=== PATIENT | male | born 1965 | race Caucasian/White ===

== ENCOUNTER 2016-06-24 07:48 | Day surgery (SDC) | payer MEDICARE, OTHER ==
[2016-06-22 09:21] VITALS: BMI 22.6
[~2016-06-24 07:48] MED LIST: LACTATED RINGERS 1,000 ML IV SCH
[2016-06-24] MEDS ORDERED: LIDOCAINE 1% 20 ML VIAL (10MG/ML) FOR IV START INTRADERMA ONE (07:58)
[2016-06-24 08:11] VITALS: RESP 16
[2016-06-24] MEDS ORDERED: DEXTROSE 50%-WATER 50 ML SYRINGE IVP ONE (08:23)
[2016-06-24 08:36] LABS: Glucose,Whole Blood 61 mg/dL (75-99)
[2016-06-24 08:38] LABS: Glucose,Whole Blood 102 mg/dL (75-99)
[2016-06-24] MEDS ORDERED: MIDAZOLAM 2 MG/2 ML VIAL IV ONE (08:43)
[2016-06-24] MEDS ORDERED: LIDOCAINE 1% INJ 10MG/ML (20 ML MDV) ONE (09:44)
[2016-06-24] MEDS ORDERED: PROPOFOL 10 MG/ML 20 ML VIAL IV ONE (09:44)
--- NOTE | 2016-06-24 10:46 | P.PCN ---
Date of Procedure: 06/24/16 Procedure(s) Performed: Procedures: 1. Esophagogastroduodenoscopy and biopsy. 2. Total colonoscopy. Preoperative diagnosis: Chronic reflux and regurgitation and change in bowel habits. Postoperative diagnosis: 1. Very small sliding hiatal hernia with no obvious esophagitis or Complicated reflux disease. 2. Mild antral gastritis and minimal duodenitis with no ulcers or gastric outlet obstruction. 3. Colon exam essentially within normal limits. Preparation: HalfLytely prep. Sedation: Was provided by anesthesia. Brief clinical history: The patient is a 51-year-old male who I have evaluated in the office last month regarding altered bowel habits and reflux and regurgitation. The patient has history of autism and developmental disability and PICA. No alarm symptoms or anemia. This would be his first upper and lower endoscopy. Procedure: With the patient on his left lateral decubitus position and after informed consent and adequate sedation, I passed the Olympus-GIF 160 video upper endoscope through the cricopharyngeus down the esophagus. GE junction was around 40 cm from the incisors and there was a very small sliding hiatal hernia. The esophagus did not show any obvious erosions, ulcers, strictures or Quinteros's esophagus. The endoscope was then passed into the stomach which was insufflated with air and inspected in detail including the retroflex view in the cardia. There was some mottling and erythema in the antrum but no ulcers or erosions. Pyloric channel did not show any ulcers. Duodenal bulb, post bulbar area and descending duodenum showed minimal erythema. I obtained multiple biopsies from the duodenum, antrum and esophagus then the endoscope was withdrawn and I proceeded with the colonoscopy. Perianal area was inspected and it did not show any fissures or fistulas. There were no masses felt on digital rectal examination. The Olympus CFQ 160L video colonoscope was then inserted in the rectum in the usual fashion and advanced to the cecum. The preparation was poor, however, I spent significant amount of time cleansing the bowel. The mucosa appeared healthy. No polyps or tumors were seen or any obvious diverticular disease. I retroflexed endoscope in the rectum before the endoscope was withdrawn. The patient tolerated the procedure well. Plan: The patient and his family and caregivers were reassured. Will await pathology results. He will follow up with you as planned and further plans can be made based on his course and biopsy results.
[2016-06-24 10:59] VITALS: PULSE 71
[2016-06-24 11:03] VITALS: BP 123/68
== END 2016-06-24 11:16 | disposition home or self-care (01) ==
LOC: ORWHC2ENDO 07:48
DX: K29.50 Unspecified chronic gastritis without bleeding (principal); K21.0 Gastro-esophageal reflux disease with esophagitis; K44.9 Diaphragmatic hernia without obstruction or gangrene; K29.80 Duodenitis without bleeding; R19.4 Change in bowel habit; F84.0 Autistic disorder; F79 Unspecified intellectual disabilities; F50.89 Other specified eating disorder; I10 Essential (primary) hypertension; E78.5 Hyperlipidemia, unspecified; E11.9 Type 2 diabetes mellitus without complications; F32.9 Major depressive disorder, single episode, unspecified; Z79.84 Long term (current) use of oral hypoglycemic drugs; Z79.899 Other long term (current) drug therapy
CPT/HCPCS: 88305; 88342; 45378; 43239; J2250; J2001; J2704

== ENCOUNTER → 2016-07-16 | Outpatient (CLI) | payer MEDICARE, OTHER ==
[2016-07-16 10:35] LABS: Basophils # (A) 0.1 k/uL (0-0.2); Basophils % (A) 1 %; CH 32.2; CHCM 33.3; Eosinophils # (A) 0.1 k/uL (0-0.7); Eosinophils % (A) 2 %; HCT 39.6 % (39.0-53.0); HDW 2.67; HGB 12.9 gm/dL (13.0-17.5); Luc # (Auto) 0.18; Luc % (Auto) 3; Lymphocytes # (A) 2.5 k/uL (1.0-4.8); Lymphocytes % (A) 40 %; MCH 31.7 pg (25.0-35.0); MCHC 32.6 g/dL (31.0-37.0); MCV 97.1 fL (80.0-100.0); Mean Platelet Volume 7.2; Monocytes # (A) 0.7 k/uL (0-1.0); Monocytes % (A) 10 %; Neutrophils # (A) 2.8 k/uL (1.3-7.7); Neutrophils % (A) 44 %; RBC 4.08 m/uL (4.30-5.90); RDW 13.8 % (11.5-15.5); WBC 6.3 k/uL (3.8-10.6); WBC (Perox) 6.79
[2016-07-16 10:55] LABS: Bilirubin, Delta 0.2 mg/dL (0.0-0.2); Total Bilirubin 0.4 mg/dL (0.2-1.3); Total Protein 6.5 g/dL (6.3-8.2)
[2016-07-16 11:49] LABS: Hemoglobin A1C 5.2 % (4.2-6.1)
== END | disposition home or self-care (01) ==
LOC: LABWHC1 06:49
PROVIDERS: ATTEND Psychiatry & Neurology Psychiatry
DX: T50.905A Adverse effect of unspecified drugs, medicaments and biological substances, initial encounter (principal)
CPT/HCPCS: 36415; 80076; 80164; 83036; 84443; 85025

== ENCOUNTER 2016-08-21 16:44 | Emergency (ER) | payer MEDICARE, OTHER ==
[2016-08-21 16:59] VITALS: TEMP 97.5
--- NOTE | 2016-08-21 17:15 | ED ---
Head Injury HPI - General Chief complaint: Head Injury Stated complaint: Head Injury Time Seen by Provider: 08/21/16 17:05 Source: family, RN notes reviewed Mode of arrival: ambulatory Limitations: altered mental status - History of Present Illness Initial comments: 51-year-old male presents emergency Department chief complaint of head injury. Patient states he hit his head into a wall today. This is common for the patient he does suffer from mental illness and he is often damaging his head on the wall. They state that he did not pass out he has not lost consciousness. They didn't know some lacerations other concern. The patient is up to date tetanus. There is not been any other symptoms patient at this time. Patient denies any recent fever, chills, shortness of breath, chest pain, back pain, abdominal pain, nausea vomiting, numbness or tingling, dysuria or hematuria, constipation or diarrhea, visual changes, or any other current symptoms. Place: home - Related Data Home Medications Medication Instructions Recorded Confirmed Levothyroxine Sodium [Synthroid] 25 mcg PO DAILY@0800 07/13/14 06/24/16 Lovastatin [Mevacor] 20 mg PO DAILY@159907/13/14 06/24/16 Divalproex [Depakote] 1,500 mg PO DAILY@0800,199904/21/15 06/24/16 Atenolol 12.5 mg PO DAILY@0800,199904/22/15 06/24/16 risperiDONE [risperiDONE] 3 mg PO DAILY@0800,199910/16/15 06/24/16 sitaGLIPtin [Januvia] 100 mg PO DAILY@159910/16/15 06/24/16 Cholecalciferol [Vitamin D3] 1,000 unit PO DAILY@0800,199906/22/16 06/24/16 FLUoxetine HCL [PROzac] 40 mg PO DAILY@0800 06/22/16 06/24/16 Ferrous Sulfate [Feosol] 325 mg PO DAILY@159906/22/16 06/24/16 Vitamin B Complex 1 each PO DAILY@0800 06/22/16 06/24/16 glipiZIDE XL [Glucotrol Xl] 5 mg PO DAILY@0800 06/22/16 06/24/16 guanFACINE HCL [Tenex] 1 mg PO DAILY@0800,1200,1600 06/22/16 06/24/16 guanFACINE HCL [Tenex] 2 mg PO DAILY@199906/22/16 06/24/16 Allergies/Adverse reactions: Allergies Allergy/AdvReac Type Severity Reaction Status Date / Time No Known Allergies Allergy Verified 08/21/16 16:59 Review of Systems ROS Statement: Those systems with pertinent positive or pertinent negative responses have been documented in the HPI. ROS Other: All systems not noted in ROS Statement are negative. Past Medical History Past Medical History: Diabetes Mellitus, GERD/Reflux, Hyperlipidemia, Hypertension, Pneumonia, Thyroid Disorder Additional Past Medical History / Comment(s): ocd, autism, mental retardation, has pica(has been known to eat his own feces), hx irreg rythym, regurgitates and re-swallows, picks at skin and has healing sore right great toe. 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 History of Any Multi-Drug Resistant Organisms: None Reported Past Surgical History: No Surgical Hx Reported Additional Past Surgical History / Comment(s): . 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 Past Psychological History: Anxiety Additional Psychological History / Comment(s): OCD Smoking Status: Never smoker Past Alcohol Use History: None Reported Past Drug Use History: None Reported - Past Family History Father History Unknown: Yes Mother History Unknown: Yes General Exam Limitations: altered mental status General appearance: alert, in no apparent distress Head exam: Present: other (he does appear to have a 3 cm laceration over the top of the head that is linear. No hematoma) Eye exam: Present: normal appearance, PERRL, EOMI. Absent: scleral icterus, conjunctival injection, periorbital swelling ENT exam: Present: normal exam, mucous membranes moist Neck exam: Present: normal inspection. Absent: tenderness, meningismus, lymphadenopathy Respiratory exam: Present: normal lung sounds bilaterally. Absent: respiratory distress, wheezes, rales, rhonchi, stridor Cardiovascular Exam: Present: regular rate, normal rhythm, normal heart sounds. Absent: systolic murmur, diastolic murmur, rubs, gallop, clicks GI/Abdominal exam: Present: soft, normal bowel sounds. Absent: distended, tenderness, guarding, rebound, rigid Neurological exam: Present: alert, oriented X3, CN II-XII intact, normal gait, reflexes normal. Absent: motor sensory deficit Psychiatric exam: Present: normal affect, normal mood Skin exam: Present: warm, dry, intact, normal color. Absent: rash Course Vital Signs 08/21/16 16:56 Temperature 97.5 F L Pulse Rate 74 Respiratory 20 Rate Blood Pressure 121/82 O2 Sat by Pulse 98 Oximetry Medical Decision Making - Medical Decision Making 51-year-old male presents for head injury. We discussed nicolle or stitches and they state the patient is a paper and he will pull them out. This time we do agree to Steri-Strips. He is up-to-date on tetanus. CAT scan is reviewed and negative. At this time we discussed return parameters discussed follow-up discussed with source for home. They state Jayesh and the plan. They will be discharged home. - Radiology Data Radiology results: report reviewed, image reviewed Disposition Clinical Impression: Scalp laceration, Minor head injury without loss of consciousness Disposition: HOME SELF-CARE Condition: Stable Instructions: Head Injury (ED), Steristrips (ED) Additional Instructions: Please use medication as discussed. Please follow up with family doctor if symptoms have not improved over the next two days. Please return to the emergency room if your symptoms increase or worsen or for any other concerns. Referrals: Nasir Mahajan MD [Primary Care Provider] - 1-2 days Time of Disposition: 18:04
--- NOTE | 2016-08-21 18:02 | CT ---
EXAMINATION TYPE: CT brain cspine wo con DATE OF EXAM: 08/21/2016 5:39 PM COMPARISON: Head CT 04/21/2015 HISTORY: Trauma today with multiple superior abrasions CT DLP: 1452.7 mGycm Automated exposure control for dose reduction was used. TECHNIQUE: CT scan of the head and cervical spine are performed without contrast. FINDINGS: There is cerebral cortical atrophy. There is no mass effect nor midline shift. There is n o sign of intracranial hemorrhage. There is increased density in the scalp over the right frontal bon e of uncertain significance. This is similar to old exam. I see no fracture. The cervical vertebra have normal alignment. Disc spaces are fairly normal. Skull base is intact. The re is no evidence of a fracture. The facet joints are intact. IMPRESSION: Cerebral atrophy. No acute intracranial abnormality. No change. Mild spondylotic changes in the cervical spine. No fracture.
[2016-08-21 18:16] VITALS: BP 155/83; PULSE 55; RESP 18
== END 2016-08-21 18:25 | disposition home or self-care (01) ==
LOC: EC 16:44
DX: S01.01XA Laceration without foreign body of scalp, initial encounter (principal); E11.9 Type 2 diabetes mellitus without complications; E78.5 Hyperlipidemia, unspecified; K21.9 Gastro-esophageal reflux disease without esophagitis; I10 Essential (primary) hypertension; F41.9 Anxiety disorder, unspecified; E07.9 Disorder of thyroid, unspecified; Z87.01 Personal history of pneumonia (recurrent); Z79.899 Other long term (current) drug therapy; W22.01XA Walked into wall, initial encounter
CPT/HCPCS: 70450; 72125; 99283

== ENCOUNTER → 2016-11-03 | Outpatient (CLI) | payer MEDICARE, OTHER ==
[2016-11-03 07:35] LABS: Basophils # (A) 0.1 k/uL (0-0.2); Basophils % (A) 1 %; CH 32.9; CHCM 33.2; Eosinophils # (A) 0.1 k/uL (0-0.7); Eosinophils % (A) 1 %; HCT 40.5 % (39.0-53.0); HDW 2.74; HGB 13.3 gm/dL (13.0-17.5); Luc # (Auto) 0.18; Luc % (Auto) 2; Lymphocytes # (A) 2.2 k/uL (1.0-4.8); Lymphocytes % (A) 29 %; MCH 32.6 pg (25.0-35.0); MCHC 32.7 g/dL (31.0-37.0); MCV 99.4 fL (80.0-100.0); Macrocytosis Slight; Mean Platelet Volume 7.6; Monocytes # (A) 0.8 k/uL (0-1.0); Monocytes % (A) 10 %; Neutrophils # (A) 4.3 k/uL (1.3-7.7); Neutrophils % (A) 57 %; RBC 4.07 m/uL (4.30-5.90); RDW 14.5 % (11.5-15.5); WBC 7.5 k/uL (3.8-10.6); WBC (Perox) 7.05
[2016-11-03 09:06] LABS: Hemoglobin A1C 5.2 % (4.2-6.1)
[2016-11-03 11:11] LABS: Bilirubin, Delta 0.2 mg/dL (0.0-0.2); Total Bilirubin 0.3 mg/dL (0.2-1.3); Total Protein 6.8 g/dL (6.3-8.2)
== END | disposition home or self-care (01) ==
LOC: LABWHC1 06:55
PROVIDERS: ATTEND Psychiatry & Neurology Psychiatry
DX: E13.9 Other specified diabetes mellitus without complications (principal); T50.905A Adverse effect of unspecified drugs, medicaments and biological substances, initial encounter; Z79.02 Long term (current) use of antithrombotics/antiplatelets
CPT/HCPCS: 36415; 80076; 80164; 83036; 84443; 85025

== ENCOUNTER → 2017-05-23 | Outpatient (CLI) | payer MEDICARE, OTHER ==
[2017-05-23 07:46] LABS: HGB 12.4 gm/dL (13.0-17.5); MCH 31.6 pg (25.0-35.0); MCHC 32.6 g/dL (31.0-37.0); MCV 96.8 fL (80.0-100.0); Mean Platelet Volume 7.1; Platelet Count 194 k/uL (150-450); RBC 3.92 m/uL (4.30-5.90); RDW 13.3 % (11.5-15.5); WBC 6.5 k/uL (3.8-10.6)
[2017-05-23 08:25] LABS: T4, Free (Free Thyroxine) 1.11 ng/dL (0.78-2.19)
[2017-05-23 17:17] LABS: Iron Saturation 34.3 (15.00-50.00)
== END | disposition home or self-care (01) ==
LOC: LABWHC1 07:05
PROVIDERS: ATTEND Family Medicine
DX: E78.00 Pure hypercholesterolemia, unspecified (principal); E63.9 Nutritional deficiency, unspecified; E55.9 Vitamin D deficiency, unspecified; E03.9 Hypothyroidism, unspecified; E11.9 Type 2 diabetes mellitus without complications; D63.8 Anemia in other chronic diseases classified elsewhere
CPT/HCPCS: 36415; 80061; 82306; 82550; 82728; 83540; 83550; 84439; 84443; 85027

== ENCOUNTER → 2017-10-05 | Outpatient (CLI) | payer MEDICARE, OTHER ==
[2017-10-05 08:08] LABS: Basophils % (A) 0 %; Eosinophils # (A) 0.1 k/uL (0-0.7); Eosinophils % (A) 1 %; HCT 37.2 % (39.0-53.0); HGB 12.6 gm/dL (13.0-17.5); Lymphocytes # (A) 1.4 k/uL (1.0-4.8); Lymphocytes % (A) 25 %; MCH 32.2 pg (25.0-35.0); MCV 94.7 fL (80.0-100.0); Mean Platelet Volume 7.2; Monocytes # (A) 0.7 k/uL (0-1.0); Monocytes % (A) 12 %; Neutrophils # (A) 3.3 k/uL (1.3-7.7); Neutrophils % (A) 60 %; Platelet Count 162 k/uL (150-450); RBC 3.92 m/uL (4.30-5.90); RDW 13.3 % (11.5-15.5); Reticulocyte % 3.5 % (0.5-2.0); WBC 5.6 k/uL (3.8-10.6)
[2017-10-05 09:52] LABS: ALT 21 U/L (21-72); AST 18 U/L (17-59); Albumin 3.4 g/dL (3.5-5.0); Alkaline Phosphatase 62 U/L (38-126); Anion Gap 6 mmol/L; Bilirubin, Delta 0.3 mg/dL (0.0-0.2); Bilirubin,Unconjugated 0.1 mg/dL (0.0-1.1); Blood Urea Nitrogen 22 mg/dL (9-20); Carbon Dioxide 29 mmol/L (22-30); Chloride 99 mmol/L (98-107); Cholesterol 177 mg/dL (<200); Creatine Kinase 48 U/L (55-170); Glucose 130 mg/dL (74-99); HDL Cholesterol 46 mg/dL (40-60); Potassium 4.6 mmol/L (3.5-5.1); Sodium 134 mmol/L (137-145); Total Bilirubin 0.4 mg/dL (0.2-1.3); Total Protein 6.4 g/dL (6.3-8.2); Triglycerides 416 mg/dL (<150)
[2017-10-05 09:58] LABS: Valproic Acid (Depakene) 81.2 ug/mL
[2017-10-05 10:11] LABS: T4, Free (Free Thyroxine) 0.92 ng/dL (0.78-2.19)
[2017-10-05 16:26] LABS: Iron Saturation 37.46 (15.00-50.00)
== END | disposition home or self-care (01) ==
LOC: LABWHC1 07:29
PROVIDERS: ATTEND Nurse Practitioner Psychiatric/Mental Health
DX: F84.0 Autistic disorder (principal); D64.9 Anemia, unspecified; E78.00 Pure hypercholesterolemia, unspecified; E03.9 Hypothyroidism, unspecified
CPT/HCPCS: 36415; 80053; 80061; 80164; 82248; 82550; 82607; 82728; 82747; 83540; 83550; 84439; 84443; 85025; 85045

== ENCOUNTER → 2017-10-26 | Outpatient (CLI) | payer MEDICARE, OTHER ==
--- NOTE | 2017-10-26 12:09 | FL ---
EXAMINATION TYPE: FL barium swallow w video DATE OF EXAM: 10/26/2017 MODIFIED SWALLOW / DEGLUTITION STUDY CLINICAL HISTORY: Dysphagia. TECHNIQUE: Deglutition study is performed utilizing thin liquid barium, honey and nectar thick liqui d barium, barium thick applesauce, and barium coated cracker. A total of 3 minutes 2 seconds of fluor oscopic time was utilized during procedure. Approximately 12 cine sequences were recorded. 0 images a re saved to PACS. COMPARISON: None. FINDINGS: Exam slightly suboptimal due to patient's underlying medical condition. The oral and pharyn geal phases show satisfactory initiation and propagation with all modalities tested. Satisfactory mas tication is seen with solid modalities tested. There is aspiration with rapid drinking of thin liqui d barium. No aspiration with other modalities. No significant pharyngeal residue was appreciated. IMPRESSION: Aspiration with rapid drinking of thin liquid barium. Please refer to speech therapist notes for further details if necessary.
== END | disposition home or self-care (01) ==
LOC: RADFLMAIN 10:51
PROVIDERS: ATTEND Family Medicine
DX: T17.910A Gastric contents in respiratory tract, part unspecified causing asphyxiation, initial encounter (principal)
CPT/HCPCS: 74230

== ENCOUNTER → 2017-12-09 | Outpatient (CLI) | payer MEDICARE, OTHER ==
[2017-12-09 07:47] LABS: Basophils % (A) 1 %; Eosinophils # (A) 0.1 k/uL (0-0.7); Eosinophils % (A) 2 %; HCT 39.3 % (39.0-53.0); HGB 12.5 gm/dL (13.0-17.5); Lymphocytes % (A) 31 %; MCHC 31.7 g/dL (31.0-37.0); MCV 97.5 fL (80.0-100.0); Mean Platelet Volume 6.7; Monocytes # (A) 0.8 k/uL (0-1.0); Monocytes % (A) 12 %; Neutrophils # (A) 3.4 k/uL (1.3-7.7); Neutrophils % (A) 52 %; Platelet Count 171 k/uL (150-450); RBC 4.03 m/uL (4.30-5.90); WBC 6.6 k/uL (3.8-10.6)
[2017-12-09 08:39] LABS: ALT 16 U/L (21-72); AST 20 U/L (17-59); Anion Gap 8 mmol/L; Blood Urea Nitrogen 23 mg/dL (9-20); Carbon Dioxide 30 mmol/L (22-30); Chloride 101 mmol/L (98-107); Potassium 4.6 mmol/L (3.5-5.1); Sodium 139 mmol/L (137-145)
[2017-12-09 09:07] LABS: Valproic Acid (Depakene) 69.5 ug/mL
--- NOTE | 2017-12-09 11:23 | MR ---
EXAMINATION TYPE: MR brain wo/w con DATE OF EXAM: 12/09/2017 COMPARISON: Prior brain MR 04/22/2015, CT brain 08/21/[address] 07/13/2014 HISTORY: brain Tumor and previous abnormal brain MRI TECHNIQUE: Multiplanar, multisequence images of the brain and brainstem is performed without and with IV contras t, utilizing 6.5 mL intravenous Gadavist . FINDINGS: Diffusion weighted images demonstrate no evidence of a recent infarct or other diffusion ab normality. There is no extra-axial fluid collection or significant interval change in white matter s ignal abnormality. The ventricular system and cisternal spaces are stable in size and appearance, ve ntriculomegaly again noted. The brain volume is stable. Midline structures demonstrate normal morphology. The craniocervical junction appears within normal limits. Post contrast images demonstrate no abnormal enhancement. The dural venous sinuses appear pa tent. The visualized sinuses are remarkable for mucosal thickening within the maxillary sinus and eth moid air cells, frontal sinus, inflammatory change present within the mastoid air cells on the right is mild, and the globes are intact. IMPRESSION: Stable findings. Mild hydrocephalus and nonspecific white matter demyelination, cortical atrophy. Sinus disease and inflammatory change mastoid air cells on the right.
== END | disposition home or self-care (01) ==
LOC: RADMRIMAIN 06:50
PROVIDERS: ATTEND Psychiatry & Neurology Neurology
DX: D49.6 Neoplasm of unspecified behavior of brain (principal); G91.9 Hydrocephalus, unspecified; G31.9 Degenerative disease of nervous system, unspecified; G37.8 Other specified demyelinating diseases of central nervous system; G93.41 Metabolic encephalopathy
CPT/HCPCS: 80164; 80051; 82565; 84450; 84460; 84520; 85025; 70553; 36415; A9581

== ENCOUNTER → 2018-05-29 | Outpatient (CLI) | payer MEDICARE, OTHER ==
[2018-05-29 17:00] LABS: Valproic Acid (Depakene) 103.9 ug/mL (50.0-100.0)
[2018-05-29 17:14] LABS: ALT 15 U/L (10-49); AST 22 U/L (14-35); Albumin/Globulin Ratio 1.44 (1.60-3.17); Alkaline Phosphatase 84 U/L (41-126); Bilirubin, Conjugated <0.20 mg/dL (0.20-0.40); Cholesterol 203 mg/dL (0-200); Globulin 2.7 g/dL (1.6-3.3); Glucose 147 mg/dL (70-110); LDL Cholesterol,Calculated 81.2 mg/dL (0.0-131.0); Total Bilirubin 0.4 mg/dL (0.2-1.2); Total Protein 6.6 g/dL (6.2-8.2)
[2018-05-29 18:34] LABS: Hemoglobin A1C 6.8 % (4.0-6.0)
== END | disposition home or self-care (01) ==
LOC: LABWHC1 07:54
PROVIDERS: ATTEND Nurse Practitioner Family
DX: Z51.81 Encounter for therapeutic drug level monitoring (principal); Z79.899 Other long term (current) drug therapy
CPT/HCPCS: 36415; 80061; 80076; 80164; 82565; 82947; 83036; 84439; 84443; 84520

== ENCOUNTER 2018-06-14 20:11 | Observation (INO) | payer MEDICARE, OTHER ==
[2018-06-14] MEDS ORDERED: IPRATROPIUM-ALBUTEROL 3 ML NEB INHALATION STA (20:47)
[2018-06-14] MEDS ORDERED: methylPREDNISolone SOD SUCCI 125 MG/2 ML VIAL IV STA (20:48)
[2018-06-14 20:58] LABS: Basophils % (A) 0 %; Eosinophils % (A) 0 %; HCT 38.4 % (39.0-53.0); HGB 12.4 gm/dL (13.0-17.5); Lymphocytes # (A) 1.1 k/uL (1.0-4.8); Lymphocytes % (A) 12 %; MCH 31.1 pg (25.0-35.0); MCHC 32.2 g/dL (31.0-37.0); MCV 96.6 fL (80.0-100.0); Mean Platelet Volume 7.2; Monocytes # (A) 0.8 k/uL (0-1.0); Monocytes % (A) 9 %; Neutrophils # (A) 6.9 k/uL (1.3-7.7); Neutrophils % (A) 77 %; Platelet Count 213 k/uL (150-450); RBC 3.98 m/uL (4.30-5.90); RDW 13.3 % (11.5-15.5)
[2018-06-14 21:06] LABS: ALT 18 U/L (21-72); AST 20 U/L (17-59); Albumin 3.5 g/dL (3.5-5.0); Alkaline Phosphatase 88 U/L (38-126); Anion Gap 12 mmol/L; Blood Urea Nitrogen 33 mg/dL (9-20); Calcium 9.2 mg/dL (8.4-10.2); Carbon Dioxide 25 mmol/L (22-30); Chloride 106 mmol/L (98-107); Glucose 314 mg/dL (74-99); Potassium 4.5 mmol/L (3.5-5.1); Sodium 143 mmol/L (137-145); Total Bilirubin 0.4 mg/dL (0.2-1.3); Total Protein 6.4 g/dL (6.3-8.2)
--- NOTE | 2018-06-14 21:20 | XR ---
EXAMINATION TYPE: XR chest 1V portable DATE OF EXAM: 06/14/2018 COMPARISON: 10/16/2015 HISTORY: Cough TECHNIQUE: Single frontal view of the chest is obtained. FINDINGS: There is poor inspiration. There is pleural thickening at the lung bases and blunting of c ostophrenic angles. There is basilar atelectasis. There is mild pulmonary congestion. IMPRESSION: There is basilar pulmonary atelectasis and pleural reaction not significantly different than old exam. There is probably some pulmonary fibrosis. Mild heart failure is possible.
[2018-06-14 21:21] LABS: INR 0.9 (<1.2); Prothrombin Time 9.8 sec (9.0-12.0)
--- NOTE | 2018-06-14 21:58 | CT ---
EXAMINATION TYPE: CT brain kevin wo con DATE OF EXAM: 06/14/2018 COMPARISON: 08/21/2016 HISTORY: Altered mental status. CT DLP: 1263.1 mGycm Automated exposure control for dose reduction was used. TECHNIQUE: CT scan of the head and cervical spine are performed without contrast. FINDINGS: There is cerebral cortical atrophy. There is no mass effect nor midline shift. There is n o sign of intracranial hemorrhage. Calvarium is intact. There is enlargement of the ventricles. Cervical vertebra have normal alignment. There is mild spurring of the endplates. Posterior elements are intact. Skull base is intact. IMPRESSION: Hydrocephalus and mild cerebral atrophy. No acute intracranial abnormality. No change. Spondylotic changes in the cervical spine. No fracture. No change compared to old exam.
[2018-06-14] MEDS ORDERED: SODIUM CHLORIDE 0.9% 500 ML 500 ML IV ONE (22:07)
[2018-06-14] MEDS ORDERED: CLINDAMYCIN 900 MG in DEXTROSE 5% IN WATER 50 ML IVPB STA ×2 (22:12)
[2018-06-14] MEDS ORDERED: PIPERACILLIN-TAZOBACTAM 3.375 GM in SODIUM CHLORIDE 0.9% 100 ML IVPB STA (22:12)
--- NOTE | 2018-06-14 22:12 | ED ---
General Adult HPI - General Source: EMS Mode of arrival: EMS Limitations: no limitations <Teresita Rios - Last Filed: 06/14/18 22:45> <Luz Law - Last Filed: 06/15/18 03:54> - General Chief complaint: Shortness of Breath Stated complaint: SOB Time Seen by Provider: 06/14/18 20:29 - History of Present Illness Initial comments: 53-year-old male past medical history of aspiration pneumonia, developmental delays, hydrocephalus, seizure disorder, hypertension, diabetes presenting today for cough and shortness of breath. 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 She states patient has been vomiting since yesterday morning. Denies any hematemesis. Today patient appeared weak upon ambulation. She states patient has had cough and appeared unwell. EMS was contacted and patient was transferred to the emergency department. Upon arrival patient can't be elevated. Patient has had multiple uncontrolled coughing fits. Patient is not hypoxic, protecting airway. Patient afebrile at this time. Patient received 500 mL fluid prior to arrival by EMS. Patient is unable to give history due to cognitive delays. All history is obtained from EMS and caretakers. Patient is alert, responding to commands, smiling. No obvious focal deficits. (Teresita Rios) - Related Data Home Medications Medication Instructions Recorded Confirmed Levothyroxine Sodium [Synthroid] 25 mcg PO DAILY 07/13/14 06/14/18 Lovastatin [Mevacor] 20 mg PO DAILY 07/13/14 06/14/18 Divalproex [Depakote] 1,500 mg PO BID 04/21/15 06/14/18 risperiDONE 3 mg PO BID 10/16/15 06/14/18 sitaGLIPtin [Januvia] 100 mg PO DAILY 10/16/15 06/14/18 Cholecalciferol [Vitamin D3] 1,000 unit PO BID 06/22/16 06/14/18 FLUoxetine HCL [PROzac] 40 mg PO DAILY 06/22/16 06/14/18 Ferrous Sulfate [Feosol] 325 mg PO DAILY 06/22/16 06/14/18 Vitamin B Complex 1 cap PO DAILY 06/22/16 06/14/18 guanFACINE HCL [Tenex] 2 mg PO DAILY 06/22/16 06/14/18 Naltrexone HCl [Revia] 50 mg PO DAILY 06/14/18 06/14/18 Propranolol [Inderal] 20 mg PO BID 06/14/18 06/14/18 Ranitidine HCl [Zantac] 150 mg PO BID 06/14/18 06/14/18 Allergies Allergy/AdvReac Type Severity Reaction Status Date / Time No Known Allergies Allergy Verified 06/14/18 21:09 Review of Systems ROS Other: All systems not noted in ROS Statement are negative. <Teresita Rios - Last Filed: 06/14/18 22:45> ROS Other: All systems not noted in ROS Statement are negative. <Luz Law - Last Filed: 06/15/18 03:54> ROS Statement: Those systems with pertinent positive or pertinent negative responses have been documented in the HPI. Past Medical History Past Medical History: Diabetes Mellitus, GERD/Reflux, Hyperlipidemia, Hypert ension, Pneumonia, Thyroid Disorder Additional Past Medical History / Comment(s): ocd, autism, mental retardation, has pica(has been known to eat his own feces), hx irreg rythym, regurgitates and re-swallows, picks at skin and has healing sore right great toe. 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 History of Any Multi-Drug Resistant Organisms: None Reported Past Surgical History: No Surgical Hx Reported Additional Past Surgical History / Comment(s): . 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 Past Psychological History: Anxiety Smoking Status: Never smoker Past Alcohol Use History: None Reported Past Drug Use History: None Reported - Past Family History Father History Unknown: Yes Mother History Unknown: Yes <Teresita Rios L - Last Filed: 06/14/18 22:45> General Exam Limitations: no limitations <Teresita Rios - Last Filed: 06/14/18 22:45> - General Exam Comments Initial Comments: General: The patient is awake and alert, tracking with eye Eye: +3 mm pupils are equal, round and reactive to light, extra-ocular movements are intact. No nystagmus. There is normal conjunctiva bilaterally. No signs of icterus. Ears, nose, mouth and throat: There are moist mucous membranes and no oral lesions. Neck: The neck is supple, there is no tenderness or JVD. Cardiovascular: There is a regular rate and rhythm. No murmur, rub or gallop is appreciated. Respiratory: Respirations are mildly-labored, breath sounds are equal. No wheezes, stridor, rhonchi. Rales present, crackles at right base. Cough with vomit coming from mouth. Gastrointestinal: Soft, non-distended, non-tender abdomen without masses or organomegaly noted. There is no rebound or guarding present. Bowel sounds are unremarkable. Musculoskeletal: Normal ROM, no tenderness. Strength 5/5. Sensation intact. Radial pulses equal bilaterally 2+. Neurological: A&O x 3. CN II-XII intact, There are no obvious motor or sensory deficits. Coordination appears grossly intact. Speech is normal. Skin: Skin is warm and dry and no rashes or lesions are noted. Lower extremity edema Psychiatric: Cooperative, obvious developmental delays (Teresita Rios) Course Vital Signs 06/14/18 06/14/18 06/14/18 20:17 20:57 21:06 Temperature 98 F Pulse Rate 115 H 112 H 112 H Respiratory 20 Rate Blood Pressure 160/94 O2 Sat by Pulse 95 Oximetry 06/14/18 23:52 Temperature 97.9 F Pulse Rate 88 Respiratory 18 Rate Blood Pressure 140/95 O2 Sat by Pulse 98 Oximetry EKG Findings - EKG Comments: EKG Findings:: A 12-lead EKG was performed and shows the following: Rate is 115bpm, and rhythm is normal sinus. There are normal QRS complexes and normal R-wave progression. ST segments have no elevation or depression, and AL segments appear normal. No ST elevation or depression. AL interval 132 ms, QR rastafarian 78 ms, QT/QTC 3:30/456 ms. Appears to be sinus tachycardia. <Teresita Rios - Last Filed: 06/14/18 22:45> Medical Decision Making - Lab Data Result diagrams: 06/14/18 20:25 06/14/18 20:25 <Teresita Rios - Last Filed: 06/14/18 22:45> - Lab Data Result diagrams: 06/14/18 20:25 06/14/18 20:25 <Luz Law - Last Filed: 06/15/18 03:54> - Medical Decision Making 53-year-old male presenting for cough, weakness. Patient has been vomiting for the past 24 hours, positive sick contacts with multiple people in his [place] [facility] with similar symptoms. Patient has history of aspiration pneumonia. Patient coughing extensively upon arrival with vomit in mouth. Chest x-ray revealed findings concerning for aspiration pneumonia. Patient started on Levaquin and clindamycin. Patient states her well on room air, guarding airway at this time. Patient has elevated lactic acid of 3.5, patient given 1.5 L bolus. Pt blood c ulture pending. 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 EMS was unaware. (-) for acute process. Tropinin (-). Pt does not appear to be in pain no grimacing. Benign abdominal exam. No LE edema. EKG revealed sinus tachycardia. At this time patient will be admitted for aspiration pneumonia, I feel given history of vomiting, with significant cough and history of previous aspiration with no evidence of fluid overload on exam, that this is mostly likely diagnosis. Dr. Ochoa accepted admission after discussing patient case. No further instruction, agreeable with regime. Dr. Law attending physician is agreeable with plan of care as well as admission. Abx were adjusted per pharmacy request. (Teresita Rios) I personally saw and examined the patient. I reviewed and agree with the mid- level provider findings including all diagnostic interpretations and treatment plans as written unless otherwise stated. (Luz Law) - Lab Data Lab Results 06/14/18 06/14/18 06/14/18 Range/Units 20:25 20:25 20:25 WBC 9.0 (3.8-10.6) k/uL RBC 3.98 L (4.30-5.90) m/uL Hgb 12.4 L (13.0-17.5) gm/dL Hct 38.4 L (39.0-53.0) % MCV 96.6 (80.0-100.0) fL MCH 31.1 (25.0-35.0) pg MCHC 32.2 (31.0-37.0) g/dL RDW 13.3 (11.5-15.5) % Plt Count 213 (150-450) k/uL Neutrophils % 77 % Lymphocytes % 12 % Monocytes % 9 % Eosinophils % 0 % Basophils % 0 % Neutrophils # 6.9 (1.3-7.7) k/uL Lymphocytes # 1.1 (1.0-4.8) k/uL Monocytes # 0.8 (0-1.0) k/uL Eosinophils # 0.0 (0-0.7) k/uL Basophils # 0.0 (0-0.2) k/uL PT 9.8 (9.0-12.0) sec INR 0.9 (<1.2) APTT 22.0 (22.0-30.0) sec Sodium 143 (137-145) mmol/L Potassium 4.5 (3.5-5.1) mmol/L Chloride 106 (98-107) mmol/L Carbon Dioxide 25 (22-30) mmol/L Anion Gap 12 mmol/L BUN 33 H (9-20) mg/dL Creatinine 0.66 (0.66-1.25) mg/dL Est GFR (CKD-EPI)AfAm >90 (>60 ml/min/1.73 sqM) Est GFR (CKD-EPI)NonAf >90 (>60 ml/min/1.73 sqM) Glucose 314 H (74-99) mg/dL Lactic Ac Sepsis Rflx Plasma Lactic Acid Daren (0.7-2.0) mmol/L Calcium 9.2 (8.4-10.2) mg/dL Total Bilirubin 0.4 (0.2-1.3) mg/dL AST 20 (17-59) U/L ALT 18 L (21-72) U/L Alkaline Phosphatase 88 (38-126) U/L Troponin I (0.000-0.034) ng/mL NT-Pro-B Natriuret Pep pg/mL Total Protein 6.4 (6.3-8.2) g/dL Albumin 3.5 (3.5-5.0) g/dL Influenza Type A RNA (Not Detectd) Influenza Type B (PCR) (Not Detectd) 06/14/18 06/14/18 06/14/18 Range/Units 20:25 20:25 21:12 WBC (3.8-10.6) k/uL RBC (4.30-5.90) m/uL Hgb (13.0-17.5) gm/dL Hct (39.0-53.0) % MCV (80.0-100.0) fL MCH (25.0-35.0) pg MCHC (31.0-37.0) g/dL RDW (11.5-15.5) % Plt Count (150-450) k/uL Neutrophils % % Lymphocytes % % Monocytes % % Eosinophils % % Basophils % % Neutrophils # (1.3-7.7) k/uL Lymphocytes # (1.0-4.8) k/uL Monocytes # (0-1.0) k/uL Eosinophils # (0-0.7) k/uL Basophils # (0-0.2) k/uL PT (9.0-12.0) sec INR (<1.2) APTT (22.0-30.0) sec Sodium (137-145) mmol/L Potassium (3.5-5.1) mmol/L Chloride (98-107) mmol/L Carbon Dioxide (22-30) mmol/L Anion Gap mmol/L BUN (9-20) mg/dL Creatinine (0.66-1.25) mg/dL Est GFR (CKD-EPI)AfAm (>60 ml/min/1.73 sqM) Est GFR (CKD-EPI)NonAf (>60 ml/min/1.73 sqM) Glucose (74-99) mg/dL Lactic Ac Sepsis Rflx Plasma Lactic Acid Daren (0.7-2.0) mmol/L Calcium (8.4-10.2) mg/dL Total Bilirubin (0.2-1.3) mg/dL AST (17-59) U/L ALT (21-72) U/L Alkaline Phosphatase (38-126) U/L Troponin I <0.012 (0.000-0.034) ng/mL NT-Pro-B Natriuret Pep 197 pg/mL Total Protein (6.3-8.2) g/dL Albumin (3.5-5.0) g/dL Influenza Type A RNA Not Detected (Not Detectd) Influenza Type B (PCR) Not Detected (Not Detectd) 06/14/18 06/14/18 Range/Units 21:29 21:56 WBC (3.8-10.6) k/uL RBC (4.30-5.90) m/uL Hgb (13.0-17.5) gm/dL Hct (39.0-53.0) % MCV (80.0-100.0) fL MCH (25.0-35.0) pg MCHC (31.0-37.0) g/dL RDW (11.5-15.5) % Plt Count (150-450) k/uL Neutrophils % % Lymphocytes % % Monocytes % % Eosinophils % % Basophils % % Neutrophils # (1.3-7.7) k/uL Lymphocytes # (1.0-4.8) k/uL Monocytes # (0-1.0) k/uL Eosinophils # (0-0.7) k/uL Basophils # (0-0.2) k/uL PT (9.0-12.0) sec INR (<1.2) APTT (22.0-30.0) sec Sodium (137-145) mmol/L Potassium (3.5-5.1) mmol/L Chloride (98-107) mmol/L Carbon Dioxide (22-30) mmol/L Anion Gap mmol/L BUN (9-20) mg/dL Creatinine (0.66-1.25) mg/dL Est GFR (CKD-EPI)AfAm (>60 ml/min/1.73 sqM) Est GFR (CKD-EPI)NonAf (>60 ml/min/1.73 sqM) Glucose (74-99) mg/dL Lactic Ac Sepsis Rflx Y Plasma Lactic Acid Daren 3.5 H* (0.7-2.0) mmol/L Calcium (8.4-10.2) mg/dL Total Bilirubin (0.2-1.3) mg/dL AST (17-59) U/L ALT (21-72) U/L Alkaline Phosphatase (38-126) U/L Troponin I (0.000-0.034) ng/mL NT-Pro-B Natriuret Pep pg/mL Total Protein (6.3-8.2) g/dL Albumin (3.5-5.0) g/dL Influenza Type A RNA (Not Detectd) Influenza Type B (PCR) (Not Detectd) Disposition Is patient prescribed a controlled substance at d/c from ED?: No Time of Disposition: 22:12 Decision to Admit Reason: Admit from EC Decision Date: 06/14/18 Decision Time: 22:12 <Teresita Rios - Last Filed: 06/14/18 22:45> <Luz Law - Last Filed: 06/15/18 03:54> Clinical Impression: Aspiration pneumonia, Lactic acidosis Disposition: ADMITTED IP TO THIS [facility] Condition: Serious
[2018-06-14] MEDS ORDERED: PNEUMONIA PROTOCOL UTILIZED 1 EACH MISC PO PRN (22:16)
[2018-06-14] MEDS ORDERED: LEVOFLOXACIN 750MG-D5W PMX 750 MG in DEXTROSE/WATER 1 150ML.BAG IVPB STA (22:21)
[2018-06-14] MEDS: SODIUM CHLORIDE 0.9% 1,000 ML IV SCH (22:47)
[2018-06-14] MEDS ORDERED: SODIUM CHLORIDE 0.9% 1,000 ML IV ONE (23:19)
[2018-06-14] MEDS ORDERED: NALOXONE 0.4 MG/ML 1 ML VIAL IV PRN (23:23)
[2018-06-14] MEDS ORDERED: ACETAMINOPHEN TAB 325 MG TAB PO PRN (23:23)
[2018-06-14] MEDS ORDERED: ONDANSETRON 4 MG/2 ML VIAL IVP PRN (23:23)
[2018-06-14] MEDS ORDERED: MORPHINE SULFATE 4 MG/ML SYRINGE IV PRN (23:23)
--- NOTE | 2018-06-14 23:40 | P.HPIM ---
History of Present Illness H&P Date: 06/14/18 Chief Complaint: changes in behavior , aspiration 53 year old male with developmental delays and mental challenges, HTN, DM, alf resident patient unable to provide any meaningful history due to mental challenges and developmental delays. history obtained by talking to behavioral health care coordinator at bedside. she reports 3 days history of productive cough no hemoptysis, no fever, but he had a temp of 94 yesterday. no SOB , no CP. She reports history of pneumonia 2-3 years ago. otherwise , he has been doing well with no recent hospitalization or taking any ABx. She reports that 4 other residents has been having Gastrointestinal symptoms. He developed diarrhea 2 days ago and has vomited yesterday and she is concerned that he might have aspirated. she denies any hematamesis or lower GI bleeding. she reports that he did not seem to be behaving as his normal self, he was less engaged and less talkative than normal with poor PO intake. in the ED he was found to be dehydrated with Xray suggestive of infilteration secondary to pneumonia or aspiration . his lactic acid was elevated. he had cultures withdrawn, given ABx, and IVF. and admitted for further care. Review of Systems unable to obtain due to patient history of developmental delays and mental challenge Past Medical History Past Medical History: Diabetes Mellitus, GERD/Reflux, Hyperlipidemia, Hypertension, Pneumonia, Thyroid Disorder Additional Past Medical History / Comment(s): ocd, autism, mental retardation, has pica(has been known to eat his own feces), hx irreg rythym, regurgitates and re-swallows, picks at skin and has healing sore right great toe. 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 History of Any Multi-Drug Resistant Organisms: None Reported Past Surgical History: No Surgical Hx Reported Additional Past Surgical History / Comment(s): . 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 Past Psychological History: Anxiety Smoking Status: Never smoker Past Alcohol Use History: None Reported Past Drug Use History: None Reported - Past Family History Father History Unknown: Yes Mother History Unknown: Yes Medications and Allergies Home Medications Medication Instructions Recorded Confirmed Type Levothyroxine Sodium [Synthroid] 25 mcg PO DAILY 07/13/14 06/14/18 History Lovastatin [Mevacor] 20 mg PO DAILY 07/13/14 06/14/18 History Divalproex [Depakote] 1,500 mg PO BID 04/21/15 06/14/18 History risperiDONE 3 mg PO BID 10/16/15 06/14/18 History sitaGLIPtin [Januvia] 100 mg PO DAILY 10/16/15 06/14/18 History Cholecalciferol [Vitamin D3] 1,000 unit PO BID 06/22/16 06/14/18 History FLUoxetine HCL [PROzac] 40 mg PO DAILY 06/22/16 06/14/18 History Ferrous Sulfate [Feosol] 325 mg PO DAILY 06/22/16 06/14/18 History Vitamin B Complex 1 cap PO DAILY 06/22/16 06/14/18 History guanFACINE HCL [Tenex] 2 mg PO DAILY 06/22/16 06/14/18 History Naltrexone HCl [Revia] 50 mg PO DAILY 06/14/18 06/14/18 History Propranolol [Inderal] 20 mg PO BID 06/14/18 06/14/18 History Ranitidine HCl [Zantac] 150 mg PO BID 06/14/18 06/14/18 History Allergies Allergy/AdvReac Type Severity Reaction Status Date / Time No Known Allergies Allergy Verified 06/14/18 21:09 Physical Exam Vitals: Vital Signs Temp Pulse Resp BP Pulse Ox 06/14/18 21:06 112 H 06/14/18 20:57 112 H 06/14/18 20:17 98 F 115 H 20 160/94 95 Intake and Output 06/14/18 06/14/18 06/14/18 06:59 14:59 22:59 Other: Weight 72.575 kg Constitutional: No acute distress, restless, talkative only to behavioral health care coordinator, only follows behavioral health care coordinator commands Eyes: Anicteric sclerae, moist conjunctiva Pupils equal round reactive to light ENMT: NC/AT Oropharynx clear, no erythema, exudates Neck: Supple, FROM, no masses, or JVD No carotid bruits No thyromegaly Lungs: poor effort from the patient , and poor cooperation , no proper exam was possible to listen to his lungs. Clear to percussion Normal respiratory effort, no accessory muscle use Cardiovascular: Heart tachycardia No murmurs, gallops, or rubs No peripheral edema Abdominal: Soft Nontender, no guarding, rebound or rigidity Abdomen moving with respiration Normoactive bowel sounds No hepatomegaly, No splenomegaly Skin: Normal temperature, tone, texture, turgor No induration No subcutaneous nodules No rash, lesions No ulcers Extremities: No digital cyanosis No clubbing Pedal pulses intact and symmetrical Radial pulses intact and symmetrical No calf tenderness Psychiatric: Alert , could not assess orientation due to developmental delay , but per his behavioral health care coordinator, he seems to be back to his normal self Neuro could not perform neuro exam due to inconsistent patient cooperation and poor understanding due to mental challenges Lymphatics: no palpable cervical or supraclavicular , or inguinal lymph nodes Results CBC & Chem 7: 06/14/18 20:25 06/14/18 20:25 Labs: Abnormal Lab Results - Last 24 Hours (Table) 06/14/18 06/14/18 06/14/18 Range/Units 20:25 20:25 21:29 RBC 3.98 L (4.30-5.90) m/uL Hgb 12.4 L (13.0-17.5) gm/dL Hct 38.4 L (39.0-53.0) % BUN 33 H (9-20) mg/dL Glucose 314 H (74-99) mg/dL Plasma Lactic Acid Daren 3.5 H* (0.7-2.0) mmol/L ALT 18 L (21-72) U/L Assessment and Plan Assessment: 53 year old male with developmental delays and mental challenges, HTN, DM, alf resident admitted as inpatient with anticipated length of stay >48 hours for community acquired pneumonia vs aspiration pneumonia Plan: pneumonia CAP vs Aspiration follow up cultures ABx on unasyn and levaquin tylenol for fevers NPO aspiration precautions swallow evaluation fall precautions IVF hydration follow up LA follow up labs developmental delays, mental challenges Hypertension , continue home meds diabetes mellitus , on insulin sliding scale while inpatient DVT pPX on heparin sc tid CODE STATUS:full code Discussed with: Patient, ER Anticipated discharge: 48-[address]: prison A total of 60 minutes was spent on the care of this complex patient more than 50% of the time was spent in counseling and care coordination.
[2018-06-15] MEDS ORDERED: LEVOTHYROXINE 25 MCG TAB PO SCH (06:30)
[2018-06-15 06:46] LABS: Glucose,Whole Blood 423 mg/dL (75-99)
[2018-06-15 08:21] LABS: Basophils % (A) 0 %; Eosinophils % (A) 1 %; HCT 33.7 % (39.0-53.0); HGB 10.8 gm/dL (13.0-17.5); Lymphocytes # (A) 0.9 k/uL (1.0-4.8); Lymphocytes % (A) 13 %; MCH 31.6 pg (25.0-35.0); MCHC 32.2 g/dL (31.0-37.0); Mean Platelet Volume 7.5; Monocytes # (A) 0.3 k/uL (0-1.0); Monocytes % (A) 4 %; Neutrophils # (A) 5.8 k/uL (1.3-7.7); Neutrophils % (A) 82 %; Platelet Count 202 k/uL (150-450); RBC 3.44 m/uL (4.30-5.90); WBC 7.1 k/uL (3.8-10.6)
[2018-06-15 08:32] LABS: ALT 23 U/L (21-72); AST 19 U/L (17-59); Albumin 3.2 g/dL (3.5-5.0); Alkaline Phosphatase 79 U/L (38-126); Anion Gap 8 mmol/L; Blood Urea Nitrogen 24 mg/dL (9-20); Carbon Dioxide 28 mmol/L (22-30); Chloride 106 mmol/L (98-107); Glucose 252 mg/dL (74-99); Potassium 4.4 mmol/L (3.5-5.1); Sodium 142 mmol/L (137-145); Total Bilirubin 0.4 mg/dL (0.2-1.3)
[2018-06-15] MEDS ORDERED: FLUoxetine HCL 20 MG CAP PO SCH (09:00)
[2018-06-15] MEDS ORDERED: FAMOTIDINE 20 MG TAB PO SCH (09:00)
[2018-06-15] MEDS ORDERED: PROPRANOLOL 20 MG TAB PO SCH (09:00)
[2018-06-15] MEDS ORDERED: DIVALPROEX 500 MG TABLET.DR PO SCH (09:00)
[2018-06-15] MEDS ORDERED: risperiDONE 1 MG TAB PO SCH (09:00)
[2018-06-15] MEDS ORDERED: ATORVASTATIN 10 MG TAB PO SCH (09:00)
[2018-06-15 09:14] LABS: Glucose,Whole Blood 335 mg/dL (75-99)
--- NOTE | 2018-06-15 09:24 | XR ---
EXAMINATION TYPE: XR chest 1V portable DATE OF EXAM: 06/15/2018 COMPARISON: 06/14/2018 HISTORY: Difficulty breathing TECHNIQUE: Single frontal view of the chest is obtained. FINDINGS: Bilateral infiltrate and small effusion. Heart size normal. Evaluation lung apices limited due to patient positioning. No obvious pneumothorax. Osseous structures are stable. Previous surgery right upper quadrant. IMPRESSION: Basilar atelectasis or infiltrate with tiny effusion. Correlate clinically.
[2018-06-15] MEDS: AMPICILLIN-SULBACTAM 1.5 GM in SODIUM CHLORIDE 0.9% 50 ML IVPB SCH ×2 (09:58→17:53)
[2018-06-15] MEDS: HEPARIN SODIUM,PORCINE 5,000 UNIT/ML 1 ML VIAL SQ SCH ×2 (10:00→17:53)
[2018-06-15] MEDS: INSULIN ASPART (NovoLOG) 100 UNIT/ML VIAL SQ SCH ×3 (10:07→17:54)
[2018-06-15] MEDS: SODIUM CHLORIDE 0.9% 1,000 ML IV SCH ×2 (10:09→17:47)
[2018-06-15 12:14] LABS: Glucose,Whole Blood 206 mg/dL (75-99)
--- NOTE | 2018-06-15 12:21 | P.CNPUL ---
History of Present Illness Consult date: 06/15/18 Reason for consult: cough Chief complaint: Cough, shaking, lethargy History of present illness: This is a 53-year-old gentleman with severe cognitive delay. He patient is unable to provide history and history is obtained from his caregiver as well as the electronic medical record. The patient lives in a [place] [facility]. He was found shaking and lethargic. The caregiver states that he was very sleepy. His blood sugar was checked and was 375. The patient's blood pressure systolic ranged from 165-175. Given the hypertension EMS was called. Per the caregiver there was no episode of choking, coughing, fever. He states he did note that the patient looked unwell prior to this. Per the ER record though the patient apparently had multiple uncontrolled coughing fits. The patient is currently sitting up in bed eating crackers. He did have evaluation by speech therapy and he is on a modified diet. The patient has been afebrile. He is currently on room air. His chest x-rays reviewed which shows bibasilar atelectasis with tiny effusion. Review of Systems All systems: negative Past Medical History Past Medical History: Diabetes Mellitus, GERD/Reflux, Hyperlipidemia, Hypertension, Pneumonia, Thyroid Disorder Additional Past Medical History / Comment(s): ocd, autism, mental retardation, has pica(has been known to eat his own feces), hx irreg rythym, regurgitates and re-swallows, picks at skin and has healing sore right great toe. 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 History of Any Multi-Drug Resistant Organisms: None Reported Past Surgical History: No Surgical Hx Reported Additional Past Surgical History / Comment(s): . Past Anesthesia/Blood Transfusion Reactions: No Reported Reaction Additional Past Anesthesia/Blood Transfusion Reaction / Comment(s): [employer] STATES NO KNOWN SURGERY AND ANESTHESIA. Past Psychological History: Anxiety Additional Psychological History / Comment(s): OCD Smoking Status: Never smoker Past Alcohol Use History: None Reported Past Drug Use History: None Reported - Past Family History Father History Unknown: Yes Mother History Unknown: Yes Family Medical History: Diabetes Mellitus Medications and Allergies Home Medications Medication Instructions Recorded Confirmed Type Levothyroxine Sodium [Synthroid] 25 mcg PO DAILY 07/13/14 06/14/18 History Lovastatin [Mevacor] 20 mg PO DAILY 07/13/14 06/14/18 History Divalproex [Depakote] 1,500 mg PO BID 04/21/15 06/14/18 History risperiDONE 3 mg PO BID 10/16/15 06/14/18 History sitaGLIPtin [Januvia] 100 mg PO DAILY 10/16/15 06/14/18 History Cholecalciferol [Vitamin D3] 1,000 unit PO BID 06/22/16 06/14/18 History FLUoxetine HCL [PROzac] 40 mg PO DAILY 06/22/16 06/14/18 History Ferrous Sulfate [Feosol] 325 mg PO DAILY 06/22/16 06/14/18 History Vitamin B Complex 1 cap PO DAILY 06/22/16 06/14/18 History guanFACINE HCL [Tenex] 2 mg PO DAILY 06/22/16 06/14/18 History Naltrexone HCl [Revia] 50 mg PO DAILY 06/14/18 06/14/18 History Propranolol [Inderal] 20 mg PO BID 06/14/18 06/14/18 History Ranitidine HCl [Zantac] 150 mg PO BID 06/14/18 06/14/18 History Allergies Allergy/AdvReac Type Severity Reaction Status Date / Time No Known Allergies Allergy Verified 06/14/18 21:09 Physical Exam Osteopathic Statement: *. No significant issues noted on an osteopathic structural exam other than those noted in the History and Physical/Consult. Vitals: Vital Signs Temp Pulse Pulse Resp BP BP Pulse Ox 06/15/18 00:13 98.2 F 107 H 18 153/91 94 L 06/14/18 23:52 97.9 F 88 18 140/95 98 06/14/18 21:06 112 H 06/14/18 20:57 112 H 06/14/18 20:17 98 F 115 H 20 160/94 95 Intake and Output 06/14/18 06/15/18 06/15/18 22:59 06:59 14:59 Other: # Voids 4 4 Weight 72.575 kg Gen.: Patient is alert, no acute distress Cardiovascular: Regular rate and rhythm, S1/S2 Lungs: Clear to auscultation bilaterally no wheezes rales or rhonchi Abdomen: Soft nontender nondistended positive bowel sounds Extremities: No edema Results - Laboratory Findings CBC and BMP: 06/15/18 07:36 06/15/18 07:36 PT/INR, D-dimer PT 9.8 sec (9.0-12.0) 06/14/18 20:25 INR 0.9 (<1.2) 06/14/18 20:25 Abnormal lab findings: Abnormal Labs 06/14/18 06/14/18 06/14/18 20:25 20:25 21:29 RBC 3.98 L Hgb 12.4 L Hct 38.4 L Lymphocytes # BUN 33 H Creatinine Glucose 314 H POC Glucose (mg/dL) Plasma Lactic Acid Daren 3.5 H* ALT 18 L Total Protein Albumin 06/15/18 06/15/18 06/15/18 02:15 06:44 07:36 RBC 3.44 L Hgb 10.8 L Hct 33.7 L Lymphocytes # 0.9 L BUN Creatinine Glucose POC Glucose (mg/dL) 423 H Plasma Lactic Acid Daren 2.7 H* ALT Total Protein Albumin 06/15/18 06/15/18 06/15/18 07:36 07:36 09:01 RBC Hgb Hct Lymphocytes # BUN 24 H Creatinine 0.56 L Glucose 252 H POC Glucose (mg/dL) 335 H Plasma Lactic Acid Daern 2.5 H* ALT Total Protein 6.0 L Albumin 3.2 L 06/15/18 12:11 RBC Hgb Hct Lymphocytes # BUN Creatinine Glucose POC Glucose (mg/dL) 206 H Plasma Lactic Acid Daren ALT Total Protein Albumin - Diagnostic Findings Chest x-ray: report reviewed, image reviewed Assessment and Plan Assessment: Possible aspiration event, cough Bibasilar atelectasis Dysphasia Tiny right pleural effusion Anemia, normochromic, normocytic Slightly elevated lactic acid Hyperglycemia, diabetes mellitus type 2 Mild protein calorie malnutrition Cognitive delay Dyslipidemia Hypertension Thyroid disorder GERD No evident pneumonia on chest x-ray Encourage deep breathing and possible Out of bed as able Could change antibiotics to Augmentin Modified diet per speech Aspiration precautions Follow-up follow up on lactic acid Okay to DC from pulmonary standpoint, follow-up in 2-3 days, would obtain chest x-ray in 2-3 days as well Thank you for this consultation we'll continue to follow along
[2018-06-15 15:39] VITALS: BP 130/71; PULSE 94; TEMP 97.9
[2018-06-15 16:53] LABS: Glucose,Whole Blood 201 mg/dL (75-99)
[2018-06-15 17:31] VITALS: RESP 18
[2018-06-15 19:03] LABS: Glucose,Whole Blood 207 mg/dL (75-99)
[2018-06-15] MEDS ORDERED: LEVOFLOXACIN 750MG-D5W PMX 750 MG in DEXTROSE/WATER 1 150ML.BAG IVPB SCH (23:00)
[2018-06-15] MEDS ORDERED: LEVOFLOXACIN 750 MG TAB PO SCH (23:00)
--- NOTE | 2018-06-17 18:21 | P.DS ---
Providers Date of admission: 06/14/18 22:43 Expected date of discharge: 06/15/18 Attending physician: Sergio Ochoa MD Consults: 06/14/18 22:16 Consult Physician Routine Consulting Provider: Rhona Strickland Consult Reason/Comments: aspiration pneumonia Do you want consulting provider notified?: Yes, Notify in am Primary care physician: Nasir Ridley [facility] Course: Patient is a 53-year-old male with a PMH of developmental delay, hypertension, diabetes mellitus who presented from a long-term for altered mentation and cough. As per the caretakers at the bedside, the resident's to long-term all had a GI illness and had occasional vomiting, which the patient also contracted and had one or 2 episodes of vomiting after which they felt that he developed a cough and became more altered. He then was brought into the ED where he was admitted for an elevated lactic acidosis and a suspected aspiration pneumonia. The patient was evaluated by pulmonary who noted that there were no evidence of an acute aspiration pneumonia and the patient's mental status subsequently also improved. The patient was thereby discharged back to his long-term with oral antibiotics and follow-up chest x-rays. Physical Examination General: Non-toxic, in no acute distress, appears stated age, normal weight HEENT: NC/AT, anicteric sclerae, moist conjunctiva, no lid-lag, PERRLA Cardiovascular: S1/S2 wnl, no murmurs, rubs, or gallops Lungs: Clear to auscultation, normal respiratory effort, no accessory muscle use Abdominal: Soft, non-tender, non-distended, no guarding, rebound, or rigidity Skin: Warm, dry Extremities: No edema or contractures Psychiatric: Makes eye contact, follows basic commands, and all extremities, back to his baseline as per the family member caretaker at the bedside Discharge diagnosis: Aspiration; developmental delay; hypertension; diabetes mellitus A total of 35 minutes of time were spent preparing this complex discharge summary. Patient Condition at Discharge: Serious Plan - Discharge Summary Discharge Rx Participant: No New Discharge Prescriptions: New Amoxic-Pot Clav 875-125Mg [Augmentin 875-125] 1 tab PO BID 7 Days #14 tab Continue Levothyroxine Sodium [Synthroid] 25 mcg PO DAILY Lovastatin [Mevacor] 20 mg PO DAILY Divalproex [Depakote] 1,500 mg PO BID risperiDONE 3 mg PO BID sitaGLIPtin [Januvia] 100 mg PO DAILY FLUoxetine HCL [PROzac] 40 mg PO DAILY Ferrous Sulfate [Feosol] 325 mg PO DAILY Cholecalciferol [Vitamin D3] 1,000 unit PO BID guanFACINE HCL [Tenex] 2 mg PO DAILY Vitamin B Complex 1 cap PO DAILY Ranitidine HCl [Zantac] 150 mg PO BID Propranolol [Inderal] 20 mg PO BID Naltrexone HCl [Revia] 50 mg PO DAILY Discharge Medication List Levothyroxine Sodium [Synthroid] 25 mcg PO DAILY 07/13/14 [History] Lovastatin [Mevacor] 20 mg PO DAILY 07/13/14 [History] Divalproex [Depakote] 1,500 mg PO BID 04/21/15 [History] risperiDONE 3 mg PO BID 10/16/15 [History] sitaGLIPtin [Januvia] 100 mg PO DAILY 10/16/15 [History] Cholecalciferol [Vitamin D3] 1,000 unit PO BID 06/22/16 [History] FLUoxetine HCL [PROzac] 40 mg PO DAILY 06/22/16 [History] Ferrous Sulfate [Feosol] 325 mg PO DAILY 06/22/16 [History] Vitamin B Complex 1 cap PO DAILY 06/22/16 [History] guanFACINE HCL [Tenex] 2 mg PO DAILY 06/22/16 [History] Naltrexone HCl [Revia] 50 mg PO DAILY 06/14/18 [History] Propranolol [Inderal] 20 mg PO BID 06/14/18 [History] Ranitidine HCl [Zantac] 150 mg PO BID 06/14/18 [History] Amoxic-Pot Clav 875-125Mg [Augmentin 875-125] 1 tab PO BID 7 Days #14 tab 06/15/18 [Rx] Follow up Appointment(s)/Referral(s): Nasir Mahajan MD [Primary Care Provider] - 1-2 days Ambulatory/Diagnostic Orders: XR chest 2V [RAD.AMB] Time Frame: 2 Days, Location: None Selected Patient Instructions/Handouts: Aspiration Pneumonia (DC) Activity/Diet/Wound Care/Special Instructions: Please f/u with Pulmonary in 2-3 days. Obtain a CXR in 2 days, as ordered Aspiration precautions Modified diet: Pureed, Chopped, [employer] liquids. Sitting upright (90 degrees), no straw, liquids from cup, small bites and sips, direct supervision Discharge Disposition: HOME WITH HOME HEALTH SERVICES
== END 2018-06-15 19:27 | disposition home health service (06) ==
LOC: EC 20:11 → INTOOBSV 22:43 → 4SSUR 22:43
PROVIDERS: ADMIT Internal Medicine; ATTEND Internal Medicine
DX: T17.918A Gastric contents in respiratory tract, part unspecified causing other injury, initial encounter (principal); E87.2 Acidosis; J98.11 Atelectasis; E86.0 Dehydration; E11.65 Type 2 diabetes mellitus with hyperglycemia; E44.1 Mild protein-calorie malnutrition; Z68.25 Body mass index [BMI] 25.0-25.9, adult; I10 Essential (primary) hypertension; K21.9 Gastro-esophageal reflux disease without esophagitis; E78.5 Hyperlipidemia, unspecified; E07.9 Disorder of thyroid, unspecified; G40.909 Epilepsy, unspecified, not intractable, without status epilepticus; G91.9 Hydrocephalus, unspecified; F41.9 Anxiety disorder, unspecified; R00.0 Tachycardia, unspecified; F42.4 Excoriation (skin-picking) disorder; D64.9 Anemia, unspecified; J90 Pleural effusion, not elsewhere classified; F84.0 Autistic disorder; F50.89 Other specified eating disorder; F79 Unspecified intellectual disabilities; F42.9 Obsessive-compulsive disorder, unspecified; Z79.890 Hormone replacement therapy; Z79.84 Long term (current) use of oral hypoglycemic drugs; Z79.899 Other long term (current) drug therapy; Z87.01 Personal history of pneumonia (recurrent); Z83.3 Family history of diabetes mellitus
CPT/HCPCS: 96367; 96372; 96365; 96375; 99285; 36415; 94640; 94760; 93005; 92610; 83880; 80053 ×2; 83605 ×2; 84484; 85025 ×2; 85610; 85730; 87040; 87502; 71045 ×2; 72125; 70450; G0378 ×3; J1644; J2930; J1956; J0295

== ENCOUNTER 2018-07-05 16:25 | Emergency (ER) | payer MEDICARE, OTHER ==
[2018-07-05 16:49] VITALS: RESP 18
[2018-07-05] MEDS ORDERED: SODIUM CHLORIDE 0.9% 2,000 ML IV STA (17:02)
--- NOTE | 2018-07-05 17:11 | ED ---
General Adult HPI - General Chief complaint: Recheck/Abnormal Lab/Rx Stated complaint: High sugar Time Seen by Provider: 07/05/18 16:56 Source: patient, RN notes reviewed, Caregiver Mode of arrival: wheelchair Limitations: altered mental status, physical limitation - History of Present Illness Initial comments: 53-year-old male presents emergency Department from [facility] with caregiver chief complaint hyperglycemia. Patient does have a history of diabetes on oral medications, history of hyperlipidemia, hypertension, hypothyroidism, mental retardation. Patient will recheck blood sugar once in the morning bilirubin check and afternoon noted to have blood sugar of 500. Patient has a poor diet for caregiver. Patient is non-any insulin. Patient had no recent nausea vomiting diarrhea constipation no fever or chills no URI symptoms. - Related Data Home Medications Medication Instructions Recorded Confirmed Levothyroxine Sodium [Synthroid] 25 mcg PO DAILY 07/13/14 06/14/18 Lovastatin [Mevacor] 20 mg PO DAILY 07/13/14 06/14/18 Divalproex [Depakote] 1,500 mg PO BID 04/21/15 06/14/18 risperiDONE 3 mg PO BID 10/16/15 06/14/18 sitaGLIPtin [Januvia] 100 mg PO DAILY 10/16/15 06/14/18 Cholecalciferol [Vitamin D3] 1,000 unit PO BID 06/22/16 06/14/18 FLUoxetine HCL [PROzac] 40 mg PO DAILY 06/22/16 06/14/18 Ferrous Sulfate [Feosol] 325 mg PO DAILY 06/22/16 06/14/18 Vitamin B Complex 1 cap PO DAILY 06/22/16 06/14/18 guanFACINE HCL [Tenex] 2 mg PO DAILY 06/22/16 06/14/18 Naltrexone HCl [Revia] 50 mg PO DAILY 06/14/18 06/14/18 Propranolol [Inderal] 20 mg PO BID 06/14/18 06/14/18 Ranitidine HCl [Zantac] 150 mg PO BID 06/14/18 06/14/18 Previous Rx's Medication Instructions Recorded Amoxic-Pot Clav 875-125Mg 1 tab PO BID 7 Days #14 tab 06/15/18 [Augmentin 875-125] Allergies Allergy/AdvReac Type Severity Reaction Status Date / Time No Known Allergies Allergy Verified 07/05/18 16:49 Review of Systems ROS Statement: Those systems with pertinent positive or pertinent negative responses have been documented in the HPI. ROS Other: All systems not noted in ROS Statement are negative. Past Medical History Past Medical History: Diabetes Mellitus, GERD/Reflux, Hyperlipidemia, Hypertension, Pneumonia, Thyroid Disorder Additional Past Medical History / Comment(s): ocd, autism, mental retardation, has pica(has been known to eat his own feces), hx irreg rythym, regurgitates and re-swallows, picks at skin and has healing sore right great toe. 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 History of Any Multi-Drug Resistant Organisms: None Reported Past Surgical History: No Surgical Hx Reported Additional Past Surgical History / Comment(s): . Past Anesthesia/Blood Transfusion Reactions: No Reported Reaction Additional Past Anesthesia/Blood Transfusion Reaction / Comment(s): POUL[employer]ED[employer] STATES NO KNOWN SURGERY AND ANESTHESIA. Past Psychological History: Anxiety Smoking Status: Never smoker Past Alcohol Use History: None Reported Past Drug Use History: None Reported - Past Family History Father History Unknown: Yes Mother History Unknown: Yes Family Medical History: Diabetes Mellitus General Exam Limitations: altered mental status, physical limitation General appearance: alert, in no apparent distress Head exam: Present: atraumatic, normocephalic, normal inspection Eye exam: Present: normal appearance, PERRL, EOMI. Absent: scleral icterus, conjunctival injection, periorbital swelling ENT exam: Present: normal exam, normal oropharynx, mucous membranes moist Neck exam: Present: normal inspection, full ROM. Absent: tenderness, meningismus, lymphadenopathy Respiratory exam: Present: normal lung sounds bilaterally. Absent: respiratory distress, wheezes, rales, rhonchi, stridor Cardiovascular Exam: Present: regular rate, normal rhythm, normal heart sounds. Absent: systolic murmur, diastolic murmur, rubs, gallop, clicks GI/Abdominal exam: Present: soft, normal bowel sounds. Absent: distended, tenderness, guarding, rebound, rigid Neurological exam: Present: alert, oriented X3, CN II-XII intact Skin exam: Present: warm, dry, intact, normal color. Absent: rash Course Vital Signs 07/05/18 16:46 Temperature 98.4 F Pulse Rate 89 Respiratory 18 Rate Blood Pressure 134/92 O2 Sat by Pulse 100 Oximetry Medical Decision Making - Medical Decision Making 53-year-old male presented from for hyperglycemia. Patient's blood glucose was 330. Patient was hydrated, given 6 units of insulin. Patient be discharged. I did discuss improving dietary choices and medication adjustment with PCP. - Lab Data Result diagrams: 07/05/18 17:32 07/05/18 17:32 Lab Results 07/05/18 07/05/18 07/05/18 Range/Units 17:32 17:32 17:32 WBC 6.4 (3.8-10.6) k/uL RBC 4.02 L (4.30-5.90) m/uL Hgb 13.0 (13.0-17.5) gm/dL Hct 39.0 (39.0-53.0) % MCV 97.0 (80.0-100.0) fL MCH 32.3 (25.0-35.0) pg MCHC 33.2 (31.0-37.0) g/dL RDW 13.8 (11.5-15.5) % Plt Count 173 (150-450) k/uL Neutrophils % 61 % Lymphocytes % 27 % Monocytes % 9 % Eosinophils % 1 % Basophils % 0 % Neutrophils # 3.9 (1.3-7.7) k/uL Lymphocytes # 1.7 (1.0-4.8) k/uL Monocytes # 0.6 (0-1.0) k/uL Eosinophils # 0.1 (0-0.7) k/uL Basophils # 0.0 (0-0.2) k/uL VBG pH (7.31-7.41) VBG pCO2 (37-51) mmHg VBG HCO3 (24-28) mmol/L Sodium 142 (137-145) mmol/L Potassium 4.1 (3.5-5.1) mmol/L Chloride 105 (98-107) mmol/L Carbon Dioxide 29 (22-30) mmol/L Anion Gap 8 mmol/L BUN 27 H (9-20) mg/dL Creatinine 0.67 (0.66-1.25) mg/dL Est GFR (CKD-EPI)AfAm >90 (>60 ml/min/1.73 sqM) Est GFR (CKD-EPI)NonAf >90 (>60 ml/min/1.73 sqM) Glucose 348 H (74-99) mg/dL POC Glucose (mg/dL) (75-99) mg/dL POC Glu Post Doctoral Fellow ID Plasma Lactic Acid Daren (0.7-2.0) mmol/L Calcium 9.8 (8.4-10.2) mg/dL Total Bilirubin 0.4 (0.2-1.3) mg/dL AST 17 (17-59) U/L ALT 13 L (21-72) U/L Alkaline Phosphatase 83 (38-126) U/L Total Protein 7.2 (6.3-8.2) g/dL Albumin 4.0 (3.5-5.0) g/dL Lipase 79 (23-300) U/L Urine Color Yellow Urine Appearance Clear (Clear) Urine pH 5.0 (5.0-8.0) Ur Specific Baxter 1.039 H (1.001-1.035) Urine Protein Negative (Negative) Urine Glucose (UA) 4+ H (Negative) Urine Ketones Trace H (Negative) Urine Blood Negative (Negative) Urine Nitrite Negative (Negative) Urine Bilirubin Negative (Negative) Urine Urobilinogen <2.0 (<2.0) mg/dL Ur Leukocyte Esterase Negative (Negative) 07/05/18 07/05/18 07/05/18 Range/Units 17:32 17:32 17:38 WBC (3.8-10.6) k/uL RBC (4.30-5.90) m/uL Hgb (13.0-17.5) gm/dL Hct (39.0-53.0) % MCV (80.0-100.0) fL MCH (25.0-35.0) pg MCHC (31.0-37.0) g/dL RDW (11.5-15.5) % Plt Count (150-450) k/uL Neutrophils % % Lymphocytes % % Monocytes % % Eosinophils % % Basophils % % Neutrophils # (1.3-7.7) k/uL Lymphocytes # (1.0-4.8) k/uL Monocytes # (0-1.0) k/uL Eosinophils # (0-0.7) k/uL Basophils # (0-0.2) k/uL VBG pH 7.35 (7.31-7.41) VBG pCO2 57 H (37-51) mmHg VBG HCO3 31 H (24-28) mmol/L Sodium (137-145) mmol/L Potassium (3.5-5.1) mmol/L Chloride (98-107) mmol/L Carbon Dioxide (22-30) mmol/L Anion Gap mmol/L BUN (9-20) mg/dL Creatinine (0.66-1.25) mg/dL Est GFR (CKD-EPI)AfAm (>60 ml/min/1.73 sqM) Est GFR (CKD-EPI)NonAf (>60 ml/min/1.73 sqM) Glucose (74-99) mg/dL POC Glucose (mg/dL) 331 H (75-99) mg/dL POC Glu Post Doctoral Fellow ID Di Serna Plasma Lactic Acid Daren 2.1 H* (0.7-2.0) mmol/L Calcium (8.4-10.2) mg/dL Total Bilirubin (0.2-1.3) mg/dL AST (17-59) U/L ALT (21-72) U/L Alkaline Phosphatase (38-126) U/L Total Protein (6.3-8.2) g/dL Albumin (3.5-5.0) g/dL Lipase (23-300) U/L Urine Color Urine Appearance (Clear) Urine pH (5.0-8.0) Ur Specific Baxter (1.001-1.035) Urine Protein (Negative) Urine Glucose (UA) (Negative) Urine Ketones (Negative) Urine Blood (Negative) Urine Nitrite (Negative) Urine Bilirubin (Negative) Urine Urobilinogen (<2.0) mg/dL Ur Leukocyte Esterase (Negative) Disposition Clinical Impression: Hyperglycemia Disposition: HOME SELF-CARE Condition: Stable Instructions (If sedation given, give patient instructions): Diabetic Hyperglycemia (ED), Meal Planning with Diabetes Exchanges (DC) Additional Instructions: Please return to the Emergency Department if symptoms worsen or any other concerns. Is patient prescribed a controlled substance at d/c from ED?: No Referrals: Nasir Mahajan MD [Primary Care Provider] - 1-2 days Time of Disposition: 18:49
[2018-07-05 17:39] LABS: Glucose,Whole Blood 331 mg/dL (75-99)
[2018-07-05 17:41] LABS: VBG PH 7.35 (7.31-7.41)
[2018-07-05 17:44] LABS: Basophils % (A) 0 %; Eosinophils # (A) 0.1 k/uL (0-0.7); Eosinophils % (A) 1 %; Lymphocytes # (A) 1.7 k/uL (1.0-4.8); Lymphocytes % (A) 27 %; MCH 32.3 pg (25.0-35.0); MCHC 33.2 g/dL (31.0-37.0); Monocytes # (A) 0.6 k/uL (0-1.0); Monocytes % (A) 9 %; Neutrophils # (A) 3.9 k/uL (1.3-7.7); Neutrophils % (A) 61 %; Platelet Count 173 k/uL (150-450); RBC 4.02 m/uL (4.30-5.90); RDW 13.8 % (11.5-15.5); WBC 6.4 k/uL (3.8-10.6)
[2018-07-05 17:46] LABS: Appearance,Urine Clear (Clear); Bilirubin,Urine Negative (Negative); Blood,Urine Negative (Negative); Color,Urine Yellow; Glucose,Urine (UA) 4+ (Negative); Ketones,Urine Trace (Negative); Leukocyte Esterase,Urine Negative (Negative); Nitrite,Urine Negative (Negative); Protein,Urine Negative (Negative); Specific Gravity,Urine 1.039 (1.001-1.035); Urobilinogen,Urine <2.0 mg/dL (<2.0)
[2018-07-05 18:00] LABS: ALT 13 U/L (21-72); AST 17 U/L (17-59); Alkaline Phosphatase 83 U/L (38-126); Anion Gap 8 mmol/L; Blood Urea Nitrogen 27 mg/dL (9-20); Calcium 9.8 mg/dL (8.4-10.2); Carbon Dioxide 29 mmol/L (22-30); Chloride 105 mmol/L (98-107); Glucose 348 mg/dL (74-99); Lipase 79 U/L (23-300); Potassium 4.1 mmol/L (3.5-5.1); Sodium 142 mmol/L (137-145); Total Bilirubin 0.4 mg/dL (0.2-1.3); Total Protein 7.2 g/dL (6.3-8.2)
[2018-07-05] MEDS ORDERED: INSULIN REGULAR 100 UNIT/ML VIAL IV ONE (18:39)
[2018-07-05 19:06] VITALS: BP 161/105; PULSE 85; TEMP 98
== END 2018-07-05 19:04 | disposition home or self-care (01) ==
LOC: EC 16:25
DX: E11.65 Type 2 diabetes mellitus with hyperglycemia (principal); R41.82 Altered mental status, unspecified; K21.9 Gastro-esophageal reflux disease without esophagitis; E78.5 Hyperlipidemia, unspecified; I10 Essential (primary) hypertension; E03.9 Hypothyroidism, unspecified; F84.0 Autistic disorder; F79 Unspecified intellectual disabilities; F50.89 Other specified eating disorder; F41.9 Anxiety disorder, unspecified; Z79.84 Long term (current) use of oral hypoglycemic drugs; Z79.890 Hormone replacement therapy; Z79.899 Other long term (current) drug therapy; Z83.3 Family history of diabetes mellitus
CPT/HCPCS: 36415; 80053; 81003; 82803; 83605; 83690; 85025; 96360; 96361; 99284

== ENCOUNTER 2018-07-08 22:18 | Emergency (ER) | payer MEDICARE, OTHER ==
[2018-07-08 23:11] LABS: Glucose,Whole Blood 362 mg/dL (75-99)
[2018-07-08] MEDS ORDERED: SODIUM CHLORIDE 0.9% 1,000 ML IV ONE (23:18)
[2018-07-08] MEDS ORDERED: INSULIN ASPART (NovoLOG) 100 UNIT/ML VIAL SQ STA (23:18)
[2018-07-09 00:08] LABS: Basophils % (A) 0 %; Eosinophils # (A) 0.1 k/uL (0-0.7); Eosinophils % (A) 1 %; HGB 12.9 gm/dL (13.0-17.5); Lymphocytes # (A) 2.1 k/uL (1.0-4.8); Lymphocytes % (A) 29 %; MCHC 33.1 g/dL (31.0-37.0); MCV 96.6 fL (80.0-100.0); Mean Platelet Volume 7.4; Monocytes # (A) 0.9 k/uL (0-1.0); Monocytes % (A) 12 %; Neutrophils % (A) 55 %; Platelet Count 149 k/uL (150-450); RBC 4.03 m/uL (4.30-5.90); RDW 13.4 % (11.5-15.5); WBC 7.2 k/uL (3.8-10.6)
[2018-07-09 00:11] LABS: Appearance,Urine Clear (Clear); Bilirubin,Urine Negative (Negative); Blood,Urine Negative (Negative); Color,Urine Yellow; Glucose,Urine (UA) 4+ (Negative); Ketones,Urine 1+ (Negative); Leukocyte Esterase,Urine Negative (Negative); Nitrite,Urine Negative (Negative); PH, Urine 5.5 (5.0-8.0); Protein,Urine Negative (Negative); Specific Gravity,Urine 1.038 (1.001-1.035); Urobilinogen,Urine <2.0 mg/dL (<2.0)
[2018-07-09 00:17] LABS: ALT 23 U/L (21-72); AST 15 U/L (17-59); Alkaline Phosphatase 90 U/L (38-126); Anion Gap 8 mmol/L; Blood Urea Nitrogen 28 mg/dL (9-20); Calcium 10.1 mg/dL (8.4-10.2); Carbon Dioxide 31 mmol/L (22-30); Chloride 103 mmol/L (98-107); Glucose 297 mg/dL (74-99); Potassium 3.9 mmol/L (3.5-5.1); Sodium 142 mmol/L (137-145); Total Bilirubin 0.5 mg/dL (0.2-1.3); Total Protein 7.1 g/dL (6.3-8.2)
[2018-07-09 00:42] LABS: Glucose,Whole Blood 289 mg/dL (75-99)
[2018-07-09] MEDS ORDERED: INSULIN ASPART (NovoLOG) 100 UNIT/ML VIAL SQ STA (00:57)
[2018-07-09] MEDS ORDERED: SODIUM CHLORIDE 0.9% 500 ML 500 ML IV ONE (00:57)
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
[2018-07-09 02:11] LABS: Glucose,Whole Blood 189 mg/dL (75-99)
[2018-07-09 02:33] VITALS: BP 148/90; PULSE 79; RESP 18; TEMP 98
== END 2018-07-09 02:37 | disposition home or self-care (01) ==
LOC: EC 22:18
DX: E11.65 Type 2 diabetes mellitus with hyperglycemia (principal); K21.9 Gastro-esophageal reflux disease without esophagitis; E78.5 Hyperlipidemia, unspecified; I10 Essential (primary) hypertension; E07.9 Disorder of thyroid, unspecified; F84.0 Autistic disorder; F42.9 Obsessive-compulsive disorder, unspecified; F41.9 Anxiety disorder, unspecified; Z87.01 Personal history of pneumonia (recurrent); Z79.84 Long term (current) use of oral hypoglycemic drugs; Z79.890 Hormone replacement therapy; Z79.899 Other long term (current) drug therapy
CPT/HCPCS: 36415; 80053; 81003; 82009; 85025; 96360; 96361; 99283

== ENCOUNTER 2018-07-11 19:52 | Emergency (ER) | payer MEDICARE, OTHER ==
[2018-07-11 20:10] VITALS: RESP 18; TEMP 98
[2018-07-11] MEDS ORDERED: SODIUM CHLORIDE 0.9% 1,000 ML IV STA (20:31)
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
[2018-07-11 20:49] LABS: Glucose,Whole Blood 263 mg/dL (75-99)
[2018-07-11 20:55] LABS: Basophils % (A) 0 %; Eosinophils # (A) 0.1 k/uL (0-0.7); Eosinophils % (A) 3 %; HCT 36.4 % (39.0-53.0); HGB 12.4 gm/dL (13.0-17.5); Lymphocytes # (A) 1.8 k/uL (1.0-4.8); Lymphocytes % (A) 37 %; MCH 32.2 pg (25.0-35.0); MCV 94.7 fL (80.0-100.0); Mean Platelet Volume 7.2; Monocytes # (A) 0.6 k/uL (0-1.0); Monocytes % (A) 11 %; Neutrophils # (A) 2.2 k/uL (1.3-7.7); Neutrophils % (A) 45 %; Platelet Count 157 k/uL (150-450); RBC 3.85 m/uL (4.30-5.90); RDW 13.5 % (11.5-15.5); WBC 4.9 k/uL (3.8-10.6)
[2018-07-11 21:03] LABS: INR 0.9 (<1.2); Prothrombin Time 9.7 sec (9.0-12.0)
[2018-07-11 21:05] LABS: ALT 18 U/L (21-72); AST 18 U/L (17-59); Albumin 3.8 g/dL (3.5-5.0); Alkaline Phosphatase 83 U/L (38-126); Anion Gap 7 mmol/L; Blood Urea Nitrogen 24 mg/dL (9-20); Calcium 9.4 mg/dL (8.4-10.2); Carbon Dioxide 30 mmol/L (22-30); Chloride 102 mmol/L (98-107); Glucose 261 mg/dL (74-99); Potassium 4.3 mmol/L (3.5-5.1); Sodium 139 mmol/L (137-145); Total Bilirubin 0.4 mg/dL (0.2-1.3); Total Protein 6.8 g/dL (6.3-8.2)
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
[2018-07-11 22:31] LABS: Appearance,Urine Clear (Clear); Bilirubin,Urine Negative (Negative); Blood,Urine Negative (Negative); Color,Urine Yellow; Glucose,Urine (UA) 4+ (Negative); Ketones,Urine 1+ (Negative); Leukocyte Esterase,Urine Negative (Negative); Nitrite,Urine Negative (Negative); Protein,Urine Negative (Negative); Specific Gravity,Urine 1.036 (1.001-1.035); Urobilinogen,Urine <2.0 mg/dL (<2.0)
[2018-07-11 23:13] LABS: Glucose,Whole Blood 264 mg/dL (75-99)
[2018-07-11] MEDS ORDERED: INSULIN REGULAR 100 UNIT/ML VIAL SQ ONE (23:21)
[2018-07-11] MEDS ORDERED: AZITHROMYCIN 500 MG TAB PO STA (23:30)
[2018-07-12 00:03] VITALS: BP 144/98; PULSE 68
== END 2018-07-12 00:02 | disposition home or self-care (01) ==
LOC: EC 19:52
DX: E11.65 Type 2 diabetes mellitus with hyperglycemia (principal); K21.9 Gastro-esophageal reflux disease without esophagitis; E78.5 Hyperlipidemia, unspecified; F41.9 Anxiety disorder, unspecified; E07.9 Disorder of thyroid, unspecified; I10 Essential (primary) hypertension; F84.0 Autistic disorder; F42.9 Obsessive-compulsive disorder, unspecified; Z79.890 Hormone replacement therapy; Z79.84 Long term (current) use of oral hypoglycemic drugs; Z79.899 Other long term (current) drug therapy
CPT/HCPCS: 36415; 71046; 80053; 81003; 84484; 85025; 85610; 85730; 93005; 96360; 96361; 99285

== ENCOUNTER 2018-08-24 07:15 | Day surgery (SDC) | payer MEDICARE, OTHER ==
[2018-08-23 09:19] VITALS: BMI 27.6
[~2018-08-24 07:15] MED LIST changes: +LIDOCAINE 1% 20 ML VIAL (10MG/ML) FOR IV START INTRADERMA PRN
[2018-08-24 09:00] VITALS: TEMP 97.3
[2018-08-24] MEDS ORDERED: PROPOFOL 10 MG/ML 20 ML VIAL IV ONE (10:36)
[2018-08-24] MEDS ORDERED: LIDOCAINE 1% INJ 10MG/ML (20 ML MDV) ONE (10:36)
[2018-08-24 11:31] VITALS: BP 143/97; PULSE 92; RESP 18
--- NOTE | 2018-08-24 23:40 | PCN ---
PROCEDURE NOTE DATE OF SERVICE: 08/24/2018 PROCEDURE: Total colonoscopy. PREOPERATIVE DIAGNOSIS: Intermittent rectal bleeding. POSTOPERATIVE DIAGNOSIS: Low-grade internal hemorrhoids without bleeding at the time of this exam. PREPARATION: HalfLytely prep. SEDATION: Provided by Anesthesia. BRIEF CLINICAL HISTORY: The patient is a 53-year-old male with autism and mental challenge who was scheduled for this evaluation because of intermittent rectal bleeding for the last month. The patient had a total colonoscopy in June 2016 that was within normal limits. At that time his preparation was less than ideal. He was having issues with chronic reflux and change in bowel habits. PROCEDURE DESCRIPTION: With the patient on his left lateral decubitus position and after informed consent and adequate sedation, the perianal area was inspected, and it did not show any fissures or fistulas. There were no masses felt on digital rectal examination. The Olympus [id number] video colonoscope was then inserted in the rectum in the usual fashion and advanced to the cecum. The mucosa appeared healthy. There were no obvious polyps or tumors or bleeding or any obvious diverticular disease. I retroflexed the endoscope in the rectum before the endoscope was withdrawn. Low-grade internal hemorrhoids were noted, with no evidence of bleeding at the time of this exam. The patient tolerated the procedure well. PLAN: The patient and his caregiver were reassured. Discussed dietary measures and local care for hemorrhoids. He will follow up with GI as planned. Further plans based on his course. MEG / HOWIE: [id number] /
[2018-08-30 07:23] LABS: Glucose,Whole Blood 92 mg/dL (75-99)
== END 2018-08-24 11:52 | disposition home or self-care (01) ==
LOC: ORWHC2ENDO 07:15
DX: K64.8 Other hemorrhoids (principal); F84.0 Autistic disorder; F79 Unspecified intellectual disabilities; I10 Essential (primary) hypertension; E78.5 Hyperlipidemia, unspecified; E11.9 Type 2 diabetes mellitus without complications; E07.9 Disorder of thyroid, unspecified; F39 Unspecified mood [affective] disorder; K21.9 Gastro-esophageal reflux disease without esophagitis; Z79.890 Hormone replacement therapy; Z79.84 Long term (current) use of oral hypoglycemic drugs; Z79.899 Other long term (current) drug therapy
CPT/HCPCS: 45378; J2001; J2704

== ENCOUNTER 2018-10-11 17:28 | Emergency (ER) | payer MEDICARE, OTHER ==
[2018-10-11] MEDS ORDERED: DIPH,PERTUS(ACELL)TETVAC-LF 0.5 ML VIAL IM ONE (17:54)
[2018-10-11 18:07] VITALS: BP 130/107; PULSE 84; RESP 20; TEMP 97.7
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
[2018-10-11] MEDS ORDERED: LIDOCAINE 1% INJ 10MG/ML (20 ML MDV) SQ ONE (19:23)
== END 2018-10-11 21:50 | disposition home or self-care (01) ==
LOC: EC 17:28
DX: S01.81XA Laceration without foreign body of other part of head, initial encounter (principal); S50.311A Abrasion of right elbow, initial encounter; D17.21 Benign lipomatous neoplasm of skin and subcutaneous tissue of right arm; E11.9 Type 2 diabetes mellitus without complications; K21.9 Gastro-esophageal reflux disease without esophagitis; E78.5 Hyperlipidemia, unspecified; I10 Essential (primary) hypertension; E07.9 Disorder of thyroid, unspecified; F42.9 Obsessive-compulsive disorder, unspecified; F84.0 Autistic disorder; Z23 Encounter for immunization; Z87.01 Personal history of pneumonia (recurrent); Z79.84 Long term (current) use of oral hypoglycemic drugs; Z79.890 Hormone replacement therapy; Z79.899 Other long term (current) drug therapy; Y00.XXXA Assault by blunt object, initial encounter; Y92.009 Unspecified place in unspecified non-institutional (private) residence as the place of occurrence of the external cause
CPT/HCPCS: 73090; 72125; 70450; 90715; 99284; 12013; 90471; J2001

== ENCOUNTER 2019-01-10 17:22 | Emergency (ER) | payer MEDICARE, OTHER ==
[2019-01-10 17:30] VITALS: TEMP 98.6
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
--- NOTE | 2019-01-10 18:00 | XR ---
EXAMINATION TYPE: XR chest 2V DATE OF EXAM: 01/10/2019 COMPARISON: 07/11/2018 HISTORY: Possible foreign body. Foreign body ingestion. TECHNIQUE: Frontal and lateral views of the chest are obtained. FINDINGS: There is some blunting of the costophrenic angles. There is coarse linear infiltrate right lower lobe. There is no heart failure. Heart size is normal. Bony thorax is intact. IMPRESSION: There is chronic blunting of the costophrenic angles and coarse density right lower lobe consistent with pleural and pulmonary scarring. No obvious heart failure. No significant change comp ared to last exam.
[2019-01-10 18:36] VITALS: BP 136/99; PULSE 95; RESP 16
== END 2019-01-10 18:40 | disposition home or self-care (01) ==
LOC: EC 17:22
DX: T18.9XXA Foreign body of alimentary tract, part unspecified, initial encounter (principal); R05 Cough; E11.9 Type 2 diabetes mellitus without complications; K21.9 Gastro-esophageal reflux disease without esophagitis; I10 Essential (primary) hypertension; E07.9 Disorder of thyroid, unspecified; F41.9 Anxiety disorder, unspecified; F84.0 Autistic disorder; Z79.84 Long term (current) use of oral hypoglycemic drugs; Z79.890 Hormone replacement therapy; Z79.899 Other long term (current) drug therapy
CPT/HCPCS: 71046; 99284

== ENCOUNTER 2019-01-18 00:24 | Emergency (ER) | payer MEDICARE, OTHER ==
[2019-01-18] MEDS ORDERED: SODIUM CHLORIDE 0.9% 1,000 ML IV STA (00:32)
[2019-01-18 00:33] LABS: Glucose,Whole Blood 119 mg/dL (75-99)
[2019-01-18 00:43] VITALS: BP 167/103; PULSE 78; RESP 18; TEMP 97.6
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
[2019-01-18 01:03] LABS: Glucose,Whole Blood 119 mg/dL (75-99)
[2019-01-18 01:19] LABS: Basophils # (A) 0.1 k/uL (0-0.2); Basophils % (A) 2 %; Eosinophils # (A) 0.1 k/uL (0-0.7); Eosinophils % (A) 1 %; HCT 36.7 % (39.0-53.0); HGB 12.2 gm/dL (13.0-17.5); Lymphocytes # (A) 2.7 k/uL (1.0-4.8); Lymphocytes % (A) 39 %; MCH 30.6 pg (25.0-35.0); MCHC 33.2 g/dL (31.0-37.0); MCV 92.2 fL (80.0-100.0); Mean Platelet Volume 6.3; Monocytes # (A) 0.9 k/uL (0-1.0); Monocytes % (A) 12 %; Neutrophils % (A) 43 %; Platelet Count 213 k/uL (150-450); RBC 3.98 m/uL (4.30-5.90); RDW 13.3 % (11.5-15.5)
[2019-01-18 01:34] LABS: ALT 12 U/L (21-72); AST 15 U/L (17-59); African American GFR (CKD) >90 (>60 ml/min/1.73 sqM); Albumin 3.4 g/dL (3.5-5.0); Alkaline Phosphatase 65 U/L (38-126); Anion Gap 4 mmol/L; Blood Urea Nitrogen 17 mg/dL (9-20); Calcium 9.1 mg/dL (8.4-10.2); Carbon Dioxide 32 mmol/L (22-30); Chloride 101 mmol/L (98-107); Glucose 122 mg/dL (74-99); Non-African American GFR(CKD) >90 (>60 ml/min/1.73 sqM); Potassium 4.5 mmol/L (3.5-5.1); Sodium 137 mmol/L (137-145); Total Bilirubin 0.2 mg/dL (0.2-1.3); Total Protein 6.4 g/dL (6.3-8.2)
== END 2019-01-18 01:10 | disposition home or self-care (01) ==
LOC: EC 00:24
DX: E11.65 Type 2 diabetes mellitus with hyperglycemia (principal); R62.50 Unspecified lack of expected normal physiological development in childhood; K21.9 Gastro-esophageal reflux disease without esophagitis; E78.5 Hyperlipidemia, unspecified; I10 Essential (primary) hypertension; E07.9 Disorder of thyroid, unspecified; F84.0 Autistic disorder; F79 Unspecified intellectual disabilities; F41.9 Anxiety disorder, unspecified; Z79.890 Hormone replacement therapy; Z79.84 Long term (current) use of oral hypoglycemic drugs; Z79.899 Other long term (current) drug therapy; Z53.9 Procedure and treatment not carried out, unspecified reason; Z83.3 Family history of diabetes mellitus
CPT/HCPCS: 36415; 80053; 83690; 85025; 99285

== ENCOUNTER 2019-03-22 18:57 | Inpatient (IN) | payer MEDICARE, OTHER ==
[2019-03-22] MEDS ORDERED: SODIUM CHLORIDE 0.9% 1,000 ML IV ONE (19:30)
[2019-03-22] MEDS ORDERED: ACETAMINOPHEN TAB 325 MG TAB PO STA (19:36)
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
[2019-03-22 19:59] LABS: Basophils % (A) 0 %; Eosinophils # (A) 0.1 k/uL (0-0.7); Eosinophils % (A) 1 %; HCT 34.9 % (39.0-53.0); HGB 11.7 gm/dL (13.0-17.5); Lymphocytes # (A) 0.8 k/uL (1.0-4.8); Lymphocytes % (A) 12 %; MCH 30.8 pg (25.0-35.0); MCHC 33.5 g/dL (31.0-37.0); MCV 91.7 fL (80.0-100.0); Mean Platelet Volume 8.2; Monocytes % (A) 15 %; Neutrophils # (A) 4.7 k/uL (1.3-7.7); Neutrophils % (A) 69 %; Platelet Count 187 k/uL (150-450); RDW 13.4 % (11.5-15.5); WBC 6.7 k/uL (3.8-10.6)
[2019-03-22 20:11] LABS: ALT 16 U/L (4-49); AST 62 U/L (17-59); African American GFR (CKD) >90 (>60 ml/min/1.73 sqM); Albumin 3.9 g/dL (3.5-5.0); Alkaline Phosphatase 49 U/L (38-126); Anion Gap 7 mmol/L; Blood Urea Nitrogen 26 mg/dL (9-20); Calcium 9.2 mg/dL (8.4-10.2); Carbon Dioxide 25 mmol/L (22-30); Chloride 101 mmol/L (98-107); Glucose 150 mg/dL (74-99); Non-African American GFR(CKD) >90 (>60 ml/min/1.73 sqM); Sodium 133 mmol/L (137-145); Total Bilirubin 1.2 mg/dL (0.2-1.3); Total Protein 7.4 g/dL (6.3-8.2)
[2019-03-22 20:13] LABS: Potassium 5.9 mmol/L (3.5-5.1)
[2019-03-22 20:33] LABS: INR 0.9 (<1.2); Partial Thromboplastin Time 21.6 sec (22.0-30.0); Prothrombin Time 9.6 sec (9.0-12.0)
--- NOTE | 2019-03-22 21:33 | XR ---
EXAMINATION TYPE: XR chest 2V DATE OF EXAM: 03/22/2019 COMPARISON: 01/10/2019 HISTORY: Altered mental status TECHNIQUE: 2 views FINDINGS: There is poor inspiration with coarse interstitial density in the lungs. There is slight bl unting of the costophrenic angles. There is no obvious heart failure. There are chest leads. Bony tho rax appears intact. IMPRESSION: There is some pleural reaction and atelectasis at the lung bases similar to old exam. Inc reased pulmonary interstitial density without obvious heart failure. No significant change compared t o old exam.
[2019-03-22 22:19] LABS: Appearance,Urine Clear (Clear); Bilirubin,Urine Negative (Negative); Blood,Urine Negative (Negative); Color,Urine Yellow; Glucose,Urine (UA) Trace (Negative); Ketones,Urine Negative (Negative); Leukocyte Esterase,Urine Negative (Negative); Nitrite,Urine Negative (Negative); PH, Urine 5.5 (5.0-8.0); Protein,Urine Negative (Negative); Specific Gravity,Urine 1.022 (1.001-1.035)
[2019-03-22] MEDS ORDERED: NALOXONE 0.4 MG/ML 1 ML VIAL IV PRN (23:01)
[2019-03-22] MEDS ORDERED: SODIUM CHLORIDE 0.9% 1,000 ML IV SCH (23:15)
[2019-03-23] MEDS ORDERED: LORazepam 2 MG/ML INJ IV STA (00:14)
[2019-03-23] MEDS ORDERED: PROPRANOLOL 20 MG TAB PO STA (00:15)
[2019-03-23] MEDS ORDERED: glipiZIDE 5 MG TAB PO STA (00:15)
[2019-03-23] MEDS ORDERED: DIVALPROEX 500 MG TABLET.DR PO STA (00:15)
[2019-03-23] MEDS ORDERED: risperiDONE 1 MG TAB PO STA (00:15)
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
[2019-03-23 07:51] LABS: Glucose,Whole Blood 80 mg/dL (75-99)
[2019-03-23] MEDS: INSULIN ASPART (NovoLOG) 100 UNIT/ML VIAL SQ SCH ×4 (08:02→22:00)
[2019-03-23 08:18] LABS: Glucose,Whole Blood 97 mg/dL (75-99)
[2019-03-23 09:05] LABS: African American GFR (CKD) >90 (>60 ml/min/1.73 sqM); Anion Gap 4 mmol/L; Blood Urea Nitrogen 15 mg/dL (9-20); Calcium 8.8 mg/dL (8.4-10.2); Carbon Dioxide 30 mmol/L (22-30); Chloride 103 mmol/L (98-107); Glucose 92 mg/dL (74-99); Non-African American GFR(CKD) >90 (>60 ml/min/1.73 sqM); Potassium 4.2 mmol/L (3.5-5.1); Sodium 137 mmol/L (137-145)
--- NOTE | 2019-03-23 09:38 | P.PN ---
Subjective Patient was seen and examined and chart was reviewed. Patient cannot provide any meaningful history. History is obtained from the caregiver at the bedside. She explained to me that patient was his usual state of health until day or 2 ago when he started being more lethargic and with decreased responsiveness. He had episodes like that in the past which were attributed to acute likely viral illness. She states that multiple residents been sick recently with respiratory illness. She reported the patient's been having sore throat congestion in his chest without any natalie cough or expectoration although he has a limited ability to do such. She states that this morning he is looking better but not quite at his baseline. Denies any episodes of choking on food diarrhea fever chills or night sweats. Home medications reviewed since the patient is a Risperdal twice a day, Depakote, fluoxetine. He received his medications last night along with active in emergency department. Objective - Vital Signs Vital signs: Vital Signs Temp 97.0 F L 03/23/19 00:52 Pulse 90 03/23/19 00:52 Resp 18 03/23/19 00:52 BP 165/85 03/23/19 00:52 Pulse Ox 96 03/23/19 00:52 Intake & Output 03/22/19 03/23/19 03/23/19 18:59 06:59 18:59 Intake Total 300 Balance 300 Weight 68.039 kg 68.039 kg Intake: Oral 300 Other: Voiding Method Toilet Diaper # Voids 3 - Exam Patient is awake and is moving in the bed he seems slightly sleepy. He does follow commands sufficiently. He seems comfortable. Head and neck examination pupils are round and equal in see any fit facial asymmetry. Neck without any masses Lungs respirations are nonlabored her some crackles in the bases no rhonchi or wheezing Cardiovascular regular rhythm and rate Abdomen soft nontender nondistended no any apparent masses Extremities without any edema or swelling Neurological examination patient is P sufficiently but he moves all 4 extremities - Labs CBC & Chem 7: 03/22/19 19:10 03/23/19 08:14 Labs: Abnormal Lab Results - Last 24 Hours (Table) 03/22/19 03/22/19 03/22/19 Range/Units 19:10 19:10 19:10 RBC 3.80 L (4.30-5.90) m/uL Hgb 11.7 L (13.0-17.5) gm/dL Hct 34.9 L (39.0-53.0) % Lymphocytes # 0.8 L (1.0-4.8) k/uL APTT 21.6 L (22.0-30.0) sec Sodium 133 L (137-145) mmol/L Potassium 5.9 H (3.5-5.1) mmol/L BUN 26 H (9-20) mg/dL Creatinine (0.66-1.25) mg/dL Glucose 150 H (74-99) mg/dL AST 62 H (17-59) U/L Urine Glucose (UA) (Negative) 03/22/19 03/23/19 Range/Units 22:06 08:14 RBC (4.30-5.90) m/uL Hgb (13.0-17.5) gm/dL Hct (39.0-53.0) % Lymphocytes # (1.0-4.8) k/uL APTT (22.0-30.0) sec Sodium (137-145) mmol/L Potassium (3.5-5.1) mmol/L BUN (9-20) mg/dL Creatinine 0.59 L (0.66-1.25) mg/dL Glucose (74-99) mg/dL AST (17-59) U/L Urine Glucose (UA) Trace H (Negative) Assessment and Plan Assessment: Patient presents with acute encephalopathy, likely toxic metabolic in nature. Clinically he does not appear septic. Respiratory status is stable he is on room air and chest x-ray showed chronic changes unchanged from before. Per caregiver it's possible that he had recent URI like symptoms. Influenza test is negative. CT of the head showed microvascular disease stable. Continue to hold his medications from home with sedating effects. Check ammonia level since he has been on Depakote. Check Depakote level. Physical and occupational therapy ordered. We will monitor patient's progression throughout the day and keep reevaluating the patient.
[2019-03-23 11:52] LABS: Glucose,Whole Blood 133 mg/dL (75-99)
[2019-03-23 17:17] LABS: Glucose,Whole Blood 136 mg/dL (75-99)
[2019-03-23] MEDS: DIVALPROEX 500 MG TABLET.DR PO SCH (20:34)
[2019-03-23] MEDS: PROPRANOLOL 20 MG TAB PO SCH (20:34)
[2019-03-23 22:02] LABS: Glucose,Whole Blood 171 mg/dL (75-99)
[2019-03-23] MEDS: ACETAMINOPHEN TAB 325 MG TAB PO PRN (22:13)
[2019-03-23] MEDS ORDERED: cloNIDine HCL 0.2 MG TAB PO PRN (23:05)
[2019-03-24] MEDS: LEVOTHYROXINE 25 MCG TAB PO SCH (05:58)
[2019-03-24 07:20] LABS: Glucose,Whole Blood 185 mg/dL (75-99)
[2019-03-24] MEDS: PROPRANOLOL 20 MG TAB PO SCH ×2 (09:30→21:34)
[2019-03-24] MEDS: INSULIN ASPART (NovoLOG) 100 UNIT/ML VIAL SQ SCH ×4 (09:31→21:13)
[2019-03-24] MEDS: DIVALPROEX 500 MG TABLET.DR PO SCH ×2 (09:31→21:03)
[2019-03-24 11:41] LABS: Glucose,Whole Blood 247 mg/dL (75-99)
[2019-03-24 16:41] LABS: Glucose,Whole Blood 189 mg/dL (75-99)
[2019-03-24 20:41] LABS: Glucose,Whole Blood 225 mg/dL (75-99)
[2019-03-24] MEDS: ACETAMINOPHEN TAB 325 MG TAB PO PRN (21:04)
[2019-03-24] MEDS ORDERED: SODIUM CHLORIDE 0.9% 500 ML 500 ML IV ONE (23:50)
--- NOTE | 2019-03-24 23:56 | P.PN ---
Progress Note - Text Progress Note Date: 03/24/19 Hospitalist Interval Note: CTSP: Altered mentation, fevers Patient seen and examined at bedside. Non verbal, will open eyes to name and sternal rub, lifts head, assists in sitting forward Vital signs reviewed General: ill appearing, no distress, appears at stated age Derm: + diaphoretic, dry Head: atraumatic, normocephalic, symmetric Mouth: no lip lesion, mucus membranes dry Cardiovascular: S1S2 tachy, no murmur, positive posterior tibial pulse bilat eral, Lungs: decrease bs bilateral, no rhonchi, no rales , no accessory muscle use Abdominal: soft, nontender to palpation, no guarding, no appreciable organomegaly Neuro: CN II-XI grossly intact, no focal neuro deficits Psych: lethergic, not able to stay awake without stimulation , + cough and protecting airway. Assessment/Plan: 1. SIRS with undetermined cause, recurrent fevers- Will check stat CBC, CMP, Lactic acid and blood cultures, check UA with straight cath. 500 cc NS bolus and then 100 cc/hr due to fevers and tachycardia with decreased oral intake. Monitor closely. If not definitive source of infection consider LP to R/O Meningitis in AM by anesthesia. 2. TME- could be combination off all psych meds being stopped and sepsis. monitor closely. NPO until more awake. This is an update note for patient provided by night time covering physician.
--- NOTE | 2019-03-25 00:15 | XR ---
EXAMINATION TYPE: XR chest 1V portable DATE OF EXAM: 03/24/2019 COMPARISON: March 22, 2019 HISTORY: Altered mental status TECHNIQUE: Single view FINDINGS: There is blunting right costophrenic angle. There is some patchy atelectasis in the mid and lower lung esparza. There is no definite heart failure. Heart size is fairly normal. There is poor in spiration. IMPRESSION: Small right pleural effusion with patchy atelectasis in the mid and lower lung esparza not significantly different than last exam.
[2019-03-25] MEDS: SODIUM CHLORIDE 0.9% 1,000 ML IV SCH ×2 (00:39→08:49)
[2019-03-25 00:55] LABS: HGB 11.7 gm/dL (13.0-17.5); MCH 30.5 pg (25.0-35.0); MCHC 33.5 g/dL (31.0-37.0); MCV 91.1 fL (80.0-100.0); Mean Platelet Volume 7.3; Platelet Count 203 k/uL (150-450); RBC 3.84 m/uL (4.30-5.90); RDW 13.3 % (11.5-15.5); WBC 8.6 k/uL (3.8-10.6)
[2019-03-25 01:07] LABS: ALT 14 U/L (4-49); AST 21 U/L (17-59); African American GFR (CKD) >90 (>60 ml/min/1.73 sqM); Albumin 3.3 g/dL (3.5-5.0); Alkaline Phosphatase 62 U/L (38-126); Anion Gap 8 mmol/L; Blood Urea Nitrogen 19 mg/dL (9-20); Calcium 8.9 mg/dL (8.4-10.2); Carbon Dioxide 27 mmol/L (22-30); Chloride 95 mmol/L (98-107); Glucose 154 mg/dL (74-99); Non-African American GFR(CKD) >90 (>60 ml/min/1.73 sqM); Potassium 4.2 mmol/L (3.5-5.1); Sodium 130 mmol/L (137-145); Total Bilirubin 0.4 mg/dL (0.2-1.3); Total Protein 6.4 g/dL (6.3-8.2)
[2019-03-25 04:42] LABS: Appearance,Urine Clear (Clear); Bilirubin,Urine Negative (Negative); Blood,Urine Negative (Negative); Color,Urine Yellow; Glucose,Urine (UA) 2+ (Negative); Ketones,Urine 1+ (Negative); Leukocyte Esterase,Urine Negative (Negative); Nitrite,Urine Negative (Negative); Protein,Urine Trace (Negative); Specific Gravity,Urine 1.035 (1.001-1.035)
[2019-03-25] MEDS: ACETAMINOPHEN TAB 325 MG TAB PO PRN (04:51)
[2019-03-25] MEDS: LEVOTHYROXINE 25 MCG TAB PO SCH (05:10)
[2019-03-25] MEDS ORDERED: AZITHROMYCIN 500 MG in SODIUM CHLORIDE 0.9% 250 ML IVPB STA (06:31)
[2019-03-25 07:09] LABS: Glucose,Whole Blood 178 mg/dL (75-99)
--- NOTE | 2019-03-25 07:29 | P.PN ---
Subjective Progress Note Date: 03/24/19 Patient was seen and examined and chart was reviewed. Pt is poor historian. He was brought in due to lethargy. He has chronic cough per detention. not clear if worse lately. There has been an outbreak of URI like illness in detention. Initial blood work showed normal WBC. Blood cx NGTD, CXR unchanged from before. UA no pyuria. He has multiple sedative meds on his home meds list. He has mutiple sedative meds on his home list. Pt appears more awake today. He is more interactive. He denies any pain, chills, abd pain, diarrhea or difficulties in breathing when asked. He denies headache or neck pin. Denies back pain. He has been eating somewhat better. Objective - Vital Signs Vital signs: Vital Signs Temp 100.3 F H 03/25/19 06:40 Pulse 93 03/25/19 04:43 Resp 19 03/25/19 04:43 BP 149/94 03/25/19 04:43 Pulse Ox 97 03/25/19 04:43 Intake & Output 03/24/19 03/25/19 03/25/19 18:59 06:59 18:59 Intake Total 540 Balance 540 Intake: Oral 540 Other: Voiding Method Toilet Diaper # Voids 2 1 # Bowel Movements 1 - Exam Gen: Patient is awake and is moving in the bed. He does not look overly lethargic today. He does follow commands sufficiently. He seems comfortable. Head and neck examination: pupils are round and equal in see any fit facial asymmetry. no neck rigidity Neck without any masses Lungs: respirations are nonlabored her some crackles in the bases no rhonchi or wheezing Cardiovascular: regular rhythm and rate Abdomen: soft nontender nondistended no any apparent masses, no CVA tenderness Extremities: without any edema or swelling Neurological examination: no focal defficits, no cranial nn abnormalities Skin: no rash or ulcers - Labs CBC & Chem 7: 03/25/19 00:06 03/25/19 00:06 Labs: Abnormal Lab Results - Last 24 Hours (Table) 03/24/19 03/24/19 03/24/19 Range/Units 07:18 11:39 16:39 RBC (4.30-5.90) m/uL Hgb (13.0-17.5) gm/dL Hct (39.0-53.0) % Sodium (137-145) mmol/L Chloride (98-107) mmol/L Glucose (74-99) mg/dL POC Glucose (mg/dL) 185 H 247 H 189 H (75-99) mg/dL Albumin (3.5-5.0) g/dL Urine Protein (Negative) Urine Glucose (UA) (Negative) Urine Ketones (Negative) 03/24/19 03/25/19 03/25/19 Range/Units 20:34 00:06 00:06 RBC 3.84 L (4.30-5.90) m/uL Hgb 11.7 L (13.0-17.5) gm/dL Hct 35.0 L (39.0-53.0) % Sodium 130 L (137-145) mmol/L Chloride 95 L (98-107) mmol/L Glucose 154 H (74-99) mg/dL POC Glucose (mg/dL) 225 H (75-99) mg/dL Albumin 3.3 L (3.5-5.0) g/dL Urine Protein (Negative) Urine Glucose (UA) (Negative) Urine Ketones (Negative) 03/25/19 03/25/19 Range/Units 00:48 07:08 RBC (4.30-5.90) m/uL Hgb (13.0-17.5) gm/dL Hct (39.0-53.0) % Sodium (137-145) mmol/L Chloride (98-107) mmol/L Glucose (74-99) mg/dL POC Glucose (mg/dL) 178 H (75-99) mg/dL Albumin (3.5-5.0) g/dL Urine Protein Trace H (Negative) Urine Glucose (UA) 2+ H (Negative) Urine Ketones 1+ H (Negative) Microbiology - Last 24 Hours (Table) 03/22/19 20:22 Blood Culture - Preliminary Blood No Growth after 48 hours Assessment and Plan Assessment: 1. acute toxic metabolic encephalopathy 2. SIRS 3. Developmental delay 4. Chronic debility Plan: Septic work up Blood cx NGTD, UA no pyuria or RBC or protein, CXR unchanged from before, Influenza screen negative Increase activity Diet Speech for swallow evaluation Decrease sedative medications continue Depakote: ammonia level normal and Depakote level withing normal limits Monitor for next 24-48 hrs We invited detention to reevaluate and provide assistance with baseline; awaiting their arrival
[2019-03-25] MEDS: DIVALPROEX 500 MG TABLET.DR PO SCH ×2 (07:52→21:28)
[2019-03-25] MEDS: PROPRANOLOL 20 MG TAB PO SCH ×2 (07:52→21:28)
[2019-03-25] MEDS: INSULIN ASPART (NovoLOG) 100 UNIT/ML VIAL SQ SCH ×4 (07:53→21:29)
--- NOTE | 2019-03-25 09:25 | P.PN ---
Subjective Summary: Patient was seen and examined and chart was reviewed. Pt is poor historian. He has a history of developmental pamela and [facility]. He was brought in due to lethargy. He has chronic cough per [facility]. not clear if worse lately. There has been an outbreak of URI like illness in [facility]iary. alf person on admission was not sure if it was influenza and if anybody else was hospitalized. Initial blood work showed normal WBC. Blood cx NGTD, CXR unchanged from before. UA no pyuria. Influenza screen negative. He has multiple sedative meds on his home meds list. He has multiple sedative meds on his home list. Interval history: Overnight events noted: Pt started spiking fever last night. he had some lethargy over night. no rigors observed. no changes in respiratory status. No new focal complaints, like chest or abd pain. no diarrhea. He has some dry cough that we were notified by [facility] to be chronic. No chocking on food noted. WBC remained normal, Blood cx remained negative, CXR repeat showed no interval changes, he has atelectasis and chronic changes present, repeat UA is not much changed, no pyuria or hematuria. He received Ceftriaxone and Zithromax. he remained hemodynamically stable. This am: Pt is much more alert. he ate breakfast. Per nursing went to the bathroom without difficulties, had loose bm. He had rhinorhea and wheezing this am. Objective - Vital Signs Vital signs: Vital Signs Temp 100.3 F H 03/25/19 06:40 Pulse 93 03/25/19 04:43 Resp 19 03/25/19 04:43 BP 149/94 03/25/19 04:43 Pulse Ox 97 03/25/19 04:43 Intake & Output 03/24/19 03/25/19 03/25/19 18:59 06:59 18:59 Intake Total 540 Balance 540 Intake: Oral 540 Other: Voiding Method Toilet Diaper # Voids 2 1 # Bowel Movements 1 - Exam Gen: Patient is awake and is moving in the bed. He does not look overly lethargic today. He does follow commands sufficiently. He seems comfortable. Head and neck examination: pupils are round and equal in see any fit facial asymmetry. no neck rigidity Neck without any masses Lungs: respirations are nonlabored her some crackles in the bases no rhonchi or wheezing Cardiovascular: regular rhythm and rate Abdomen: soft nontender nondistended no any apparent masses, no CVA tenderness Extremities: without any edema or swelling Neurological examination: no focal defficits, no cranial nn abnormalities Skin: no rash or ulcers - Labs CBC & Chem 7: 03/25/19 00:06 03/25/19 00:06 Labs: Abnormal Lab Results - Last 24 Hours (Table) 03/24/19 03/24/19 03/24/19 Range/Units 11:39 16:39 20:34 RBC (4.30-5.90) m/uL Hgb (13.0-17.5) gm/dL Hct (39.0-53.0) % Sodium (137-145) mmol/L Chloride (98-107) mmol/L Glucose (74-99) mg/dL POC Glucose (mg/dL) 247 H 189 H 225 H (75-99) mg/dL Albumin (3.5-5.0) g/dL Urine Protein (Negative) Urine Glucose (UA) (Negative) Urine Ketones (Negative) 03/25/19 03/25/19 03/25/19 Range/Units 00:06 00:06 00:48 RBC 3.84 L (4.30-5.90) m/uL Hgb 11.7 L (13.0-17.5) gm/dL Hct 35.0 L (39.0-53.0) % Sodium 130 L (137-145) mmol/L Chloride 95 L (98-107) mmol/L Glucose 154 H (74-99) mg/dL POC Glucose (mg/dL) (75-99) mg/dL Albumin 3.3 L (3.5-5.0) g/dL Urine Protein Trace H (Negative) Urine Glucose (UA) 2+ H (Negative) Urine Ketones 1+ H (Negative) 03/25/19 Range/Units 07:08 RBC (4.30-5.90) m/uL Hgb (13.0-17.5) gm/dL Hct (39.0-53.0) % Sodium (137-145) mmol/L Chloride (98-107) mmol/L Glucose (74-99) mg/dL POC Glucose (mg/dL) 178 H (75-99) mg/dL Albumin (3.5-5.0) g/dL Urine Protein (Negative) Urine Glucose (UA) (Negative) Urine Ketones (Negative) Microbiology - Last 24 Hours (Table) 03/22/19 20:22 Blood Culture - Preliminary Blood No Growth after 48 hours Assessment and Plan Assessment: 1. acute toxic metabolic encephalopathy 2. new fever 3. URI, probable acute bronchitis, cannot rule out component of pneumonia altho not much radiological evidence 3. SIRS r/o sepsis 4. Developmental delay 5. Chronic debility Plan: Septic work up Blood cx NGTD, UA no pyuria or RBC or protein, CXR unchanged from before, Inf luenza screen negative Check Respiratory viral panel, procalcitonin, ESR ID consultation inc spirometar if possible Consider CT chest Bronchodilatators. He is on room air , no respiratory distress. if wheezing persists may need to add prednisone Decongestants prn Increase activity Diet Speech for swallow evaluation Decrease sedative medications continue Depakote: ammonia level normal and Depakote level withing normal limits Monitor for next 24-48 hrs We invited [facility] to reevaluate and provide assistance with baseline; awaiting their arrival
[2019-03-25] MEDS ORDERED: ALBUTEROL NEBULIZED 2.5 MG/3 ML INHALATION PRN (09:26)
[2019-03-25 09:33] LABS: C Reactive Protein 24.3 mg/L (<10.0)
[2019-03-25 11:32] LABS: Glucose,Whole Blood 177 mg/dL (75-99)
[2019-03-25] MEDS: AMPICILLIN-SULBACTAM 3 GM in SODIUM CHLORIDE 0.9% 100 ML IVPB SCH ×2 (14:03→18:04)
[2019-03-25 17:06] LABS: Glucose,Whole Blood 160 mg/dL (75-99)
[2019-03-25 20:50] LABS: Glucose,Whole Blood 283 mg/dL (75-99)
[2019-03-25] MEDS: OXYMETAZOLINE 0.05% NASL SPRAY 1 SPRAY BOTTLE NASAL SCH (21:28)
[2019-03-25] MEDS: VALPROIC ACID ORAL SOLN 250 MG/5 ML CUP PO SCH ×2 (23:04→23:05)
--- NOTE | 2019-03-26 00:09 | CONS ---
CONSULTATION DATE OF SERVICE: 03/25/2019. REASON FOR CONSULTATION: Fever. HISTORY OF PRESENT ILLNESS: The patient is a 54-year-old male with a past medical history significant for mental respiration, autism, nonverbal, who was [facility] for the patient having increasing lethargy. Caregiver mentioned the patient to be more tired and somewhat confused and not following his usual pattern. The patient with falling asleep during the dinner. Sugar was mildly elevated. With these symptoms, the patient was evaluated by the ER physician. On arrival to the ER, the patient did have a low-grade fever of 99.7. Subsequently, the next day, he did spike a fever of 101.2 and has been spiking fever on a daily basis. Last temperature has been 100.8 around 4:00 this morning. Further workup shows the patient did have a normal white count and UA has been negative x2. The patient did have influenza serology which came back negative. Initial chest x-ray done on admission did show some pleural reaction and atelectasis lung bases similar to old exam, increased pulmonary atelectasis. The patient has been treated with Rocephin, Zithromax, which was discontinued this morning. Infectious disease was consulted for further recommendations regarding antibiotic. The patient also did have a chest x-ray, around midnight, which shows small pleural effusion with patchy atelectasis in the mid and lower lung esparza. Most of the information has been obtained from thorough review of the chart and talking to the nursing staff. The patient himself is unable to provide any reliable history. REVIEW OF SYMPTOMS: Review of systems could not be reliably obtained because of underlying mental retardation. The positive points have been mentioned in HPI. PAST MEDICAL HISTORY: Diabetes mellitus, gastroesophageal reflux disease, hyperlipidemia, hypertension, pneumonia, hypothyroidism, history of autism, mental retardation. PAST SURGICAL HISTORY: No major surgery. SOCIAL HISTORY: No history of smoking, drinking or drug use. FAMILY HISTORY: Mother history of diabetes mellitus. ALLERGIES: No known drug allergies. MEDICATIONS: Include the patient is currently on Tylenol, Ventolin, Catapres, Depakote, NovoLog, Synthroid, Narcan, aspirin and Inderal, Rocephin, Zithromax discontinued this morning. PHYSICAL EXAMINATION: Blood pressure 149/94 with a pulse of 93. Temperature 100.8. T-max is 101. He is 97% on 2 L nasal cannula. General description is a middle-aged male up in the bed in no distress. No tachypnea or accessory muscles of respiration use. HEENT: Shows slight pallor. No scleral icterus. Oral mucosa membranes dry. NECK: Trachea central. No thyromegaly. LUNGS unlabored breathing. Decreased breath sounds in the bases. No wheeze or crackles. Heart S1, S2. Regular rate and rhythm. ABDOMEN: Soft. No tenderness. No guarding. No rigidity. EXTREMITIES are no edema of the feet. SKIN examination: No rashes or masses palpable. NEUROLOGICAL: The patient is currently awake, alert, but nonverbal. Orientation could not be determined. LABS: Hemoglobin is 11.7, white count 8.6, BUN of 19, creatinine 0.76. Electrolytes have been normal. Liver enzymes are normal. Urine is negative. Influenza serology negative. Chest x-ray mentioned above. DIAGNOSTIC IMPRESSION AND PLAN: Patient with fever, source is likely aspiration pneumonitis in this patient admitted to the hospital with mental status changes, weakness, lethargy with evidence of right mid lower lobe infiltrate that seems to have not responded very well to the Rocephin and Zithromax therapy and currently with no other clinical focus of infection. Abdomen was soft. UA has been negative. PLAN: 1. We will try to obtain sputum for Gram stain culture and sensitivity. 2. Aspiration precaution. 3. Start the patient on Unasyn 3 g q.6 hours. 4. We will follow up on his clinical condition and culture to further adjust medication if needed. 5. We will follow this patient along with you. MMODL / IJN: [id number] /
[2019-03-26] MEDS: AMPICILLIN-SULBACTAM 3 GM in SODIUM CHLORIDE 0.9% 100 ML IVPB SCH ×4 (00:54→17:41)
[2019-03-26] MEDS: DIVALPROEX 500 MG TABLET.DR PO SCH (00:56)
[2019-03-26] MEDS: LEVOTHYROXINE 25 MCG TAB PO SCH (05:02)
[2019-03-26 06:18] LABS: HCT 37.2 % (39.0-53.0); HGB 12.3 gm/dL (13.0-17.5); MCH 30.4 pg (25.0-35.0); MCHC 33.1 g/dL (31.0-37.0); MCV 91.8 fL (80.0-100.0); Platelet Count 205 k/uL (150-450); RBC 4.06 m/uL (4.30-5.90); RDW 13.2 % (11.5-15.5); WBC 7.6 k/uL (3.8-10.6)
[2019-03-26 06:29] LABS: ALT 14 U/L (4-49); AST 24 U/L (17-59); African American GFR (CKD) >90 (>60 ml/min/1.73 sqM); Albumin 3.1 g/dL (3.5-5.0); Alkaline Phosphatase 61 U/L (38-126); Anion Gap 9 mmol/L; Blood Urea Nitrogen 18 mg/dL (9-20); Calcium 8.8 mg/dL (8.4-10.2); Carbon Dioxide 29 mmol/L (22-30); Chloride 97 mmol/L (98-107); Glucose 134 mg/dL (74-99); Non-African American GFR(CKD) >90 (>60 ml/min/1.73 sqM); Phosphorus 3.5 mg/dL (2.5-4.5); Potassium 4.4 mmol/L (3.5-5.1); Sodium 135 mmol/L (137-145); Total Bilirubin 0.4 mg/dL (0.2-1.3); Total Protein 6.2 g/dL (6.3-8.2)
[2019-03-26 07:07] LABS: Glucose,Whole Blood 154 mg/dL (75-99)
[2019-03-26] MEDS: INSULIN ASPART (NovoLOG) 100 UNIT/ML VIAL SQ SCH ×4 (08:33→22:19)
[2019-03-26] MEDS: PROPRANOLOL 20 MG TAB PO SCH ×2 (08:33→22:19)
[2019-03-26] MEDS: VALPROIC ACID ORAL SOLN 250 MG/5 ML CUP PO SCH ×4 (08:33→22:18)
[2019-03-26] MEDS: OXYMETAZOLINE 0.05% NASL SPRAY 1 SPRAY BOTTLE NASAL SCH ×2 (08:34→22:20)
[2019-03-26 11:59] LABS: Glucose,Whole Blood 250 mg/dL (75-99)
[2019-03-26] MEDS: ENOXAPARIN 40 MG/0.4 ML SYRINGE SQ SCH (12:10)
[2019-03-26] MEDS: risperiDONE 1 MG TAB PO SCH ×2 (12:10→22:18)
[2019-03-26] MEDS: NALTREXONE HCL 50 MG TAB PO SCH (12:10)
[2019-03-26] MEDS: FLUoxetine HCL 20 MG CAP PO SCH (12:10)
[2019-03-26] MEDS ORDERED: LINAGLIPTIN 5 MG TABLET PO SCH (16:00)
[2019-03-26] MEDS ORDERED: ATORVASTATIN 10 MG TAB PO SCH (16:00)
[2019-03-26 17:00] LABS: Glucose,Whole Blood 221 mg/dL (75-99)
[2019-03-26] MEDS: FAMOTIDINE 20 MG TAB PO SCH (17:41)
--- NOTE | 2019-03-26 18:27 | PN ---
PROGRESS NOTE DATE OF SERVICE: 03/26/2019. REASON FOR FOLLOWUP: Fever, likely aspiration pneumonia. INTERVAL HISTORY: The patient overall feels better and has improved. Did have a low-grade fever last night of 100.3-100.6. The patient seemed to be breathing comfortably on nasal cannula oxygen. Hemodynamically stable. No nausea, vomiting, choking on food or diarrhea has been reported by the nursing staff. The patient is still unable to provide any history. PHYSICAL EXAMINATION: Blood pressure 109/71 with a pulse of 88, temperature 98.2. He is 95% on 2 L nasal cannula. General description is a middle-aged male lying in bed in no distress. RESPIRATORY SYSTEM: Unlabored breathing, decreased breath sounds in the bases. No wheeze. Heart S1, S2. Regular rate and rhythm. ABDOMEN: Soft, no tenderness. LABS: Hemoglobin is 12.1, white count 10.6, BUN of 18, creatinine 0.54. DIAGNOSTIC IMPRESSION AND PLAN: Patient with fever, concerning likely for aspiration pneumonia. The patient is currently covered with Unasyn, did show overall clinical improvement. Plan to finish therapy with oral Augmentin and monitor clinical course closely. MMODL / IJN: [id number] /
[2019-03-26 20:28] LABS: Glucose,Whole Blood 207 mg/dL (75-99)
[2019-03-26] MEDS: glipiZIDE 5 MG TAB PO SCH (22:19)
[2019-03-26 22:20] LABS: Glucose,Whole Blood 239 mg/dL (75-99)
--- NOTE | 2019-03-26 23:33 | P.PN ---
Progress Note - Text Progress Note Date: 03/26/19 Presenting complaint: Altered mental status Interval history: 54-year-old male with history of developmental delays, hypothyroid, diabetes Patient comes in from [place] [facility] with caregiver due to changes in his behavior. Caregiver noticed that since morning he's been extremely lethargic not being interactive as usual refusing to eat or drink. No reported fevers or chills nor reports coughing or any complaints of chest pain or trouble breathing. After evaluation in the ED and receiving IV fluid hydration patient overall status started improving. There is no reports of any falls at the [place] [facility]. Patient is unable to provide or participate in providing any meaningful history due to developmental delays Admitted with a diagnosis of-metabolic encephalopathy, upper respiratory tract infection with possible pneumonia. Today-patient been tolerating his diet. Laying in bed comfortable. Watching television. Otherwise difficult to communicate Progress of systems cannot be done because of developmental delay Active Medications Acetaminophen (Tylenol Tab) 650 mg PO Q6HR PRN PRN Reason: Mild Pain or Fever > 100.5 Last Admin: 03/25/19 04:51 Dose: 650 mg Documented by: Albuterol Sulfate (Ventolin Nebulized) 2.5 mg INHALATION RT-QID PRN PRN Reason: Shortness Of Breath Or Wheezing Atorvastatin Calcium (Lipitor) 10 mg PO DAILY@1600 [facility] Last Admin: 03/26/19 17:41 Dose: 10 mg Documented by: Clonidine (Catapres) 0.2 mg PO TID PRN PRN Reason: Blood Pressure - High Enoxaparin Sodium (Lovenox) 40 mg SQ DAILY [facility] Last Admin: 03/26/19 12:10 Dose: 40 mg Documented by: Famotidine (Pepcid) 20 mg PO BID@0600,1600 [facility] Last Admin: 03/26/19 17:41 Dose: 20 mg Documented by: Fluoxetine HCl (Prozac) 40 mg PO DAILY@0800 [facility] Last Admin: 03/26/19 12:10 Dose: 40 mg Documented by: Glipizide (Glucotrol) 5 mg PO BID@0800,2000 [facility] Last Admin: 03/26/19 22:19 Dose: 5 mg Documented by: Ampicillin Sodium/Sulbactam (Sodium 3 gm/ Sodium Chloride) 100 mls @ 200 mls/hr IVPB Q6HR [facility] Last Admin: 01/06/20 17:41 Dose: 200 mls/hr Documented by: Insulin Aspart (Novolog) 0 unit SQ ACHS [facility]; Protocol Last Admin: 03/26/19 22:19 Dose: 3 unit Documented by: Levothyroxine Sodium (Synthroid) 25 mcg PO DAILY@0600 [facility] Last Admin: 03/26/19 05:02 Dose: 25 mcg Documented by: Linagliptin (Tradjenta) 5 mg PO DAILY@1600 [facility] Last Admin: 03/26/19 17:50 Dose: 5 mg Documented by: Naloxone HCl (Narcan) 0.2 mg IV Q2M PRN PRN Reason: Opioid Reversal Naltrexone HCl (Revia) 50 mg PO DAILY@0800 [facility] Last Admin: 03/26/19 12:10 Dose: 50 mg Documented by: Oxymetazoline HCl (Afrin 0.05% Nasal [place]) 2 spray NASAL BID [facility] Stop: 03/28/19 21:01 Last Admin: 03/26/19 22:20 Dose: 2 spray Documented by: Propranolol HCl (Inderal) 20 mg PO BID@ [facility] Last Admin: 03/26/19 22:19 Dose: 20 mg Documented by: Risperidone (Risperdal) 3 mg PO BID@799,1999 [facility] Last Admin: 03/26/19 22:18 Dose: 3 mg Documented by: Valproic Acid (Depakene Syrup) 750 mg PO QID [facility] Last Admin: 03/26/19 22:18 Dose: 750 mg Documented by: On examination: VITAL SIGNS: 98.2, 88, 16, 109/71, 95% on 2 L GENERAL APPEARANCE: Laying in bed, not in distress which television. HEENT: Normal external appearance of nose and ear. Oral cavity normal EYES: Pupils equal. Conjunctiva normal. NECK: JVD not raised. Mass not palpable. RESPIRATORY: Respiratory effort normal, decreased breath sounds CARDIOVASCULAR: First and second sounds normal. No edema. ABDOMEN: Soft. Liver and spleen not palpable. No tenderness. No mass palpable. PSYCHIATRY: Does not really answer questions Investigations: White count 7.6 hemoglobin 12.3 potassium 4.4 crit 0.54 Influenza A and B both negative UA negative Chest x-ray film personally reviewed by me shows possible right-sided infiltrates Assessment: -Possible right-sided pneumonia, POA -Acute metabolic encephalopathy from pneumonia, POA -Chronic developmental delay -Diabetes mellitus type 2 -GERD -Hyperlipidemia -Essential hypertension -Hypothyroid -Possible hemorrhoids -PICA Plan: Patient last fevers close to 24 hours ago. We will watch for another 24 hours. It remains well controlled could return to the [place] [facility] the following day.
[2019-03-27] MEDS: AMPICILLIN-SULBACTAM 3 GM in SODIUM CHLORIDE 0.9% 100 ML IVPB SCH ×3 (00:33→11:39)
[2019-03-27 00:40] VITALS: RESP 20
[2019-03-27 05:09] VITALS: BP 145/83; PULSE 59; TEMP 97.8
[2019-03-27] MEDS: LEVOTHYROXINE 25 MCG TAB PO SCH (05:12)
[2019-03-27] MEDS: FAMOTIDINE 20 MG TAB PO SCH (05:12)
[2019-03-27 07:26] LABS: Glucose,Whole Blood 153 mg/dL (75-99)
[2019-03-27] MEDS: glipiZIDE 5 MG TAB PO SCH (09:36)
[2019-03-27] MEDS: INSULIN ASPART (NovoLOG) 100 UNIT/ML VIAL SQ SCH ×2 (09:36→12:14)
[2019-03-27] MEDS: FLUoxetine HCL 20 MG CAP PO SCH (09:36)
[2019-03-27] MEDS: ENOXAPARIN 40 MG/0.4 ML SYRINGE SQ SCH (09:36)
[2019-03-27] MEDS: risperiDONE 1 MG TAB PO SCH (09:36)
[2019-03-27] MEDS: PROPRANOLOL 20 MG TAB PO SCH (09:37)
[2019-03-27] MEDS: NALTREXONE HCL 50 MG TAB PO SCH (09:37)
[2019-03-27] MEDS: OXYMETAZOLINE 0.05% NASL SPRAY 1 SPRAY BOTTLE NASAL SCH (09:38)
[2019-03-27] MEDS: VALPROIC ACID ORAL SOLN 250 MG/5 ML CUP PO SCH (09:38)
[2019-03-27 11:52] LABS: Glucose,Whole Blood 220 mg/dL (75-99)
--- NOTE | 2019-03-27 16:09 | PN ---
PROGRESS NOTE DATE OF SERVICE: 03/27/2019 REASON FOR FOLLOWUP: Aspiration pneumonia. INTERVAL HISTORY: The patient was seen on rounds this morning. The patient has been afebrile. No fever has been recorded in the last 48 hours. The patient is breathing comfortably on room air. No need for any supplemental oxygen. No nausea, vomiting, choking on the food or diarrhea being reported by the nursing staff. PHYSICAL EXAMINATION: Blood pressure 145/83 with a pulse of 59, temperature 97.8. He is 98% on room air. General description is a middle-aged male up in the room in no distress. RESPIRATORY SYSTEM: Unlabored breathing with decreased breath sounds at the base. No wheeze. HEART: S1, S2. Regular rate and rhythm. ABDOMEN: Soft. No tenderness. LABS: No new labs have been obtained. Blood culture has been negative. DIAGNOSTIC IMPRESSION AND PLAN: Patient with fever. Source is likely aspiration pneumonia. The patient seems to have shown overall clinical improvement. Plan at this time is to finish therapy with oral Augmentin for about a week and then close outpatient followup. MMODL / IJN: [id number] /
--- NOTE | 2019-03-28 00:03 | P.DS ---
Providers Date of admission: 03/24/19 08:17 Expected date of discharge: 03/27/19 Attending physician: Lino Dawkins Consults: 03/25/19 07:12 Consult Physician Routine Consulting Provider: Roc Lema Consult Reason/Comments: fever Do you want consulting provider notified?: Yes Primary care physician: Nasir Mahajan [facility] Course: Presenting complaint: Altered mental status Hospital course: 54-year-old male with history of developmental delays, hypothyroid, diabetes Patient comes in from senior living with caregiver due to changes in his behavior. Caregiver noticed that since morning he's been extremely lethargic not being interactive as usual refusing to eat or drink. No reported fevers or chills nor reports coughing or any complaints of chest pain or trouble breathing. After evaluation in the ED and receiving IV fluid hydration patient overall status started improving. There is no reports of any falls at the senior living. Patient is unable to provide or participate in providing any meaningful history due to developmental delays Admitted with a diagnosis of-metabolic encephalopathy, upper respiratory tract infection with possible pneumonia. Treated with IV Unasyn. Responded well. Today-tolerating diet. Laying in bed Comfortable. Consultation: Dr. lema from ID On examination: VITAL SIGNS: 97.8, 59, 20, 145/83, 98% on room air GENERAL APPEARANCE: Laying in bed, comfortable HEENT: Normal external appearance of nose and ear. Oral cavity normal EYES: Pupils equal. Conjunctiva normal. NECK: JVD not raised. Mass not palpable. RESPIRATORY: Respiratory effort normal, decreased breath sounds CARDIOVASCULAR: First and second sounds normal. No edema. ABDOMEN: Soft. Liver and spleen not palpable. No tenderness. No mass palpable. PSYCHIATRY: Does not really answer questions Investigations: White count 7.6 hemoglobin 12.3 potassium 4.4 crit 0.54 Influenza A and B both negative UA negative Chest x-ray film personally reviewed by me shows possible right-sided infiltrates Assessment: -Possible right-sided pneumonia, POA -Acute metabolic encephalopathy from pneumonia, POA -Chronic developmental delay -Diabetes mellitus type 2 -GERD -Hyperlipidemia -Essential hypertension -Hypothyroid -Possible hemorrhoids -PICA Disposition: USP Patient Condition at Discharge: Stable Plan - Discharge Summary Discharge Rx Participant: No New Discharge Prescriptions: New Amoxic-Pot Clav 875-125Mg [Augmentin 875-125] 1 tab PO BID 3 Days #6 tab Continue Levothyroxine Sodium [Synthroid] 25 mcg PO DAILY@0600 Lovastatin [Mevacor] 20 mg PO DAILY@1600 Divalproex [Depakote] 1,500 mg PO BID@08,1999 risperiDONE 3 mg PO BID@08,1999 sitaGLIPtin [Januvia] 100 mg PO DAILY@1600 FLUoxetine HCL [PROzac] 40 mg PO DAILY@0800 Cholecalciferol [Vitamin D3 (25 Mcg = 1000 Iu)] 1,000 unit PO BID@0800,1999 Ranitidine HCl [Zantac] 150 mg PO BID@0600,1600 Propranolol [Inderal] 20 mg PO BID@0800,1999 Naltrexone HCl [Revia] 50 mg PO DAILY@0800 glipiZIDE [Glucotrol] 5 mg PO BID@08,1999 Ferrous Sulfate [Iron] 325 mg PO DAILY@1600 guanFACINE HCL [Intuniv] 2 mg PO DAILY@0800 Cetirizine HCl [Zyrtec] 10 mg PO HS@1999 Total B/C 1 tab PO DAILY@0800 Discharge Medication List Levothyroxine Sodium [Synthroid] 25 mcg PO DAILY@0600 07/13/14 [History] Lovastatin [Mevacor] 20 mg PO DAILY@1600 07/13/14 [History] Divalproex [Depakote] 1,500 mg PO BID@0800,199904/21/15 [History] risperiDONE 3 mg PO BID@0800,199910/16/15 [History] sitaGLIPtin [Januvia] 100 mg PO DAILY@1600 10/16/15 [History] Cholecalciferol [Vitamin D3 (25 Mcg = 1000 Iu)] 1,000 unit PO BID@08,199906/22/16 [History] FLUoxetine HCL [PROzac] 40 mg PO DAILY@0800 06/22/16 [History] Propranolol [Inderal] 20 mg PO BID@0800,199906/14/18 [History] Ranitidine HCl [Zantac] 150 mg PO BID@0600,1600 06/14/18 [History] Naltrexone HCl [Revia] 50 mg PO DAILY@0800 07/11/18 [History] Ferrous Sulfate [Iron] 325 mg PO DAILY@1600 08/23/18 [History] glipiZIDE [Glucotrol] 5 mg PO BID@08,199908/23/18 [History] guanFACINE HCL [Intuniv] 2 mg PO DAILY@79908/23/18 [History] Cetirizine HCl [Zyrtec] 10 mg PO HS@199903/22/19 [History] Total B/C 1 tab PO DAILY@0803/22/19 [History] Amoxic-Pot Clav 875-125Mg [Augmentin 875-125] 1 tab PO BID 3 Days #6 tab 03/27/19 [Rx] Follow up Appointment(s)/Referral(s): Nasir Mahajan MD [Primary Care Provider] - 1-2 days (PLEASE CALL AND SHIRLEY LE APPOINTMENT) Patient Instructions/Handouts: Weakness (DC), Aspiration Precautions (DC) Activity/Diet/Wound Care/Special Instructions: ASPIRATION PRECAUTIONS Discharge Disposition: HOME SELF-CARE
--- NOTE | 2019-03-30 11:38 | CDI ---
Documentation Clarification Form Date: 03/30/19 From: Laurel Carrasco Phone: If you have a question about this query, please contact Brianna Henry, [employer] Tender at [phone] between 8am and 5pm. Admit Date: 03/24/19 Discharge Date:03/27/19 Patient Name: Dallas Boone Visit Number: [id number] ATTENTION: The Clinical Documentation Specialists (CDI) and [facility] Coding Staff appreciate your assistance in clarifying documentation. Please respond to the clarification below the line at the bottom and electronically sign. The CDI & [facility] Coding staff will review the response and follow-up if needed. Please note: Queries are made part of the Legal Health Record. If you have any questions, please contact the author of this message via ITS. Dear Dr. Dawkins The patient presented with altered mental status. Dr. Ayon documented SIRS rule out sepsis History/Risk Factors: Pneumonia Clinical Indicators: altered mental status, WBC: 6.7 Lactic acid: 1.6 Blood cultures: No growth Vitals signs on admission: T. 101.6, P. 110, R. 24, BP 151/86 Treatment: ID Consult: Fever, likely aspiration pneumonia Antibiotics: IV Unasyn, IV Bolus: 1/2 liter then at 100 mls/hr In your professional opinion, please clarify if these findings signify one of the following conditions, whether the condition is POA, and cause, if known: Condition Sepsis ruled out SIRS, without underlying infectious process Sepsis Severe Sepsis Other, please specify Unable to determine Link or clarify if there is associated (due to/with): Organ failure Shock Sepsis due to pneumonia MTDD
--- NOTE | 2019-03-30 12:24 | CDI ---
Documentation Clarification Form Date: 03/30/19 From: Laurel Carrasco Phone: If you have a question about this query, please contact Brianna Henry, Entry Processor at [phone] between 8am and 5pm. Admit Date: 03/24/19 Discharge Date: 03/27/19 Patient Name: Dallas Boone Visit Number: [id number] ATTENTION: The Clinical Documentation Specialists (CDI) and [facility] Coding Staff appreciate your assistance in clarifying documentation. Please respond to the clarification below the line at the bottom and electronically sign. The CDI & [facility] Coding staff will review the response and follow-up if needed. Please note: Queries are made part of the Legal Health Record. If you have any questions, please contact the author of this message via ITS. Dear Dr. Dawkins Pneumonia was documented in your notes on 03/26 and in the discharge summary. History/Risk Factors: Mental retardation, lives in a snf, history of pneumonia Clinical Indicators: Fever Vital signs: T. 101.6, P. 110, R. 24, BP 151/86 WBC/Left shift: 6.7/69% X-ray: Some pleural reaction and atelectasis at the lung bases similar to old exam. Increased pulmonary interstitial density without obvious heart failure. Lung/Breathing assessment: Unlabored breathing, decreased breath sounds in the bases. Consult: Dr. Lema documented aspiration pneumonia Treatment: IV Unasyn O2: 2L per nasal cannula In order to capture the severity of condition, please clarify if the condition signifies and you are treating for: Aspiration Pneumonia, identify if: Bacterial Pneumonia, specify causal organism (if known) Gram Negative Pneumonia Due to Strep Due to Staph Due to E. Coli Other bacteria (please specify) Viral Pneumonia, specify casual organism (if known) Other, please specify Unable to determine Possible aspiration pneumonia MTDD
== END 2019-03-27 12:18 | disposition home or self-care (01) | DRG 871 ==
LOC: EC 18:57 → 6NMEDSUR 23:29 → OBSVTOIN 03-24 08:17
PROVIDERS: ADMIT Hospitalist; ATTEND Hospitalist
DX: A41.9 Sepsis, unspecified organism (principal); J69.0 Pneumonitis due to inhalation of food and vomit; G92 Toxic encephalopathy; F84.0 Autistic disorder; J98.11 Atelectasis; F50.89 Other specified eating disorder; E03.9 Hypothyroidism, unspecified; E11.9 Type 2 diabetes mellitus without complications; E78.5 Hyperlipidemia, unspecified; E86.0 Dehydration; E87.5 Hyperkalemia; F41.9 Anxiety disorder, unspecified; F42.9 Obsessive-compulsive disorder, unspecified; F79 Unspecified intellectual disabilities; I10 Essential (primary) hypertension; K21.9 Gastro-esophageal reflux disease without esophagitis; R62.50 Unspecified lack of expected normal physiological development in childhood; K64.9 Unspecified hemorrhoids; Z68.25 Body mass index [BMI] 25.0-25.9, adult; Z79.84 Long term (current) use of oral hypoglycemic drugs; Z79.890 Hormone replacement therapy; Z79.899 Other long term (current) drug therapy; Z87.01 Personal history of pneumonia (recurrent); Z83.3 Family history of diabetes mellitus
CPT/HCPCS: 36415; 71045; 71046; 80048; 80053; 80164; 81003; 82140; 83605; 83735; 84100; 84145; 84443; 84484; 85025; 85027; 85610; 85652; 85730; 86140; 87040; 87252; 87324; 87502; 93005; 96360; 99285

== ENCOUNTER 2019-03-28 12:45 | Inpatient (IN) | payer MEDICARE, OTHER ==
[2019-03-28] MEDS ORDERED: SODIUM CHLORIDE 0.9% 500 ML 500 ML IV STA (13:48)
[2019-03-28] MEDS ORDERED: IPRATROPIUM-ALBUTEROL 3 ML NEB INHALATION STA (13:48)
[2019-03-28 14:13] LABS: Basophils # (A) 0.3 k/uL (0-0.2); Basophils % (A) 3 %; Eosinophils # (A) 0.1 k/uL (0-0.7); Eosinophils % (A) 1 %; HCT 37.9 % (39.0-53.0); HGB 12.6 gm/dL (13.0-17.5); Lymphocytes # (A) 2.3 k/uL (1.0-4.8); Lymphocytes % (A) 19 %; MCHC 33.3 g/dL (31.0-37.0); MCV 92.9 fL (80.0-100.0); Mean Platelet Volume 7.2; Monocytes % (A) 8 %; Neutrophils # (A) 8.3 k/uL (1.3-7.7); Neutrophils % (A) 68 %; Platelet Count 303 k/uL (150-450); RBC 4.07 m/uL (4.30-5.90); RDW 13.5 % (11.5-15.5); WBC 12.2 k/uL (3.8-10.6)
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
[2019-03-28 14:24] LABS: Carbon Dioxide 27 mmol/L (22-30); Chloride 103 mmol/L (98-107); Glucose 154 mg/dL (74-99); Sodium 140 mmol/L (137-145)
[2019-03-28 14:25] LABS: ALT 12 U/L (4-49); AST 26 U/L (17-59); African American GFR (CKD) >90 (>60 ml/min/1.73 sqM); Albumin 3.6 g/dL (3.5-5.0); Alkaline Phosphatase 65 U/L (38-126); Anion Gap 10 mmol/L; Blood Urea Nitrogen 34 mg/dL (9-20); Calcium 9.6 mg/dL (8.4-10.2); Magnesium 2.5 mg/dL (1.6-2.3); Non-African American GFR(CKD) >90 (>60 ml/min/1.73 sqM); Total Bilirubin 0.6 mg/dL (0.2-1.3)
[2019-03-28 14:32] LABS: Potassium 4.9 mmol/L (3.5-5.1)
[2019-03-28 14:39] LABS: INR 0.9 (<1.2); Prothrombin Time 9.5 sec (9.0-12.0)
[2019-03-28 14:44] LABS: Partial Thromboplastin Time 20.2 sec (22.0-30.0)
--- NOTE | 2019-03-28 15:21 | XR ---
EXAMINATION TYPE: XR chest 2V DATE OF EXAM: 03/28/2019 COMPARISON: 03/24/2019 HISTORY: 54-year-old male with weakness TECHNIQUE: AP and lateral views FINDINGS: Heart upper limits of normal in size. Aorta within normal limits. Diffuse interstitial densities pers ist more focal and patchy at the peripheral right base. Some increasing patchy density peripheral lef t base. No sizable effusion seen on the lateral view. IMPRESSION: Patchy densities throughout particularly at the peripheral lung bases without effusion seen on the la teral view. Interstitial pneumonitis, multifocal pneumonia, and atypical pneumonias are in the differ ential.
[2019-03-28 15:56] LABS: Appearance,Urine Clear (Clear); Bilirubin,Urine Negative (Negative); Blood,Urine Negative (Negative); Color,Urine Dark Yellow; Glucose,Urine (UA) Negative (Negative); Hyaline Casts,Urine 10 /lpf (0-2); Ketones,Urine Trace (Negative); Leukocyte Esterase,Urine Negative (Negative); Mucus,Urine Many /hpf; Nitrite,Urine Negative (Negative); Protein,Urine 1+ (Negative); RBC,Urine 1 /hpf (0-5); Specific Gravity,Urine 1.031 (1.001-1.035); Squamous Epithelial Cell,Urine <1 /hpf (0-4); WBC,Urine 6 /hpf (0-5)
[2019-03-28] MEDS ORDERED: AZITHROMYCIN 500 MG in SODIUM CHLORIDE 0.9% 250 ML IVPB STA (16:14)
[2019-03-28] MEDS ORDERED: PIPERACILLIN-TAZOBACTAM 3.375 GM in SODIUM CHLORIDE 0.9% 100 ML IVPB STA (16:14)
[2019-03-28] MEDS ORDERED: PNEUMONIA PROTOCOL UTILIZED 1 EACH MISC PO PRN (16:14)
[2019-03-28] MEDS: IPRATROPIUM-ALBUTEROL 3 ML NEB INHALATION SCH (20:10)
[2019-03-28] MEDS ORDERED: RISPERIDONE 3 MG PO SCH (22:52)
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
[2019-03-28] MEDS ORDERED: LINAGLIPTIN 5 MG TABLET PO SCH (23:15)
[2019-03-29] MEDS: DIVALPROEX 500 MG TABLET.DR PO SCH ×3 (00:09→21:37)
[2019-03-29] MEDS: PROPRANOLOL 20 MG TAB PO SCH ×3 (00:09→21:37)
[2019-03-29] MEDS: glipiZIDE 5 MG TAB PO SCH ×3 (00:09→21:37)
[2019-03-29] MEDS: risperiDONE 2 MG TAB PO SCH ×3 (00:09→21:37)
[2019-03-29] MEDS: LORATADINE 10 MG TAB PO SCH ×2 (00:09→21:37)
[2019-03-29 00:10] LABS: Glucose,Whole Blood 111 mg/dL (75-99)
[2019-03-29] MEDS: ENOXAPARIN 40 MG/0.4 ML SYRINGE SQ SCH ×2 (00:10→09:19)
[2019-03-29] MEDS: PIPERACILLIN-TAZOBACTAM 3.375 GM in SODIUM CHLORIDE 0.9% 100 ML IVPB SCH ×3 (02:39→17:07)
[2019-03-29] MEDS: LEVOTHYROXINE 25 MCG TAB PO SCH (06:22)
[2019-03-29] MEDS: FAMOTIDINE 20 MG TAB PO SCH ×2 (06:22→15:39)
[2019-03-29] MEDS: IPRATROPIUM-ALBUTEROL 3 ML NEB INHALATION SCH ×4 (07:57→21:13)
--- NOTE | 2019-03-29 08:25 | XR ---
EXAMINATION TYPE: XR chest 2V DATE OF EXAM: 03/29/2019 COMPARISON: 03/28/2019 TECHNIQUE: PA and lateral views submitted. HISTORY: Cough, pneumonia FINDINGS: Heart upper limits of normal in size. Aorta within normal limits. Diffuse interstitial densities pers ist more focal and patchy at the peripheral right base. Some increasing patchy density peripheral lef t base. No sizable effusion seen on the lateral view. IMPRESSION: 1. Patchy areas of consolidation are stable. Small bilateral effusions correlate for CHF versus inter stitial pneumonitis or pneumonia.
[2019-03-29] MEDS: FLUoxetine HCL 20 MG CAP PO SCH (09:18)
[2019-03-29] MEDS: guanFACINE 1 MG TAB PO SCH (09:19)
[2019-03-29] MEDS: NALTREXONE HCL 50 MG TAB PO SCH (09:19)
--- NOTE | 2019-03-29 13:26 | CDI ---
Documentation Clarification Form Date: 03/29/2019 01:18:07 PM From: Neema BabbRAMIN de la o, CCDS Admit Date: 03/28/2019 04:18:00 PM Patient Name: Dallas Boone Visit Number: [id number] Discharge Date: ATTENTION: The Clinical Documentation Specialists (CDI) and [facility] Coding Staff appreciate your assistance in clarifying documentation. Please respond to the clarification below the line at the bottom and electronically sign. The CDI & [facility] Coding staff will review the response and follow-up if needed. Please note: Queries are made part of the Legal Health Record. If you have any questions, please contact the author of this message via ITS. Dr. Lino Dawkins: Encephalopathy is documented in the History & Physical without further specificity. History/Risk Factors: Chronic developmental delay, DM II, GERD, Hyperlipidemia, Hypertension, Hypothyroid, Possible hemorrhoids, PICA. Clinical Indicators: Presented with SOB, cough. Recent admission for pneumonia & treated with IV Unasyn. Readmitted & diagnosed with aspiration pneumonia. VS: T 97.0*, P 102^, R 24, BP 112/76, PO 93* RA Labs: WBC 12.2^, Lactic acid 1.8, Hgb 12.6*, Neut 8.3^, BUN 34^, Glucse 154^, Mag 2.5^. UA: dark yellow, 1+ protein, trace ketones, WBC 6, Hyaline cast 10 CT/MRI Brain: n/a Treatment: INH Albuterol, IV fluid bolus, IV Azithromycin, IV Rocephin, IV Zosyn In your professional opinion, can you please clarify the specific type of Encephalopathy, if known? Metabolic Encephalopathy Septic Encephalopathy Please include sepsis if present Toxic Encephalopathy Other, please specify Unable to determine (Last Revision: June 2017) Metabolic encephalopathy MTDD
[2019-03-29] MEDS: FERROUS SULFATE 325 MG TAB PO SCH (15:39)
[2019-03-29] MEDS: ATORVASTATIN 10 MG TAB PO SCH (15:39)
[2019-03-29 17:03] LABS: Glucose,Whole Blood 160 mg/dL (75-99)
[2019-03-29] MEDS: LINAGLIPTIN 5 MG TABLET PO SCH (17:07)
[2019-03-29 21:34] LABS: Glucose,Whole Blood 131 mg/dL (75-99)
--- NOTE | 2019-03-29 23:30 | P.PN ---
Progress Note - Text Progress Note Date: 03/29/19 Chief Complaint: Short of breath cough Interval history: 54-year-old male with history of developmental delays, hypothyroid, diabetes, GERD, hyperlipidemia, hypertension, PICA. Patient was discharged from the hospital yesterday. On the last admission patient admitted with changes in mental status, decreasing to eat or drink. Treated with IV Unasyn for pneumonia. When patient was discharged patient is doing well tolerated diet laying comfortably. Patient did well when he returned. Earlier today patient was noted to be lethargic eating and drinking less. Patient was taken to the family doctor's office and from where he was sent down to the ER. Patient is f eeling better in the ER. Given antibiotics. Patient is awake and quite back to his baseline per the caregiver present in the ER. Patient himself not able to give any history. Today-looking better. No cough. nursing home caregivers the bedside. ate 75% of his breakfast. Occasional cough. Progress review of systems cannot be done as patient is does not speak Active Medications Albuterol/Ipratropium (Duoneb 0.5 Mg-3 Mg/3 Ml Soln) 3 ml INHALATION RT-QID [facility] Last Admin: 03/29/19 21:13 Dose: Not Given Documented by: Atorvastatin Calcium (Lipitor) 10 mg PO DAILY@1600 [facility] Last Admin: 03/29/19 15:39 Dose: 10 mg Documented by: Divalproex Sodium (Depakote) 1,500 mg PO BID@0800,1999 [facility] Last Admin: 03/29/19 21:37 Dose: 1,500 mg Documented by: Enoxaparin Sodium (Lovenox) 40 mg SQ DAILY [facility] Last Admin: 03/29/19 09:19 Dose: 40 mg Documented by: Famotidine (Pepcid) 20 mg PO BID@0600,1600 [facility] Last Admin: 03/29/19 15:39 Dose: 20 mg Documented by: Ferrous Sulfate (Feosol) 325 mg PO DAILY@1600 [facility] Last Admin: 03/29/19 15:39 Dose: 325 mg Documented by: Fluoxetine HCl (Prozac) 40 mg PO DAILY@0800 [facility] Last Admin: 03/29/19 09:18 Dose: 40 mg Documented by: Glipizide (Glucotrol) 5 mg PO BID@0800,1999 [facility] Last Admin: 03/29/19 21:37 Dose: 5 mg Documented by: Guanfacine HCl (Tenex) 2 mg PO DAILY@0800 [facility] Last Admin: 03/29/19 09:19 Dose: 2 mg Documented by: Piperacillin Sod/Tazobactam (Sod 3.375 gm/ Sodium Chloride) 100 mls @ 25 mls/hr IVPB Q8H [facility] Last Admin: 03/29/19 17:07 Dose: 25 mls/hr Documented by: Levothyroxine Sodium (Synthroid) 25 mcg PO DAILY@0600 [facility] Last Admin: 03/29/19 06:22 Dose: 25 mcg Documented by: Linagliptin (Tradjenta) 5 mg PO DAILY@1730 [facility] Last Admin: 03/29/19 17:07 Dose: 5 mg Documented by: Loratadine (Claritin) 10 mg PO HS@1999 [facility] Last Admin: 03/29/19 21:37 Dose: 10 mg Documented by: Miscellaneous Information (Pneumonia Protocol Utilized) 1 each PO ONCE PRN PRN Reason: Per Protocol Naltrexone HCl (Revia) 50 mg PO DAILY@0800 [facility] Last Admin: 03/29/19 09:19 Dose: 50 mg Documented by: Propranolol HCl (Inderal) 20 mg PO BID@799,1999 [facility] Last Admin: 03/29/19 21:37 Dose: 20 mg Documented by: Risperidone (Risperdal) 2 mg PO BID [facility] Last Admin: 03/29/19 21:37 Dose: 2 mg Documented by: Physical examination: VITAL SIGNS: 97.4, 91, 16, 133/91, 95% room air GENERAL: Laying in bed, comfortable. EYES: Pupils equal. Conjunctiva normal. HEENT: External appearance of nose and ears normal, oral cavity grossly normal. NECK: JVD not raised; masses not palpable. HEART: First and second heart sounds are normal; no edema. LUNGS: Respiratory rate increased, decreased breath sounds. ABDOMEN: Soft, nontender, liver spleen not palpable, no masses palpable. PSYCH: [Awake, lying in bed, decreased out to shake my hands. Investigations: White count 12.2 hemoglobin 12.6 potassium 4.9 crit 0.79 Patient white count was 7.62 days ago. Chest x-ray film personally reviewed by me shows some scattered infiltrates Assessment: -Possible aspiration pneumonia, possibly precipitated by decreased mentation/encephalopathy, improving -Chronic developmental delay -Diabetes mellitus type 2 -GERD -Hyperlipidemia -Essential hypertension -Hypothyroid -Possible hemorrhoids -PICA Plan: Continue patient on IV Zosyn followed darryl. Clinically much improved. Ea ting well. Later finished 100% of his lunch. Repeat chest x-ray in the morning.
[2019-03-30] MEDS: PIPERACILLIN-TAZOBACTAM 3.375 GM in SODIUM CHLORIDE 0.9% 100 ML IVPB SCH ×3 (01:57→17:49)
[2019-03-30] MEDS: LEVOTHYROXINE 25 MCG TAB PO SCH (05:42)
[2019-03-30] MEDS: FAMOTIDINE 20 MG TAB PO SCH ×2 (05:42→17:48)
[2019-03-30] MEDS: IPRATROPIUM-ALBUTEROL 3 ML NEB INHALATION SCH ×4 (07:41→19:04)
[2019-03-30] MEDS: FERROUS SULFATE 325 MG TAB PO SCH (08:56)
[2019-03-30] MEDS: glipiZIDE 5 MG TAB PO SCH ×2 (08:56→19:36)
[2019-03-30] MEDS: FLUoxetine HCL 20 MG CAP PO SCH (08:56)
[2019-03-30] MEDS: DIVALPROEX 500 MG TABLET.DR PO SCH ×2 (08:56→19:35)
[2019-03-30] MEDS: ATORVASTATIN 10 MG TAB PO SCH (08:57)
[2019-03-30] MEDS: risperiDONE 2 MG TAB PO SCH (09:00)
[2019-03-30] MEDS: PROPRANOLOL 20 MG TAB PO SCH ×2 (09:00→19:36)
[2019-03-30] MEDS: NALTREXONE HCL 50 MG TAB PO SCH (09:00)
[2019-03-30] MEDS: ENOXAPARIN 40 MG/0.4 ML SYRINGE SQ SCH (09:01)
[2019-03-30] MEDS ORDERED: guanFACINE 1 MG TAB PO SCH (09:07)
[2019-03-30] MEDS: guanFACINE 1 MG TAB PO SCH ×2 (09:48→10:07)
[2019-03-30 09:52] LABS: Basophils # (A) 0.1 k/uL (0-0.2); Basophils % (A) 1 %; Eosinophils # (A) 0.1 k/uL (0-0.7); Eosinophils % (A) 1 %; HCT 33.2 % (39.0-53.0); HGB 11.2 gm/dL (13.0-17.5); Lymphocytes # (A) 1.7 k/uL (1.0-4.8); Lymphocytes % (A) 23 %; MCH 31.3 pg (25.0-35.0); MCHC 33.9 g/dL (31.0-37.0); MCV 92.4 fL (80.0-100.0); Mean Platelet Volume 6.9; Monocytes # (A) 0.7 k/uL (0-1.0); Monocytes % (A) 10 %; Neutrophils # (A) 4.7 k/uL (1.3-7.7); Neutrophils % (A) 63 %; Platelet Count 266 k/uL (150-450); RBC 3.59 m/uL (4.30-5.90); RDW 13.3 % (11.5-15.5); WBC 7.4 k/uL (3.8-10.6)
[2019-03-30 10:32] LABS: Glucose,Whole Blood 118 mg/dL (75-99)
[2019-03-30 12:07] LABS: Glucose,Whole Blood 216 mg/dL (75-99)
--- NOTE | 2019-03-30 14:33 | XR ---
EXAMINATION TYPE: XR chest 2V DATE OF EXAM: 03/30/2019 COMPARISON: 03/29/2018 TECHNIQUE: PA and lateral views submitted. HISTORY: Cough FINDINGS: Heart upper limits of normal in size. Aorta within normal limits. Diffuse interstitial densities pers ist more focal and patchy at the peripheral right base. Some increasing patchy density peripheral lef t base. No sizable effusion seen on the lateral view. IMPRESSION: 1. Stable patchy areas of consolidation and pleural effusion correlate for mild interstitial pneumoni tis. On the lateral view there appears to be a pleural-based density measuring 3.[address] s can of the chest.
[2019-03-30 17:08] LABS: Glucose,Whole Blood 158 mg/dL (75-99)
[2019-03-30] MEDS: LINAGLIPTIN 5 MG TABLET PO SCH (17:48)
[2019-03-30] MEDS: risperiDONE 1 MG TAB PO SCH (19:36)
--- NOTE | 2019-03-31 00:48 | P.PN ---
Progress Note - Text Progress Note Date: 03/30/19 Chief Complaint: Short of breath cough Interval history: 54-year-old male with history of developmental delays, hypothyroid, diabetes, GERD, hyperlipidemia, hypertension, PICA. Patient was discharged from the hospital yesterday. On the last admission patient admitted with changes in mental status, decreasing to eat or drink. Treated with IV Unasyn for pneumonia. When patient was discharged patient is doing well tolerated diet laying comfortably. Patient did well when he returned. Earlier today patient was noted to be lethargic eating and drinking less. Patient was taken to the family doctor's office and from where he was sent down to the ER. Patient is f eeling better in the ER. Given antibiotics. Patient is awake and quite back to his baseline per the caregiver present in the ER. Patient himself not able to give any history. Today-patient was doing well yesterday. Became again lethargic this morning. Appears to be response to his dose of Risperdal. Progress review of systems cannot be done as patient is does not speak Active Medications Albuterol/Ipratropium (Duoneb 0.5 Mg-3 Mg/3 Ml Soln) 3 ml INHALATION RT-QID [facility] Last Admin: 03/30/19 19:04 Dose: 3 ml Documented by: Atorvastatin Calcium (Lipitor) 10 mg PO DAILY@1600 [facility] Last Admin: 03/30/19 08:57 Dose: 10 mg Documented by: Divalproex Sodium (Depakote) 1,500 mg PO BID@799,1999 [facility] Last Admin: 03/30/19 19:35 Dose: 1,500 mg Documented by: Enoxaparin Sodium (Lovenox) 40 mg SQ DAILY [facility] Last Admin: 03/30/19 09:01 Dose: 40 mg Documented by: Famotidine (Pepcid) 20 mg PO BID@0600,1600 [facility] Last Admin: 03/30/19 17:48 Dose: 20 mg Documented by: Ferrous Sulfate (Feosol) 325 mg PO DAILY@1600 [facility] Last Admin: 03/30/19 08:56 Dose: 325 mg Documented by: Fluoxetine HCl (Prozac) 40 mg PO DAILY@0800 [facility] Last Admin: 03/30/19 08:56 Dose: 40 mg Documented by: Glipizide (Glucotrol) 5 mg PO BID@08,1999 [facility] Last Admin: 03/30/19 19:36 Dose: 5 mg Documented by: Guanfacine HCl (Tenex) 2 mg PO DAILY@08 [facility] Last Admin: 03/30/19 10:07 Dose: 2 mg Documented by: Piperacillin Sod/Tazobactam (Sod 3.375 gm/ Sodium Chloride) 100 mls @ 25 mls/hr IVPB Q8H [facility] Last Admin: 03/30/19 17:49 Dose: 25 mls/hr Documented by: Levothyroxine Sodium (Synthroid) 25 mcg PO DAILY@0600 [facility] Last Admin: 03/30/19 05:42 Dose: 25 mcg Documented by: Linagliptin (Tradjenta) 5 mg PO DAILY@1730 [facility] Last Admin: 03/30/19 17:48 Dose: 5 mg Documented by: Miscellaneous Information (Pneumonia Protocol Utilized) 1 each PO ONCE PRN PRN Reason: Per Protocol Naltrexone HCl (Revia) 50 mg PO DAILY@08 [facility] Last Admin: 03/30/19 09:00 Dose: 50 mg Documented by: Propranolol HCl (Inderal) 20 mg PO BID@799,1999 [facility] Last Admin: 03/30/19 19:36 Dose: 20 mg Documented by: Risperidone (Risperdal) 1 mg PO [facility] Last Admin: 03/30/19 19:36 Dose: 1 mg Documented by: Physical examination: VITAL SIGNS: 97.5, 91, 18, 156/87, 98% room air GENERAL: Laying in bed, very somnolent and lethargic. EYES: Pupils equal. Conjunctiva normal. HEENT: External appearance of nose and ears normal, oral cavity grossly normal. NECK: JVD not raised; masses not palpable. HEART: First and second heart sounds are normal; no edema. LUNGS: Respiratory rate increased, decreased breath sounds. ABDOMEN: Soft, nontender, liver spleen not palpable, no masses palpable. PSYCH: [Awake, lying in bed, decreased out to shake my hands. Investigations: White count 7.4 hemoglobin 11.2 Previous testing White count 12.2 hemoglobin 12.6 potassium 4.9 crit 0.79 Patient white count was 7.62 days ago. Chest x-ray film personally reviewed by me shows some scattered infiltrates Assessment: -Possible aspiration pneumonia, possibly precipitated by decreased mentation/encephalopathy, with the latter possibly with a component of Risperdal -Chronic developmental delay -Diabetes mellitus type 2 -GERD -Hyperlipidemia -Essential hypertension -Hypothyroid -Possible hemorrhoids -PICA Plan: Continue with IV Zosyn. We'll DC the morning dose of risperidone and decrease the evening dose of risperidone to 1 mg. Other medications to continue. We'll watch the patient for another 24 hours..
[2019-03-31] MEDS: PIPERACILLIN-TAZOBACTAM 3.375 GM in SODIUM CHLORIDE 0.9% 100 ML IVPB SCH ×3 (01:07→17:08)
[2019-03-31] MEDS: LEVOTHYROXINE 25 MCG TAB PO SCH (05:19)
[2019-03-31] MEDS: FAMOTIDINE 20 MG TAB PO SCH ×2 (05:19→15:03)
[2019-03-31] MEDS: ENOXAPARIN 40 MG/0.4 ML SYRINGE SQ SCH (07:31)
[2019-03-31] MEDS: FLUoxetine HCL 20 MG CAP PO SCH (07:32)
[2019-03-31] MEDS: glipiZIDE 5 MG TAB PO SCH ×2 (07:32→19:25)
[2019-03-31] MEDS: DIVALPROEX 500 MG TABLET.DR PO SCH ×2 (07:32→19:25)
[2019-03-31] MEDS: NALTREXONE HCL 50 MG TAB PO SCH (07:33)
[2019-03-31] MEDS: guanFACINE 1 MG TAB PO SCH (07:33)
[2019-03-31] MEDS: PROPRANOLOL 20 MG TAB PO SCH ×2 (07:33→19:25)
[2019-03-31] MEDS: IPRATROPIUM-ALBUTEROL 3 ML NEB INHALATION SCH ×4 (07:39→20:19)
[2019-03-31 07:42] LABS: HCT 31.6 % (39.0-53.0); HGB 10.9 gm/dL (13.0-17.5); MCH 31.8 pg (25.0-35.0); MCHC 34.4 g/dL (31.0-37.0); MCV 92.7 fL (80.0-100.0); Mean Platelet Volume 7.2; Platelet Count 279 k/uL (150-450); RBC 3.41 m/uL (4.30-5.90); RDW 13.3 % (11.5-15.5); WBC 7.4 k/uL (3.8-10.6)
[2019-03-31] MEDS: FERROUS SULFATE 325 MG TAB PO SCH (15:03)
[2019-03-31] MEDS: ATORVASTATIN 10 MG TAB PO SCH (15:03)
[2019-03-31] MEDS: LINAGLIPTIN 5 MG TABLET PO SCH (15:03)
[2019-03-31] MEDS: risperiDONE 1 MG TAB PO SCH (19:25)
--- NOTE | 2019-03-31 23:47 | P.PN ---
Progress Note - Text Progress Note Date: 03/31/19 Chief Complaint: Short of breath cough Interval history: 54-year-old male with history of developmental delays, hypothyroid, diabetes, GERD, hyperlipidemia, hypertension, PICA. Patient was discharged from the hospital yesterday. On the last admission patient admitted with changes in mental status, decreasing to eat or drink. Treated with IV Unasyn for pneumonia. When patient was discharged patient is doing well tolerated diet laying comfortably. Patient did well when he returned. Earlier today patient was noted to be lethargic eating and drinking less. Patient was taken to the family doctor's office and from where he was sent down to the ER. Patient is f eeling better in the ER. Given antibiotics. Patient is awake and quite back to his baseline per the caregiver present in the ER. Patient himself not able to give any history.morning dose of Risperdal was cut back and so was evening dose. Today-patient overall doing much better. Tolerated his diet. Will need for the patient got to the ECF. Progress review of systems cannot be done as patient has poor communication Active Medications Albuterol/Ipratropium (Duoneb 0.5 Mg-3 Mg/3 Ml Soln) 3 ml INHALATION RT-QID [facility] Last Admin: 03/31/19 20:19 Dose: 3 ml Documented by: Atorvastatin Calcium (Lipitor) 10 mg PO DAILY@1600 [facility] Last Admin: 03/31/19 15:03 Dose: 10 mg Documented by: Divalproex Sodium (Depakote) 1,500 mg PO BID@0800,2000 [facility] Last Admin: 03/31/19 19:25 Dose: 1,500 mg Documented by: Enoxaparin Sodium (Lovenox) 40 mg SQ DAILY [facility] Last Admin: 03/31/19 07:31 Dose: 40 mg Documented by: Famotidine (Pepcid) 20 mg PO BID@0600,1600 [facility] Last Admin: 03/31/19 15:03 Dose: 20 mg Documented by: Ferrous Sulfate (Feosol) 325 mg PO DAILY@1600 [facility] Last Admin: 03/31/19 15:03 Dose: 325 mg Documented by: Fluoxetine HCl (Prozac) 40 mg PO DAILY@0800 [facility] Last Admin: 03/31/19 07:32 Dose: 40 mg Documented by: Glipizide (Glucotrol) 5 mg PO BID@799,1999 [facility] Last Admin: 03/31/19 19:25 Dose: 5 mg Documented by: Guanfacine HCl (Tenex) 2 mg PO DAILY@08 [facility] Last Admin: 03/31/19 07:33 Dose: 2 mg Documented by: Piperacillin Sod/Tazobactam (Sod 3.375 gm/ Sodium Chloride) 100 mls @ 25 mls/hr IVPB Q8H [facility] Last Admin: 03/31/19 17:08 Dose: 25 mls/hr Documented by: Levothyroxine Sodium (Synthroid) 25 mcg PO DAILY@0600 [facility] Last Admin: 03/31/19 05:19 Dose: 25 mcg Documented by: Linagliptin (Tradjenta) 5 mg PO DAILY@1730 [facility] Last Admin: 03/31/19 15:03 Dose: 5 mg Documented by: Miscellaneous Information (Pneumonia Protocol Utilized) 1 each PO ONCE PRN PRN Reason: Per Protocol Naltrexone HCl (Revia) 50 mg PO DAILY@08 [facility] Last Admin: 03/31/19 07:33 Dose: 50 mg Documented by: Propranolol HCl (Inderal) 20 mg PO BID@799,1999 [facility] Last Admin: 03/31/19 19:25 Dose: 20 mg Documented by: Risperidone (Risperdal) [address] [facility] Last Admin: 03/31/19 19:25 Dose: 1 mg Documented by: Physical examination: VITAL SIGNS: 97.6, 76, 18, 120 is a 78, 97% room air GENERAL: laying in bed, awake watching TV EYES: Pupils equal. Conjunctiva normal. HEENT: External appearance of nose and ears normal, oral cavity grossly normal. NECK: JVD not raised; masses not palpable. HEART: First and second heart sounds are normal; no edema. LUNGS: Respiratory rate normal, decreased breath sounds ABDOMEN: Soft, nontender, liver spleen not palpable, no masses palpable. PSYCH: [Awake, lying in bed, decreased out to shake my hands. Investigations: White count 7.4 hemoglobin 11.2 Previous testing White count 12.2 hemoglobin 12.6 potassium 4.9 crit 0.79 Patient white count was 7.62 days ago. Chest x-ray film personally reviewed by me shows some scattered infiltrates Assessment: -Possible aspiration pneumonia, possibly precipitated by decreased mentation/encephalopathy, with the latter possibly with a component of Risperdal -Chronic developmental delay -Diabetes mellitus type 2 -GERD -Hyperlipidemia -Essential hypertension -Hypothyroid -Possible hemorrhoids -PICA Plan: -switched the patient to oral Augmentin. Stable. Pending to go to ECF.
[2019-04-01] MEDS: PIPERACILLIN-TAZOBACTAM 3.375 GM in SODIUM CHLORIDE 0.9% 100 ML IVPB SCH ×3 (01:23→17:22)
[2019-04-01] MEDS: FAMOTIDINE 20 MG TAB PO SCH ×2 (05:53→15:05)
[2019-04-01] MEDS: LEVOTHYROXINE 25 MCG TAB PO SCH (05:53)
[2019-04-01] MEDS: ENOXAPARIN 40 MG/0.4 ML SYRINGE SQ SCH (06:58)
[2019-04-01] MEDS: DIVALPROEX 500 MG TABLET.DR PO SCH ×2 (06:58→20:57)
[2019-04-01] MEDS: glipiZIDE 5 MG TAB PO SCH ×2 (06:58→20:57)
[2019-04-01] MEDS: FLUoxetine HCL 20 MG CAP PO SCH (06:58)
[2019-04-01] MEDS: NALTREXONE HCL 50 MG TAB PO SCH (06:58)
[2019-04-01] MEDS: PROPRANOLOL 20 MG TAB PO SCH ×2 (06:59→20:57)
[2019-04-01] MEDS: guanFACINE 1 MG TAB PO SCH (06:59)
[2019-04-01] MEDS: IPRATROPIUM-ALBUTEROL 3 ML NEB INHALATION SCH ×4 (09:55→20:17)
[2019-04-01] MEDS: ATORVASTATIN 10 MG TAB PO SCH (15:05)
[2019-04-01] MEDS: LINAGLIPTIN 5 MG TABLET PO SCH (15:05)
[2019-04-01] MEDS: FERROUS SULFATE 325 MG TAB PO SCH (15:05)
[2019-04-01] MEDS: risperiDONE 1 MG TAB PO SCH (20:57)
[2019-04-01] MEDS ORDERED: risperiDONE 1 MG TAB PO STA (23:38)
--- NOTE | 2019-04-01 23:42 | P.PN ---
Progress Note - Text Progress Note Date: 04/01/19 Chief Complaint: Short of breath cough Interval history: 54-year-old male with history of developmental delays, hypothyroid, diabetes, GERD, hyperlipidemia, hypertension, PICA. Patient was discharged from the hospital yesterday. On the last admission patient admitted with changes in mental status, decreasing to eat or drink. Treated with IV Unasyn for pneumonia. When patient was discharged patient is doing well tolerated diet laying comfortably. Patient did well when he returned. Earlier today patient was noted to be lethargic eating and drinking less. Patient was taken to the family doctor's office and from where he was sent down to the ER. Patient is f eeling better in the ER. Given antibiotics. Patient is awake and quite back to his baseline per the caregiver present in the ER. Patient himself not able to give any history.morning dose of Risperdal was cut back and so was evening dose. Today-patient overall doing much better. Tolerated his diet. Laying in bed.. Progress review of systems cannot be done as patient has poor communication Active Medications Albuterol/Ipratropium (Duoneb 0.5 Mg-3 Mg/3 Ml Soln) 3 ml INHALATION RT-QID [facility] Last Admin: 04/01/19 20:17 Dose: 3 ml Documented by: Amoxicillin/Clavulanate Potassium (Augmentin [id number]) 1 each PO Q12HR [facility] Atorvastatin Calcium (Lipitor) 10 mg PO DAILY@1600 [facility] Last Admin: 04/01/19 15:05 Dose: 10 mg Documented by: Divalproex Sodium (Depakote) 1,500 mg PO BID@0800,2000 [facility] Last Admin: 04/01/19 20:57 Dose: 1,500 mg Documented by: Enoxaparin Sodium (Lovenox) 40 mg SQ DAILY [facility] Last Admin: 04/01/19 06:58 Dose: 40 mg Documented by: Famotidine (Pepcid) 20 mg PO BID@0600,1600 [facility] Last Admin: 04/01/19 15:05 Dose: 20 mg Documented by: Ferrous Sulfate (Feosol) 325 mg PO DAILY@1600 [facility] Last Admin: 04/01/19 15:05 Dose: 325 mg Documented by: Fluoxetine HCl (Prozac) 40 mg PO DAILY@0800 [facility] Last Admin: 04/01/19 06:58 Dose: 40 mg Documented by: Glipizide (Glucotrol) 5 mg PO BID@08,1999 [facility] Last Admin: 04/01/19 20:57 Dose: 5 mg Documented by: Guanfacine HCl (Tenex) 2 mg PO DAILY@0800 [facility] Last Admin: 04/01/19 06:59 Dose: 2 mg Documented by: Levothyroxine Sodium (Synthroid) 25 mcg PO DAILY@0600 [facility] Last Admin: 04/01/19 05:53 Dose: 25 mcg Documented by: Linagliptin (Tradjenta) 5 mg PO DAILY@1730 [facility] Last Admin: 04/01/19 15:05 Dose: 5 mg Documented by: Miscellaneous Information (Pneumonia Protocol Utilized) 1 each PO ONCE PRN PRN Reason: Per Protocol Naltrexone HCl (Revia) 50 mg PO DAILY@0800 [facility] Last Admin: 04/01/19 06:58 Dose: 50 mg Documented by: Propranolol HCl (Inderal) 20 mg PO BID@08,1999 [facility] Last Admin: 04/01/19 20:57 Dose: 20 mg Documented by: Risperidone (Risperdal) 2 mg PO [facility] Risperidone (Risperdal) 1 mg PO ONCE [facility] Stop: 04/01/19 23:39 Physical examination: VITAL SIGNS: 97.1, 91, 16, 155/91, 96% room air GENERAL: laying in bed, awake EYES: Pupils equal. Conjunctiva normal. HEENT: External appearance of nose and ears normal, oral cavity grossly normal. NECK: JVD not raised; masses not palpable. HEART: First and second heart sounds are normal; no edema. LUNGS: Respiratory rate normal, decreased breath sounds ABDOMEN: Soft, nontender, liver spleen not palpable, no masses palpable. PSYCH: [Awake, lying in bed, decreased out to shake my hands. Investigations: White count 7.4 hemoglobin 11.2 Previous testing White count 12.2 hemoglobin 12.6 potassium 4.9 crit 0.79 Patient white count was 7.62 days ago. Chest x-ray film personally reviewed by me shows some scattered infiltrates Assessment: -Possible aspiration pneumonia, possibly precipitated by decreased mentation/encephalopathy, with the latter possibly with a component of Risperdal -Chronic developmental delay -Diabetes mellitus type 2 -GERD -Hyperlipidemia -Essential hypertension -Hypothyroid -Possible hemorrhoids -PICA Plan: We'll increase the p.m. dose of risperidone to 2 mg. Add 0.5 mg in the morning. Switched to by mouth Augmentin
[2019-04-02] MEDS: LEVOTHYROXINE 25 MCG TAB PO SCH (05:34)
[2019-04-02] MEDS: FAMOTIDINE 20 MG TAB PO SCH (05:34)
[2019-04-02] MEDS: IPRATROPIUM-ALBUTEROL 3 ML NEB INHALATION SCH ×3 (07:20→16:33)
[2019-04-02] MEDS: DIVALPROEX 500 MG TABLET.DR PO SCH (08:05)
[2019-04-02] MEDS: FLUoxetine HCL 20 MG CAP PO SCH (08:05)
[2019-04-02] MEDS: ENOXAPARIN 40 MG/0.4 ML SYRINGE SQ SCH (08:05)
[2019-04-02] MEDS: glipiZIDE 5 MG TAB PO SCH (08:05)
[2019-04-02] MEDS: NALTREXONE HCL 50 MG TAB PO SCH (08:41)
[2019-04-02] MEDS: PROPRANOLOL 20 MG TAB PO SCH (08:41)
[2019-04-02] MEDS: guanFACINE 1 MG TAB PO SCH (08:41)
[2019-04-02] MEDS ORDERED: risperiDONE 0.5 MG TAB PO SCH (09:00)
[2019-04-02] MEDS ORDERED: AMOXIC-POT CLAV 875-125MG 1 EACH TAB PO SCH (09:00)
[2019-04-02 14:27] VITALS: BP 120/86; PULSE 78; RESP 16; TEMP 97.7
[2019-04-02] MEDS ORDERED: risperiDONE 2 MG TAB PO SCH (21:00)
--- NOTE | 2019-04-03 00:42 | P.DS ---
Providers Date of admission: 03/28/19 16:18 Expected date of discharge: 04/02/19 Attending physician: Lino Dawkins Primary care physician: Nasir Mahajan [facility] Course: Chief Complaint: Short of breath cough Hospital course: 54-year-old male with history of developmental delays, hypothyroid, diabetes, GERD, hyperlipidemia, hypertension, PICA. Patient was discharged from the hospital yesterday. On the last admission patient admitted with changes in mental status, decreasing to eat or drink. Treated with IV Unasyn for pneumonia. When patient was discharged patient is doing well tolerated diet laying comfortably. Patient did well when he returned. Earlier today patient was noted to be lethargic eating and drinking less. Patient was taken to the family doctor's office and from where he was sent down to the ER. Patient is feeling better in the ER. Given antibiotics. Patient is awake and quite back to his baseline per the caregiver present in the ER. Patient himself not able to give any history.morning dose of Risperdal was cut back and so was evening dose. Today-patient doing much better after changing the dose of risperidone. Eating well. Breathing stable. Patient not qualifying for ECF. back to his baseline.discuss with major case detectivecommunity development manager examination: VITAL SIGNS: 97.7, 78, 16, 120/86, 98% room air GENERAL: laying in bed, awake EYES: Pupils equal. Conjunctiva normal. HEENT: External appearance of nose and ears normal, oral cavity grossly normal. NECK: JVD not raised; masses not palpable. HEART: First and second heart sounds are normal; no edema. LUNGS: Respiratory rate normal, decreased breath sounds ABDOMEN: Soft, nontender, liver spleen not palpable, no masses palpable. PSYCH: [Awake, lying in bed, decreased out to shake my hands. Investigations: White count 7.4 hemoglobin 11.2 Previous testing White count 12.2 hemoglobin 12.6 potassium 4.9 crit 0.79 Patient white count was 7.62 days ago. Chest x-ray film personally reviewed by me shows some scattered infiltrates Assessment: -Possible aspiration pneumonia, possibly precipitated by decreased mentation/encephalopathy, with the latter from higher dose of Risperdal -Chronic developmental delay -Diabetes mellitus type 2 -GERD -Hyperlipidemia -Essential hypertension -Hypothyroid -Possible hemorrhoids -PICA disposition: skilled nursing Patient Condition at Discharge: Stable Plan - Discharge Summary Discharge Rx Participant: No New Discharge Prescriptions: New Famotidine [Pepcid] 20 mg PO BID@0600,1600 #60 tab risperiDONE [RisperDAL] 2 mg PO HS #30 tab risperiDONE [RisperDAL] 0.5 mg PO DAILY #30 tab Continue Levothyroxine Sodium [Synthroid] 25 mcg PO DAILY@0600 Lovastatin [Mevacor] 20 mg PO DAILY@1600 Divalproex [Depakote] 1,500 mg PO BID@0800,1999 sitaGLIPtin [Januvia] 100 mg PO DAILY@1600 FLUoxetine HCL [PROzac] 40 mg PO DAILY@0800 Cholecalciferol [Vitamin D3 (25 Mcg = 1000 Iu)] 1,000 unit PO BID@08,1999 Propranolol [Inderal] 20 mg PO BID@08,1999 Naltrexone HCl [Revia] 50 mg PO DAILY@0800 glipiZIDE [Glucotrol] 5 mg PO BID@08,1999 Ferrous Sulfate [Iron] 325 mg PO DAILY@1600 guanFACINE HCL [Intuniv] 2 mg PO DAILY@0800 Total B/C 1 tab PO DAILY@0800 Amoxic-Pot Clav 875-125Mg [Augmentin 875-125] 1 tab PO BID@1599,1999 #6 tab Discontinued risperiDONE 3 mg PO BID@0800,1999 Ranitidine HCl [Zantac] 150 mg PO BID@0600,1600 Cetirizine HCl [Zyrtec] 10 mg PO HS@1999 Discharge Medication List Levothyroxine Sodium [Synthroid] 25 mcg PO DAILY@0600 07/13/14 [History] Lovastatin [Mevacor] 20 mg PO DAILY@1600 07/13/14 [History] Divalproex [Depakote] 1,500 mg PO BID@0800,199904/21/15 [History] sitaGLIPtin [Januvia] 100 mg PO DAILY@1600 10/16/15 [History] Cholecalciferol [Vitamin D3 (25 Mcg = 1000 Iu)] 1,000 unit PO BID@08,199906/22/16 [History] FLUoxetine HCL [PROzac] 40 mg PO DAILY@0800 06/22/16 [History] Propranolol [Inderal] 20 mg PO BID@08,199906/14/18 [History] Naltrexone HCl [Revia] 50 mg PO DAILY@0800 07/11/18 [History] Ferrous Sulfate [Iron] 325 mg PO DAILY@1600 08/23/18 [History] glipiZIDE [Glucotrol] 5 mg PO BID@08,199908/23/18 [History] guanFACINE HCL [Intuniv] 2 mg PO DAILY@0800 08/23/18 [History] Total B/C 1 tab PO DAILY@0800 03/22/19 [History] Amoxic-Pot Clav 875-125Mg [Augmentin 875-125] 1 tab PO BID@ #6 tab 04/02/19 [Rx] Famotidine [Pepcid] 20 mg PO BID@0600,1599 #60 tab 04/02/19 [Rx] risperiDONE [RisperDAL] 0.5 mg PO DAILY #30 tab 04/02/19 [Rx] risperiDONE [RisperDAL] 2 mg PO HS #30 tab 04/02/19 [Rx] Follow up Appointment(s)/Referral(s): Nasir Mahajan MD [Primary Care Provider] - 04/06/19 11:00 am Patient Instructions/Handouts: Fall Prevention (DC), Pneumonia (DC) Activity/Diet/Wound Care/Special Instructions: 1. Aspiration precautions when eating 2. Patient up at 90* while eating 3. Assistance with all meals [facility] home and Public guardian notified of discharge orders at 12:00 on 04/02/19 Discharge Disposition: HOME SELF-CARE
== END 2019-04-02 16:39 | disposition home or self-care (01) | DRG 177 ==
LOC: EC 12:45 → 4SSUR 16:18 → 6NMEDSUR 03-29 13:08
PROVIDERS: ADMIT Hospitalist; ATTEND Hospitalist
DX: J69.0 Pneumonitis due to inhalation of food and vomit (principal); G92 Toxic encephalopathy; F84.0 Autistic disorder; T43.595A Adverse effect of other antipsychotics and neuroleptics, initial encounter; E03.9 Hypothyroidism, unspecified; E11.9 Type 2 diabetes mellitus without complications; E78.5 Hyperlipidemia, unspecified; F41.9 Anxiety disorder, unspecified; F42.9 Obsessive-compulsive disorder, unspecified; F79 Unspecified intellectual disabilities; I10 Essential (primary) hypertension; K21.9 Gastro-esophageal reflux disease without esophagitis; R09.02 Hypoxemia; Z79.84 Long term (current) use of oral hypoglycemic drugs; Z79.890 Hormone replacement therapy; Z79.899 Other long term (current) drug therapy; Z83.3 Family history of diabetes mellitus; F50.89 Other specified eating disorder; Z68.26 Body mass index [BMI] 26.0-26.9, adult; K64.9 Unspecified hemorrhoids; Z87.01 Personal history of pneumonia (recurrent)
CPT/HCPCS: 36415; 71046; 80053; 81001; 83605; 83735; 84145; 84484; 85025; 85027; 85610; 85730; 87040; 93005; 94640; 94760; 96360; 96365; 96366; 96367; 96372; 99285

== ENCOUNTER → 2019-04-19 | Outpatient (CLI) | payer MEDICARE, OTHER ==
[2019-04-19 11:39] LABS: Basophils % (A) 1 %; Eosinophils # (A) 0.1 k/uL (0-0.7); Eosinophils % (A) 1 %; HCT 38.5 % (39.0-53.0); HGB 12.2 gm/dL (13.0-17.5); Lymphocytes # (A) 1.9 k/uL (1.0-4.8); Lymphocytes % (A) 29 %; MCH 30.4 pg (25.0-35.0); MCHC 31.7 g/dL (31.0-37.0); MCV 96.1 fL (80.0-100.0); Mean Platelet Volume 7.6; Monocytes # (A) 0.7 k/uL (0-1.0); Monocytes % (A) 10 %; Neutrophils # (A) 3.8 k/uL (1.3-7.7); Neutrophils % (A) 57 %; Platelet Count 182 k/uL (150-450); RBC 4.01 m/uL (4.30-5.90); RDW 13.5 % (11.5-15.5); WBC 6.6 k/uL (3.8-10.6)
[2019-04-19 16:54] LABS: % Iron Saturation 25.19 (15.00-50.00); African American GFR (CKD) 122.3 (60.0-200.0); Albumin 3.8 g/dL (3.80-4.90); Albumin/Globulin Ratio 1.65 (1.60-3.17); Anion Gap 8.1 mmol/L (4.00-12.00); BUN/Creat Ratio 27.14 Ratio (12.00-20.00); Calcium 9.2 mg/dL (8.7-10.3); Carbon Dioxide 28.9 mmol/L (21.6-31.8); Globulin 2.3 g/dL (1.6-3.3); Non-African American GFR(CKD) 105.5 (60.0-200.0); Potassium 4.4 mmol/L (3.5-5.5); Total Bilirubin 0.4 mg/dL (0.3-1.2); Total Protein 6.1 g/dL (6.2-8.2)
== END | disposition home or self-care (01) ==
LOC: LABWHC1 10:24
PROVIDERS: ATTEND Family Medicine
DX: R53.82 Chronic fatigue, unspecified (principal)
CPT/HCPCS: 36415; 80053; 82607; 83540; 83550; 84443; 85025

== ENCOUNTER → 2019-11-27 | Outpatient (CLI) | payer MEDICARE, OTHER ==
[2019-11-27 09:01] LABS: Basophils % (A) 1 %; Eosinophils # (A) 0.1 k/uL (0-0.7); Eosinophils % (A) 2 %; HCT 41.6 % (39.0-53.0); HGB 13.1 gm/dL (13.0-17.5); Lymphocytes % (A) 33 %; MCH 30.3 pg (25.0-35.0); MCHC 31.6 g/dL (31.0-37.0); MCV 95.7 fL (80.0-100.0); Mean Platelet Volume 7.1; Monocytes # (A) 0.7 k/uL (0-1.0); Monocytes % (A) 11 %; Neutrophils % (A) 51 %; Platelet Count 178 k/uL (150-450); RBC 4.34 m/uL (4.30-5.90); RDW 13.7 % (11.5-15.5)
[2019-11-27 16:36] LABS: African American GFR (CKD) 122.3 (60.0-200.0); Albumin 3.6 g/dL (3.80-4.90); Albumin/Globulin Ratio 1.44 (1.60-3.17); Bilirubin, Conjugated 0.2 mg/dL (0.20-0.40); Bilirubin,Unconjugated 0.3 mg/dL; Chol/HDL Ratio 3.13; Globulin 2.5 g/dL (1.6-3.3); LDL Cholesterol,Calculated 58.2 mg/dL (0.0-131.0); Non-African American GFR(CKD) 105.5 (60.0-200.0); Total Bilirubin 0.5 mg/dL (0.2-1.2); Total Protein 6.1 g/dL (6.2-8.2); VLDL Calculation 37.8 mg/dL (5.00-40.00)
[2019-11-27 16:45] LABS: T4, Free (Free Thyroxine) 1.1 ng/dL (0.80-1.80)
[2019-11-27 16:46] LABS: Prolactin 45.5 ng/mL (2.1-17.7)
[2019-11-27 18:22] LABS: Hemoglobin A1C 5.4 % (4.0-6.0)
== END | disposition home or self-care (01) ==
LOC: LABWHC1 07:57
PROVIDERS: ATTEND Nurse Practitioner Family
DX: Z51.81 Encounter for therapeutic drug level monitoring (principal); Z79.899 Other long term (current) drug therapy
CPT/HCPCS: 36415; 80061; 80076; 82565; 82947; 83036; 84146; 84439; 84443; 84520; 85025

== ENCOUNTER → 2020-02-25 | Outpatient (CLI) | payer MEDICARE, OTHER ==
[2020-02-25 16:32] LABS: Chol/HDL Ratio 2.44; LDL Cholesterol,Calculated 60.8 mg/dL (0.0-131.0); VLDL Calculation 21.2 mg/dL (5.00-40.00)
[2020-02-25 16:33] LABS: Valproic Acid (Depakene) 76.2 ug/mL (50.0-100.0)
[2020-02-25 16:42] LABS: Prolactin 32.1 ng/mL (2.1-17.7)
== END | disposition home or self-care (01) ==
LOC: LABWHC1 07:58
PROVIDERS: ATTEND Nurse Practitioner Family
DX: Z51.81 Encounter for therapeutic drug level monitoring (principal); Z79.899 Other long term (current) drug therapy
CPT/HCPCS: 36415; 80061; 80164; 84146

== ENCOUNTER 2020-03-03 20:48 | Emergency (ER) | payer MEDICARE, OTHER ==
[2020-03-03 21:02] VITALS: TEMP 97.5
--- NOTE | 2020-03-03 21:23 | ED ---
General Adult HPI - General Chief complaint: Recheck/Abnormal Lab/Rx Stated complaint: SOB Time Seen by Provider: 03/03/20 21:08 Source: EMS, RN notes reviewed Mode of arrival: EMS Limitations: language barrier, altered mental status - History of Present Illness Initial comments: 55-year-old male with developmental delay, autism, nonverbal, aspiration p neumonia presents to the emergency department for a chief of possible aspiration. Patient drinks thickened water and sometimes strength is too quickly. [facility] staff states patient was drinking too quickly and started coughing. He states he has had a slight wet cough since this evening and they're concerned he may have aspirated some water. He has not had any respiratory distress. He has not had fevers. He did not have a cough preceding this episode. Patient has no other complaints at this time including shortness of breath, chest pain, abdominal pain, nausea or vomiting, headache, or visual changes. - Related Data Home Medications Medication Instructions Recorded Confirmed RX: Levothyroxine Sodium 25 mcg PO DAILY@59907/13/14 03/28/19 [Synthroid] RX: Lovastatin [Mevacor] 20 mg PO DAILY@159907/13/14 03/28/19 RX: Divalproex [Depakote] 1,500 mg PO BID@08,199904/21/15 03/28/19 RX: sitaGLIPtin [Januvia] 100 mg PO DAILY@159910/16/15 03/28/19 RX: Cholecalciferol [Vitamin D3 1,000 unit PO BID@08,199906/22/16 03/28/19 (25 Mcg = 1000 Iu)] RX: FLUoxetine HCL [PROzac] 40 mg PO DAILY@79906/22/16 03/28/19 RX: Propranolol [Inderal] 20 mg PO BID@0800,199906/14/18 03/28/19 RX: Naltrexone HCl [Revia] 50 mg PO DAILY@79907/11/18 03/28/19 RX: Ferrous Sulfate [Iron] 325 mg PO DAILY@159908/23/18 03/28/19 RX: glipiZIDE [Glucotrol] 5 mg PO BID@0800,199908/23/18 03/28/19 RX: guanFACINE HCL [Intuniv] 2 mg PO DAILY@79908/23/1820 Total B/C 1 tab PO DAILY@0800 03/22/19 03/28/19 Previous Rx's Medication Instructions Recorded RX: Amoxic-Pot Clav 875-125Mg 1 tab PO BID@1600,2000 #6 tab 04/02/19 [Augmentin 875-125] RX: Famotidine [Pepcid] 20 mg PO BID@0600,1600 #60 tab 04/02/19 RX: risperiDONE [RisperDAL] 0.5 mg PO DAILY #30 tab 04/02/19 RX: risperiDONE [RisperDAL] 2 mg PO HS #30 tab 04/02/19 RX: Azithromycin [Zithromax Z-pack 250 mg PO DIRECTED #6 tab 03/03/20 (6 tabs)] Allergies Allergy/AdvReac Type Severity Reaction Status Date / Time No Known Allergies Allergy Verified 03/03/20 21:02 Review of Systems ROS Statement: Those systems with pertinent positive or pertinent negative responses have been documented in the HPI. ROS Other: All systems not noted in ROS Statement are negative. Past Medical History Past Medical History: Diabetes Mellitus, GERD/Reflux, Hyperlipidemia, Hypertension, Pneumonia, Thyroid Disorder Additional Past Medical History / Comment(s): Developmentally delayed, autism, OCD, pt able to speak, aspiration pneumonia, aspiration precautions, pt will regurgitate and reswallow, NIDDM type II, occasional small amount blood in stool, hypothyroid, History of Any Multi-Drug Resistant Organisms: None Reported Past Surgical History: No Surgical Hx Reported Additional Past Surgical History / Comment(s): Colonoscopy. 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 Past Psychological History: Anxiety Past Alcohol Use History: None Reported Past Drug Use History: None Reported - Past Family History Father History Unknown: Yes Mother History Unknown: Yes Family Medical History: Diabetes Mellitus General Exam Limitations: language barrier, altered mental status General appearance: alert, in no apparent distress Head exam: Present: atraumatic, normocephalic, normal inspection Eye exam: Present: normal appearance, PERRL, EOMI. Absent: scleral icterus, conjunctival injection, periorbital swelling ENT exam: Present: normal exam, mucous membranes moist Neck exam: Present: normal inspection, full ROM. Absent: tenderness, meningism us, lymphadenopathy Respiratory exam: Present: normal lung sounds bilaterally. Absent: respiratory distress, wheezes, rales, rhonchi, stridor Cardiovascular Exam: Present: regular rate, normal rhythm, normal heart sounds. Absent: systolic murmur, diastolic murmur, rubs, gallop, clicks GI/Abdominal exam: Present: soft, normal bowel sounds. Absent: distended, tenderness, guarding, rebound, rigid Course Vital Signs 03/03/20 20:56 Temperature 97.5 F L Pulse Rate 85 Respiratory 20 Rate Blood Pressure 154/83 O2 Sat by Pulse 95 Oximetry Medical Decision Making - Medical Decision Making Vitals are stable. Patient is 95% on room air. Afebrile. HPI and physical exam as documented. Patient is well appearing. Chest x-ray shows perihilar infiltrates which are nonspecific. These are present in the past. Recurrent bronchitis or atypical pneumonia could be considered. Given patient has cough right now he'll be treated for azithromycin. It is unlikely for this to be an aspiration pneumonia given the nature of perihilar infiltrates versus a typical right lower lobe pneumonia which is seen in aspiration pneumonia. He was also tested for Covid. He will follow up with his doctor. He will return here for any worsening symptoms. Disposition Clinical Impression: Cough, Pneumonia Disposition: HOME SELF-CARE Condition: Good Instructions (If sedation given, give patient instructions): Pneumonia (ED) Additional Instructions: Please give antibiotic as directed. Patient was tested for Covid and we recommend quarantining patient until results are back. Please follow-up with patient's doctor in one to 2 days for recheck. If patient develops any w orsening symptoms such as worsening cough, fevers, or shortness of breath return to the emergency room. Prescriptions: RX: Azithromycin [Zithromax Z-pack (6 tabs)] 250 mg PO DIRECTED #6 tab Is patient prescribed a controlled substance at d/c from ED?: No Referrals: Tom Sarmiento MD [Primary Care Provider] - 1-2 days Time of Disposition: 22:36
--- NOTE | 2020-03-03 21:43 | XR ---
EXAMINATION TYPE: XR chest 1V portable DATE OF EXAM: 03/03/2020 COMPARISON: 03/30/2019 INDICATION: Cough TECHNIQUE: Single frontal view of the chest is obtained. FINDINGS: The heart size is normal. The pulmonary vasculature is normal. Perihilar infiltrate appears to be present. This may be chronic or recurrent similar to the March xam. IMPRESSION: 1. Perihilar infiltrates which are nonspecific. These were present in the past. Findings are nonspeci fic. Recurrent bronchitis or atypical pneumonia could be considered.
[2020-03-03] MEDS ORDERED: AZITHROMYCIN 500 MG TAB PO STA (22:29)
[2020-03-03 23:03] VITALS: BP 140/77; PULSE 82; RESP 18
== END 2020-03-03 23:03 | disposition home or self-care (01) ==
LOC: EC 20:48
DX: J18.9 Pneumonia, unspecified organism (principal); R91.8 Other nonspecific abnormal finding of lung field; Z20.828 Contact with and (suspected) exposure to other viral communicable diseases
CPT/HCPCS: 71045; 99285; U0003

== ENCOUNTER 2020-05-25 17:46 | Inpatient (IN) | payer MEDICARE, OTHER ==
[2020-05-25 18:05] LABS: Glucose,Whole Blood 87 mg/dL (75-99)
--- NOTE | 2020-05-25 18:16 | ED ---
General Adult HPI - General Chief complaint: Weakness Stated complaint: Lethargic,Fall Time Seen by Provider: 05/25/20 18:15 Source: Caregiver Mode of arrival: wheelchair Limitations: altered mental status - History of Present Illness Initial comments: Patient brought to the ED by his caregiver for evaluation. Per caregiver, the patient has been more sleepy and less active than usual over the past week or so, and he has been particularly more/less so since yesterday. Caregiver states that the patient's roommate was recently diagnosed with Covid, and she states that the patient has a history of pneumonia. She states that she has noticed that the patient has had a slight cough today. She states that the patient has not had a fever. She also states that the patient did fall once today while ambulating, but she denies LOC. She also states that the patient's Risperdal dose was doubled 2 days ago. She denies vomiting or difficulty breathing. Patient has cognitive impairment, and he is unable to provide any history. - Related Data Home Medications Medication Instructions Recorded Confirmed Levothyroxine Sodium [Synthroid] 25 mcg PO DAILY@59907/13/14 05/25/20 Lovastatin [Mevacor] 20 mg PO DAILY@159907/13/14 05/25/20 Divalproex [Depakote] 1,500 mg PO BID@799,199904/21/15 05/25/20 sitaGLIPtin [Januvia] 100 mg PO DAILY@159910/16/15 05/25/20 Cholecalciferol [Vitamin D3 (25 25 mcg PO BID@799,199906/22/16 05/25/20 Mcg = 1000 Iu)] FLUoxetine HCL [PROzac] 40 mg PO DAILY@79906/22/16 05/25/20 Propranolol [Inderal] 20 mg PO BID@799,199906/14/18 05/25/20 Naltrexone HCl [Revia] 50 mg PO DAILY@79907/11/18 05/25/20 Ferrous Sulfate [Iron] 325 mg PO DAILY@159908/23/18 05/25/20 Loratadine [Claritin] 10 mg PO DAILY@79905/25/20 05/25/20 Montelukast Sodium [Singulair] 10 mg PO HS@199905/25/20 05/25/20 Vitamin B Complex/Vitamin C Tablet 1 tab PO DAILY@0800 05/25/20 05/25/20 glipiZIDE XL [Glucotrol XL] 5 mg PO BID@0800,2000 05/25/20 05/25/20 guanFACINE HCL [Intuniv] 3 mg PO DAILY@0800 05/25/20 05/25/20 risperiDONE [RisperDAL] 1 mg PO DAILY@0800 05/25/20 05/25/20 risperiDONE [RisperDAL] 2 mg PO DAILY@1400 05/25/20 05/25/20 Previous Rx's Medication Instructions Recorded Famotidine [Pepcid] 20 mg PO BID@0600,1600 #60 tab 04/02/19 Allergies Allergy/AdvReac Type Severity Reaction Status Date / Time No Known Allergies Allergy Verified 05/25/20 19:46 Review of Systems ROS Statement: Those systems with pertinent positive or pertinent negative responses have been documented in the HPI. ROS Other: All systems not noted in ROS Statement are negative. Limitations: ROS unobtainable due to patients medical condition Past Medical History Past Medical History: Diabetes Mellitus, GERD/Reflux, Hyperlipidemia, Hypertension, Pneumonia, Thyroid Disorder Additional Past Medical History / Comment(s): Developmentally delayed, autism, OCD, pt able to speak, aspiration pneumonia, aspiration precautions, pt will regurgitate and reswallow, NIDDM type II, occasional small amount blood in stool, hypothyroid, History of Any Multi-Drug Resistant Organisms: None Reported Past Surgical History: No Surgical Hx Reported Additional Past Surgical History / Comment(s): Colonoscopy. 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 Past Psychological History: Anxiety Smoking Status: Never smoker Past Alcohol Use History: None Reported Past Drug Use History: None Reported - Past Family History Father History Unknown: Yes Mother History Unknown: Yes Family Medical History: Diabetes Mellitus General Exam Limitations: altered mental status General appearance: alert, in no apparent distress Head exam: Present: atraumatic Eye exam: Present: normal appearance, PERRL ENT exam: Present: mucous membranes moist Neck exam: Present: other (Trachea is in midline). Absent: tenderness Respiratory exam: Present: normal lung sounds bilaterally. Absent: respiratory distress, wheezes, rales, rhonchi, stridor Cardiovascular Exam: Present: regular rate, normal rhythm, normal heart sounds, other (Normal radial pulses bilaterally) GI/Abdominal exam: Present: soft. Absent: distended, tenderness, guarding Neurological exam: Present: alert, other (Patient is moving all 4 extremities spontaneously; patient localizes to pain in all 4 extremities) Skin exam: Present: warm, dry, intact, normal color Course Vital Signs 05/25/20 17:48 Temperature 97.4 F L Pulse Rate 76 Respiratory 18 Rate Blood Pressure 108/73 O2 Sat by Pulse 95 Oximetry - Reevaluation(s) Reevaluation #1: 05/25/20 20:16 Patient remains alert and breathing comfortably with a normal room air oxygen saturation. Patient's caregiver is aware of the patient's test results, and she agrees with hospital admission at this time. 05/25/20 20:20 Case, H&P, test results and ED management were discussed with Dr. Macedo. She accepts hospital admission. She recommends IV Decadron treatment, as well as pulmonology consultation. She has no further recommendations at this time. EKG Findings - EKG Comments: EKG Findings:: Normal sinus rhythm, ventricular rate of 87 bpm, no ectopy, normal OR and QRS intervals, normal QT interval, normal axis, no ST or T-wave abnormality Medical Decision Making - Medical Decision Making I suspect that the patient's change in activity level is likely secondary to Covid infection and pneumonia. Patient has a history of pneumonia, and is an aspiration risk, so he was treated with IV Zosyn and IV azithromycin in the ED. Patient was also given a dose of IV Decadron in the ED. Dr. Macedo has accepted hospital admission. A pulmonology consultation order was placed. - Lab Data Result diagrams: 05/25/20 18:45 05/25/20 18:45 Lab Results 05/25/20 05/25/20 05/25/20 Range/Units 18:02 18:41 18:45 WBC 6.3 (3.8-10.6) k/uL RBC 4.51 (4.30-5.90) m/uL Hgb 14.0 (13.0-17.5) gm/dL Hct 41.8 (39.0-53.0) % MCV 92.7 (80.0-100.0) fL MCH 31.1 (25.0-35.0) pg MCHC 33.5 (31.0-37.0) g/dL RDW 13.7 (11.5-15.5) % Plt Count 123 L (150-450) k/uL MPV 8.5 Neutrophils % 57 % Lymphocytes % 22 % Monocytes % 19 % Eosinophils % 0 % Basophils % 1 % Neutrophils # 3.6 (1.3-7.7) k/uL Lymphocytes # 1.4 (1.0-4.8) k/uL Monocytes # 1.2 H (0-1.0) k/uL Eosinophils # 0.0 (0-0.7) k/uL Basophils # 0.0 (0-0.2) k/uL Manual Slide Review Performed RBC Morphology Normal PT (9.0-12.0) sec INR (<1.2) APTT (22.0-30.0) sec D-Dimer (<0.60) mg/L FEU Sodium (137-145) mmol/L Potassium (3.5-5.1) mmol/L Chloride (98-107) mmol/L Carbon Dioxide (22-30) mmol/L Anion Gap mmol/L BUN (9-20) mg/dL Creatinine (0.66-1.25) mg/dL Est GFR (CKD-EPI)AfAm (>60 ml/min/1.73 sqM) Est GFR (CKD-EPI)NonAf (>60 ml/min/1.73 sqM) Glucose (74-99) mg/dL POC Glucose (mg/dL) 87 (75-99) mg/dL POC Glu Erp Programmer ID Vanessa Holder Plasma Lactic Acid Daren (0.7-2.0) mmol/L Calcium (8.4-10.2) mg/dL Magnesium (1.6-2.3) mg/dL Total Bilirubin (0.2-1.3) mg/dL AST (17-59) U/L ALT (4-49) U/L Alkaline Phosphatase (38-126) U/L Lactate Dehydrogenase (313-618) U/L C-Reactive Protein (<10.0) mg/L Total Protein (6.3-8.2) g/dL Albumin (3.5-5.0) g/dL Valproic Acid ug/mL Coronavirus (PCR) Detected A (Not Detectd) 05/25/20 05/25/20 05/25/20 Range/Units 18:45 18:45 18:45 WBC (3.8-10.6) k/uL RBC (4.30-5.90) m/uL Hgb (13.0-17.5) gm/dL Hct (39.0-53.0) % MCV (80.0-100.0) fL MCH (25.0-35.0) pg MCHC (31.0-37.0) g/dL RDW (11.5-15.5) % Plt Count (150-450) k/uL MPV Neutrophils % % Lymphocytes % % Monocytes % % Eosinophils % % Basophils % % Neutrophils # (1.3-7.7) k/uL Lymphocytes # (1.0-4.8) k/uL Monocytes # (0-1.0) k/uL Eosinophils # (0-0.7) k/uL Basophils # (0-0.2) k/uL Manual Slide Review RBC Morphology PT 9.8 (9.0-12.0) sec INR 0.9 (<1.2) APTT 23.5 (22.0-30.0) sec D-Dimer 0.53 (<0.60) mg/L FEU Sodium 136 L (137-145) mmol/L Potassium 4.2 (3.5-5.1) mmol/L Chloride 99 (98-107) mmol/L Carbon Dioxide 29 (22-30) mmol/L Anion Gap 8 mmol/L BUN 34 H (9-20) mg/dL Creatinine 0.82 (0.66-1.25) mg/dL Est GFR (CKD-EPI)AfAm >90 (>60 ml/min/1.73 sqM) Est GFR (CKD-EPI)NonAf >90 (>60 ml/min/1.73 sqM) Glucose 70 L (74-99) mg/dL POC Glucose (mg/dL) (75-99) mg/dL POC Glu Erp Programmer ID Plasma Lactic Acid Daren 0.9 (0.7-2.0) mmol/L Calcium 9.0 (8.4-10.2) mg/dL Magnesium 2.0 (1.6-2.3) mg/dL Total Bilirubin 0.4 (0.2-1.3) mg/dL AST 42 (17-59) U/L ALT 41 (4-49) U/L Alkaline Phosphatase 61 (38-126) U/L Lactate Dehydrogenase 560 (313-618) U/L C-Reactive Protein 21.7 H (<10.0) mg/L Total Protein 7.2 (6.3-8.2) g/dL Albumin 3.9 (3.5-5.0) g/dL Valproic Acid 74.8 ug/mL Coronavirus (PCR) (Not Detectd) - Radiology Data Radiology results: report reviewed (Chest x-ray: Right perihilar and right lung base infiltrate/effusion is suspected; noncontrast head CT: No bleed or mass effect, since prior study there is been development of a remote lacunar infarct and right internal capsule; chronic inflammatory changes left maxillary sinus, marked atrophy ) Disposition Clinical Impression: COVID-19 virus infection, Pneumonia Disposition: ADMITTED IP TO THIS [facility] Condition: Stable Is patient prescribed a controlled substance at d/c from ED?: No Referrals: Tom Sarmiento MD [Primary Care Provider] - 1-2 days Time of Disposition: 20:22
[2020-05-25 19:15] LABS: ALT 41 U/L (4-49); AST 42 U/L (17-59); African American GFR (CKD) >90 (>60 ml/min/1.73 sqM); Albumin 3.9 g/dL (3.5-5.0); Alkaline Phosphatase 61 U/L (38-126); Anion Gap 8 mmol/L; Blood Urea Nitrogen 34 mg/dL (9-20); C Reactive Protein 21.7 mg/L (<10.0); Carbon Dioxide 29 mmol/L (22-30); Chloride 99 mmol/L (98-107); Glucose 70 mg/dL (74-99); LDH 560 U/L (313-618); Non-African American GFR(CKD) >90 (>60 ml/min/1.73 sqM); Potassium 4.2 mmol/L (3.5-5.1); Sodium 136 mmol/L (137-145); Total Bilirubin 0.4 mg/dL (0.2-1.3); Total Protein 7.2 g/dL (6.3-8.2)
[2020-05-25 19:18] LABS: Valproic Acid (Depakene) 74.8 ug/mL
[2020-05-25 19:21] LABS: INR 0.9 (<1.2); Partial Thromboplastin Time 23.5 sec (22.0-30.0); Prothrombin Time 9.8 sec (9.0-12.0)
--- NOTE | 2020-05-25 19:27 | XR ---
EXAMINATION TYPE: XR chest 1V portable DATE OF EXAM: 05/25/2020 COMPARISON: 03/03/2020 HISTORY: Cough TECHNIQUE: Single frontal view of the chest is obtained. FINDINGS: The exam is limited by the portable technique and poor inspiration. The right hilum is ill- defined at the right cardiophrenic angle possibly secondary to lung infiltrate. The heart size is normal and the vasculature is not congested. There is no pneumothorax. The osseous structures are grossly intact. IMPRESSION: Limited study secondary to the portable technique and poor inspiration. Right perihilar and right meli g base infiltrate/effusion is suspected. Clinical correlation further evaluation is warranted.
[2020-05-25 19:39] LABS: Basophils % (A) 1 %; Eosinophils % (A) 0 %; HCT 41.8 % (39.0-53.0); Lymphocytes # (A) 1.4 k/uL (1.0-4.8); Lymphocytes % (A) 22 %; MCH 31.1 pg (25.0-35.0); MCHC 33.5 g/dL (31.0-37.0); MCV 92.7 fL (80.0-100.0); Mean Platelet Volume 8.5; Monocytes # (A) 1.2 k/uL (0-1.0); Monocytes % (A) 19 %; Neutrophils # (A) 3.6 k/uL (1.3-7.7); Neutrophils % (A) 57 %; Platelet Count 123 k/uL (150-450); RBC 4.51 m/uL (4.30-5.90); RDW 13.7 % (11.5-15.5); WBC 6.3 k/uL (3.8-10.6)
--- NOTE | 2020-05-25 19:51 | CT ---
EXAMINATION TYPE: CT brain wo con DATE OF EXAM: 05/25/2020 COMPARISON: 10/11/2018 HISTORY: Fall, decreased activity. Non verbal. Poor historian. CT DLP: 1170.4 mGycm Automated exposure control for dose reduction was used. FINDINGS: The ventricles are markedly enlarged and there is mild prominence of the sulci over the convexities. The findings are consistent with marked atrophy with a greater central component versus normal pressu re hydrocephalus. No change in the size of the CSF spaces compared to the prior study. There has been interval development of a remote lacunar infarct in the right internal capsule. There is no mass effect or shift of midline structures. There is no acute intra or extra-axial hemorr joelle. Grossly the posterior fossa is unremarkable. The intraorbital contents appear normal and symmetric. There are chronic inflammatory changes in the left maxillary sinus and in some of the ethmoid air cells. The mastoid air cells are well aerated. IMPRESSION: 1. No evidence of acute bleed or mass effect. 2. Since the prior study 2018 there has been development of a remote lacunar infarct in the right int ernal capsule. 3. Moderate chronic inflammatory changes in the left maxillary sinus. 4. Marked atrophy with a greater central component versus normal pressure hydrocephalus, no change in the size of the CSF spaces compared to the prior study.
[2020-05-25] MEDS ORDERED: AZITHROMYCIN 500 MG in SODIUM CHLORIDE 0.9% 250 ML IVPB STA (20:06)
[2020-05-25] MEDS ORDERED: PIPERACILLIN-TAZOBACTAM 3.375 GM in SODIUM CHLORIDE 0.9% 100 ML IVPB STA (20:11)
[2020-05-25] MEDS ORDERED: LORazepam 2 MG/ML INJ IV STA (20:37)
[2020-05-25 22:55] LABS: Ferritin 891.4 ng/mL (22.0-322.0)
[2020-05-26] MEDS ORDERED: LORazepam 2 MG/ML INJ IV STA ×2 (01:44→16:18)
[2020-05-26 02:15] LABS: Appearance,Urine Clear (Clear); Bilirubin,Urine Negative (Negative); Blood,Urine Negative (Negative); Color,Urine Yellow; Glucose,Urine (UA) Negative (Negative); Ketones,Urine Negative (Negative); Leukocyte Esterase,Urine Negative (Negative); Nitrite,Urine Negative (Negative); PH, Urine 5.5 (5.0-8.0); Protein,Urine Negative (Negative); Specific Gravity,Urine 1.027 (1.001-1.035); Urobilinogen,Urine <2.0 mg/dL (<2.0)
[2020-05-26] MEDS: FLUoxetine HCL 20 MG CAP PO SCH (08:18)
[2020-05-26] MEDS: risperiDONE 1 MG TAB PO SCH (08:19)
[2020-05-26] MEDS: DIVALPROEX 500 MG TABLET.DR PO SCH ×2 (08:21→20:00)
[2020-05-26] MEDS: DEXAMETHASONE SOD PHOSPHATE 10 MG/ML 1 ML VIAL IV SCH (08:24)
--- NOTE | 2020-05-26 08:26 | P.HPIM ---
History of Present Illness H&P Date: 05/26/20 Chief Complaint: Respiratory distress This is a history and physical an 55-year-old white male with cognitive impairment who has been having significant respiratory distress area the patient has now been diagnosed with Coumadin pneumonia and is on 3 L of oxygen and stabilizing but has significant productive cough. No significant nausea or vomiting. He is a poor historian. Review of Systems ROS unobtainable: due to mental status Respiratory: Reports cough, Reports cough with sputum Past Medical History Past Medical History: Diabetes Mellitus, GERD/Reflux, Hyperlipidemia, Hypertension, Pneumonia, Thyroid Disorder Additional Past Medical History / Comment(s): Developmentally delayed, autism, OCD, pt able to speak, aspiration pneumonia, aspiration precautions, pt will regurgitate and reswallow, NIDDM type II, occasional small amount blood in stool, hypothyroid, History of Any Multi-Drug Resistant Organisms: None Reported Past Surgical History: No Surgical Hx Reported Additional Past Surgical History / Comment(s): Colonoscopy. 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 Past Psychological History: Anxiety Smoking Status: Never smoker Past Alcohol Use History: None Reported Past Drug Use History: None Reported - Past Family History Father History Unknown: Yes Mother History Unknown: Yes Family Medical History: Diabetes Mellitus Medications and Allergies Home Medications Medication Instructions Recorded Confirmed Type Levothyroxine Sodium [Synthroid] 25 mcg PO DAILY@0600 07/13/14 05/25/20 History Lovastatin [Mevacor] 20 mg PO DAILY@159907/13/14 05/25/20 History Divalproex [Depakote] 1,500 mg PO BID@08,199904/21/15 05/25/20 History sitaGLIPtin [Januvia] 100 mg PO DAILY@159910/16/15 05/25/20 History Cholecalciferol [Vitamin D3 (25 25 mcg PO BID@0800,199906/22/16 05/25/20 History Mcg = 1000 Iu)] FLUoxetine HCL [PROzac] 40 mg PO DAILY@0800 06/22/16 05/25/20 History Propranolol [Inderal] 20 mg PO BID@0800,199906/14/18 05/25/20 History Naltrexone HCl [Revia] 50 mg PO DAILY@0800 07/11/18 05/25/20 History Ferrous Sulfate [Iron] 325 mg PO DAILY@1600 08/23/18 05/25/20 History Famotidine [Pepcid] 20 mg PO BID@0600,1600 #60 tab 04/02/19 05/25/20 Rx Loratadine [Claritin] 10 mg PO DAILY@0800 05/25/20 05/25/20 History Montelukast Sodium [Singulair] 10 mg PO HS@199905/25/20 05/25/20 History Vitamin B Complex/Vitamin C Tablet 1 tab PO DAILY@0805/25/20 05/25/20 History glipiZIDE XL [Glucotrol XL] 5 mg PO BID@799,199905/25/20 05/25/20 History guanFACINE HCL [Intuniv] 3 mg PO DAILY@0800 05/25/20 05/25/20 History risperiDONE [RisperDAL] 1 mg PO DAILY@0800 05/25/20 05/25/20 History risperiDONE [RisperDAL] 2 mg PO DAILY@1400 05/25/20 05/25/20 History Allergies Allergy/AdvReac Type Severity Reaction Status Date / Time No Known Allergies Allergy Verified 05/25/20 19:46 Physical Exam Vitals: Vital Signs Temp Pulse Resp BP Pulse Ox 05/26/20 08:12 98 F 87 18 123/79 99 05/26/20 01:49 98 F 80 18 141/86 99 05/25/20 20:48 84 18 101/64 93 L 05/25/20 17:48 97.4 F L 76 18 108/73 95 Intake and Output 05/25/20 05/26/20 05/26/20 22:59 06:59 14:59 Other: Weight 60.781 kg - Constitutional General appearance: no acute distress - EENT Eyes: EOMI - Neck Neck: no lymphadenopathy - Respiratory Respiratory: bilateral: rhonchi - Cardiovascular Rhythm: regular Heart sounds: normal: S1, S2 Abnormal Heart Sounds: no S3 Gallop - Gastrointestinal General gastrointestinal: soft, no tenderness - Integumentary Integumentary: no cellulitis Results CBC & Chem 7: 05/25/20 18:45 05/25/20 18:45 Labs: Abnormal Lab Results - Last 24 Hours (Table) 05/25/20 05/25/20 05/25/20 Range/Units 18:41 18:45 18:45 Plt Count 123 L (150-450) k/uL Monocytes # 1.2 H (0-1.0) k/uL Sodium 136 L (137-145) mmol/L BUN 34 H (9-20) mg/dL Glucose 70 L (74-99) mg/dL Ferritin 891.4 H (22.0-322.0) ng/mL C-Reactive Protein 21.7 H (<10.0) mg/L Procalcitonin (0.02-0.09) ng/mL Coronavirus (PCR) Detected A (Not Detectd) 05/25/20 Range/Units 18:45 Plt Count (150-450) k/uL Monocytes # (0-1.0) k/uL Sodium (137-145) mmol/L BUN (9-20) mg/dL Glucose (74-99) mg/dL Ferritin (22.0-322.0) ng/mL C-Reactive Protein (<10.0) mg/L Procalcitonin 0.15 H (0.02-0.09) ng/mL Coronavirus (PCR) (Not Detectd) Assessment and Plan (1) COVID-19 virus infection Current Visit: Yes Status: Acute Code(s): U07.1 - COVID-19 SNOMED Code(s): 980816037 (2) Pneumonia Current Visit: Yes Status: Acute Code(s): J18.9 - PNEUMONIA, UNSPECIFIED ORGANISM SNOMED Code(s): 210413315 (3) Altered mental status Current Visit: No Status: Acute Code(s): R41.82 - ALTERED MENTAL STATUS, UNSPECIFIED SNOMED Code(s): 288893178 (4) Borderline developmental delay Current Visit: No Status: Acute Code(s): R62.50 - UNSP LACK OF EXPECTED NORMAL PHYSIOL DEV IN CHILDHOOD SNOMED Code(s): 882306409 (5) Mental retardation Current Visit: No Status: Acute Code(s): F79 - UNSPECIFIED INTELLECTUAL DISABILITIES SNOMED Code(s): 719162039 Plan: Reconcile medications at. Consult pulmonology. We will try to contact the foster residential for appropriate tracing. Check CBC and CMP in a.m. See orders otherwise.
[2020-05-26 10:33] LABS: Basophils # (A) 0.01 X 10*3/uL (0.00-0.10); Basophils % (A) 0.2 %; Eosinophils # (A) 0.01 X 10*3/uL (0.04-0.35); Eosinophils % (A) 0.2 %; HCT 36.5 % (39.6-50.0); HGB 11.7 g/dL (13.0-17.0); Lymphocytes # (A) 1.71 X 10*3/uL (0.90-5.00); Lymphocytes % (A) 35.6 %; MCH 30.8 pg (27.0-32.0); MCHC 32.1 g/dL (32.0-37.0); MCV 96.1 fL (80.0-97.0); Mean Platelet Volume 10.7 fL (9.5-12.2); Monocytes # (A) 1.22 X 10*3/uL (0.20-1.00); Monocytes % (A) 25.4 %; Neutrophils # (A) 1.83 X 10*3/uL (1.80-7.70); Neutrophils % (A) 38.2 %; Platelet Count 106 X 10*3/uL (140-440); RDW 13.1 % (11.5-14.5)
[2020-05-26 11:28] LABS: African American GFR (CKD) 129.4 (60.0-200.0); Albumin 3.1 g/dL (3.80-4.90); Albumin/Globulin Ratio 1.55 (1.60-3.17); Anion Gap 3.5 mmol/L (4.00-12.00); BUN/Creat Ratio 41.67 Ratio (12.00-20.00); Calcium 8.1 mg/dL (8.7-10.3); Carbon Dioxide 31.5 mmol/L (21.6-31.8); Non-African American GFR(CKD) 111.6 (60.0-200.0); Total Bilirubin 0.4 mg/dL (0.3-1.2); Total Protein 5.1 g/dL (6.2-8.2)
--- NOTE | 2020-05-26 17:50 | P.CNPUL ---
History of Present Illness Consult date: 05/26/20 Requesting physician: Tom Sarmiento Reason for consult: pneumonia Chief complaint: Shortness of breath History of present illness: This is a 55-year-old white male with developmental delay, autism, history of aspiration pneumonia, type 2 diabetes, hypothyroidism, [facility]. A shunt was noted to have some shortness of breath recently, and some productive cough. The patient himself is a poor historian. Chest x-ray showed right hilar and right lung base infiltrate, covid 19 screening came back positive, hence the patient was admitted and this consult was initiated. Lenin [place] is on room air, O2 saturation is in the low 90s. Does not seem to be in any form of respiratory distress. Hence I have recommended that the patient goes on the culprit 19 cocktail, I believe he is probably out of the window for remdesivir , not to mention that the patient is actually on room air. Hence patient was evaluated in the ER, and orders were placed on the chart. Not much history could be obtained from the patient himself Review of Systems ROS unobtainable: due to mental status Past Medical History Past Medical History: Diabetes Mellitus, GERD/Reflux, Hyperlipidemia, Hypertension, Pneumonia, Thyroid Disorder Additional Past Medical History / Comment(s): Developmentally delayed, autism, OCD, pt able to speak and normally oriented to person/place, aspiration pneumonia, aspiration precautions, pt will regurgitate and reswallow, PICCA, NIDDM type II, occasional small amount blood in stool, hypothyroid, History of Any Multi-Drug Resistant Organisms: None Reported Past Surgical History: No Surgical Hx Reported Additional Past Surgical History / Comment(s): Colonoscopy. 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 Smoking Status: Never smoker - Past Family History Father History Unknown: Yes Mother History Unknown: Yes Family Medical History: Diabetes Mellitus Medications and Allergies Home Medications Medication Instructions Recorded Confirmed Type Levothyroxine Sodium [Synthroid] 25 mcg PO DAILY@0600 07/13/14 05/25/20 History Lovastatin [Mevacor] 20 mg PO DAILY@1600 07/13/14 05/25/20 History Divalproex [Depakote] 1,500 mg PO BID@0800,199904/21/15 05/25/20 History sitaGLIPtin [Januvia] 100 mg PO DAILY@1600 10/16/15 05/25/20 History Cholecalciferol [Vitamin D3 (25 25 mcg PO BID@08,199906/22/16 05/25/20 History Mcg = 1000 Iu)] FLUoxetine HCL [PROzac] 40 mg PO DAILY@0806/22/16 05/25/20 History Propranolol [Inderal] 20 mg PO BID@799,199906/14/18 05/25/20 History Naltrexone HCl [Revia] 50 mg PO DAILY@79907/11/18 05/25/20 History Ferrous Sulfate [Iron] 325 mg PO DAILY@159908/23/18 05/25/20 History Famotidine [Pepcid] 20 mg PO BID@0600,1599 #60 tab 04/02/19 05/25/20 Rx Loratadine [Claritin] 10 mg PO DAILY@0800 05/25/20 05/25/20 History Montelukast Sodium [Singulair] 10 mg PO HS@199905/25/20 05/25/20 History Vitamin B Complex/Vitamin C Tablet 1 tab PO DAILY@0805/25/20 05/25/20 History glipiZIDE XL [Glucotrol XL] 5 mg PO BID@08,199905/25/20 05/25/20 History guanFACINE HCL [Intuniv] 3 mg PO DAILY@0800 05/25/20 05/25/20 History risperiDONE [RisperDAL] 1 mg PO DAILY@0800 05/25/20 05/25/20 History risperiDONE [RisperDAL] 2 mg PO DAILY@1400 05/25/20 05/25/20 History Allergies Allergy/AdvReac Type Severity Reaction Status Date / Time No Known Allergies Allergy Verified 05/25/20 19:46 Physical Exam Vitals: Vital Signs Temp Pulse Resp BP Pulse Ox 05/26/20 08:12 98 F 87 18 123/79 99 05/26/20 01:49 98 F 80 18 141/86 99 05/25/20 20:48 84 18 101/64 93 L 05/25/20 17:48 97.4 F L 76 18 108/73 95 Intake and Output 05/26/20 05/26/20 05/26/20 06:59 14:59 22:59 Other: Weight 60.781 kg Physical Exam: Revealed a 55-year-old white male sedated, received Ativan earlier, on room air, in no distress. Head: Atraumatic, normocephalic. HEENT:[Neck is supple.] [No neck masses.] [No thyromegaly.] [No JVD.] Chest: [Fine crackles at the bases no rhonchi and no wheezes. Cardiac Exam: [Normal S1 and S2, no S3 gallop, no murmur.] Abdomen: [Soft, nontender, no megaly, no rebound, no guarding, normal bowel sounds.] Extremities: [No clubbing, no edema, no cyanosis.] Good pulses bilaterally. Neurological Exam: Arousable, however does not comprehend, does not follow instructions. Psychiatric: Could not be assessed, patient has a blunt affect, and mentally confused. Skin: No rashes. Results - Laboratory Findings CBC and BMP: 05/26/20 07:08 05/26/20 07:08 PT/INR, D-dimer PT 9.8 sec (9.0-12.0) 05/25/20 18:45 INR 0.9 (<1.2) 05/25/20 18:45 D-Dimer 0.53 mg/L FEU (<0.60) 05/25/20 18:45 Abnormal lab findings: Abnormal Labs 05/25/20 05/25/20 05/25/20 18:41 18:45 18:45 RBC Hgb Hct Plt Count 123 L Monocytes # 1.2 H Eosinophils # Sodium 136 L Anion Gap BUN 34 H BUN/Creatinine Ratio Glucose 70 L Calcium Ferritin 891.4 H C-Reactive Protein 21.7 H Total Protein Albumin Albumin/Globulin Ratio Procalcitonin Coronavirus (PCR) Detected A 05/25/20 05/26/20 05/26/20 18:45 07:08 07:08 RBC 3.80 L Hgb 11.7 L Hct 36.5 L Plt Count 106 L Monocytes # 1.22 H Eosinophils # 0.01 L Sodium Anion Gap 3.50 L BUN BUN/Creatinine Ratio 41.67 H Glucose 60 L Calcium 8.1 L Ferritin C-Reactive Protein Total Protein 5.1 L Albumin 3.10 L Albumin/Globulin Ratio 1.55 L Procalcitonin 0.15 H Coronavirus (PCR) - Diagnostic Findings Chest x-ray: image reviewed (As noted in HPI.) Assessment and Plan Assessment: Impression: Acute covid 19 pneumonia History of aspiration pneumonia Mental retardation and developmental delay. History of autism. History of type 2 diabetes. Benign essential hypertension. Recommendation: Continue present supportive care measures. Continue Covid 19 cocktail. Pro calcitonin level to check for potential underlying bacterial infection. Resume home meds. Cut down on the lorazepam as the patient seems to be quite sedated from lorazepam given earlier. Continue Decadron. Aspiration precautions. We'll continue to follow Time with Patient: Greater than 30
[2020-05-26] MEDS: FERROUS SULFATE 325 MG TAB PO SCH (19:24)
[2020-05-26] MEDS: FAMOTIDINE 20 MG TAB PO SCH (19:24)
[2020-05-26] MEDS: ATORVASTATIN 10 MG TAB PO SCH (19:24)
[2020-05-26] MEDS: CHOLECALCIFEROL 25 MCG (1000 IU) TABLET PO SCH (19:59)
[2020-05-26] MEDS: PROPRANOLOL 20 MG TAB PO SCH (20:00)
[2020-05-26] MEDS: MONTELUKAST 10 MG TAB PO SCH (20:00)
[2020-05-26] MEDS ORDERED: LORazepam 2 MG/ML INJ IV PRN (20:52)
[2020-05-27] MEDS: FAMOTIDINE 20 MG TAB PO SCH ×2 (05:07→16:22)
[2020-05-27] MEDS: LEVOTHYROXINE 25 MCG TAB PO SCH (05:07)
[2020-05-27] MEDS: GUANFACINE HCL 3 MG PO SCH (07:36)
[2020-05-27] MEDS: DEXAMETHASONE SOD PHOSPHATE 10 MG/ML 1 ML VIAL IV SCH (07:48)
[2020-05-27] MEDS: DIVALPROEX 500 MG TABLET.DR PO SCH ×2 (07:49→21:17)
[2020-05-27] MEDS: FLUoxetine HCL 20 MG CAP PO SCH (07:49)
[2020-05-27] MEDS: PROPRANOLOL 20 MG TAB PO SCH ×2 (07:49→22:59)
[2020-05-27] MEDS: LORATADINE 10 MG TAB PO SCH (07:49)
[2020-05-27] MEDS: risperiDONE 1 MG TAB PO SCH (07:50)
[2020-05-27] MEDS: CHOLECALCIFEROL 25 MCG (1000 IU) TABLET PO SCH ×2 (07:50→21:17)
--- NOTE | 2020-05-27 08:26 | P.PN ---
Subjective Progress Note Date: 05/27/20 Principal diagnosis: Covid positivity The patient is a 55-year-old white male adult foster care patient who is a poor historian. The patient seems to be breathing appropriately today. Less respiratory distress Objective - Vital Signs Vital signs: Vital Signs Temp 98.7 F 05/27/20 05:47 Pulse 83 05/27/20 05:47 Resp 14 05/27/20 05:47 BP 121/81 05/27/20 05:47 Pulse Ox 93 L 05/27/20 07:46 Intake & Output 05/26/20 05/27/20 05/27/20 18:59 06:59 18:59 Weight 60.781 kg Other: Voiding Method Toilet # Voids 2 - Constitutional General appearance: Present: no acute distress - EENT Eyes: Absent: abnormal pupil - Neck Neck: Absent: lymphadenopathy - Respiratory Respiratory: bilateral: diminished - Cardiovascular Rhythm: regular Heart sounds: normal: S1, S2 Abnormal Heart Sounds: Absent: S3 Gallop - Gastrointestinal General gastrointestinal: Present: soft. Absent: tenderness - Labs CBC & Chem 7: 05/26/20 07:08 05/26/20 07:08 Labs: Abnormal Lab Results - Last 24 Hours (Table) 05/26/20 05/26/20 05/26/20 Range/Units 07:08 07:08 07:08 RBC 3.80 L (4.40-5.60) X 10*6/uL Hgb 11.7 L (13.0-17.0) g/dL Hct 36.5 L (39.6-50.0) % Plt Count 106 L (140-440) X 10*3/uL Monocytes # 1.22 H (0.20-1.00) X 10*3/uL Eosinophils # 0.01 L (0.04-0.35) X 10*3/uL Anion Gap 3.50 L (4.00-12.00) mmol/L BUN/Creatinine Ratio 41.67 H (12.00-20.00) Ratio Glucose 60 L (70-110) mg/dL Calcium 8.1 L (8.7-10.3) mg/dL Total Protein 5.1 L (6.2-8.2) g/dL Albumin 3.10 L (3.80-4.90) g/dL Albumin/Globulin Ratio 1.55 L (1.60-3.17) g/dL Procalcitonin 0.10 H (0.02-0.09) ng/mL Microbiology - Last 24 Hours (Table) 05/25/20 18:28 Blood Culture - Preliminary Blood No Growth after 24 hours 05/25/20 18:41 Blood Culture - Preliminary Blood No Growth after 24 hours Assessment and Plan (1) COVID-19 virus infection Current Visit: Yes Status: Acute Code(s): U07.1 - COVID-19 SNOMED Code(s): 886731509 (2) Pneumonia Current Visit: Yes Status: Acute Code(s): J18.9 - PNEUMONIA, UNSPECIFIED ORGANISM SNOMED Code(s): 008008972 (3) Altered mental status Current Visit: No Status: Acute Code(s): R41.82 - ALTERED MENTAL STATUS, UNSPECIFIED SNOMED Code(s): 599126534 (4) Borderline developmental delay Current Visit: No Status: Acute Code(s): R62.50 - UNSP LACK OF EXPECTED NORMAL PHYSIOL DEV IN CHILDHOOD SNOMED Code(s): 158383136 (5) Mental retardation Current Visit: No Status: Acute Code(s): F79 - UNSPECIFIED INTELLECTUAL DISABILITIES SNOMED Code(s): 898595292 Plan: Reconcile medications at. Appreciate pulmonology input. Check CBC and CMP in a.m. He seems to be stabilizing. Time with Patient: Less than 30
[2020-05-27 08:31] LABS: HCT 39.7 % (39.6-50.0); HGB 12.7 g/dL (13.0-17.0); MCH 31.3 pg (27.0-32.0); MCV 97.8 fL (80.0-97.0); Mean Platelet Volume 10.9 fL (9.5-12.2); Platelet Count 115 X 10*3/uL (140-440); RBC 4.06 X 10*6/uL (4.40-5.60); RDW 12.9 % (11.5-14.5); WBC 6.45 X 10*3/uL (4.50-10.00)
[2020-05-27 09:38] LABS: African American GFR (CKD) 129.4 (60.0-200.0); Albumin 3.4 g/dL (3.80-4.90); Albumin/Globulin Ratio 1.48 (1.60-3.17); Anion Gap 2.7 mmol/L (4.00-12.00); Calcium 8.6 mg/dL (8.7-10.3); Carbon Dioxide 30.3 mmol/L (21.6-31.8); Globulin 2.3 g/dL (1.6-3.3); Non-African American GFR(CKD) 111.6 (60.0-200.0); Total Bilirubin 0.4 mg/dL (0.3-1.2); Total Protein 5.7 g/dL (6.2-8.2)
--- NOTE | 2020-05-27 13:54 | P.PN ---
Subjective Progress Note Date: 05/27/20 Principal diagnosis: Altered mental status, COVID 19 infection This is a 55-year-old white male with developmental delay, autism, history of aspiration pneumonia, type 2 diabetes, hypothyroidism, patient [facility] in a [facility]. A shunt was noted to have some shortness of breath recently, and some productive cough. The patient himself is a poor historian. Chest x-ray showed right hilar and right lung base infiltrate, covid 19 screening came back positive, hence the patient was admitted and this consult was initiated. Patient is on room air, O2 saturation is in the low 90s. Does not seem to be in any form of respiratory distress. Hence I have recommended that the patient goes on the culprit 19 cocktail, I believe he is probably out of the window for remdesivir , not to mention that the patient is actually on room air. Hence patient was evaluated in the ER, and orders were placed on the chart. Not much history could be obtained from the patient himself On 05/27/2020 patient seen in follow-up on medical surgical floor, he is resting comfortably in bed, he is breathing comfortably, denies any acute distress, room air pulse ox is 93%, no fever or chills, vitals have been stable. He has a fire safety inspector at the bedside as the patient at times gets up unassisted. Patient has a fire safety inspector at the bedside. No nausea vomiting or diarrhea, today's labs have been reviewed, blood blood cell, 6.45, hemoglobin is 12.7, electrolytes were unremarkable, BUN is 30, creatinine is 0.6, pro calcitonin level was low at 0.10, d-dimer is 0.53 Objective - Vital Signs Vital signs: Vital Signs Temp 98.7 F 05/27/20 05:47 Pulse 83 05/27/20 05:47 Resp 14 05/27/20 05:47 BP 121/81 05/27/20 05:47 Pulse Ox 93 L 05/27/20 07:46 Intake & Output 05/26/20 05/27/20 05/27/20 18:59 06:59 18:59 Weight 60.781 kg Other: Voiding Method Toilet # Voids 2 - Exam GENERAL EXAM: Drowsy, but arousable to voice, 55-year-old white male, resting in bed, on room air, with pulse ox of 93%, comfortable in no apparent distress. Patient has baseline cognitive disorder, related to developmental delay, has a fire safety inspector at the bedside HEAD: Normocephalic/atraumatic. EYES: Normal reaction of pupils, equal size. Conjunctiva pink, sclera white. NOSE: Clear with pink turbinates. THROAT: No erythema or exudates. NECK: No masses, no JVD, no thyroid enlargement, no adenopathy. CHEST: No chest wall deformity. Symmetrical expansion. LUNGS: Equal air entry with clear breath sounds, no crackles, CVS: Regular rate and rhythm, normal S1 and S2, no gallops, no murmurs, no rubs ABDOMEN: Soft, nontender. No hepatosplenomegaly, normal bowel sounds, no guarding or rigidity. EXTREMITIES: No clubbing, no edema, no cyanosis, 2+ pulses and upper and lower extremities. MUSCULOSKELETAL: Muscle strength and tone normal. SPINE: No scoliosis or deformity SKIN: No rashes CENTRAL NERVOUS SYSTEM: No focal deficits, tone is normal in all 4 extremities. - Labs CBC & Chem 7: 05/27/20 05:26 05/27/20 05:26 Labs: Abnormal Lab Results - Last 24 Hours (Table) 05/26/20 05/27/20 05/27/20 Range/Units 07:08 05:26 05:26 RBC 4.06 L (4.40-5.60) X 10*6/uL Hgb 12.7 L (13.0-17.0) g/dL MCV 97.8 H (80.0-97.0) fL Plt Count 115 L (140-440) X 10*3/uL Anion Gap 2.70 L (4.00-12.00) mmol/L BUN 30.0 H (9.0-27.0) mg/dL BUN/Creatinine Ratio 50.00 H (12.00-20.00) Ratio Calcium 8.6 L (8.7-10.3) mg/dL AST 53 H (14-35) U/L Total Protein 5.7 L (6.2-8.2) g/dL Albumin 3.40 L (3.80-4.90) g/dL Albumin/Globulin Ratio 1.48 L (1.60-3.17) g/dL Procalcitonin 0.10 H (0.02-0.09) ng/mL Microbiology - Last 24 Hours (Table) 05/25/20 18:28 Blood Culture - Preliminary Blood No Growth after 24 hours 05/25/20 18:41 Blood Culture - Preliminary Blood No Growth after 24 hours Assessment and Plan Plan: Assessment: #1. Acute Covid 19 pneumonia, #2. History of aspiration pneumonia #3. History of developmental delay #4. History of autism #5. History of type 2 diabetes mellitus #6. Benign essential hypertension Plan: No dyspnea, patient is maintaining stable oxygenation no fever or chills, today's labs have been noted. D-dimer was low, pro-calcitonin was Low. Maintain safety precautions, from pulmonary perspective patient can be [facility] back to the [facility] however because of his COVID positive status he may require different placement. Consult discharge planning and social work I performed a history & physical examination of the patient and discussed their management with my nurse practitioner, Helena Blanco. I reviewed the nurse practitioner's note and agree with the documented findings and plan of care. Lung sounds are positive for clear breath sounds. The findings and the impress ion was discussed with the patient. I attest to the documentation by the nurse practitioner. Time with Patient: Less than 30
[2020-05-27] MEDS: ATORVASTATIN 10 MG TAB PO SCH (16:22)
[2020-05-27] MEDS: FERROUS SULFATE 325 MG TAB PO SCH (16:22)
[2020-05-27] MEDS: MONTELUKAST 10 MG TAB PO SCH (21:17)
[2020-05-28] MEDS: FAMOTIDINE 20 MG TAB PO SCH ×2 (05:40→15:59)
[2020-05-28] MEDS: LEVOTHYROXINE 25 MCG TAB PO SCH (05:40)
[2020-05-28 05:51] VITALS: BP 157/80; TEMP 98.1
[2020-05-28 07:10] VITALS: PULSE 88; RESP 16
[2020-05-28] MEDS: GUANFACINE HCL 3 MG PO SCH (07:47)
[2020-05-28] MEDS: PROPRANOLOL 20 MG TAB PO SCH (07:50)
[2020-05-28] MEDS: CHOLECALCIFEROL 25 MCG (1000 IU) TABLET PO SCH (07:50)
[2020-05-28] MEDS: risperiDONE 1 MG TAB PO SCH (07:50)
[2020-05-28] MEDS: FLUoxetine HCL 20 MG CAP PO SCH (07:51)
[2020-05-28] MEDS: DIVALPROEX 500 MG TABLET.DR PO SCH (07:51)
[2020-05-28] MEDS: LORATADINE 10 MG TAB PO SCH (07:51)
[2020-05-28] MEDS: DEXAMETHASONE SOD PHOSPHATE 10 MG/ML 1 ML VIAL IV SCH (07:51)
[2020-05-28 10:17] LABS: HGB 13.3 g/dL (13.0-17.0); MCH 30.6 pg (27.0-32.0); MCHC 32.4 g/dL (32.0-37.0); MCV 94.3 fL (80.0-97.0); Mean Platelet Volume 10.8 fL (9.5-12.2); Platelet Count 147 X 10*3/uL (140-440); RBC 4.35 X 10*6/uL (4.40-5.60); RDW 12.7 % (11.5-14.5); WBC 7.08 X 10*3/uL (4.50-10.00)
[2020-05-28 10:52] LABS: African American GFR (CKD) 121.4 (60.0-200.0); Albumin 3.8 g/dL (3.80-4.90); Albumin/Globulin Ratio 1.46 (1.60-3.17); Anion Gap 8.3 mmol/L (4.00-12.00); BUN/Creat Ratio 31.43 Ratio (12.00-20.00); Carbon Dioxide 29.7 mmol/L (21.6-31.8); Globulin 2.6 g/dL (1.6-3.3); Non-African American GFR(CKD) 104.8 (60.0-200.0); Potassium 4.3 mmol/L (3.5-5.5); Total Bilirubin 0.5 mg/dL (0.3-1.2); Total Protein 6.4 g/dL (6.2-8.2)
[2020-05-28] MEDS: ATORVASTATIN 10 MG TAB PO SCH (15:59)
[2020-05-28] MEDS: FERROUS SULFATE 325 MG TAB PO SCH (15:59)
--- NOTE | 2020-06-03 12:54 | P.DS ---
Providers Date of admission: 05/25/20 20:25 Attending physician: Tom Sarmiento Consults: 05/25/20 20:25 Consult Physician Urgent Consulting Provider: Flor Matos Consult Reason/Comments: Covid, pneumonia Do you want consulting provider notified?: Yes Primary care physician: Tom Sarmiento - Discharge Diagnosis(es) (1) COVID-19 virus infection Status: Acute (2) Pneumonia Status: Acute (3) Altered mental status Status: Acute (4) Borderline developmental delay Status: Acute (5) Mental retardation Status: Acute Hospital Course: This is discharge summary 55-year-old white male who is a centimeter for respiratory distress with Covid positivity. The patient was stabilized with appropriate medication and discharged with appropriate steroid treatment. The patient was stabilized. Due to his cognitive impairment however it will be somewhat difficult to control his blood sugar. He was placed on appropriate sliding scale as an outpatient and follow-up with me in about 2 weeks. Patient Condition at Discharge: Stable Plan - Discharge Summary New Discharge Prescriptions: New dexAMETHasone [Dexamethasone] 4 mg PO DAILY #7 tablet Continue Levothyroxine Sodium [Synthroid] 25 mcg PO DAILY@0600 Lovastatin [Mevacor] 20 mg PO DAILY@1600 Divalproex [Depakote] 1,500 mg PO BID@0800,2000 sitaGLIPtin [Januvia] 100 mg PO DAILY@1600 FLUoxetine HCL [PROzac] 40 mg PO DAILY@0800 Cholecalciferol [Vitamin D3 (25 Mcg = 1000 Iu)] 25 mcg PO BID@0800,2000 Propranolol [Inderal] 20 mg PO BID@0800,2000 Naltrexone HCl [Revia] 50 mg PO DAILY@0800 Ferrous Sulfate [Iron] 325 mg PO DAILY@1600 Famotidine [Pepcid] 20 mg PO BID@0600,1600 #60 tab Montelukast Sodium [Singulair] 10 mg PO HS@2000 guanFACINE HCL [Intuniv] 3 mg PO DAILY@0800 Vitamin B Complex/Vitamin C Tablet 1 tab PO DAILY@0800 Loratadine [Claritin] 10 mg PO DAILY@0800 risperiDONE [RisperDAL] 1 mg PO DAILY@0800 risperiDONE [RisperDAL] 2 mg PO DAILY@1400 glipiZIDE XL [Glucotrol XL] 5 mg PO BID@0800,1999 No Action metFORMIN HCL [Glucophage] 500 mg PO BID #12 tab Discharge Medication List Levothyroxine Sodium [Synthroid] 25 mcg PO DAILY@0607/13/14 [History] Lovastatin [Mevacor] 20 mg PO DAILY@1600 07/13/14 [History] Divalproex [Depakote] 1,500 mg PO BID@08,199904/21/15 [History] sitaGLIPtin [Januvia] 100 mg PO DAILY@1600 10/16/15 [History] Cholecalciferol [Vitamin D3 (25 Mcg = 1000 Iu)] 25 mcg PO BID@08,199906/22/16 [History] FLUoxetine HCL [PROzac] 40 mg PO DAILY@79906/22/16 [History] Propranolol [Inderal] 20 mg PO BID@799,199906/14/18 [History] Naltrexone HCl [Revia] 50 mg PO DAILY@0807/11/18 [History] Ferrous Sulfate [Iron] 325 mg PO DAILY@1600 08/23/18 [History] Famotidine [Pepcid] 20 mg PO BID@0600,1600 #60 tab 04/02/19 [Rx] Loratadine [Claritin] 10 mg PO DAILY@0800 05/25/20 [History] Montelukast Sodium [Singulair] 10 mg PO HS@199905/25/20 [History] Vitamin B Complex/Vitamin C Tablet 1 tab PO DAILY@0805/25/20 [History] glipiZIDE XL [Glucotrol XL] 5 mg PO BID@08,199905/25/20 [History] guanFACINE HCL [Intuniv] 3 mg PO DAILY@0805/25/20 [History] risperiDONE [RisperDAL] 1 mg PO DAILY@0800 05/25/20 [History] risperiDONE [RisperDAL] 2 mg PO DAILY@1400 05/25/20 [History] dexAMETHasone [Dexamethasone] 4 mg PO DAILY #7 tablet 05/28/20 [Rx] metFORMIN HCL [Glucophage] 500 mg PO BID #12 tab 05/30/20 [Rx] Follow up Appointment(s)/Referral(s): Tom Sarmiento MD [Primary Care Provider] - 1-2 days Discharge Disposition: HOME SELF-CARE
== END 2020-05-28 17:33 | disposition home or self-care (01) | DRG 177 ==
LOC: EC 17:46 → 4SSUR 20:25
PROVIDERS: ADMIT Family Medicine; ATTEND Family Medicine
DX: U07.1 COVID-19 (principal); J12.82 Pneumonia due to coronavirus disease 2019; F84.0 Autistic disorder; E11.9 Type 2 diabetes mellitus without complications; E78.5 Hyperlipidemia, unspecified; I10 Essential (primary) hypertension; K21.9 Gastro-esophageal reflux disease without esophagitis; R62.50 Unspecified lack of expected normal physiological development in childhood; F42.9 Obsessive-compulsive disorder, unspecified; E03.9 Hypothyroidism, unspecified; F41.9 Anxiety disorder, unspecified; F79 Unspecified intellectual disabilities; R06.03 Acute respiratory distress; R41.82 Altered mental status, unspecified; Z79.890 Hormone replacement therapy; Z79.899 Other long term (current) drug therapy; Z79.84 Long term (current) use of oral hypoglycemic drugs; Z87.01 Personal history of pneumonia (recurrent); Z83.3 Family history of diabetes mellitus
CPT/HCPCS: 36415; 70450; 71045; 80053; 80164; 81003; 82728; 83605; 83615; 83735; 84145; 85025; 85027; 85379; 85610; 85730; 86140; 87040; 87635; 93005; 94760; 96365; 96366; 96367; 96375; 96376; 99285

== ENCOUNTER 2020-05-29 23:45 | Emergency (ER) | payer MEDICARE, OTHER ==
[2020-05-30 00:23] VITALS: TEMP 99
[2020-05-30 00:30] LABS: Basophils % (A) 0 %; Eosinophils % (A) 1 %; HCT 40.3 % (39.0-53.0); HGB 13.3 gm/dL (13.0-17.5); Lymphocytes # (A) 0.7 k/uL (1.0-4.8); Lymphocytes % (A) 11 %; MCHC 32.9 g/dL (31.0-37.0); MCV 94.2 fL (80.0-100.0); Mean Platelet Volume 7.3; Monocytes # (A) 0.3 k/uL (0-1.0); Monocytes % (A) 4 %; Neutrophils # (A) 5.7 k/uL (1.3-7.7); Neutrophils % (A) 84 %; Platelet Count 170 k/uL (150-450); RBC 4.28 m/uL (4.30-5.90); RDW 13.7 % (11.5-15.5); WBC 6.8 k/uL (3.8-10.6)
[2020-05-30] MEDS ORDERED: INSULIN REGULAR 100 UNIT/ML VIAL SQ STA (00:42)
[2020-05-30] MEDS ORDERED: SODIUM CHLORIDE 0.9% 1,000 ML IV ONE (00:42)
[2020-05-30 00:44] LABS: African American GFR (CKD) >90 (>60 ml/min/1.73 sqM); Anion Gap 9 mmol/L; Blood Urea Nitrogen 30 mg/dL (9-20); Calcium 9.1 mg/dL (8.4-10.2); Carbon Dioxide 30 mmol/L (22-30); Chloride 101 mmol/L (98-107); Glucose 289 mg/dL (74-99); Non-African American GFR(CKD) >90 (>60 ml/min/1.73 sqM); Potassium 4.8 mmol/L (3.5-5.1); Sodium 140 mmol/L (137-145)
[2020-05-30 00:55] VITALS: BP 117/72; PULSE 75; RESP 16
--- NOTE | 2020-05-30 01:11 | ED ---
General Adult HPI - General Chief complaint: Recheck/Abnormal Lab/Rx Stated complaint: Irregular labs Time Seen by Provider: 05/29/20 23:58 Source: EMS Mode of arrival: EMS - History of Present Illness Initial comments: This patient is a 55-year-old man, resident of [facility], brought to have evaluation for hyperglycemia. The patient reportedly receiving steroids as treatment for covid 19 infection, and caregivers were instructed to have him evaluated should his blood sugar rises above 300. Tonight when they measured the blood sugar was 357. The patient otherwise not appearing to have any distress. -: hour(s) - Related Data Home Medications Medication Instructions Recorded Confirmed Levothyroxine Sodium [Synthroid] 25 mcg PO DAILY@0600 07/13/14 05/25/20 Lovastatin [Mevacor] 20 mg PO DAILY@159907/13/14 05/25/20 Divalproex [Depakote] 1,500 mg PO BID@0800,199904/21/15 05/25/20 sitaGLIPtin [Januvia] 100 mg PO DAILY@159910/16/15 05/25/20 Cholecalciferol [Vitamin D3 (25 25 mcg PO BID@0800,199906/22/16 05/25/20 Mcg = 1000 Iu)] FLUoxetine HCL [PROzac] 40 mg PO DAILY@0806/22/16 05/25/20 Propranolol [Inderal] 20 mg PO BID@0800,199906/14/18 05/25/20 Naltrexone HCl [Revia] 50 mg PO DAILY@0807/11/18 05/25/20 Ferrous Sulfate [Iron] 325 mg PO DAILY@159908/23/18 05/25/20 Loratadine [Claritin] 10 mg PO DAILY@79905/25/20 05/25/20 Montelukast Sodium [Singulair] 10 mg PO HS@199905/25/20 05/25/20 Vitamin B Complex/Vitamin C Tablet 1 tab PO DAILY@79905/25/20 05/25/20 glipiZIDE XL [Glucotrol XL] 5 mg PO BID@0800,199905/25/20 05/25/20 guanFACINE HCL [Intuniv] 3 mg PO DAILY@79905/25/20 05/25/20 risperiDONE [RisperDAL] 1 mg PO DAILY@0800 05/25/20 05/25/20 risperiDONE [RisperDAL] 2 mg PO DAILY@1400 05/25/20 05/25/20 Previous Rx's Medication Instructions Recorded Famotidine [Pepcid] 20 mg PO BID@0600,1600 #60 tab 04/02/19 dexAMETHasone [Dexamethasone] 4 mg PO DAILY #7 tablet 05/28/20 metFORMIN HCL [Glucophage] 500 mg PO BID #12 tab 05/30/20 Allergies Allergy/AdvReac Type Severity Reaction Status Date / Time No Known Allergies Allergy Verified 05/30/20 00:25 Review of Systems ROS Statement: Those systems with pertinent positive or pertinent negative responses have been documented in the HPI. ROS Other: All systems not noted in ROS Statement are negative. Past Medical History Past Medical History: Diabetes Mellitus, GERD/Reflux, Hyperlipidemia, Hypertension, Pneumonia, Thyroid Disorder Additional Past Medical History / Comment(s): Developmentally delayed, autism, OCD, pt able to speak and normally oriented to person/place, aspiration pneumonia, aspiration precautions, pt will regurgitate and reswallow, PICCA, NIDDM type II, occasional small amount blood in stool, hypothyroid, History of Any Multi-Drug Resistant Organisms: None Reported Past Surgical History: No Surgical Hx Reported Additional Past Surgical History / Comment(s): Colonoscopy. 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 Past Psychological History: Anxiety Smoking Status: Never smoker Past Alcohol Use History: None Reported Past Drug Use History: None Reported - Past Family History Father History Unknown: Yes Mother History Unknown: Yes Family Medical History: Diabetes Mellitus General Exam General appearance: alert, in no apparent distress Head exam: Present: atraumatic, normocephalic Eye exam: Present: normal appearance Respiratory exam: Present: rhonchi. Absent: respiratory distress, wheezes, rales, stridor, accessory muscle use, decreased breath sounds Cardiovascular Exam: Present: regular rate, normal rhythm, normal heart sounds. Absent: systolic murmur, diastolic murmur, rubs, gallop GI/Abdominal exam: Present: soft. Absent: distended, tenderness, guarding, rebound, rigid, mass Extremities exam: Present: normal inspection, normal capillary refill. Absent: pedal edema, calf tenderness Back exam: Present: normal inspection Neurological exam: Present: alert Course Vital Signs 05/29/20 05/30/20 23:50 00:54 Temperature 99.0 F Pulse Rate 77 75 Respiratory 20 16 Rate Blood Pressure 144/86 117/72 O2 Sat by Pulse 93 L 94 L Oximetry Medical Decision Making - Lab Data Result diagrams: 05/30/20 00:13 05/30/20 00:13 Lab Results 05/30/20 05/30/20 05/30/20 Range/Units 00:13 00:13 01:57 WBC 6.8 (3.8-10.6) k/uL RBC 4.28 L (4.30-5.90) m/uL Hgb 13.3 (13.0-17.5) gm/dL Hct 40.3 (39.0-53.0) % MCV 94.2 (80.0-100.0) fL MCH 31.0 (25.0-35.0) pg MCHC 32.9 (31.0-37.0) g/dL RDW 13.7 (11.5-15.5) % Plt Count 170 (150-450) k/uL MPV 7.3 Neutrophils % 84 % Lymphocytes % 11 % Monocytes % 4 % Eosinophils % 1 % Basophils % 0 % Neutrophils # 5.7 (1.3-7.7) k/uL Lymphocytes # 0.7 L (1.0-4.8) k/uL Monocytes # 0.3 (0-1.0) k/uL Eosinophils # 0.0 (0-0.7) k/uL Basophils # 0.0 (0-0.2) k/uL Sodium 140 (137-145) mmol/L Potassium 4.8 (3.5-5.1) mmol/L Chloride 101 (98-107) mmol/L Carbon Dioxide 30 (22-30) mmol/L Anion Gap 9 mmol/L BUN 30 H (9-20) mg/dL Creatinine 0.65 L (0.66-1.25) mg/dL Est GFR (CKD-EPI)AfAm >90 (>60 ml/min/1.73 sqM) Est GFR (CKD-EPI)NonAf >90 (>60 ml/min/1.73 sqM) Glucose 289 H (74-99) mg/dL POC Glucose (mg/dL) 217 H (75-99) mg/dL POC Glu Band Saw Operator Cake Cutting ID Devi Burkett Calcium 9.1 (8.4-10.2) mg/dL Acetone, Qual Negative (Negative) Disposition Clinical Impression: Hyperglycemia Disposition: HOME SELF-CARE Condition: Fair Instructions (If sedation given, give patient instructions): Nondiabetic Hyperglycemia (ED) Prescriptions: metFORMIN HCL [Glucophage] 500 mg PO BID #12 tab Is patient prescribed a controlled substance at d/c from ED?: No Referrals: Tom Sarmiento MD [Primary Care Provider] - 1-2 days
[2020-05-30 01:58] LABS: Glucose,Whole Blood 217 mg/dL (75-99)
== END 2020-05-30 03:02 | disposition home or self-care (01) ==
LOC: EC 23:45
DX: E11.65 Type 2 diabetes mellitus with hyperglycemia (principal); E78.5 Hyperlipidemia, unspecified; F41.9 Anxiety disorder, unspecified; I10 Essential (primary) hypertension; E03.9 Hypothyroidism, unspecified; K21.9 Gastro-esophageal reflux disease without esophagitis; Z79.52 Long term (current) use of systemic steroids; Z79.84 Long term (current) use of oral hypoglycemic drugs; Z86.16 Personal history of COVID-19
CPT/HCPCS: 36415; 80048; 82009; 85025; 96360; 99285

== ENCOUNTER → 2020-11-26 | Outpatient (CLI) | payer MEDICARE, OTHER ==
[2020-11-26 12:20] LABS: Basophils # (A) 0.02 X 10*3/uL (0.00-0.10); Basophils % (A) 0.3 %; Eosinophils # (A) 0.19 X 10*3/uL (0.04-0.35); Eosinophils % (A) 2.6 %; HCT 40.8 % (39.6-50.0); HGB 12.9 g/dL (13.0-17.0); Lymphocytes # (A) 2.07 X 10*3/uL (0.90-5.00); MCH 30.9 pg (27.0-32.0); MCHC 31.6 g/dL (32.0-37.0); MCV 97.6 fL (80.0-97.0); Mean Platelet Volume 10.5 fL (9.5-12.2); Monocytes # (A) 1.03 X 10*3/uL (0.20-1.00); Monocytes % (A) 13.9 %; Neutrophils # (A) 3.99 X 10*3/uL (1.80-7.70); Neutrophils % (A) 53.8 %; Platelet Count 167 X 10*3/uL (140-440); RBC 4.18 X 10*6/uL (4.40-5.60); RDW 13.3 % (11.5-14.5)
[2020-11-26 13:35] LABS: ALT 17 U/L (10-49); AST 16 U/L (14-35); African American GFR (CKD) 114.9 (60.0-200.0); Albumin/Globulin Ratio 1.37 (1.60-3.17); Alkaline Phosphatase 62 U/L (41-126); Bilirubin, Conjugated <0.20 mg/dL (0.20-0.40); Calcium 9.6 mg/dL (8.7-10.3); Carbon Dioxide 30.8 mmol/L (21.6-31.8); Chloride 106 mmol/L (96-109); Globulin 2.7 g/dL (1.6-3.3); Glucose 131 mg/dL (70-110); Non-African American GFR(CKD) 99.2 (60.0-200.0); Potassium 4.6 mmol/L (3.5-5.5); Sodium 143 mmol/L (135-145); Total Bilirubin 0.4 mg/dL (0.2-1.2); Total Protein 6.4 g/dL (6.2-8.2)
[2020-11-26 13:36] LABS: Chol/HDL Ratio 2.48; Cholesterol 144 mg/dL (0-200); LDL Cholesterol,Calculated 61.2 mg/dL (0.0-131.0)
[2020-11-26 17:45] LABS: Hemoglobin A1C 5.6 % (4.0-6.0)
[2020-11-27 02:52] LABS: Urine Creatinine 159.4 mg/dL
== END | disposition home or self-care (01) ==
LOC: LABWHC1 07:52
PROVIDERS: ATTEND Nurse Practitioner Family
DX: E11.65 Type 2 diabetes mellitus with hyperglycemia (principal); E78.5 Hyperlipidemia, unspecified; I10 Essential (primary) hypertension
CPT/HCPCS: 36415; 80048; 80061; 80076; 80164; 82043; 82570; 83036; 84439; 84443; 85025

== ENCOUNTER → 2021-06-10 | Outpatient (CLI) | payer MEDICARE, OTHER ==
[2021-06-10 13:58] LABS: Basophils # (A) 0.05 X 10*3/uL (0.00-0.10); Basophils % (A) 0.7 %; Eosinophils # (A) 0.15 X 10*3/uL (0.04-0.35); Eosinophils % (A) 2.1 %; HCT 38.9 % (39.6-50.0); HGB 12.4 g/dL (13.0-17.0); Immature Grans, Automated 2.7 %; Lymphocytes # (A) 2.35 X 10*3/uL (0.90-5.00); MCH 31.1 pg (27.0-32.0); MCHC 31.9 g/dL (32.0-37.0); MCV 97.5 fL (80.0-97.0); Mean Platelet Volume 10.1 fL (9.5-12.2); Monocytes # (A) 0.93 X 10*3/uL (0.20-1.00); NRBC Per 100 WBC 0 /100 WBCS (0.0-0.0); Neutrophils # (A) 3.46 X 10*3/uL (1.80-7.70); Neutrophils % (A) 48.5 %; Platelet Count 201 X 10*3/uL (140-440); RBC 3.99 X 10*6/uL (4.40-5.60); RDW 13.7 % (11.5-14.5); WBC 7.13 X 10*3/uL (4.50-10.00)
[2021-06-10 14:47] LABS: ALT 13 U/L (10-49); AST 12 U/L (14-35); African American GFR (CKD) 119.7 (60.0-200.0); Albumin 3.9 g/dL (3.8-4.9); Albumin/Globulin Ratio 1.48 (1.60-3.17); Alkaline Phosphatase 64 U/L (41-126); BUN/Creat Ratio 40.95 Ratio (12.00-20.00); Bilirubin, Conjugated <0.20 mg/dL (0.20-0.40); Blood Urea Nitrogen 29.2 mg/dL (9.0-27.0); Calcium 9.5 mg/dL (8.7-10.3); Carbon Dioxide 26.3 mmol/L (20.0-27.5); Chloride 100 mmol/L (96-109); Globulin 2.6 g/dL (1.6-3.3); Glucose 122 mg/dL (70-110); LDL Cholesterol,Calculated 78.8 mg/dL (0.0-131.0); Non-African American GFR(CKD) 103.2 (60.0-200.0); Potassium 4.5 mmol/L (3.5-5.5); Sodium 139 mmol/L (135-145); Total Protein 6.5 g/dL (6.2-8.2)
[2021-06-10 18:26] LABS: Valproic Acid (Depakene) 66.9 ug/mL (50.0-100.0)
== END | disposition home or self-care (01) ==
LOC: LABWHC1 07:52
PROVIDERS: ATTEND Family Medicine
DX: E11.65 Type 2 diabetes mellitus with hyperglycemia (principal); Z79.899 Other long term (current) drug therapy
CPT/HCPCS: 36415; 80048; 80061; 80076; 80164; 83036; 84439; 84443; 85025

== ENCOUNTER 2021-09-13 21:03 | Emergency (ER) | payer MEDICARE, OTHER ==
[2021-09-13 22:06] VITALS: TEMP 97.4
[2021-09-14 00:18] LABS: Basophils % (A) 1 %; Eosinophils # (A) 0.1 k/uL (0-0.7); Eosinophils % (A) 1 %; HCT 32.5 % (39.0-53.0); HGB 10.5 gm/dL (13.0-17.5); Hypochromasia Slight; Lymphocytes # (A) 1.2 k/uL (1.0-4.8); Lymphocytes % (A) 16 %; MCH 31.9 pg (25.0-35.0); MCHC 32.2 g/dL (31.0-37.0); MCV 99.1 fL (80.0-100.0); Macrocytosis Slight; Mean Platelet Volume 7.1; Monocytes # (A) 1.2 k/uL (0-1.0); Monocytes % (A) 16 %; Neutrophils # (A) 4.6 k/uL (1.3-7.7); Neutrophils % (A) 64 %; Platelet Count 217 k/uL (150-450); RBC 3.28 m/uL (4.30-5.90); RDW 14.6 % (11.5-15.5); WBC 7.2 k/uL (3.8-10.6)
--- NOTE | 2021-09-14 00:26 | XR ---
EXAM: XR Pelvis, 1 or 2 Views CLINICAL HISTORY: ITS.REASON XR Reason: fall TECHNIQUE: Frontal view of the pelvis. COMPARISON: No previous studies. FINDINGS: Bones/joints: A 0.6 cm probable bone island left femoral head. Mild osteoarthritic changes. Bony pelvis and sacroiliac joints are unremarkable. Lower lumbar spine and soft tissues are unremarkable. No acute fracture. No dislocation. Soft tissues: See above. IMPRESSION: 1. No acute fracture or dislocation about the bony pelvis. 2. Probable bone island proximal left femur.
[2021-09-14 00:28] LABS: INR 0.9 (<1.2); Partial Thromboplastin Time 22.1 sec (22.0-30.0); Prothrombin Time 9.5 sec (9.0-12.0)
[2021-09-14 00:35] LABS: ALT 15 U/L (4-49); AST 26 U/L (17-59); African American GFR (CKD) >90 (>60 ml/min/1.73 sqM); Albumin 3.2 g/dL (3.5-5.0); Alkaline Phosphatase 97 U/L (38-126); Anion Gap 3 mmol/L; Blood Urea Nitrogen 29 mg/dL (9-20); Carbon Dioxide 34 mmol/L (22-30); Chloride 101 mmol/L (98-107); Glucose 150 mg/dL (74-99); Non-African American GFR(CKD) >90 (>60 ml/min/1.73 sqM); Potassium 3.9 mmol/L (3.5-5.1); Sodium 138 mmol/L (137-145); Total Bilirubin 0.3 mg/dL (0.2-1.3)
--- NOTE | 2021-09-14 00:53 | ED ---
Fall HPI - General Chief Complaint: Fall Stated Complaint: Lower extremity issue Time Seen by Provider: 09/13/21 22:47 Source: patient Mode of arrival: ambulatory Limitations: language barrier (Nonverbal) - History of Present Illness Initial Comments: This patient is a 56-year-old man who resides in [facility] home and has history of developmental disability. He does have a behavior in which she falls to his buttocks when he is upset. The patient did drop to the ground earlier and then was noted to have contusion and swelling onto the buttock. The patient is able to stand and walk. He has not manifested pain. Staff at the [facility] home was concerned about the swelling. Patient is nonverbal MD Complaint: fall -: hour(s) Fall From: standing When Fall Occurred: other Fall Witnessed: yes, by living facility staff Place Fall Occurred: care home/SNF Loss of Consciousness: none Prolonged Down Time?: no Symptoms Prior to Fall: none Context: history of frequent falls - Related Data Home Medications Medication Instructions Recorded Confirmed Levothyroxine Sodium [Synthroid] 25 mcg PO DAILY@59907/13/14 05/25/20 Lovastatin [Mevacor] 20 mg PO DAILY@159907/13/14 05/25/20 Divalproex [Depakote] 1,500 mg PO BID@799,199904/21/15 05/25/20 sitaGLIPtin [Januvia] 100 mg PO DAILY@159910/16/15 05/25/20 Cholecalciferol [Vitamin D3 (25 25 mcg PO BID@08,199906/22/16 05/25/20 Mcg = 1000 Iu)] FLUoxetine HCL [PROzac] 40 mg PO DAILY@79906/22/16 05/25/20 Propranolol [Inderal] 20 mg PO BID@08,199906/14/18 05/25/20 Naltrexone HCl [Revia] 50 mg PO DAILY@79907/11/18 05/25/20 Ferrous Sulfate [Iron] 325 mg PO DAILY@159908/23/18 05/25/20 Loratadine [Claritin] 10 mg PO DAILY@79905/25/20 05/25/20 Montelukast Sodium [Singulair] 10 mg PO HS@199905/25/20 05/25/20 Vitamin B Complex/Vitamin C Tablet 1 tab PO DAILY@0800 05/25/20 05/25/20 glipiZIDE XL [Glucotrol XL] 5 mg PO BID@0800,2000 05/25/20 05/25/20 guanFACINE HCL [Intuniv] 3 mg PO DAILY@0800 05/25/20 05/25/20 risperiDONE [RisperDAL] 1 mg PO DAILY@0800 05/25/20 05/25/20 risperiDONE [RisperDAL] 2 mg PO DAILY@1400 05/25/20 05/25/20 Previous Rx's Medication Instructions Recorded Famotidine [Pepcid] 20 mg PO BID@0600,1600 #60 tab 04/02/19 dexAMETHasone [Dexamethasone] 4 mg PO DAILY #7 tablet 05/28/20 metFORMIN HCL [Glucophage] 500 mg PO BID #12 tab 05/30/20 Allergies Allergy/AdvReac Type Severity Reaction Status Date / Time No Known Allergies Allergy Verified 09/13/21 22:06 Review of Systems ROS Statement: Those systems with pertinent positive or pertinent negative responses have been documented in the HPI. ROS Other: All systems not noted in ROS Statement are negative. Limitations: ROS unobtainable due to patients medical condition Musculoskeletal: Reports: as per HPI, other (Swelling to buttock) Skin: Reports: as per HPI, other (Contusion) Past Medical History Past Medical History: Diabetes Mellitus, GERD/Reflux, Hyperlipidemia, Hypertension, Pneumonia, Thyroid Disorder Additional Past Medical History / Comment(s): Developmentally delayed, autism, OCD, pt able to speak and normally oriented to person/place, aspiration pneumonia, aspiration precautions, pt will regurgitate and reswallow, PICCA, NIDDM type II, occasional small amount blood in stool, hypothyroid, History of Any Multi-Drug Resistant Organisms: None Reported Past Surgical History: No Surgical Hx Reported Additional Past Surgical History / Comment(s): Colonoscopy. 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 Past Psychological History: Anxiety Smoking Status: Never smoker Past Alcohol Use History: None Reported Past Drug Use History: None Reported - Past Family History Father History Unknown: Yes Mother History Unknown: Yes Family Medical History: Diabetes Mellitus General Exam Limitations: no limitations General appearance: alert, in no apparent distress Head exam: Present: atraumatic, normocephalic Eye exam: Present: normal appearance. Absent: scleral icterus, conjunctival injection Neck exam: Present: normal inspection Respiratory exam: Present: normal lung sounds bilaterally. Absent: respiratory distress, wheezes, rales, rhonchi, stridor Cardiovascular Exam: Present: regular rate, normal rhythm, normal heart sounds. Absent: systolic murmur, diastolic murmur, rubs, gallop GI/Abdominal exam: Present: soft. Absent: distended, tenderness, guarding, rebound, rigid, mass Extremities exam: Present: normal inspection, normal capillary refill. Absent: pedal edema, calf tenderness Back exam: Present: other (Patient has contusion and hematoma to the right buttock.) Neurological exam: Present: alert, normal gait Psychiatric exam: Present: normal affect Skin exam: Present: warm, dry, other (Contusion as above). Absent: rash Course Vital Signs 09/13/21 09/14/21 22:00 01:34 Temperature 97.4 F L Pulse Rate 99 102 H Respiratory 16 20 Rate Blood Pressure 154/89 180/93 O2 Sat by Pulse 95 95 Oximetry Medical Decision Making - Medical Decision Making Patient is a 56-year-old man from [facility] home with hematoma to the right buttock. At this point there does not appear to be suspicious injury. The injury does appear consistent with the described mechanism. The patient does not have any changes to affect, which would point towards abuse. He does seem to interact well with his caregivers here and does not appear fearful at all. Discussed appropriate further care and follow-up for hematoma with caregivers. - Lab Data Result diagrams: 09/14/21 00:07 09/14/21 00:07 Lab Results 09/14/21 09/14/21 09/14/21 Range/Units 00:07 00:07 00:07 WBC 7.2 (3.8-10.6) k/uL RBC 3.28 L (4.30-5.90) m/uL Hgb 10.5 L (13.0-17.5) gm/dL Hct 32.5 L (39.0-53.0) % MCV 99.1 (80.0-100.0) fL MCH 31.9 (25.0-35.0) pg MCHC 32.2 (31.0-37.0) g/dL RDW 14.6 (11.5-15.5) % Plt Count 217 (150-450) k/uL MPV 7.1 Neutrophils % 64 % Lymphocytes % 16 % Monocytes % 16 % Eosinophils % 1 % Basophils % 1 % Neutrophils # 4.6 (1.3-7.7) k/uL Lymphocytes # 1.2 (1.0-4.8) k/uL Monocytes # 1.2 H (0-1.0) k/uL Eosinophils # 0.1 (0-0.7) k/uL Basophils # 0.0 (0-0.2) k/uL Hypochromasia Slight Macrocytosis Slight PT 9.5 (9.0-12.0) sec INR 0.9 (<1.2) APTT 22.1 (22.0-30.0) sec Sodium 138 (137-145) mmol/L Potassium 3.9 (3.5-5.1) mmol/L Chloride 101 (98-107) mmol/L Carbon Dioxide 34 H (22-30) mmol/L Anion Gap 3 mmol/L BUN 29 H (9-20) mg/dL Creatinine 0.76 (0.66-1.25) mg/dL Est GFR (CKD-EPI)AfAm >90 (>60 ml/min/1.73 sqM) Est GFR (CKD-EPI)NonAf >90 (>60 ml/min/1.73 sqM) Glucose 150 H (74-99) mg/dL Calcium 9.0 (8.4-10.2) mg/dL Total Bilirubin 0.3 (0.2-1.3) mg/dL AST 26 (17-59) U/L ALT 15 (4-49) U/L Alkaline Phosphatase 97 (38-126) U/L Total Protein 6.0 L (6.3-8.2) g/dL Albumin 3.2 L (3.5-5.0) g/dL Disposition Clinical Impression: Fall, Hematoma Disposition: HOME SELF-CARE Condition: Good Instructions (If sedation given, give patient instructions): Fall Prevention for Older Adults (ED), Hematoma (ED) Is patient prescribed a controlled substance at d/c from ED?: No Referrals: Tom Sarmiento MD [Primary Care Provider] - 1-2 days
[2021-09-14 01:35] VITALS: BP 180/93; PULSE 102; RESP 20
== END 2021-09-14 01:34 | disposition home or self-care (01) ==
LOC: EC 21:03
DX: T14.8XXA Other injury of unspecified body region, initial encounter (principal); E11.9 Type 2 diabetes mellitus without complications; E78.5 Hyperlipidemia, unspecified; I10 Essential (primary) hypertension; F84.0 Autistic disorder; Z79.84 Long term (current) use of oral hypoglycemic drugs; F41.9 Anxiety disorder, unspecified; Z79.899 Other long term (current) drug therapy; W19.XXXA Unspecified fall, initial encounter
CPT/HCPCS: 36415; 72170; 80053; 85025; 85610; 85730; 99284

== ENCOUNTER 2022-03-19 06:55 | Day surgery (SDC) | payer MEDICARE, OTHER ==
[2022-03-18 09:18] VITALS: BMI 21.6
[2022-03-19 07:19] LABS: Glucose,Whole Blood 130 mg/dL (70-110)
[2022-03-19] MEDS: LACTATED RINGERS 1,000 ML IV SCH ×2 (07:28→07:30)
[2022-03-19 07:33] VITALS: RESP 16; TEMP 97.7
[2022-03-19] MEDS ORDERED: PROPOFOL 10 MG/ML 20 ML VIAL IV ONE (07:42)
--- NOTE | 2022-03-19 08:06 | P.PCN ---
Date of Procedure: 03/19/22 Procedure(s) Performed: BRIEF HISTORY: Patient is a 57-year-old pleasant white male scheduled for an elective colonoscopy as a part of rectal bleeding. PROCEDURE PERFORMED: Colonoscopy biopsy. PREOPERATIVE DIAGNOSIS: Rectal bleeding. IV sedation per Anesthesia. PROCEDURE: After informed consent was obtained, the patient, was brought into the endoscopy unit. IV sedation was administered by Anesthesia under continuous monitoring. Digital rectal examination was normal. Initially the Olympus CF-160 flexible video colonoscope was then inserted in the rectum, gradually advanced into the cecum without any difficulty. Careful examination was performed as the scope was gradually being withdrawn. Ileocecal valve and the appendiceal orifice were visualized and appeared normal. Prep was excellent. Mucosa of the cecum, ascending colon, appeared normal. The transverse colon there was a 3-4 mm polyp removed by cold biopsy. Rest of the transverse colon, descending colon, sigmoid colon, and rectum appeared normal. In the proximal rectum there was a 5 mm polyp removed by cold biopsy. Retroflexion was performed in the rectum and no lesions were seen. The patient tolerated the procedure well. IMPRESSION: 3-4 mm transverse colon polyp status post cold biopsy 5 mm proximal rectal polyp status post cold biopsy Small internal hemorrhoids RECOMMENDATIONS: Findings of this examination were discussed with the patient as well as his caregiver.. He was advised to follow with the biopsy results and biopsy with adenoma he can have a repeat colonoscopy in 5 years. In the meantime recommended to be a high-fiber diet and take fiber supplements a regular basis and avoid straining and constipation.
[2022-03-19 09:01] VITALS: BP 159/83; PULSE 85
== END 2022-03-19 08:58 ==
LOC: ORWHC2ENDO 06:55
PROVIDERS: ATTEND Internal Medicine Gastroenterology
DX: K64.8 Other hemorrhoids (principal); K62.5 Hemorrhage of anus and rectum; E11.9 Type 2 diabetes mellitus without complications; I10 Essential (primary) hypertension; E78.5 Hyperlipidemia, unspecified; F90.9 Attention-deficit hyperactivity disorder, unspecified type; K21.9 Gastro-esophageal reflux disease without esophagitis; Z79.899 Other long term (current) drug therapy; Z79.84 Long term (current) use of oral hypoglycemic drugs
CPT/HCPCS: 88305; 45380; J2704

== ENCOUNTER 2022-08-18 20:28 | Observation (INO) | payer MEDICARE, OTHER ==
--- NOTE | 2022-08-18 23:36 | XR ---
EXAMINATION TYPE: XR chest 1V DATE OF EXAM: 08/18/2022 11:30 PM COMPARISON: Chest radiographs from TECHNIQUE: XR chest 1V Frontal view of the chest. CLINICAL INDICATION:Male, 57 years old with history of Weakness; FINDINGS: Lungs/Pleura: No pneumothorax or pleural effusion. Patchy right basilar airspace opacity. Pulmonary vascularity: Unremarkable. Heart/mediastinum: Cardiomediastinal silhouette is enlarged and stable. Musculoskeletal: No acute osseous pathology. IMPRESSION: Patchy right basilar airspace opacity which may represent atelectasis versus infiltrate.
[2022-08-19 00:29] LABS: Basophils % (A) 1 %; Eosinophils # (A) 0.1 k/uL (0-0.7); Eosinophils % (A) 1 %; HCT 30.4 % (39.0-53.0); HGB 10.1 gm/dL (13.0-17.5); Lymphocytes # (A) 1.1 k/uL (1.0-4.8); Lymphocytes % (A) 14 %; MCH 32.6 pg (25.0-35.0); MCHC 33.2 g/dL (31.0-37.0); MCV 98.3 fL (80.0-100.0); Mean Platelet Volume 7.3; Monocytes # (A) 1.3 k/uL (0-1.0); Monocytes % (A) 16 %; Neutrophils # (A) 5.5 k/uL (1.3-7.7); Neutrophils % (A) 67 %; Platelet Count 218 k/uL (150-450); RBC 3.09 m/uL (4.30-5.90); RDW 14.2 % (11.5-15.5); WBC 8.2 k/uL (3.8-10.6)
[2022-08-19 00:41] LABS: ALT 20 U/L (4-49); AST 29 U/L (17-59); African American GFR (CKD) >90 (>60 ml/min/1.73 sqM); Alkaline Phosphatase 79 U/L (38-126); Anion Gap 7 mmol/L; Blood Urea Nitrogen 15 mg/dL (9-20); Calcium 8.9 mg/dL (8.4-10.2); Carbon Dioxide 31 mmol/L (22-30); Chloride 97 mmol/L (98-107); Glucose 272 mg/dL (74-99); Lipase 140 U/L (23-300); Magnesium 1.8 mg/dL (1.6-2.3); Non-African American GFR(CKD) >90 (>60 ml/min/1.73 sqM); Sodium 135 mmol/L (137-145); Total Bilirubin 0.4 mg/dL (0.2-1.3); Total Protein 5.7 g/dL (6.3-8.2)
[2022-08-19] MEDS ORDERED: NALOXONE 0.4 MG/ML 1 ML VIAL IV PRN (01:44)
--- NOTE | 2022-08-19 01:44 | ED ---
General Adult HPI - General Chief complaint: Fall Stated complaint: Weakness Time Seen by Provider: 08/18/22 21:07 Source: EMS Mode of arrival: EMS - History of Present Illness Initial comments: This is a 57-year-old male with a past medical history including nonverbal autism presents emergency department via EMS from his nursing facility. There was a convoluted story as to why the patient did present by did speak with the nurse who spoke with EMS. It was reported that the patient has been sent to [facility] and discharged several times as a nursing facility felt as if the patient was weak but seemed to send back to the emergency department for his continued weakness and history of falls. The patient was then sent here for evaluation for the same thing. On arrival, the patient was resting in bed without any acute complaints. The patient could not answer question was at his baseline. No further history could be obtained at this time. - Related Data Home Medications Medication Instructions Recorded Confirmed Levothyroxine Sodium [Synthroid] 25 mcg PO DAILY 07/13/14 08/18/22 Divalproex [Depakote] 1,500 mg PO BID 04/21/15 08/18/22 Cholecalciferol [Vitamin D3 (25 25 mcg PO BID 06/22/16 08/18/22 Mcg = 1000 Iu)] FLUoxetine HCL [PROzac] 40 mg PO DAILY 06/22/16 08/18/22 Naltrexone HCl [Revia] 50 mg PO DAILY 07/11/18 08/18/22 Ferrous Sulfate [Iron] 325 mg PO DAILY 08/23/18 08/18/22 Montelukast Sodium [Singulair] 10 mg PO HS 05/25/20 08/18/22 guanFACINE HCL [Intuniv] 3 mg PO DAILY 05/25/20 08/18/22 risperiDONE [RisperDAL] 1 mg PO DAILY 05/25/20 08/18/22 risperiDONE [RisperDAL] 2 mg PO DAILY@1600 05/25/20 08/18/22 Apixaban [Eliquis] 5 mg PO BID 03/18/22 08/18/22 Tamsulosin [Flomax] 0.4 mg PO HS 03/18/22 08/18/22 lisinopriL 2.5 mg PO DAILY 03/18/22 08/18/22 Famotidine [Pepcid] 20 mg PO HS 08/18/22 08/18/22 Lovastatin [Mevacor] 40 mg PO DAILY 08/18/22 08/18/22 Vitamin B Complex 1 cap PO DAILY 08/18/22 08/18/22 Previous Rx's Medication Instructions Recorded metFORMIN HCL [Glucophage] 500 mg PO BID #12 tab 05/30/20 Allergies Allergy/AdvReac Type Severity Reaction Status Date / Time No Known Allergies Allergy Verified 08/18/22 21:47 Review of Systems ROS Statement: Those systems with pertinent positive or pertinent negative responses have been documented in the HPI. Limitations: ROS unobtainable due to patients medical condition (Nonverbal autistic, at baseline) Past Medical History Past Medical History: Diabetes Mellitus, GERD/Reflux, Hyperlipidemia, Hypertension, Pneumonia, Pulmonary Embolus (PE), Thyroid Disorder Additional Past Medical History / Comment(s): Developmentally delayed, autism, OCD, pt able to speak and normally oriented to person/place, aspiration pneumonia, aspiration precautions, pt will regurgitate and reswallow, PICA, NIDDM type II, occasional small amount blood in stool-worsening History of Any Multi-Drug Resistant Organisms: None Reported Past Surgical History: No Surgical Hx Reported Additional Past Surgical History / Comment(s): Colonoscopy. 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 SURGERY Past Psychological History: ADD/ADHD, Anxiety Smoking Status: Never smoker - Past Family History Father History Unknown: Yes Mother History Unknown: Yes Family Medical History: Diabetes Mellitus General Exam Limitations: altered mental status (At baseline) General appearance: alert, in no apparent distress Head exam: Present: atraumatic, normocephalic, normal inspection Eye exam: Present: normal appearance, PERRL Pupils: Present: normal accommodation ENT exam: Present: normal exam, normal oropharynx, mucous membranes moist Neck exam: Present: normal inspection, full ROM Respiratory exam: Present: normal lung sounds bilaterally Cardiovascular Exam: Present: regular rate, normal rhythm, normal heart sounds GI/Abdominal exam: Present: soft, normal bowel sounds Extremities exam: Present: normal inspection, full ROM, pedal edema Back exam: Present: normal inspection, full ROM Neurological exam: Present: alert, CN II-XII intact, other (Nonverbal, at baseline) Psychiatric exam: Present: normal affect, normal mood Skin exam: Present: warm, dry Course Vital Signs 08/18/22 08/19/22 20:40 00:51 Temperature 98.2 F Pulse Rate 100 94 Respiratory 15 17 Rate Blood Pressure 151/100 156/90 O2 Sat by Pulse 94 L 96 Oximetry EKG Findings - EKG Comments: EKG Findings:: An EKG was obtained and was interpreted by myself showing a rate of 108, OK interval 118, QRS duration of 72 and QTC of 463. This EKG showed a sinus tachycardia without any ST segment elevation or depression noted. Medical Decision Making - Medical Decision Making Was pt. sent in by a medical professional or institution (, PA, MEDICAL CASE MANAGER, urgent care, hospital, or longterm...) When possible be specific @ -Yes, nursing facility Did you speak to anyone other than the patient for history (EMS, parent, family, police, friend...)? What history was obtained from this source @ -Yes, I spoke with the patient's nurse who spoke with EMS and stated that the patient was sent in for possible falls but seemed as though the nursing facility was unwilling to take the patient back as he did seem to require higher level of longterm care. Did you review nursing and triage notes (agree or disagree)? Why? @ -I reviewed and agree with nursing and triage notes Were old charts reviewed (outside hosp., previous admission, EMS record, old EKG, old radiological studies, urgent care reports/EKG's, longterm records)? Report findings @ -No old charts were reviewed Differential Diagnosis (chest pain, altered mental status, abdominal pain women, abdominal pain men, vaginal bleeding, weakness, fever, dyspnea, syncope, headache, dizziness, GI bleed, back pain, seizure, CVA, palpatations, mental health)? @ -Weakness, failure to thrive, pneumonia, sepsis EKG interpreted by me (3pts min.). @ -As above X-rays interpreted by me (1pt min.). @ -Chest x-ray was obtained and was interpreted by myself showing no acute process. CT interpreted by me (1pt min.). @ -None done U/S interpreted by me (1pt. min.). @ -None done What testing was considered but not performed or refused? (CT, X-rays, U/S, labs)? Why? @ -None What meds were considered but not given or refused? Why? @ -None Did you discuss the management of the patient with other professionals (professionals i.e. , PA, MEDICAL CASE MANAGER, lab, RT, psych nurse, social worker masters, clinical laboratory science professor, teacher, juvenile officer, case planner)? Give summary @ -Yes, admitting physician was contacted regarding patient admission for placement. Was smoking cessation discussed for >3mins.? @ -No Was critical care preformed (if so, how long)? @ -No Were there social determinants of health that impacted care today? How? (Homelessness, low income, unemployed, alcoholism, drug addiction, transportation, low edu. Level, literacy, decrease access to med. care, senior care, rehab)? @ -No Was there de-escalation of care discussed even if they declined (Discuss DNR or withdrawal of care, Hospice)? DNR status @ -No What co-morbidities impacted this encounter? (DM, HTN, Smoking, COPD, CAD, Cancer, CVA, ARF, Chemo, Hep., AIDS, mental health diagnosis, sleep apnea, morbid obesity)? @ -Nonverbal autism, congestive heart failure Was patient admitted / discharged? Hospital course, mention meds given and route, prescriptions, significant lab abnormalities, going to OR and other pertinent info. @ -The patient was seen and evaluated emergency department. Physical exam, the patient was resting in bed without any acute distress. Vital signs admission were stable. Due to the nature the patient's vague reason for being in the emergency department, a broad workup was obtained and was within normal limits. The patient reportedly was unable to go back to his nursing facility as they were worried about his multiple falls and seemed to need higher level of longterm care. Because of this, the patient will be admitted for placement. The patient's primary care physician was contacted and accepted the patient for admission. The patient was admitted in stable condition. Undiagnosed new problem with uncertain prognosis? @ -No Drug Therapy requiring intensive monitoring for toxicity (Heparin, Nitro, Insulin, Cardizem)? @ -No Were any procedures done? @ -No Diagnosis/symptom? @ -Failure to thrive, placement Acute, or Chronic, or Acute on Chronic? @ -Acute on chronic Uncomplicated (without systemic symptoms) or Complicated (systemic symptoms)? @ -Complicated Side effects of treatment? @ -No Exacerbation, Progression, or Severe Exacerbation? @ -No Poses a threat to life or bodily function? How? (Chest pain, [place], [place], pneumonia, PE, COPD, DKA, ARF, appy, cholecystitis, CVA, Diverticulitis, Homicidal, Suicidal, threat to staff... and all critical care pts) @ -Yes, continued failure to thrive can lead to permanent damage and possible . - Lab Data Result diagrams: 08/18/22 23:08/18/22 23: Lab Results 08/18/22 08/18/22 08/18/22 Range/Units 23: 23: 23: WBC 8.2 (3.8-10.6) k/uL RBC 3.09 L (4.30-5.90) m/uL Hgb 10.1 L (13.0-17.5) gm/dL Hct 30.4 L (39.0-53.0) % MCV 98.3 (80.0-100.0) fL MCH 32.6 (25.0-35.0) pg MCHC 33.2 (31.0-37.0) g/dL RDW 14.2 (11.5-15.5) % Plt Count 218 (150-450) k/uL MPV 7.3 Neutrophils % 67 % Lymphocytes % 14 % Monocytes % 16 % Eosinophils % 1 % Basophils % 1 % Neutrophils # 5.5 (1.3-7.7) k/uL Lymphocytes # 1.1 (1.0-4.8) k/uL Monocytes # 1.3 H (0-1.0) k/uL Eosinophils # 0.1 (0-0.7) k/uL Basophils # 0.0 (0-0.2) k/uL Sodium 135 L (137-145) mmol/L Potassium 4.0 (3.5-5.1) mmol/L Chloride 97 L (98-107) mmol/L Carbon Dioxide 31 H (22-30) mmol/L Anion Gap 7 mmol/L BUN 15 (9-20) mg/dL Creatinine 0.55 L (0.66-1.25) mg/dL Est GFR (CKD-EPI)AfAm >90 (>60 ml/min/1.73 sqM) Est GFR (CKD-EPI)NonAf >90 (>60 ml/min/1.73 sqM) Glucose 272 H (74-99) mg/dL Calcium 8.9 (8.4-10.2) mg/dL Magnesium 1.8 (1.6-2.3) mg/dL Total Bilirubin 0.4 (0.2-1.3) mg/dL AST 29 (17-59) U/L ALT 20 (4-49) U/L Alkaline Phosphatase 79 (38-126) U/L Troponin I <0.012 (0.000-0.034) ng/mL Total Protein 5.7 L (6.3-8.2) g/dL Albumin 3.0 L (3.5-5.0) g/dL Lipase 140 (23-300) U/L Disposition Clinical Impression: Weakness, Failure to thrive Disposition: ADMITTED IP TO THIS [facility] Condition: Stable Is patient prescribed a controlled substance at d/c from ED?: No Referrals: Tom Sarmiento MD [Primary Care Provider] - 1-2 days Time of Disposition: 23:00 Decision to Admit Reason: Admit from EC Decision Date: 08/18/22 Decision Time: 23:00
--- NOTE | 2022-08-19 07:50 | P.HPIM ---
History of Present Illness H&P Date: 08/19/22 Chief Complaint: Weakness This is a history of physical 57-year-old white male essentially didn't readmitted after being discharged from [facility] yesterday for a spiration pneumonia with sepsis. The home has become a difficult place for him to be completely taking care of and he is here now for placement. No complaints are stated. He seems back to his baseline underlying history of autism spectrum disorder with OCD history. No fever or chills. History of pulmonary embolus in the past. Review of Systems ROS unobtainable: due to mental status Constitutional: Denies chills, Denies fever Eyes: denies blurred vision, denies pain Ears, nose, mouth and throat: Denies headache, Denies sore throat Cardiovascular: Denies chest pain, Denies shortness of breath Past Medical History Past Medical History: Diabetes Mellitus, GERD/Reflux, Hyperlipidemia, Hypertension, Pneumonia, Pulmonary Embolus (PE), Thyroid Disorder Additional Past Medical History / Comment(s): Developmentally delayed, autism, OCD, pt able to speak and normally oriented to person/place, aspiration pneumonia, aspiration precautions, pt will regurgitate and reswallow, PICA, NIDDM type II, occasional small amount blood in stool-worsening History of Any Multi-Drug Resistant Organisms: None Reported Past Surgical History: No Surgical Hx Reported Additional Past Surgical History / Comment(s): Colonoscopy. 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 Past Psychological History: ADD/ADHD, Anxiety Smoking Status: Never smoker - Past Family History Father History Unknown: Yes Mother History Unknown: Yes Family Medical History: Diabetes Mellitus Medications and Allergies Home Medications Medication Instructions Recorded Confirmed Type Levothyroxine Sodium [Synthroid] 25 mcg PO DAILY 07/13/14 08/18/22 History Divalproex [Depakote] 1,500 mg PO BID 04/21/15 08/18/22 History Cholecalciferol [Vitamin D3 (25 25 mcg PO BID 06/22/16 08/18/22 History Mcg = 1000 Iu)] FLUoxetine HCL [PROzac] 40 mg PO DAILY 06/22/16 08/18/22 History Naltrexone HCl [Revia] 50 mg PO DAILY 07/11/18 08/18/22 History Ferrous Sulfate [Iron] 325 mg PO DAILY 08/23/18 08/18/22 History Montelukast Sodium [Singulair] 10 mg PO HS 05/25/20 08/18/22 History guanFACINE HCL [Intuniv] 3 mg PO DAILY 05/25/20 08/18/22 History risperiDONE [RisperDAL] 1 mg PO DAILY 05/25/20 08/18/22 History risperiDONE [RisperDAL] 2 mg PO DAILY@1600 05/25/20 08/18/22 History metFORMIN HCL [Glucophage] 500 mg PO BID #12 tab 05/30/20 08/18/22 Rx Apixaban [Eliquis] 5 mg PO BID 03/18/22 08/18/22 History Tamsulosin [Flomax] 0.4 mg PO HS 03/18/22 08/18/22 History lisinopriL 2.5 mg PO DAILY 03/18/22 08/18/22 History Famotidine [Pepcid] 20 mg PO HS 08/18/22 08/18/22 History Lovastatin [Mevacor] 40 mg PO DAILY 08/18/22 08/18/22 History Vitamin B Complex 1 cap PO DAILY 08/18/22 08/18/22 History Allergies Allergy/AdvReac Type Severity Reaction Status Date / Time No Known Allergies Allergy Verified 08/18/22 21:47 Physical Exam Vitals: Vital Signs Temp Pulse Resp BP Pulse Ox 08/19/22 05:00 16 08/19/22 03:13 16 08/19/22 00:51 94 17 156/90 96 08/18/22 20:40 98.2 F 100 15 151/100 94 L Intake and Output 08/18/22 08/19/22 08/19/22 22:59 06:59 14:59 Other: Weight 83.915 kg - Constitutional General appearance: no acute distress - EENT Eyes: EOMI - Neck Neck: no lymphadenopathy - Respiratory Respiratory: bilateral: diminished - Cardiovascular Rhythm: regular Heart sounds: abnormal: S1, S2 Abnormal Heart Sounds: no S3 Gallop - Gastrointestinal General gastrointestinal: soft, no tenderness - Neurologic Neurologic: CNII-XII intact - Psychiatric Psychiatric: no A&O x's 3, no appropriate affect, no intact judgment & insight Results CBC & Chem 7: 08/18/22 23:31 08/18/22 23:31 Labs: Abnormal Lab Results - Last 24 Hours (Table) 08/18/22 08/18/22 Range/Units 23:31 23:31 RBC 3.09 L (4.30-5.90) m/uL Hgb 10.1 L (13.0-17.5) gm/dL Hct 30.4 L (39.0-53.0) % Monocytes # 1.3 H (0-1.0) k/uL Sodium 135 L (137-145) mmol/L Chloride 97 L (98-107) mmol/L Carbon Dioxide 31 H (22-30) mmol/L Creatinine 0.55 L (0.66-1.25) mg/dL Glucose 272 H (74-99) mg/dL Total Protein 5.7 L (6.3-8.2) g/dL Albumin 3.0 L (3.5-5.0) g/dL Assessment and Plan (1) Autism Current Visit: Yes Status: Acute Code(s): F84.0 - AUTISTIC DISORDER SNOMED Code(s): 767694721 (2) Weakness Current Visit: Yes Status: Acute Code(s): R53.1 - WEAKNESS SNOMED Code(s): 37250136 (3) Aspiration pneumonia Current Visit: No Status: Acute Code(s): J69.0 - PNEUMONITIS DUE TO INHALATION OF FOOD AND VOMIT SNOMED Code(s): 916200604 (4) Mental retardation Current Visit: No Status: Acute Code(s): F79 - UNSPECIFIED INTELLECTUAL DISABILITIES SNOMED Code(s): 060973922 (5) Multiple falls Current Visit: No Status: Acute Code(s): R29.6 - REPEATED FALLS SNOMED Code(s): 360327933 Plan: Admitted for placement. Continue antibiotic Augmentin for history of aspiration pneumonia and sepsis. Check CBC and CMP in a.m. Reconcile home medications. Time with Patient: Greater than 30
[2022-08-19] MEDS ORDERED: DEXTROSE 50% SYRINGE 50 ML IVP PRN ×2 (07:51)
[2022-08-19] MEDS: GUANFACINE HCL 3 MG PO SCH (08:52)
[2022-08-19] MEDS: AMOXIC-POT CLAV 500-125 MG 1 EACH TAB PO SCH ×2 (08:54→20:37)
[2022-08-19] MEDS: DIVALPROEX 500 MG TABLET.DR PO SCH ×2 (08:55→20:13)
[2022-08-19] MEDS: FLUoxetine HCL 20 MG CAP PO SCH (08:56)
[2022-08-19] MEDS: LEVOTHYROXINE 25 MCG TAB PO SCH (08:56)
[2022-08-19] MEDS: APIXABAN 5 MG TAB PO SCH ×2 (08:56→20:13)
[2022-08-19] MEDS: FERROUS SULFATE 325 MG TAB PO SCH (08:57)
[2022-08-19] MEDS: CHOLECALCIFEROL 25 MCG (1000 IU) TABLET PO SCH ×2 (08:57→20:13)
[2022-08-19] MEDS: metFORMIN 500 MG TAB PO SCH ×2 (08:57→18:48)
[2022-08-19] MEDS: ATORVASTATIN 10 MG TAB PO SCH (08:57)
[2022-08-19] MEDS: risperiDONE 1 MG TAB PO SCH (08:57)
[2022-08-19] MEDS ORDERED: NON FORMULARY DRUG (Vitamin B Complex [Vitamin B Complex] 1 EACH Capsule) PO SCH (09:00)
[2022-08-19 09:01] LABS: Glucose,Whole Blood 168 mg/dL (70-110)
[2022-08-19] MEDS: risperiDONE 2 MG TAB PO SCH (15:35)
[2022-08-19 18:05] LABS: Glucose,Whole Blood 266 mg/dL (70-110)
[2022-08-19 20:03] LABS: Glucose,Whole Blood 275 mg/dL (70-110)
[2022-08-19] MEDS: TAMSULOSIN 0.4 MG CAP.ER.24H PO SCH (20:13)
[2022-08-19] MEDS: MONTELUKAST 10 MG TAB PO SCH (20:13)
[2022-08-19] MEDS: FAMOTIDINE 20 MG TAB PO SCH (20:13)
[2022-08-20] MEDS: LEVOTHYROXINE 25 MCG TAB PO SCH (06:08)
[2022-08-20 07:10] LABS: Glucose,Whole Blood 193 mg/dL (70-110)
--- NOTE | 2022-08-20 07:57 | P.PN ---
Subjective Principal diagnosis: Aspiration pneumonia The patient is essentially here for placement related to the inability for his foster prison to continue taking care of him due to his increasing frailty. We are essentially awaiting placement he was recently discharged from [facility] related to aspiration pneumonia and sepsis. The patient is otherwise doing fine stable tolerating diet without voiding difficulties. Objective - Vital Signs Vital signs: Vital Signs Temp 98.6 F 08/20/22 07:11 Pulse 116 H 08/20/22 07:11 Resp 18 08/20/22 07:11 BP 146/82 08/20/22 07:11 Pulse Ox 93 L 08/20/22 07:11 FiO2 Intake & Output 08/19/22 08/20/22 08/20/22 18:59 06:59 18:59 Intake Total 590 Balance 590 Weight 83.915 kg Intake: Oral 590 Other: Voiding Method Diaper # Voids 3 4 - Constitutional General appearance: Present: average body habitus, no acute distress. Absent: cooperative - EENT Eyes: Absent: abnormal pupil - Respiratory Respiratory: bilateral: CTA - Cardiovascular Rhythm: regular Heart sounds: normal: S1, S2 Abnormal Heart Sounds: Absent: S3 Gallop - Gastrointestinal General gastrointestinal: Present: soft. Absent: tenderness - Integumentary Integumentary: Absent: cellulitis - Labs CBC & Chem 7: 08/18/22 23:31 08/18/22 23:31 Labs: Abnormal Lab Results - Last 24 Hours (Table) 08/19/22 08/19/22 08/19/22 Range/Units 08:59 18:02 20:01 POC Glucose (mg/dL) 168 H 266 H 275 H (70-110) mg/dL 08/20/22 Range/Units 07:08 POC Glucose (mg/dL) 193 H (70-110) mg/dL Assessment and Plan (1) Autism Current Visit: Yes Status: Acute Code(s): F84.0 - AUTISTIC DISORDER SNOMED Code(s): 160752445 (2) Weakness Current Visit: Yes Status: Acute Code(s): R53.1 - WEAKNESS SNOMED Code(s): 72328244 (3) Aspiration pneumonia Current Visit: No Status: Acute Code(s): J69.0 - PNEUMONITIS DUE TO INHALATION OF FOOD AND VOMIT SNOMED Code(s): 619332215 (4) Mental retardation Current Visit: No Status: Acute Code(s): F79 - UNSPECIFIED INTELLECTUAL DISABILITIES SNOMED Code(s): 930904111 (5) Multiple falls Current Visit: No Status: Acute Code(s): R29.6 - REPEATED FALLS SNOMED Code(s): 100633602 Plan: Admitted for placement. Continue antibiotic Augmentin for history of aspiration pneumonia and sepsis. Check CBC and CMP in a.m. Reconcile home medications.
[2022-08-20] MEDS: DIVALPROEX 500 MG TABLET.DR PO SCH ×2 (08:19→20:19)
[2022-08-20] MEDS: APIXABAN 5 MG TAB PO SCH ×2 (08:19→20:19)
[2022-08-20] MEDS: FLUoxetine HCL 20 MG CAP PO SCH (08:19)
[2022-08-20] MEDS: FERROUS SULFATE 325 MG TAB PO SCH (08:20)
[2022-08-20] MEDS: ATORVASTATIN 10 MG TAB PO SCH (08:20)
[2022-08-20] MEDS: CHOLECALCIFEROL 25 MCG (1000 IU) TABLET PO SCH ×2 (08:20→20:18)
[2022-08-20] MEDS: metFORMIN 500 MG TAB PO SCH ×2 (08:20→17:37)
[2022-08-20] MEDS: AMOXIC-POT CLAV 500-125 MG 1 EACH TAB PO SCH ×2 (08:20→20:18)
[2022-08-20] MEDS: GUANFACINE HCL 3 MG PO SCH (08:23)
[2022-08-20] MEDS: risperiDONE 1 MG TAB PO SCH (10:44)
[2022-08-20 11:12] LABS: Glucose,Whole Blood 208 mg/dL (70-110)
[2022-08-20 17:14] LABS: Glucose,Whole Blood 210 mg/dL (70-110)
[2022-08-20] MEDS: risperiDONE 2 MG TAB PO SCH (17:37)
[2022-08-20] MEDS: MONTELUKAST 10 MG TAB PO SCH (20:19)
[2022-08-20] MEDS: TAMSULOSIN 0.4 MG CAP.ER.24H PO SCH (20:19)
[2022-08-20] MEDS: FAMOTIDINE 20 MG TAB PO SCH (20:20)
[2022-08-20 20:41] LABS: Glucose,Whole Blood 290 mg/dL (70-110)
[2022-08-21] MEDS: LEVOTHYROXINE 25 MCG TAB PO SCH (06:24)
[2022-08-21 07:09] LABS: Glucose,Whole Blood 193 mg/dL (70-110)
[2022-08-21] MEDS: FLUoxetine HCL 20 MG CAP PO SCH (09:05)
[2022-08-21] MEDS: APIXABAN 5 MG TAB PO SCH ×2 (09:05→21:18)
[2022-08-21] MEDS: ATORVASTATIN 10 MG TAB PO SCH (09:05)
[2022-08-21] MEDS: AMOXIC-POT CLAV 500-125 MG 1 EACH TAB PO SCH ×2 (09:05→21:19)
[2022-08-21] MEDS: risperiDONE 1 MG TAB PO SCH (09:05)
[2022-08-21] MEDS: CHOLECALCIFEROL 25 MCG (1000 IU) TABLET PO SCH ×2 (09:05→21:19)
[2022-08-21] MEDS: DIVALPROEX 500 MG TABLET.DR PO SCH ×2 (09:06→21:19)
[2022-08-21] MEDS: FERROUS SULFATE 325 MG TAB PO SCH (09:06)
[2022-08-21] MEDS: metFORMIN 500 MG TAB PO SCH ×2 (09:06→17:09)
[2022-08-21] MEDS: GUANFACINE HCL 3 MG PO SCH (09:06)
[2022-08-21] MEDS: METOPROLOL TARTRATE 12.5 MG TAB PO SCH ×2 (09:54→21:18)
[2022-08-21 10:22] LABS: African American GFR (CKD) >90 (>60 ml/min/1.73 sqM); Anion Gap 9 mmol/L; Blood Urea Nitrogen 17 mg/dL (9-20); Calcium 9.2 mg/dL (8.4-10.2); Carbon Dioxide 30 mmol/L (22-30); Chloride 98 mmol/L (98-107); Glucose 320 mg/dL (74-99); Non-African American GFR(CKD) >90 (>60 ml/min/1.73 sqM); Potassium 4.5 mmol/L (3.5-5.1); Sodium 137 mmol/L (137-145)
[2022-08-21 11:36] LABS: Glucose,Whole Blood 300 mg/dL (70-110)
[2022-08-21] MEDS: INSULIN ASPART (NovoLOG) 100 UNIT/ML VIAL SQ SCH ×3 (12:51→21:19)
[2022-08-21 17:06] LABS: Glucose,Whole Blood 127 mg/dL (70-110)
[2022-08-21] MEDS: risperiDONE 2 MG TAB PO SCH (17:09)
[2022-08-21 20:51] LABS: Glucose,Whole Blood 186 mg/dL (70-110)
[2022-08-21] MEDS: TAMSULOSIN 0.4 MG CAP.ER.24H PO SCH (21:18)
[2022-08-21] MEDS: MONTELUKAST 10 MG TAB PO SCH (21:19)
[2022-08-21] MEDS: FAMOTIDINE 20 MG TAB PO SCH (21:19)
--- NOTE | 2022-08-22 00:27 | P.PN ---
Subjective Progress Note Date: 08/22/22 This is a 57 year old male with medical history of autism with behavioral disturbances and OCD history, hx of pulmonary embolism. Patient was recently discharged from [facility] where he was treated for aspiration pneumonia and sepsis, patient has been admitted to this hospital for placement and is currently pending an accepting facility. He is resting in bed with no acute complaints. Patient continues on oral augmentin to continue outpatient recommendations from recent hospital stay. Currently lungs are clear. He continues on dysphagia 2 ground diet with honey thick liquids with 1:1 s upervision and aspiration precautions. Patient continues on same home medications with stable vital signs. He is currently on room and and afebrile. Patient had repeat BMP today with sodium level improved to 137 and stable kidney function. Has been started on sliding scale insulin with improvement of blood glucose down to 186. Review of Systems Constitutional: Denied any fatigue denied any fever. Cardio vascular: denied any chest pain, palpitations Gastrointestinal: denied any nausea, vomiting, diarrhea Pulmonary: Denied any shortness of breath cough Neurologic denied any new focal deficits All inpatient medications were reviewed and appropriate changes in these medications as dictated in the interval history and assessment and plan. PHYSICAL EXAMINATION: GENERAL: The patient is alert and oriented x1, not in any acute distress. Well developed, well nourished. HEENT: Pupils are round and equally reacting to light. EOMI. No scleral icterus. No conjunctival pallor. Normocephalic, atraumatic. No pharyngeal erythema. No thyromegaly. CARDIOVASCULAR: S1 and S2 present. No murmurs, rubs, or gallops. PULMONARY: Chest is clear to auscultation, no wheezing or crackles. ABDOMEN: Soft, tender, nondistended, normoactive bowel sounds. No palpable organomegaly. MUSCULOSKELETAL: No joint swelling or deformity. EXTREMITIES: No cyanosis, clubbing, or pedal edema. NEUROLOGICAL: Gross neurological examination did not reveal any focal deficits. Patient has generalized weakness. SKIN: No rashes. Assessment Autism with OCD history and developmental delay Hypertension currently normotensive Recent hospitalization for aspiration pneumonia and sepsis Weakness and multiple fallls Hyponatremia resolved History of pulmonary embolism currently anticoagulated with eliquis Diabetes mellitus type 2 controlled A1C of 6.5 Hx hyperlipidemia GI prophylaxis DVT prophylaxis with eliquis Full Code Plan Patient to continue on oral augmentin outpatient therapy and recommend for patient to use incentive spirometer Patient continues on same home medications Continue dysphagia diet 1:1 and aspiration precautions Continues accuchecks ACHS and sliding scale insulin with improvement in blood glucose Pending accepting ECF facility for discharge. The impression and plan of care has been dictated by Yulia Pink, Nurse Practitioner as directed. Dr. Luis E MD I have performed a history and physical examination and medical decision making of this patient, discussed the same with the dictator, and agree with the dictators assessment and plan as written, documented as a scribe. Based on total visit time, I have performed more than 50% of this visit. Objective - Vital Signs Vital signs: Vital Signs Temp 99.2 F 08/21/22 19:48 Pulse 95 08/21/22 19:48 Resp 18 08/21/22 19:48 BP 116/82 08/21/22 19:48 Pulse Ox 92 L 08/21/22 19:48 FiO2 Intake & Output 08/21/22 08/21/22 08/22/22 06:59 18:59 06:59 Other: Voiding Method Diaper Diaper Diaper # Voids 2 2 # Bowel Movements 1 - Labs CBC & Chem 7: 08/18/22 23:31 08/21/22 09:49 Labs: Abnormal Lab Results - Last 24 Hours (Table) 08/21/22 08/21/22 08/21/22 Range/Units 07:07 09:49 11:34 Creatinine 0.63 L (0.66-1.25) mg/dL Glucose 320 H (74-99) mg/dL POC Glucose (mg/dL) 193 H 300 H (70-110) mg/dL 08/21/22 08/21/22 Range/Units 17:05 20:44 Creatinine (0.66-1.25) mg/dL Glucose (74-99) mg/dL POC Glucose (mg/dL) 127 H 186 H (70-110) mg/dL Assessment and Plan Time with Patient: Less than 30
[2022-08-22] MEDS: LEVOTHYROXINE 25 MCG TAB PO SCH (06:18)
[2022-08-22 07:36] LABS: Glucose,Whole Blood 222 mg/dL (70-110)
[2022-08-22] MEDS: FLUoxetine HCL 20 MG CAP PO SCH (08:42)
[2022-08-22] MEDS: METOPROLOL TARTRATE 12.5 MG TAB PO SCH ×2 (08:42→21:17)
[2022-08-22] MEDS: FERROUS SULFATE 325 MG TAB PO SCH (08:42)
[2022-08-22] MEDS: INSULIN ASPART (NovoLOG) 100 UNIT/ML VIAL SQ SCH ×4 (08:42→21:11)
[2022-08-22] MEDS: APIXABAN 5 MG TAB PO SCH ×2 (08:42→21:17)
[2022-08-22] MEDS: DIVALPROEX 500 MG TABLET.DR PO SCH ×2 (08:43→21:17)
[2022-08-22] MEDS: ATORVASTATIN 10 MG TAB PO SCH (08:43)
[2022-08-22] MEDS: AMOXIC-POT CLAV 500-125 MG 1 EACH TAB PO SCH ×2 (08:43→21:17)
[2022-08-22] MEDS: CHOLECALCIFEROL 25 MCG (1000 IU) TABLET PO SCH ×2 (08:43→21:17)
[2022-08-22] MEDS: metFORMIN 500 MG TAB PO SCH ×2 (08:43→17:52)
[2022-08-22] MEDS: risperiDONE 1 MG TAB PO SCH (08:43)
[2022-08-22] MEDS: GUANFACINE HCL 3 MG PO SCH (08:43)
[2022-08-22 11:13] LABS: Glucose,Whole Blood 122 mg/dL (70-110)
[2022-08-22] MEDS: INSULIN DETEMIR (LEVEMIR) 100 UNIT/ML SYR SQ SCH (11:15)
--- NOTE | 2022-08-22 14:35 | P.PN ---
Subjective Progress Note Date: 08/22/22 This is a 57 year old male with medical history of autism with behavioral disturbances and OCD history, hx of pulmonary embolism. Patient was recently discharged from [facility] where he was treated for aspiration pneumonia and sepsis, patient has been admitted to this hospital for placement and is currently pending an accepting facility. He is resting in bed with no acute complaints. Patient continues on oral augmentin to continue outpatient recommendations from recent hospital stay. Currently lungs are clear. He continues on dysphagia 2 ground diet with honey thick liquids with 1:1 s upervision and aspiration precautions. Patient continues on same home medications with stable vital signs. He is currently on room and and afebrile. Patient had repeat BMP today with sodium level improved to 137 and stable kidney function. Has been started on sliding scale insulin with improvement of blood glucose down to 186. 08/22/2022 Patient evaluated on the medical floor pending ECF placement. Continues with weak cough reflex and difficulty clearing secretions lungs are clear. Patient blood glucose up to the high 290s and is given daily dose of levemir 8 units and blood glucose today is 122. Patient remains on room air and will be offered an IS although he may not be able to understand using and will require assistance. Encouraged to cough and deep breath, patient has been primarily bedrest and recommend daily PT/OT and will be discharged to ECF likely on Tuesday if there is an accepting facility. Review of Systems Constitutional: Denied any fatigue denied any fever. Cardio vascular: denied any chest pain, palpitations Gastrointestinal: denied any nausea, vomiting, diarrhea Pulmonary: Denied any shortness of breath cough Neurologic denied any new focal deficits All inpatient medications were reviewed and appropriate changes in these medications as dictated in the interval history and assessment and plan. PHYSICAL EXAMINATION: GENERAL: The patient is alert and oriented x1, not in any acute distress. Well developed, well nourished. HEENT: Pupils are round and equally reacting to light. EOMI. No scleral icterus. No conjunctival pallor. Normocephalic, atraumatic. No pharyngeal erythema. No thyromegaly. CARDIOVASCULAR: S1 and S2 present. No murmurs, rubs, or gallops. PULMONARY: Chest is clear to auscultation, no wheezing or crackles. ABDOMEN: Soft, tender, nondistended, normoactive bowel sounds. No palpable organomegaly. MUSCULOSKELETAL: No joint swelling or deformity. EXTREMITIES: No cyanosis, clubbing, or pedal edema. NEUROLOGICAL: Gross neurological examination did not reveal any focal deficits. Patient has generalized weakness. SKIN: No rashes. Assessment Autism with OCD history and developmental delay Hypertension currently normotensive Recent hospitalization for aspiration pneumonia and sepsis Weakness and multiple fallls Hyponatremia resolved History of pulmonary embolism currently anticoagulated with eliquis Diabetes mellitus type 2 controlled A1C of 6.5 Hx hyperlipidemia GI prophylaxis DVT prophylaxis with eliquis Full Code Plan Patient to continue on oral augmentin outpatient therapy and recommend for patient to use incentive spirometer Patient continues on same home medications Continue dysphagia diet 1:1 and aspiration precautions Continues accuchecks ACHS and sliding scale insulin with improvement in blood glucose Pending accepting ECF facility for discharge. The impression and plan of care has been dictated by Yulia Pink, Nurse Practitioner as directed. Dr. Luis E MD I have performed a history and physical examination and medical decision making of this patient, discussed the same with the dictator, and agree with the dictators assessment and plan as written, documented as a scribe. Based on total visit time, I have performed more than 50% of this visit. Objective - Vital Signs Vital signs: Vital Signs Temp 98.7 F 08/22/22 13:25 Pulse 94 08/22/22 13:25 Resp 17 08/22/22 13:25 BP 110/71 08/22/22 13:25 Pulse Ox 94 L 08/22/22 13:25 FiO2 Intake & Output 08/21/22 08/22/22 08/22/22 18:59 06:59 18:59 Other: Voiding Method Diaper Diaper # Voids 2 4 1 # Bowel Movements 1 - Labs CBC & Chem 7: 08/18/22 23:31 08/21/22 09:49 Labs: Abnormal Lab Results - Last 24 Hours (Table) 08/21/22 08/21/22 08/22/22 Range/Units 17:05 20:44 07:34 POC Glucose (mg/dL) 127 H 186 H 222 H (70-110) mg/dL 08/22/22 Range/Units 11:11 POC Glucose (mg/dL) 122 H (70-110) mg/dL Assessment and Plan Time with Patient: Less than 30
[2022-08-22] MEDS: risperiDONE 2 MG TAB PO SCH (16:01)
[2022-08-22 17:36] LABS: Glucose,Whole Blood 129 mg/dL (70-110)
[2022-08-22 20:47] LABS: Glucose,Whole Blood 118 mg/dL (70-110)
[2022-08-22] MEDS: TAMSULOSIN 0.4 MG CAP.ER.24H PO SCH (21:17)
[2022-08-22] MEDS: FAMOTIDINE 20 MG TAB PO SCH (21:17)
[2022-08-22] MEDS: MONTELUKAST 10 MG TAB PO SCH (21:17)
[2022-08-23] MEDS: LEVOTHYROXINE 25 MCG TAB PO SCH (05:48)
--- NOTE | 2022-08-23 08:29 | P.DS ---
Providers Date of admission: 08/19/22 01:44 Attending physician: Tom Sarmiento Primary care physician: Tom Sarmiento - Discharge Diagnosis(es) (1) Autism Current Visit: Yes Status: Acute (2) Weakness Current Visit: Yes Status: Acute (3) Aspiration pneumonia Current Visit: No Status: Acute (4) Mental retardation Current Visit: No Status: Acute (5) Multiple falls Current Visit: No Status: Acute Hospital Course: This is a 57-year-old male with a history of autism who is readmitted after being discharged recently from [facility] for aspiration pneumonia and sepsis. The custodial he was at states it has become difficult to provide total care for him and are now seeking placement for him. Reportedly has multiple falls the custodial. Patient does have a guardian. integration manager is working on placement for patient and he may be discharged when a room is available. He is seen this morning laying in bed comfortably on room air. Patient Condition at Discharge: Stable Plan - Discharge Summary Discharge Rx Participant: No New Discharge Prescriptions: New Amoxic-Pot Clav 500-125 mg [Augmentin 500-125 mg] 1 each PO BID 5 Days #10 tab Continue Levothyroxine Sodium [Synthroid] 25 mcg PO DAILY Divalproex [Depakote] 1,500 mg PO BID FLUoxetine HCL [PROzac] 40 mg PO DAILY Cholecalciferol [Vitamin D3 (25 Mcg = 1000 Iu)] 25 mcg PO BID Naltrexone HCl [Revia] 50 mg PO DAILY Ferrous Sulfate [Iron] 325 mg PO DAILY Montelukast Sodium [Singulair] 10 mg PO HS guanFACINE HCL [Intuniv] 3 mg PO DAILY risperiDONE [RisperDAL] 1 mg PO DAILY risperiDONE [RisperDAL] 2 mg PO DAILY@1600 metFORMIN HCL [Glucophage] 500 mg PO BID #12 tab Apixaban [Eliquis] 5 mg PO BID Lovastatin [Mevacor] 40 mg PO DAILY Famotidine [Pepcid] 20 mg PO HS Vitamin B Complex 1 cap PO DAILY Tamsulosin [Flomax] 0.4 mg PO HS lisinopriL 2.5 mg PO DAILY Discharge Medication List Levothyroxine Sodium [Synthroid] 25 mcg PO DAILY 07/13/14 [History] Divalproex [Depakote] 1,500 mg PO BID 04/21/15 [History] Cholecalciferol [Vitamin D3 (25 Mcg = 1000 Iu)] 25 mcg PO BID 06/22/16 [History] FLUoxetine HCL [PROzac] 40 mg PO DAILY 06/22/16 [History] Naltrexone HCl [Revia] 50 mg PO DAILY 07/11/18 [History] Ferrous Sulfate [Iron] 325 mg PO DAILY 08/23/18 [History] Montelukast Sodium [Singulair] 10 mg PO HS 05/25/20 [History] guanFACINE HCL [Intuniv] 3 mg PO DAILY 05/25/20 [History] risperiDONE [RisperDAL] 1 mg PO DAILY 05/25/20 [History] risperiDONE [RisperDAL] 2 mg PO DAILY@1600 05/25/20 [History] metFORMIN HCL [Glucophage] 500 mg PO BID #12 tab 05/30/20 [Rx] Apixaban [Eliquis] 5 mg PO BID 03/18/22 [History] Tamsulosin [Flomax] 0.4 mg PO HS 03/18/22 [History] lisinopriL 2.5 mg PO DAILY 03/18/22 [History] Famotidine [Pepcid] 20 mg PO HS 08/18/22 [History] Lovastatin [Mevacor] 40 mg PO DAILY 08/18/22 [History] Vitamin B Complex 1 cap PO DAILY 08/18/22 [History] Amoxic-Pot Clav 500-125 mg [Augmentin 500-125 mg] 1 each PO BID 5 Days #10 tab 08/23/22 [Rx] Follow up Appointment(s)/Referral(s): Tom Sarmiento MD [Primary Care Provider] - 1-2 days Discharge Disposition: TRANSFER TO SNF/ECF
[2022-08-23] MEDS: APIXABAN 5 MG TAB PO SCH ×2 (08:37→21:59)
[2022-08-23] MEDS: METOPROLOL TARTRATE 12.5 MG TAB PO SCH ×2 (08:37→21:59)
[2022-08-23] MEDS: FERROUS SULFATE 325 MG TAB PO SCH (08:38)
[2022-08-23] MEDS: ATORVASTATIN 10 MG TAB PO SCH (08:38)
[2022-08-23] MEDS: INSULIN DETEMIR (LEVEMIR) 100 UNIT/ML SYR SQ SCH (08:38)
[2022-08-23] MEDS: CHOLECALCIFEROL 25 MCG (1000 IU) TABLET PO SCH ×2 (08:38→21:58)
[2022-08-23] MEDS: metFORMIN 500 MG TAB PO SCH ×2 (08:38→16:57)
[2022-08-23] MEDS: DIVALPROEX 500 MG TABLET.DR PO SCH ×2 (08:38→21:58)
[2022-08-23] MEDS: FLUoxetine HCL 20 MG CAP PO SCH (08:38)
[2022-08-23] MEDS: risperiDONE 1 MG TAB PO SCH (08:39)
[2022-08-23] MEDS: GUANFACINE HCL 3 MG PO SCH (08:39)
[2022-08-23] MEDS: AMOXIC-POT CLAV 500-125 MG 1 EACH TAB PO SCH ×2 (08:39→21:58)
[2022-08-23 08:54] LABS: Glucose,Whole Blood 152 mg/dL (70-110)
[2022-08-23] MEDS: INSULIN ASPART (NovoLOG) 100 UNIT/ML VIAL SQ SCH ×4 (08:54→21:56)
[2022-08-23 13:13] LABS: Glucose,Whole Blood 121 mg/dL (70-110)
[2022-08-23 14:50] LABS: Glucose,Whole Blood 121 mg/dL (70-110)
[2022-08-23] MEDS: risperiDONE 2 MG TAB PO SCH (16:57)
[2022-08-23 17:25] LABS: Glucose,Whole Blood 148 mg/dL (70-110)
[2022-08-23 20:45] LABS: Glucose,Whole Blood 135 mg/dL (70-110)
[2022-08-23] MEDS: FAMOTIDINE 20 MG TAB PO SCH (21:58)
[2022-08-23] MEDS: MONTELUKAST 10 MG TAB PO SCH (21:59)
[2022-08-23] MEDS: TAMSULOSIN 0.4 MG CAP.ER.24H PO SCH (21:59)
[2022-08-24] MEDS: LEVOTHYROXINE 25 MCG TAB PO SCH (06:25)
[2022-08-24 07:12] LABS: Glucose,Whole Blood 154 mg/dL (70-110)
[2022-08-24] MEDS: AMOXIC-POT CLAV 500-125 MG 1 EACH TAB PO SCH ×2 (08:39→21:43)
[2022-08-24] MEDS: DIVALPROEX 500 MG TABLET.DR PO SCH ×2 (08:40→21:37)
[2022-08-24] MEDS: CHOLECALCIFEROL 25 MCG (1000 IU) TABLET PO SCH ×2 (08:40→21:37)
[2022-08-24] MEDS: INSULIN ASPART (NovoLOG) 100 UNIT/ML VIAL SQ SCH ×4 (08:40→21:37)
[2022-08-24] MEDS: FERROUS SULFATE 325 MG TAB PO SCH (08:40)
[2022-08-24] MEDS: METOPROLOL TARTRATE 12.5 MG TAB PO SCH ×2 (08:40→21:36)
[2022-08-24] MEDS: INSULIN DETEMIR (LEVEMIR) 100 UNIT/ML SYR SQ SCH (08:40)
[2022-08-24] MEDS: APIXABAN 5 MG TAB PO SCH ×2 (08:40→21:37)
[2022-08-24] MEDS: metFORMIN 500 MG TAB PO SCH ×2 (08:40→18:05)
[2022-08-24] MEDS: ATORVASTATIN 10 MG TAB PO SCH (08:41)
[2022-08-24] MEDS: risperiDONE 1 MG TAB PO SCH (08:41)
[2022-08-24] MEDS: GUANFACINE HCL 3 MG PO SCH (08:41)
[2022-08-24] MEDS: FLUoxetine HCL 20 MG CAP PO SCH (08:41)
--- NOTE | 2022-08-24 08:51 | P.PN ---
Subjective Patient still awaiting placement, may discharge when placement is available. Objective - Vital Signs Vital signs: Vital Signs Temp 98.3 F 08/24/22 07:05 Pulse 98 08/24/22 07:05 Resp 18 08/24/22 07:05 BP 110/69 08/24/22 07:05 Pulse Ox 97 08/24/22 07:05 FiO2 Intake & Output 08/23/22 08/24/22 08/24/22 18:59 06:59 18:59 Other: Voiding Method Diaper Diaper Diaper # Voids 3 1 1 # Bowel Movements 1 1 - Labs CBC & Chem 7: 08/18/22 23:31 08/21/22 09:49 Labs: Abnormal Lab Results - Last 24 Hours (Table) 08/23/22 08/23/22 08/23/22 Range/Units 08:52 13:10 14:48 POC Glucose (mg/dL) 152 H 121 H 121 H (70-110) mg/dL 08/23/22 08/23/22 08/24/22 Range/Units 17:23 20:42 07:11 POC Glucose (mg/dL) 148 H 135 H 154 H (70-110) mg/dL Assessment and Plan (1) Autism Current Visit: Yes Status: Acute Code(s): F84.0 - AUTISTIC DISORDER SNOMED Code(s): 345902868 (2) Weakness Current Visit: Yes Status: Acute Code(s): R53.1 - WEAKNESS SNOMED Code(s): 39011999 (3) Aspiration pneumonia Current Visit: No Status: Acute Code(s): J69.0 - PNEUMONITIS DUE TO INHALATION OF FOOD AND VOMIT SNOMED Code(s): 038847015 (4) Mental retardation Current Visit: No Status: Acute Code(s): F79 - UNSPECIFIED INTELLECTUAL DISABILITIES SNOMED Code(s): 642950235 (5) Multiple falls Current Visit: No Status: Acute Code(s): R29.6 - REPEATED FALLS SNOMED Code(s): 290798742 Plan: Discharge when placement is available. Patient seen and evaluated by nurse practitioner, physician in agreement with plan
[2022-08-24 11:15] LABS: Glucose,Whole Blood 117 mg/dL (70-110)
[2022-08-24 16:54] LABS: Glucose,Whole Blood 123 mg/dL (70-110)
[2022-08-24] MEDS: risperiDONE 2 MG TAB PO SCH (18:05)
[2022-08-24 20:42] LABS: Glucose,Whole Blood 152 mg/dL (70-110)
[2022-08-24] MEDS: MONTELUKAST 10 MG TAB PO SCH (21:37)
[2022-08-24] MEDS: TAMSULOSIN 0.4 MG CAP.ER.24H PO SCH (21:37)
[2022-08-24] MEDS: FAMOTIDINE 20 MG TAB PO SCH (21:37)
[2022-08-25] MEDS: LEVOTHYROXINE 25 MCG TAB PO SCH (06:38)
[2022-08-25 07:38] LABS: Glucose,Whole Blood 152 mg/dL (70-110)
[2022-08-25] MEDS: INSULIN DETEMIR (LEVEMIR) 100 UNIT/ML SYR SQ SCH (08:35)
[2022-08-25] MEDS: INSULIN ASPART (NovoLOG) 100 UNIT/ML VIAL SQ SCH ×4 (08:35→20:39)
[2022-08-25] MEDS: FERROUS SULFATE 325 MG TAB PO SCH (08:36)
[2022-08-25] MEDS: AMOXIC-POT CLAV 500-125 MG 1 EACH TAB PO SCH ×2 (08:36→19:59)
[2022-08-25] MEDS: ATORVASTATIN 10 MG TAB PO SCH (08:36)
[2022-08-25] MEDS: metFORMIN 500 MG TAB PO SCH ×2 (08:36→17:58)
[2022-08-25] MEDS: APIXABAN 5 MG TAB PO SCH ×2 (08:36→19:58)
[2022-08-25] MEDS: METOPROLOL TARTRATE 12.5 MG TAB PO SCH ×2 (08:36→19:58)
[2022-08-25] MEDS: FLUoxetine HCL 20 MG CAP PO SCH (08:36)
[2022-08-25] MEDS: CHOLECALCIFEROL 25 MCG (1000 IU) TABLET PO SCH ×2 (08:36→19:59)
[2022-08-25] MEDS: DIVALPROEX 500 MG TABLET.DR PO SCH ×2 (08:36→19:58)
[2022-08-25] MEDS: risperiDONE 1 MG TAB PO SCH (08:36)
[2022-08-25] MEDS: GUANFACINE HCL 3 MG PO SCH (08:39)
[2022-08-25 09:38] VITALS: BMI 30.7
[2022-08-25 11:31] LABS: Glucose,Whole Blood 109 mg/dL (70-110)
[2022-08-25 17:16] LABS: Glucose,Whole Blood 174 mg/dL (70-110)
[2022-08-25] MEDS: risperiDONE 2 MG TAB PO SCH (17:59)
[2022-08-25 19:43] VITALS: RESP 16
[2022-08-25] MEDS: FAMOTIDINE 20 MG TAB PO SCH (19:58)
[2022-08-25] MEDS: TAMSULOSIN 0.4 MG CAP.ER.24H PO SCH (19:58)
[2022-08-25] MEDS: MONTELUKAST 10 MG TAB PO SCH (19:59)
[2022-08-25 20:17] LABS: Glucose,Whole Blood 149 mg/dL (70-110)
[2022-08-26] MEDS: LEVOTHYROXINE 25 MCG TAB PO SCH (05:44)
[2022-08-26 07:01] LABS: Glucose,Whole Blood 101 mg/dL (70-110)
--- NOTE | 2022-08-26 08:36 | P.PN ---
Subjective Progress Note Date: 08/26/22 Patient still awaiting placement, may discharge when placement is available. Objective - Vital Signs Vital signs: Vital Signs Temp 98.2 F 08/26/22 06:57 Pulse 83 08/26/22 06:57 Resp 16 08/26/22 06:57 BP 111/74 08/26/22 06:57 Pulse Ox 90 L 08/26/22 06:57 FiO2 Intake & Output 08/25/22 08/26/22 08/26/22 18:59 06:59 18:59 Intake Total 586 Balance 586 Weight 83.915 kg Intake: Oral 586 Other: Voiding Method Diaper Diaper # Voids 1 3 # Bowel Movements 1 - Labs CBC & Chem 7: 08/18/22 23:31 08/21/22 09:49 Labs: Abnormal Lab Results - Last 24 Hours (Table) 08/25/22 08/25/22 Range/Units 17:15 20:15 POC Glucose (mg/dL) 174 H 149 H (70-110) mg/dL Assessment and Plan (1) Autism Current Visit: Yes Status: Acute Code(s): F84.0 - AUTISTIC DISORDER SNOMED Code(s): 129593393 (2) Weakness Current Visit: Yes Status: Acute Code(s): R53.1 - WEAKNESS SNOMED Code(s): 65984506 (3) Aspiration pneumonia Current Visit: No Status: Acute Code(s): J69.0 - PNEUMONITIS DUE TO INHALATION OF FOOD AND VOMIT SNOMED Code(s): 062024819 (4) Mental retardation Current Visit: No Status: Acute Code(s): F79 - UNSPECIFIED INTELLECTUAL DISABILITIES SNOMED Code(s): 167752282 (5) Multiple falls Current Visit: No Status: Acute Code(s): R29.6 - REPEATED FALLS SNOMED Code(s): 446899747 Plan: Discharge when placement is available. Patient seen and evaluated by nurse practitioner, physician in agreement with plan
[2022-08-26] MEDS: INSULIN ASPART (NovoLOG) 100 UNIT/ML VIAL SQ SCH ×3 (08:51→17:37)
[2022-08-26] MEDS: AMOXIC-POT CLAV 500-125 MG 1 EACH TAB PO SCH (08:53)
[2022-08-26] MEDS: INSULIN DETEMIR (LEVEMIR) 100 UNIT/ML SYR SQ SCH (08:53)
[2022-08-26] MEDS: METOPROLOL TARTRATE 12.5 MG TAB PO SCH (08:53)
[2022-08-26] MEDS: APIXABAN 5 MG TAB PO SCH (08:53)
[2022-08-26] MEDS: DIVALPROEX 500 MG TABLET.DR PO SCH (08:54)
[2022-08-26] MEDS: FLUoxetine HCL 20 MG CAP PO SCH (08:54)
[2022-08-26] MEDS: CHOLECALCIFEROL 25 MCG (1000 IU) TABLET PO SCH (08:54)
[2022-08-26] MEDS: metFORMIN 500 MG TAB PO SCH (08:54)
[2022-08-26] MEDS: risperiDONE 1 MG TAB PO SCH (08:54)
[2022-08-26] MEDS: ATORVASTATIN 10 MG TAB PO SCH (08:54)
[2022-08-26] MEDS: FERROUS SULFATE 325 MG TAB PO SCH (08:55)
[2022-08-26] MEDS: GUANFACINE HCL 3 MG PO SCH (08:59)
[2022-08-26 11:44] LABS: Glucose,Whole Blood 124 mg/dL (70-110)
[2022-08-26 11:55] VITALS: BP 108/69; PULSE 84; TEMP 97.5
[2022-08-26] MEDS: risperiDONE 2 MG TAB PO SCH (17:01)
[2022-08-26 17:06] LABS: Glucose,Whole Blood 101 mg/dL (70-110)
== END 2022-08-26 18:22 ==
LOC: EC 20:28 → INTOOBSV 08-19 01:44 → 5NMEDONC 08-19 01:44
PROVIDERS: ADMIT Family Medicine; ATTEND Family Medicine
DX: R53.1 Weakness (principal); J69.0 Pneumonitis due to inhalation of food and vomit; F79 Unspecified intellectual disabilities; R29.6 Repeated falls; F84.0 Autistic disorder; E87.1 Hypo-osmolality and hyponatremia; E11.9 Type 2 diabetes mellitus without complications; K21.9 Gastro-esophageal reflux disease without esophagitis; E78.5 Hyperlipidemia, unspecified; I10 Essential (primary) hypertension; F42.9 Obsessive-compulsive disorder, unspecified; F41.9 Anxiety disorder, unspecified; R62.7 Adult failure to thrive; Z20.822 Contact with and (suspected) exposure to COVID-19; Z86.711 Personal history of pulmonary embolism; Z79.890 Hormone replacement therapy; Z79.899 Other long term (current) drug therapy; Z79.01 Long term (current) use of anticoagulants; Z79.84 Long term (current) use of oral hypoglycemic drugs
CPT/HCPCS: 96372 ×6; 99285; 36415; 93005; 97530 ×4; 97162; 97166; 92610; 92526 ×2; 83880; 80053; 80048; 83690; 83735; 84484; 85025; 83036; 87636; 71045; G0378 ×8

== ENCOUNTER 2023-01-20 11:28 | Observation (INO) | payer MEDICARE, OTHER ==
--- NOTE | 2023-01-20 12:04 | ED ---
Fall HPI - General Chief Complaint: Fall Stated Complaint: Weakness Time Seen by Provider: 01/20/23 11:36 Source: EMS, RN notes reviewed Mode of arrival: ambulatory - History of Present Illness Initial Comments: Patient is a 57-year-old male presenting to the ER via EMS with a chief complaint of a fall. Patient is nonverbal due to autism. Patient is a member of a [facility] and staff has stated that he has been very weak the past couple of days. They report patient had a fall hitting the back of his head today. Patient is taking Eliquis. Loss of consciousness is unknown. Patient is grimacing with palpation of his right shoulder. - Related Data Home Medications Medication Instructions Recorded Confirmed Levothyroxine Sodium [Synthroid] 25 mcg PO DAILY@0800 07/13/14 01/20/23 Divalproex [Depakote] 1,500 mg PO BID@0800,199904/21/15 01/20/23 FLUoxetine HCL [PROzac] 40 mg PO DAILY@0806/22/16 01/20/23 Naltrexone HCl [Revia] 50 mg PO DAILY@0800 07/11/18 01/20/23 Ferrous Sulfate [Iron] 325 mg PO DAILY@1600 08/23/18 01/20/23 Montelukast Sodium [Singulair] 10 mg PO HS@199905/25/20 01/20/23 guanFACINE HCL [Intuniv] 3 mg PO DAILY@0800 05/25/20 01/20/23 Apixaban [Eliquis] 5 mg PO BID@08,199903/18/22 01/20/23 Tamsulosin [Flomax] 0.4 mg PO HS@199903/18/22 01/20/23 Famotidine [Pepcid] 20 mg PO HS@199908/18/22 01/20/23 Lovastatin [Mevacor] 40 mg PO HS@199908/18/22 01/20/23 Vitamin B Complex 1 cap PO DAILY@0800 08/18/22 01/20/23 Acetaminophen Tab [Tylenol] 650 mg PO Q6H PRN 12/03/22 01/20/23 Bismuth Subsalicylate 262 mg PO DAILY PRN 12/03/22 01/20/23 [Pepto-Bismol] Budesonide 0.5 mg INHALATION RT-BID PRN 12/03/22 01/20/23 Docusate [Colace] 100 mg PO HS PRN 12/03/22 01/20/23 Ibuprofen [Motrin Ib] 400 mg PO TID PRN 12/03/22 01/20/23 Loperamide HCl [Imodium A-D] 2 - 4 mg PO QID PRN 12/03/22 01/20/23 Magnesium Hydroxide [Milk of 2,400 mg PO DAILY PRN 12/03/22 01/20/23 Magnesia] Metoprolol Succinate (ER) [Toprol 25 mg PO HS@199912/03/22 01/20/23 XL] Psyllium Husk (with Sugar) 6 gm PO DAILY PRN 12/03/22 01/20/23 [Metamucil Powder] Thick-It 1 dose PO TID PRN 12/03/22 01/20/23 diphenhydrAMINE [Benadryl] 50 mg PO Q4H PRN 12/03/22 01/20/23 guaiFENesin-DM 100-10MG/5ML 15 ml PO Q6H PRN 12/03/22 01/20/23 [Robitussin DM] metFORMIN HCL [Glucophage] 500 mg PO BID@0800,199912/03/22 01/20/23 Cholecalciferol [Vitamin D3 (25 25 mcg PO DAILY@0800 01/20/23 01/20/23 Mcg = 1000 Iu)] Pseudoephedrine HCl [Sudafed] 60 mg PO Q4H MDD 240 MG 01/20/23 01/20/23 Previous Rx's Medication Instructions Recorded risperiDONE [RisperDAL] 1 mg PO DAILY@0800 #3 tab 12/10/22 risperiDONE [RisperDAL] 2 mg PO DAILY@1600 #3 tab 12/10/22 Allergies Allergy/AdvReac Type Severity Reaction Status Date / Time No Known Allergies Allergy Verified 01/20/23 14:49 Review of Systems ROS Statement: Those systems with pertinent positive or pertinent negative responses have been documented in the HPI. ROS Other: All systems not noted in ROS Statement are negative. Past Medical History Past Medical History: Diabetes Mellitus, GERD/Reflux, Hyperlipidemia, Hypertension, Pneumonia, Pulmonary Embolus (PE), Thyroid Disorder Additional Past Medical History / Comment(s): Developmentally delayed, autism, OCD, pt able to speak and normally oriented to person/place, aspiration pneumonia, aspiration precautions, pt will regurgitate and reswallow, PICA, NIDDM type II, occasional small amount blood in stool-worsening History of Any Multi-Drug Resistant Organisms: None Reported Past Surgical History: No Surgical Hx Reported Additional Past Surgical History / Comment(s): Colonoscopy. Past Anesthesia/Blood Transfusion Reactions: No Reported Reaction Additional Past Anesthesia/Blood Transfusion Reaction / Comment(s): LINING BASTER STATES NO KNOWN SURGERY Past Psychological History: ADD/ADHD, Anxiety Smoking Status: Unknown if ever smoked Past Alcohol Use History: None Reported Past Drug Use History: None Reported - Past Family History Father History Unknown: Yes Mother History Unknown: Yes Family Medical History: Diabetes Mellitus General Exam Limitations: physical limitation General appearance: alert, in no apparent distress Head exam: Present: atraumatic, normocephalic, normal inspection Respiratory exam: Present: normal lung sounds bilaterally. Absent: respiratory distress, wheezes, rales, rhonchi, stridor Cardiovascular Exam: Present: regular rate, normal rhythm, normal heart sounds. Absent: systolic murmur, diastolic murmur, rubs, gallop, clicks GI/Abdominal exam: Present: soft, normal bowel sounds. Absent: distended, tenderness, guarding, rebound, rigid Extremities exam: Present: normal inspection, full ROM, normal capillary refill, other (Patient is grimacing to palpation of his right shoulder. ). Absent: tenderness, pedal edema, joint swelling, calf tenderness Skin exam: Present: warm, dry, intact, normal color. Absent: rash Course Vital Signs 01/20/23 01/20/23 01/20/23 11:31 11:36 12:00 Temperature 98.3 F Pulse Rate 77 Respiratory 16 Rate Blood Pressure 120/72 120/72 120/72 O2 Sat by Pulse 94 L 94 L 96 Oximetry 01/20/23 01/20/23 01/20/23 12:30 13:00 13:30 Temperature Pulse Rate Respiratory Rate Blood Pressure 98/69 108/65 102/70 O2 Sat by Pulse 96 Oximetry 01/20/23 01/20/23 01/20/23 14:00 15:30 16:00 Temperature Pulse Rate Respiratory Rate Blood Pressure 102/70 131/84 119/74 O2 Sat by Pulse 95 96 Oximetry 01/20/23 16:30 Temperature Pulse Rate Respiratory Rate Blood Pressure 127/91 O2 Sat by Pulse 96 Oximetry Medical Decision Making - Medical Decision Making Was pt. sent in by a medical professional or institution (TON[facility] Amador, [employer], urgent care, hospital, or fpc...) When possible be specific @ -Yes [facility] Did you speak to anyone other than the patient for history (EMS, parent, family, police, friend...)? What history was obtained from this source @ -[EMS Did you review nursing and triage notes (agree or disagree)? Why? @ -I reviewed and agree with nursing and triage notes Were old charts reviewed (outside hosp., previous admission, EMS record, old EKG, old radiological studies, urgent care reports/EKG's, fpc records)? Report findings @ -No old charts were reviewed Differential Diagnosis (chest pain, altered mental status, abdominal pain women, abdominal pain men, vaginal bleeding, weakness, fever, dyspnea, syncope, headache, dizziness, GI bleed, back pain, seizure, CVA, palpatations, mental health, musculoskeletal)? @ -Differential Weakness: Hypoglycemia, shock, sepsis, hyponatremia, anemia, infection, AL, ETOH, adverse medicine reaction, overdose, stroke, this is not meant to be an all-inclusive list. EKG interpreted by me (3pts min.). @ -As above X-rays interpreted by me (1pt min.). @ -Chest x-ray shows prominent perihilar opacities bilaterally which may represent pulmonary edema versus atypical pneumonia. X-ray of right shoulder is significant for before meals joint arthropathy/chronic spurring and diffuse osteopenia of the humeral head. No acute process noted CT interpreted by me (1pt min.). @ -None done U/S interpreted by me (1pt. min.). @ -None done What testing was considered but not performed or refused? (CT, X-rays, U/S, labs)? Why? @ -None What meds were considered but not given or refused? Why? @ -None Did you discuss the management of the patient with other professionals (professionals i.e. TONI Amador, [employer], lab, RT, psych nurse, social worker school, admiralty lawyer, teacher, training officer, case operator)? Give summary @ -[Yes I discussed admission with Dr. Dawkins. Was smoking cessation discussed for >3mins.? @ -No Was critical care preformed (if so, how long)? @ -No Were there social determinants of health that impacted care today? How? (Homelessness, low income, unemployed, alcoholism, drug addiction, transportation, low edu. Level, literacy, decrease access to med. care, [facility], rehab)? @ -No Was there de-escalation of care discussed even if they declined (Discuss DNR or withdrawal of care, Hospice)? DNR status @ -No What co-morbidities impacted this encounter? (DM, HTN, Smoking, COPD, CAD, Cancer, CVA, ARF, Chemo, Hep., AIDS, mental health diagnosis, sleep apnea, morbid obesity)? @ -None Was patient admitted / discharged? Hospital course, mention meds given and route, prescriptions, significant lab abnormalities, going to OR and other pertinent info. @ -[Admitted. Chest x-ray shows prominent perihilar opacities bilaterally. X- ray of the right shoulder significant for before meals joint arthropathy/chronic spurring and diffuse osteopenia humeral head. No acute processes noted. CT of the head and C-spine was negative for acute intracranial hemorrhage/mass effect. Labs were significant for valproate acid of 133.1. Poison control was contacted and advised IV fluids and to check valproic acid and ammonia levels in the morning. Patient will be admitted for observation of valproic acid levels. Patient was given IV fluids and toradaol in the ER. Patient will be admitted for observation with Dr. Dawkins. Undiagnosed new problem with uncertain prognosis? @ -No Drug Therapy requiring intensive monitoring for toxicity (Heparin, Nitro, Insulin, Cardizem)? @ -No Were any procedures done? @ -No Diagnosis/symptom? @ -High valproic acid level Acute, or Chronic, or Acute on Chronic? @ -Acute Uncomplicated (without systemic symptoms) or Complicated (systemic symptoms)? @ -Uncomplicated Side effects of treatment? @ -No Exacerbation, Progression, or Severe Exacerbation? @ -No Poses a threat to life or bodily function? How? (Chest pain, USA, AL, pneumonia, PE, COPD, DKA, ARF, appy, cholecystitis, CVA, Diverticulitis, Homicidal, Suicidal, threat to staff... and all critical care pts) @ -No - Lab Data Result diagrams: 01/20/23 11:45 01/20/23 11:45 Lab Results 01/20/23 01/20/23 01/20/23 Range/Units 11:45 11:45 11:45 WBC 8.2 (3.8-10.6) k/uL RBC 3.57 L (4.30-5.90) m/uL Hgb 11.2 L (13.0-17.5) gm/dL Hct 34.5 L (39.0-53.0) % MCV 96.7 (80.0-100.0) fL MCH 31.5 (25.0-35.0) pg MCHC 32.5 (31.0-37.0) g/dL RDW 14.7 (11.5-15.5) % Plt Count 222 (150-450) k/uL MPV 8.0 Neutrophils % 56 % Lymphocytes % 31 % Monocytes % 10 % Eosinophils % 2 % Basophils % 0 % Neutrophils # 4.6 (1.3-7.7) k/uL Lymphocytes # 2.5 (1.0-4.8) k/uL Monocytes # 0.9 (0-1.0) k/uL Eosinophils # 0.1 (0-0.7) k/uL Basophils # 0.0 (0-0.2) k/uL PT 10.3 (10.0-12.5) sec INR 0.9 (<1.2) APTT 26.6 (22.0-30.0) sec Sodium (137-145) mmol/L Potassium (3.5-5.1) mmol/L Chloride (98-107) mmol/L Carbon Dioxide (22-30) mmol/L Anion Gap mmol/L BUN (9-20) mg/dL Creatinine (0.66-1.25) mg/dL Est GFR (CKD-EPI)AfAm (>60 ml/min/1.73 sqM) Est GFR (CKD-EPI)NonAf (>60 ml/min/1.73 sqM) Glucose (74-99) mg/dL Calcium (8.4-10.2) mg/dL Magnesium (1.6-2.3) mg/dL Total Bilirubin (0.2-1.3) mg/dL AST (17-59) U/L ALT (4-49) U/L Alkaline Phosphatase (38-126) U/L Troponin I (0.000-0.034) ng/mL Total Protein (6.3-8.2) g/dL Albumin (3.5-5.0) g/dL Urine Color Yellow Urine Appearance Clear (Clear) Urine pH 6.5 (5.0-8.0) Ur Specific Jeremiah 1.027 (1.001-1.035) Urine Protein Negative (Negative) Urine Glucose (UA) Negative (Negative) Urine Ketones Negative (Negative) Urine Blood Negative (Negative) Urine Nitrite Negative (Negative) Urine Bilirubin Negative (Negative) Urine Urobilinogen <2.0 (<2.0) mg/dL Ur Leukocyte Esterase Negative (Negative) Valproic Acid ug/mL Coronavirus (PCR) (Not Detectd) 01/20/23 01/20/23 01/20/23 Range/Units 11:45 11:45 11:45 WBC (3.8-10.6) k/uL RBC (4.30-5.90) m/uL Hgb (13.0-17.5) gm/dL Hct (39.0-53.0) % MCV (80.0-100.0) fL MCH (25.0-35.0) pg MCHC (31.0-37.0) g/dL RDW (11.5-15.5) % Plt Count (150-450) k/uL MPV Neutrophils % % Lymphocytes % % Monocytes % % Eosinophils % % Basophils % % Neutrophils # (1.3-7.7) k/uL Lymphocytes # (1.0-4.8) k/uL Monocytes # (0-1.0) k/uL Eosinophils # (0-0.7) k/uL Basophils # (0-0.2) k/uL PT (10.0-12.5) sec INR (<1.2) APTT (22.0-30.0) sec Sodium 137 (137-145) mmol/L Potassium 4.5 (3.5-5.1) mmol/L Chloride 104 (98-107) mmol/L Carbon Dioxide 27 (22-30) mmol/L Anion Gap 6 mmol/L BUN 18 (9-20) mg/dL Creatinine 0.63 L (0.66-1.25) mg/dL Est GFR (CKD-EPI)AfAm >90 (>60 ml/min/1.73 sqM) Est GFR (CKD-EPI)NonAf >90 (>60 ml/min/1.73 sqM) Glucose 115 H (74-99) mg/dL Calcium 9.2 (8.4-10.2) mg/dL Magnesium 1.7 (1.6-2.3) mg/dL Total Bilirubin 0.4 (0.2-1.3) mg/dL AST 15 L (17-59) U/L ALT 9 (4-49) U/L Alkaline Phosphatase 76 (38-126) U/L Troponin I <0.012 (0.000-0.034) ng/mL Total Protein 5.6 L (6.3-8.2) g/dL Albumin 3.0 L (3.5-5.0) g/dL Urine Color Urine Appearance (Clear) Urine pH (5.0-8.0) Ur Specific Jeremiah (1.001-1.035) Urine Protein (Negative) Urine Glucose (UA) (Negative) Urine Ketones (Negative) Urine Blood (Negative) Urine Nitrite (Negative) Urine Bilirubin (Negative) Urine Urobilinogen (<2.0) mg/dL Ur Leukocyte Esterase (Negative) Valproic Acid ug/mL Coronavirus (PCR) Not Detected (Not Detectd) 01/20/23 Range/Units 12:41 WBC (3.8-10.6) k/uL RBC (4.30-5.90) m/uL Hgb (13.0-17.5) gm/dL Hct (39.0-53.0) % MCV (80.0-100.0) fL MCH (25.0-35.0) pg MCHC (31.0-37.0) g/dL RDW (11.5-15.5) % Plt Count (150-450) k/uL MPV Neutrophils % % Lymphocytes % % Monocytes % % Eosinophils % % Basophils % % Neutrophils # (1.3-7.7) k/uL Lymphocytes # (1.0-4.8) k/uL Monocytes # (0-1.0) k/uL Eosinophils # (0-0.7) k/uL Basophils # (0-0.2) k/uL PT (10.0-12.5) sec INR (<1.2) APTT (22.0-30.0) sec Sodium (137-145) mmol/L Potassium (3.5-5.1) mmol/L Chloride (98-107) mmol/L Carbon Dioxide (22-30) mmol/L Anion Gap mmol/L BUN (9-20) mg/dL Creatinine (0.66-1.25) mg/dL Est GFR (CKD-EPI)AfAm (>60 ml/min/1.73 sqM) Est GFR (CKD-EPI)NonAf (>60 ml/min/1.73 sqM) Glucose (74-99) mg/dL Calcium (8.4-10.2) mg/dL Magnesium (1.6-2.3) mg/dL Total Bilirubin (0.2-1.3) mg/dL AST (17-59) U/L ALT (4-49) U/L Alkaline Phosphatase (38-126) U/L Troponin I (0.000-0.034) ng/mL Total Protein (6.3-8.2) g/dL Albumin (3.5-5.0) g/dL Urine Color Urine Appearance (Clear) Urine pH (5.0-8.0) Ur Specific Jeremiah (1.001-1.035) Urine Protein (Negative) Urine Glucose (UA) (Negative) Urine Ketones (Negative) Urine Blood (Negative) Urine Nitrite (Negative) Urine Bilirubin (Negative) Urine Urobilinogen (<2.0) mg/dL Ur Leukocyte Esterase (Negative) Valproic Acid 133.1 H* ug/mL Coronavirus (PCR) (Not Detectd) - EKG Data -: EKG Interpreted by Nd EKG Comments: EKG performed at 12:00. Shows normal sinus rhythm with no acute T-wave abnormalities. Ventricular rate 66, CT interval 138, QRS duration 93, QT QTC 3 90/404. - Radiology Data Radiology results: report reviewed, image reviewed Disposition Clinical Impression: Fall, Valproic acid toxicity Disposition: ADMITTED IP TO THIS [facility] Condition: Stable Referrals: Tom Sarmiento MD [STAFF PHYSICIAN] - 1-2 days Decision Time: 17:43
[2023-01-20 12:07] LABS: Basophils % (A) 0 %; Eosinophils # (A) 0.1 k/uL (0-0.7); Eosinophils % (A) 2 %; HCT 34.5 % (39.0-53.0); HGB 11.2 gm/dL (13.0-17.5); Lymphocytes # (A) 2.5 k/uL (1.0-4.8); Lymphocytes % (A) 31 %; MCH 31.5 pg (25.0-35.0); MCHC 32.5 g/dL (31.0-37.0); MCV 96.7 fL (80.0-100.0); Monocytes # (A) 0.9 k/uL (0-1.0); Monocytes % (A) 10 %; Neutrophils # (A) 4.6 k/uL (1.3-7.7); Neutrophils % (A) 56 %; Platelet Count 222 k/uL (150-450); RBC 3.57 m/uL (4.30-5.90); RDW 14.7 % (11.5-15.5); WBC 8.2 k/uL (3.8-10.6)
[2023-01-20 12:17] LABS: INR 0.9 (<1.2); Partial Thromboplastin Time 26.6 sec (22.0-30.0); Prothrombin Time 10.3 sec (10.0-12.5)
[2023-01-20] MEDS ORDERED: SODIUM CHLORIDE 0.9% 1,000 ML IV ONE (12:17)
[2023-01-20 12:19] LABS: ALT 9 U/L (4-49); AST 15 U/L (17-59); African American GFR (CKD) >90 (>60 ml/min/1.73 sqM); Alkaline Phosphatase 76 U/L (38-126); Anion Gap 6 mmol/L; Blood Urea Nitrogen 18 mg/dL (9-20); Calcium 9.2 mg/dL (8.4-10.2); Carbon Dioxide 27 mmol/L (22-30); Chloride 104 mmol/L (98-107); Glucose 115 mg/dL (74-99); Magnesium 1.7 mg/dL (1.6-2.3); Non-African American GFR(CKD) >90 (>60 ml/min/1.73 sqM); Potassium 4.5 mmol/L (3.5-5.1); Sodium 137 mmol/L (137-145); Total Bilirubin 0.4 mg/dL (0.2-1.3); Total Protein 5.6 g/dL (6.3-8.2)
--- NOTE | 2023-01-20 12:50 | CT ---
EXAMINATION TYPE: CT brain raghuine wo con DATE OF EXAM: 01/20/2023 COMPARISON: 05/25/2020 HISTORY: Weakness CT DLP: 1781 mGycm, Automated exposure control for dose reduction was used. CONTRAST: None. CT of the brain is performed utilizing 3 mm thick sections through the posterior fossa and 3 mm thick sections through the remaining calvarium. Study is performed within 24 hours of arrival to the hospital. No abnormal hyperdensity is present to suggest an acute intracranial hemorrhage. No mass lesion is evident. No acute infarcts are evident. Tiny lacunar infarct is within the right basal ganglion. Mild periven tricular white matter hypodensity is present, likely on the basis of chronic white matter ischemic ch anges. Ventricles and sulci are prominent for the patient age. There may be some mild rounding of the tempo ral horns prominence of ventricles out of proportion to sulci. Normal pressure hydrocephalus should b e considered. Mucosal thickening is in the left maxillary sinus and within scattered ethmoid air cells. Hyperostosi s frontalis internus, normal variant, is present. IMPRESSIONS: 1. Chronic appearing periventricular white matter ischemic type changes. 2. Tiny right basal ganglion lacunar infarct, robins space. 3. Ventricles may be out of proportion to the sulci. With some rounding of the temporal horns, normal pressure hydrocephalus should be considered. 4. Findings appear stable from the [address] cervical spine. COMPARISON: None CT of the cervical spine is performed in the axial plane at 2 mm thick sections. Reconstructed image s in the coronal, and sagittal plane are reviewed on the computer. No acute fractures are evident. Vertebral body alignment is normal. There is narrowing of the C3-4 disc height. Remaining disc heights appear preserved. No spinal canal stenosis is evident. Left foraminal stenosis is present C3-4 due to uncovertebral joint hypertrophy Vertebral body heights are preserved. No spinal canal stenosis is evident. IMPRESSION: 1. Mild degenerative changes greatest C3-4 with degenerative disc, uncovertebral joint hypertrophy on the left causing foraminal stenosis. 2. No acute osseous abnormality radiographically apparent
--- NOTE | 2023-01-20 13:57 | XR ---
EXAMINATION TYPE: XR chest 2V DATE OF EXAM: 01/20/2023 1:52 PM COMPARISON: Chest radiographs from 12/04/2022 TECHNIQUE: XR chest 2V Frontal and lateral views of the chest. CLINICAL INDICATION:Male, 57 years old with history of Weakness; FINDINGS: Patient is rotated which limits evaluation. Lungs/Pleura: There is no evidence of pleural effusion or pneumothorax. Prominent perihilar opacities bilaterally. Heart/mediastinum: Cardiomediastinal silhouette is unremarkable. Musculoskeletal: No acute osseous pathology. IMPRESSION: Prominent perihilar opacities bilaterally which may represent pulmonary edema versus atypical pneumon ia.
[2023-01-20] MEDS ORDERED: KETOROLAC 15 MG/ML 1 ML VIAL IVP STA (13:58)
--- NOTE | 2023-01-20 13:58 | XR ---
EXAMINATION TYPE: XR shoulder complete RT DATE OF EXAM: 01/20/2023 COMPARISON: NONE HISTORY: Pain TECHNIQUE: Three views are submitted. FINDINGS: The osseous structures are intact. There is no acute fracture or dislocation. AC joint arthropathy a nd diffuse osteopenia. There is arthropathy of the glenohumeral joint with spurring along the lower m argin of the humerus. Right basilar atelectasis and tiny effusion. IMPRESSION: 1. No acute process. Chronic spurring and diffuse osteopenia of the humeral head. 2. AC joint arthropathy. 3. Right lower lobe consolidation and small effusion.
[2023-01-20 16:01] LABS: Appearance,Urine Clear (Clear); Bilirubin,Urine Negative (Negative); Blood,Urine Negative (Negative); Color,Urine Yellow; Glucose,Urine (UA) Negative (Negative); Ketones,Urine Negative (Negative); Leukocyte Esterase,Urine Negative (Negative); Nitrite,Urine Negative (Negative); PH, Urine 6.5 (5.0-8.0); Protein,Urine Negative (Negative); Specific Gravity,Urine 1.027 (1.001-1.035); Urobilinogen,Urine <2.0 mg/dL (<2.0)
[2023-01-20] MEDS ORDERED: KETOROLAC 15 MG/ML 1 ML VIAL IVP PRN (17:31)
[2023-01-20] MEDS ORDERED: NALOXONE 0.4 MG/ML 1 ML VIAL IV PRN (17:31)
[2023-01-20] MEDS: SODIUM CHLORIDE 0.9% 1,000 ML IV SCH (19:39)
[2023-01-20] MEDS ORDERED: ACETAMINOPHEN TAB 325 MG TAB PO PRN (20:42)
[2023-01-20] MEDS ORDERED: MAGNESIUM HYDROXIDE 2,400 MG/30 ML CUP PO PRN (20:43)
[2023-01-20] MEDS ORDERED: IBUPROFEN 400 MG TAB PO PRN (20:43)
[2023-01-20] MEDS ORDERED: BUDESONIDE 0.5 MG/2 ML NEBU INHALATION PRN (20:43)
[2023-01-20] MEDS ORDERED: PSYLLIUM HUSK 100% 6 GM PACKET PO PRN (20:43)
[2023-01-20] MEDS ORDERED: DOCUSATE 100 MG CAP PO PRN (20:43)
[2023-01-20] MEDS ORDERED: [UNRECOGNIZED DRUG - OTHER] PO PRN (20:43)
[2023-01-20] MEDS ORDERED: PSEUDOEPHEDRINE 30 MG TAB PO PRN (20:45)
--- NOTE | 2023-01-20 21:38 | P.HPIM ---
History of Present Illness H&P Date: 01/20/23 Chief Complaint: Decreased mentation 57-year-old male with history of developmental delays, hypothyroid, diabetes, GERD, hyperlipidemia, hypertension, PICA. Follows with visiting physicians Dr. Azar. EMS brought the patient to the ER. On EMS arrival at the [facility] as per the staff patient normally and bleeding without assistance. We will last couple of days has been increasingly weak and unsteady gait. This morning patient did take a fall striking the back of his head to the floor. No loss of consciousness. Patient was put on a c-collar. At a baseline patient is nonverbal but is acting appropriately was normal when the EMS arrived. Patient does have a public guardian. Patient's valproic acid level came back at 133. ER physician contacted poison control. Patient developed repeat level done tomorrow morning with telemetry monitoring. Admitting review of systems: Cannot be obtained as patient does not really talk much. Relevant history as above Social history: Lives at [facility] and help her neck. [facility], [place] Public legal guardian. Mechanical soft diet with Thick-It with fluids. No smoking or alcohol. Physical examination: VITAL SIGNS: 97.7, 74, 18, 122/84, 98% room air GENERAL: BMI 17.5, thin built, laying in bed, does move his labs EYES: Pupils equal. Conjunctiva normal. HEENT: External appearance of nose and ears normal, oral cavity grossly normal. NECK: JVD not raised; masses not palpable. HEART: First and second heart sounds are normal; no edema. LUNGS: Respiratory rate increased, decreased breath sounds. ABDOMEN: Soft, nontender, liver spleen not palpable, no masses palpable. PSYCH: [Patient unable to assess. Does say occasional word. NEUROLOGICAL: Cranial nerves grossly intact; no facial asymmetry, moving all 4 limbs. LYMPHATICS: No lymph nodes palpable in the axilla and neck Investigations: White count 8.2 hemoglobin 11.2 platelets 222 sodium 137 potassium 4.5 creatinine 0.63. Albumin 3.0 COVID-19 PCR: Not detected Valproic acid 133 EKG tracing personally reviewed by me-normal sinus rhythm X-ray showed a complete right: No acute process. Osteopenia. Right lower lobe consolidation and small effusion. Had cervical spine CT: Ventricles may be out of proportion to the sulci. Periv entricular white matter ischemic type changes. Tiny right basal ganglia lacunar infarct Zach space. Assessment and plan: -Acute metabolic encephalopathy from elevated valproic acid level. Telemetry. Hold tonight's dose of valproic acid. Check levels in the morning. -Chronic developmental delay -Diabetes mellitus type 2 Diabetic diet. Glucophage -GERD Pepcid -Hyperlipidemia Mevacor 40 mg daily at bedtime -Essential hypertension Toprol-XL 25 mg daily at bedtime -Hypothyroid Synthroid 25 g a day -PICA -Full code Today p.m. dose of valproic acid has been held. Check levels in the morning. Hold morning dose of valproic acid levels are back. Other medications to continue. Past Medical History Past Medical History: Diabetes Mellitus, GERD/Reflux, Hyperlipidemia, Hypertension, Pneumonia, Pulmonary Embolus (PE), Thyroid Disorder Additional Past Medical History / Comment(s): Developmentally delayed, autism, OCD, pt able to speak and normally oriented to person/place, aspiration pneumonia, aspiration precautions, pt will regurgitate and reswallow, PICA, NIDDM type II, occasional small amount blood in stool-worsening History of Any Multi-Drug Resistant Organisms: None Reported Past Surgical History: No Surgical Hx Reported Additional Past Surgical History / Comment(s): Colonoscopy. Past Anesthesia/Blood Transfusion Reactions: No Reported Reaction Additional Past Anesthesia/Blood Transfusion Reaction / Comment(s): WAGON WASHER STATES NO KNOWN SURGERY Past Psychological History: ADD/ADHD, Anxiety Additional Psychological History / Comment(s): Pt resides at [facility] IN [place]. Pt has [facility] public legal guardian. Autism, developmentally delayed, OCD, PICA (pt. caregiver states pt will eat feces , urine, and other things if he is left unattended). Aspiration precautions/mechanical soft/thickit with fluids. Smoking Status: Unknown if ever smoked Past Alcohol Use History: None Reported Past Drug Use History: None Reported - Past Family History Father History Unknown: Yes Mother History Unknown: Yes Family Medical History: Diabetes Mellitus Medications and Allergies Home Medications Medication Instructions Recorded Confirmed Type Levothyroxine Sodium [Synthroid] 25 mcg PO DAILY@0800 07/13/14 01/20/23 History Divalproex [Depakote] 1,500 mg PO BID@0800,199904/21/15 01/20/23 History FLUoxetine HCL [PROzac] 40 mg PO DAILY@0800 06/22/1602/23 History Naltrexone HCl [Revia] 50 mg PO DAILY@0807/11/18 01/20/23 History Ferrous Sulfate [Iron] 325 mg PO DAILY@1600 08/23/18 01/20/23 History Montelukast Sodium [Singulair] 10 mg PO HS@199905/25/20 01/20/23 History guanFACINE HCL [Intuniv] 3 mg PO DAILY@79905/25/20 01/20/23 History Apixaban [Eliquis] 5 mg PO BID@799,199903/18/22 01/20/23 History Tamsulosin [Flomax] 0.4 mg PO HS@199903/18/22 01/20/23 History Famotidine [Pepcid] 20 mg PO HS@199908/18/22 01/20/23 History Lovastatin [Mevacor] 40 mg PO HS@199908/18/22 01/20/23 History Vitamin B Complex 1 cap PO DAILY@79908/18/22 01/20/23 History Acetaminophen Tab [Tylenol] 650 mg PO Q6H PRN 12/03/22 01/20/23 History Bismuth Subsalicylate 262 mg PO DAILY PRN 12/03/22 01/20/23 History [Pepto-Bismol] Budesonide 0.5 mg INHALATION RT-BID PRN 12/03/22 01/20/23 History Docusate [Colace] 100 mg PO HS PRN 12/03/22 01/20/23 History Ibuprofen [Motrin Ib] 400 mg PO TID PRN 12/03/22 01/20/23 History Loperamide HCl [Imodium A-D] 2 - 4 mg PO QID PRN 12/03/22 01/20/23 History Magnesium Hydroxide [Milk of 2,400 mg PO DAILY PRN 12/03/22 01/20/23 History Magnesia] Metoprolol Succinate (ER) [Toprol 25 mg PO HS@199912/03/22 01/20/23 History XL] Psyllium Husk (with Sugar) 6 gm PO DAILY PRN 12/03/22 01/20/23 History [Metamucil Powder] Thick-It 1 dose PO TID PRN 12/03/22 01/20/23 History diphenhydrAMINE [Benadryl] 50 mg PO Q4H PRN 12/03/22 01/20/23 History guaiFENesin-DM 100-10MG/5ML 15 ml PO Q6H PRN 12/03/22 01/20/23 History [Robitussin DM] metFORMIN HCL [Glucophage] 500 mg PO BID@0800,2000 12/03/22 01/20/23 History risperiDONE [RisperDAL] 1 mg PO DAILY@0800 #3 tab 12/10/22 01/20/23 Rx risperiDONE [RisperDAL] 2 mg PO DAILY@1600 #3 tab 12/10/22 01/20/23 Rx Cholecalciferol [Vitamin D3 (25 25 mcg PO DAILY@0800 01/20/23 01/20/23 History Mcg = 1000 Iu)] Pseudoephedrine HCl [Sudafed] 60 mg PO Q4H MDD 240 MG 01/20/23 01/20/23 History Allergies Allergy/AdvReac Type Severity Reaction Status Date / Time No Known Allergies Allergy Verified 01/20/23 14:49 Physical Exam Vitals: Vital Signs Temp Pulse Resp BP Pulse Ox 01/20/23 20:11 74 18 122/84 98 01/20/23 16:30 127/91 96 01/20/23 16:00 119/74 96 01/20/23 15:30 131/84 95 01/20/23 14:00 102/70 01/20/23 13:30 102/70 01/20/23 13:00 108/65 96 01/20/23 12:30 98/69 01/20/23 12:00 120/72 96 01/20/23 11:36 120/72 94 L 01/20/23 11:31 98.3 F 77 16 120/72 94 L Intake and Output 01/20/23 01/20/23 01/20/23 06:59 14:59 22:59 Other: Weight 52.163 kg 52.163 kg Results CBC & Chem 7: 01/20/23 11:45 01/20/23 11:45 Labs: Abnormal Lab Results - Last 24 Hours (Table) 01/20/23 01/20/23 01/20/23 Range/Units 11:45 11:45 12:41 RBC 3.57 L (4.30-5.90) m/uL Hgb 11.2 L (13.0-17.5) gm/dL Hct 34.5 L (39.0-53.0) % Creatinine 0.63 L (0.66-1.25) mg/dL Glucose 115 H (74-99) mg/dL AST 15 L (17-59) U/L Total Protein 5.6 L (6.3-8.2) g/dL Albumin 3.0 L (3.5-5.0) g/dL Valproic Acid 133.1 H* ug/mL Thrombosis Risk Factor Assmnt - Choose All That Apply Any of the Below Risk Factors Present?: Yes Each Factor Represents 1 point: Age 41-60 years, Serious lung disease incl. pneumonia (< 1month) Each Risk Factor Represents 3 Points: History of DVT/PE Thrombosis Risk Factor Assessment Total Risk Factor Score: 5 Thrombosis Risk Factor Assessment Level: High Risk
[2023-01-20] MEDS: FAMOTIDINE 20 MG TAB PO SCH (22:42)
[2023-01-20] MEDS: MONTELUKAST 10 MG TAB PO SCH (22:42)
[2023-01-20] MEDS: METOPROLOL SUCCINATE (ER) 25 MG TAB.ER.24H PO SCH (22:42)
[2023-01-21] MEDS: SODIUM CHLORIDE 0.9% 1,000 ML IV SCH ×2 (05:18→19:59)
[2023-01-21 05:49] LABS: Glucose,Whole Blood 105 mg/dL (70-110)
[2023-01-21] MEDS ORDERED: NON FORMULARY DRUG (Vitamin B Complex [Vitamin B Complex] 1 EACH Capsule) PO SCH (08:00)
[2023-01-21] MEDS: DIVALPROEX 500 MG TABLET.DR PO SCH ×2 (08:10→19:55)
[2023-01-21] MEDS: NALTREXONE HCL 50 MG TAB PO SCH (08:11)
[2023-01-21] MEDS: CHOLECALCIFEROL 25 MCG (1000 IU) TABLET PO SCH (08:11)
[2023-01-21] MEDS: metFORMIN 500 MG TAB PO SCH ×2 (08:12→19:55)
[2023-01-21] MEDS: APIXABAN 5 MG TAB PO SCH ×2 (08:12→19:55)
[2023-01-21] MEDS: LEVOTHYROXINE 25 MCG TAB PO SCH (08:12)
[2023-01-21] MEDS: FLUoxetine HCL 20 MG CAP PO SCH (08:12)
[2023-01-21] MEDS: risperiDONE 1 MG TAB PO SCH (08:13)
[2023-01-21 11:12] LABS: Glucose,Whole Blood 93 mg/dL (70-110)
[2023-01-21 13:00] VITALS: BMI 17.4
--- NOTE | 2023-01-21 13:27 | P.PN ---
Subjective Progress Note Date: 01/21/23 57-year-old male with history of developmental delays, hypothyroid, diabetes, GERD, hyperlipidemia, hypertension, PICA. Follows with visiting physicians Dr. Azar. EMS brought the patient to the ER. On EMS arrival at the half-way as per the staff patient normally and bleeding without assistance. We will last couple of days has been increasingly weak and unsteady gait. This morning patient did take a fall striking the back of his head to the floor. No loss of consciousness. Patient was put on a c-collar. At a baseline patient is nonverbal but is acting appropriately was normal when the EMS arrived. Patient does have a public guardian. Patient's valproic acid level came back at 133. ER physician contacted poison control. Patient developed repeat level done tomorrow morning with telemetry monitoring. 01/21. Patient seen and examined. No acute issues overnight. Valproic acid levels have normalized REVIEW OF SYSTEMS: Unable to obtain a review of systems because of patient refusal to participate PHYSICAL EXAMINATION: GENERAL: The patient is alert to self, not in any acute distress. Well developed, well nourished. HEENT: Pupils are round and equally reacting to light. EOMI. No scleral icterus. No conjunctival pallor. Normocephalic, atraumatic. No pharyngeal erythema. No thyromegaly. CARDIOVASCULAR: S1 and S2 present. No murmurs, rubs, or gallops. PULMONARY: Chest is clear to auscultation, no wheezing or crackles. ABDOMEN: Soft, nontender, nondistended, normoactive bowel sounds. No palpable organomegaly. MUSCULOSKELETAL: No joint swelling or deformity. EXTREMITIES: No cyanosis, clubbing, or pedal edema. NEUROLOGICAL: History of baseline developmental delay SKIN: No rashes. Assessment and plan -Acute metabolic encephalopathy Elevated valproic acid levels -Chronic developmental delay -Diabetes mellitus type 2 -GERD -Hyperlipidemia -Essential hypertension -Hypothyroid -PICA Monitor vital signs Monitor CBC Monitor CMP Repeat valproic Levels are 37.6 In regards to hypertension continue Toprol Regards to hyperlipidemia continue Mevacor In regards to hypothyroid continue Synthyroid Psych following Labs and medication were reviewed.. Continue same treatment. Continue with symptomatic treatment. Resume home medication. Monitor labs and vitals. DVT and GI prophylaxis. Further recommendations as per clinical course of the patient Dictation was produced using [employer] dictation software. please excuse any grammatical, word or spelling errors. Objective - Vital Signs Vital signs: Vital Signs Temp 97.3 F L 01/21/23 07:01 Pulse 74 01/21/23 07:01 Resp 16 01/21/23 07:01 BP 135/88 01/21/23 07:01 Pulse Ox 95 01/21/23 07:01 FiO2 Intake & Output 01/20/23 01/21/23 01/21/23 18:59 06:59 18:59 Intake Total 900 Balance 900 Weight 52.163 kg Intake: Intake, IV Titration 900 Amount Sodium Chloride 0.9% 1, 900 000 ml @ 75 mls/hr IV . [id number] [facility] Rx#:[id number] Other: Voiding Method Bedside Commode Diaper Diaper # Voids 1 - Labs CBC & Chem 7: 01/20/23 11:45 01/20/23 11:45 Labs: Abnormal Lab Results - Last 24 Hours (Table) 01/20/23 01/20/23 01/20/23 Range/Units 11:45 11:45 12:41 RBC 3.57 L (4.30-5.90) m/uL Hgb 11.2 L (13.0-17.5) gm/dL Hct 34.5 L (39.0-53.0) % Creatinine 0.63 L (0.66-1.25) mg/dL Glucose 115 H (74-99) mg/dL AST 15 L (17-59) U/L Total Protein 5.6 L (6.3-8.2) g/dL Albumin 3.0 L (3.5-5.0) g/dL Valproic Acid 133.1 H* ug/mL
[2023-01-21 16:35] LABS: Glucose,Whole Blood 88 mg/dL (70-110)
[2023-01-21] MEDS: risperiDONE 2 MG TAB PO SCH (17:17)
[2023-01-21] MEDS: FERROUS SULFATE 325 MG TAB PO SCH (17:17)
[2023-01-21 19:51] LABS: Glucose,Whole Blood 110 mg/dL (70-110)
[2023-01-21] MEDS: TAMSULOSIN 0.4 MG CAP.ER.24H PO SCH (19:55)
[2023-01-21] MEDS: ATORVASTATIN 10 MG TAB PO SCH (19:55)
[2023-01-21] MEDS: MONTELUKAST 10 MG TAB PO SCH (19:55)
[2023-01-21] MEDS: FAMOTIDINE 20 MG TAB PO SCH (19:55)
[2023-01-21] MEDS: METOPROLOL SUCCINATE (ER) 25 MG TAB.ER.24H PO SCH (19:55)
[2023-01-22 05:52] LABS: Glucose,Whole Blood 98 mg/dL (70-110)
[2023-01-22] MEDS: FLUoxetine HCL 20 MG CAP PO SCH (07:38)
[2023-01-22] MEDS: DIVALPROEX 500 MG TABLET.DR PO SCH ×2 (07:38→22:42)
[2023-01-22] MEDS: CHOLECALCIFEROL 25 MCG (1000 IU) TABLET PO SCH (07:38)
[2023-01-22] MEDS: APIXABAN 5 MG TAB PO SCH ×2 (07:38→22:42)
[2023-01-22] MEDS: NALTREXONE HCL 50 MG TAB PO SCH (07:38)
[2023-01-22] MEDS: LEVOTHYROXINE 25 MCG TAB PO SCH (07:38)
[2023-01-22] MEDS: metFORMIN 500 MG TAB PO SCH ×2 (07:38→22:41)
[2023-01-22] MEDS: risperiDONE 1 MG TAB PO SCH (07:39)
[2023-01-22] MEDS: SODIUM CHLORIDE 0.9% 1,000 ML IV SCH (07:39)
[2023-01-22 11:40] LABS: Glucose,Whole Blood 275 mg/dL (70-110)
--- NOTE | 2023-01-22 12:44 | P.PN ---
Subjective Progress Note Date: 01/22/23 57-year-old male with history of developmental delays, hypothyroid, diabetes, GERD, hyperlipidemia, hypertension, PICA. Follows with visiting physicians Dr. Azar. EMS brought the patient to the ER. [facility] staff patient normally and bleeding without assistance. We will last couple of days has been increasingly weak and unsteady gait. This morning patient did take a fall striking the back of his head to the floor. No loss of consciousness. Patient was put on a c-collar. At a baseline patient is nonverbal but is acting appropriately was normal when the EMS arrived. Patient does have a public guardian. Patient's valproic acid level came back at 133. ER physician contacted poison control. Patient developed repeat level done tomorrow morning with telemetry monitoring. 01/21. Patient seen and examined. No acute issues overnight. Valproic acid levels have normalized 01/22. Patient seen and examined. No acute issues overnight. Pending a psychiatric evaluation REVIEW OF SYSTEMS: Unable to obtain a review of systems because of patient refusal to participate PHYSICAL EXAMINATION: GENERAL: The patient is alert to self, not in any acute distress. Well developed, well nourished. HEENT: Pupils are round and equally reacting to light. EOMI. No scleral icterus. No conjunctival pallor. Normocephalic, atraumatic. No pharyngeal erythema. No thyromegaly. CARDIOVASCULAR: S1 and S2 present. No murmurs, rubs, or gallops. PULMONARY: Chest is clear to auscultation, no wheezing or crackles. ABDOMEN: Soft, nontender, nondistended, normoactive bowel sounds. No palpable organomegaly. MUSCULOSKELETAL: No joint swelling or deformity. EXTREMITIES: No cyanosis, clubbing, or pedal edema. NEUROLOGICAL: History of baseline developmental delay SKIN: No rashes. Assessment and plan -Acute metabolic encephalopathy Elevated valproic acid levels -Chronic developmental delay -Diabetes mellitus type 2 -GERD -Hyperlipidemia -Essential hypertension -Hypothyroid -PICA Monitor vital signs Monitor CBC Monitor CMP Repeat valproic Levels are 37.6 In regards to hypertension continue Toprol Regards to hyperlipidemia continue Mevacor In regards to hypothyroid continue Synthyroid Psych following Labs and medication were reviewed.. Continue same treatment. Continue with symptomatic treatment. Resume home medication. Monitor labs and vitals. DVT and GI prophylaxis. Further recommendations as per clinical course of the patient Dictation was produced using [employer] dictation software. please excuse any grammatical, word or spelling errors. Objective - Vital Signs Vital signs: Vital Signs Temp 98.5 F 01/22/23 07:01 Pulse 88 01/22/23 07:01 Resp 18 01/22/23 09:49 BP 143/85 01/22/23 07:01 Pulse Ox 95 01/22/23 07:01 FiO2 Intake & Output 01/21/23 01/22/23 01/22/23 18:59 06:59 18:59 Intake Total 180 Balance 180 Weight 52.163 kg Intake: Oral 180 Other: Voiding Method Diaper Diaper Diaper # Voids 4 3 # Bowel Movements 2 - Labs CBC & Chem 7: 01/20/23 11:45 01/20/23 11:45
[2023-01-22] MEDS: risperiDONE 2 MG TAB PO SCH (15:43)
[2023-01-22] MEDS: FERROUS SULFATE 325 MG TAB PO SCH (15:43)
[2023-01-22 16:49] LABS: Glucose,Whole Blood 170 mg/dL (70-110)
[2023-01-22 20:17] LABS: Glucose,Whole Blood 230 mg/dL (70-110)
[2023-01-22] MEDS: MONTELUKAST 10 MG TAB PO SCH (22:41)
[2023-01-22] MEDS: METOPROLOL SUCCINATE (ER) 25 MG TAB.ER.24H PO SCH (22:41)
[2023-01-22] MEDS: ATORVASTATIN 10 MG TAB PO SCH (22:42)
[2023-01-22] MEDS: FAMOTIDINE 20 MG TAB PO SCH (22:44)
[2023-01-22] MEDS: TAMSULOSIN 0.4 MG CAP.ER.24H PO SCH (22:45)
--- NOTE | 2023-01-22 23:01 | P.CN ---
Psychiatric Consult - . Consult date: 01/22/23 Consult:: History of Present Illness: The patient is a 57-year-old male with a past medical history significant for diabetes mellitus hypertension hyperlipidemia pneumonia PE developmentally delayed autism detention resident. EMS brought the patient to the ER. On EMS arrival at the detention as per the staff patient for the last couple of days has been increasingly weak and unsteady gait. The psychiatric team was consulted to evaluate the patient for medication adjustment as the patient has been maintained on psych medications including risperidone, Zoloft, and the Depakote. Depakote level at the time he came to the ER was 133. Repeated Depakote level yesterday morning was 37. The patient was seen lying on bed in his room at the medical floor and he couldnt answer any questions or provide information about his medical or psychiatric history. The patient was alert and responding to calling his name with intermittent eye contact but apparently confused with impaired cognitive function to engage in any productive conversation or assessment of his symptoms. No report of suicidal or homicidal ideation. No report of hallucinations, delusions, or behavioral disturbances. According to the previous academic history of intellectual disability and autism, the patient most probably maintained on psychiatric medications listed as per detention and the chart risperidone 1 milligram daily, and two mill igrams at bedtime, Depakote 1500 milligram twice daily, and Prozac 40 milligram daily. It's unclear from the chart the reason the patient has been prescribed that high dose of Depakote, and there is no report of seizure disorder. I discussed with the nursing staff to repeat the Depakote level one more time to obtain trough level which is 8 hours after the last dose which came back 73. Past Psychiatric History: Unknown and unable to obtain information currently. Substance Use History: Unknown and unable to obtain information currently. Family Psychiatric History: Unknown and unable to obtain information currently. Social/Developmental History: Unknown and unable to obtain information currently. Mental Status Examination: Appearance: Appears older than stated age, disheveled, below average body built Gait/ posture: unable to assess Attitude and Behavior: Not Engaged, poor eye contact Motor Activity: Decreased psychomotor activity. Speech: none Mood: none reported Affect: flat Thought form: none Thought content: None, No report of suicidal / homicidal thoughts, intentions, or plans. Perception: No report of any auditory/ visual or tactile hallucinations. Attention: impaired Orientation: impaired Insight & Judgment: unable to assess Impulse control: unable to assess Assessment and Diagnosis: History of Autism History of intellectual disabilities Recommendation: Disposition/Follow-up: Is psychiatric hospitalization indicated? No Addressed and ensured patient's safety; patient does not meet the criteria for psychiatric hospitalization. Currently, there is no need for further follow-up by the psychiatric team. Medication management: Continue current psychiatric medications as per prior to admission which reported by the detention including Risperidone 1 mg PO am and 2 mg at bedtime and Prozac 40 mg daily. As Depakote toxicity could potentially cause impairment of cognitive function, it's currently unclear whether the patient's cognitive impairment is his baseline or related to Depakote toxicity, as the level at the time he came to the ED was 133. A repeated level the next morning came back subtherapeutic 37, which is not aligned with toxicity, but it's not clear if the patient was taking the medication or not. Today, after a repeated trough Depakote level test, it came back as 73, which is within the therapeutic range. However, as the patient continues to present with cognitive impairment, I recommend reducing his Depakote dose to 1000 mg BID unless the patient has a history of a seizure disorder and such a dose was prescribed by neurology. Please verify this with the detention and consult neurology if necessary. Refer the patient to outpatient psychiatric treatment after discharge. Delirium precautions recommended for the patient include: Avoid the use of narcotics and TELEX OPERATOR sedatives, limit anticholinergic medications, when possible, frequent reorientation, minimize the use of restraints, open window shades during the day and close them at night. Discussed the treatment plan with the requesting physician/service. Thank you for permitting me to assist in this patient's treatment. Please call the psychiatry department if you have any questions or need further help with this case. 01/22/23 22:57
[2023-01-23] MEDS: SODIUM CHLORIDE 0.9% 1,000 ML IV SCH ×2 (03:22→08:00)
[2023-01-23 05:50] LABS: Glucose,Whole Blood 133 mg/dL (70-110)
[2023-01-23] MEDS: DIVALPROEX 500 MG TABLET.DR PO SCH ×3 (07:36→20:44)
[2023-01-23] MEDS: LEVOTHYROXINE 25 MCG TAB PO SCH (07:59)
[2023-01-23] MEDS: NALTREXONE HCL 50 MG TAB PO SCH (07:59)
[2023-01-23] MEDS: CHOLECALCIFEROL 25 MCG (1000 IU) TABLET PO SCH (07:59)
[2023-01-23] MEDS: APIXABAN 5 MG TAB PO SCH ×2 (07:59→20:44)
[2023-01-23] MEDS: metFORMIN 500 MG TAB PO SCH ×2 (07:59→20:44)
[2023-01-23] MEDS: risperiDONE 1 MG TAB PO SCH (07:59)
[2023-01-23] MEDS: FLUoxetine HCL 20 MG CAP PO SCH (07:59)
[2023-01-23 11:27] LABS: Glucose,Whole Blood 116 mg/dL (70-110)
--- NOTE | 2023-01-23 13:53 | P.DS ---
Providers Date of admission: 01/20/23 16:20 Expected date of discharge: 01/23/23 Attending physician: Lino Dawkins Consults: 01/20/23 16:54 Consult Physician Routine Consulting Provider: Jaime Small Consult Reason/Comments: medications adjustment recommendations Do you want consulting provider notified?: Yes Primary care physician: Esequiel Azar MD Hospital Course: Discharge diagnoses; -Acute metabolic encephalopathy Elevated valproic acid levels -Chronic developmental delay -Diabetes mellitus type 2 -GERD -Hyperlipidemia -Essential hypertension -Hypothyroid -PICA Plan Psych following recommended to continue Risperidone 1 mg PO am and 2 mg at bedtime and Prozac 40 mg daily. As Depakote toxicity could potentially cause impairment of cognitive function, it's currently unclear whether the patient's cognitive impairment is his baseline or related to Depakote toxicity, psych recommend reducing his Depakote dose to 1000 mg BID Hospital course; 57-year-old male with history of developmental delays, hypothyroid, diabetes, GERD, hyperlipidemia, hypertension, PICA. Follows with visiting physicians Dr. Azar. EMS brought the patient to the ER. On EMS arrival at the residential as per the staff patient normally and bleeding without assistance. We will last couple of days has been increasingly weak and unsteady gait. This morning patient did take a fall striking the back of his head to the floor. No loss of consciousness. Patient was put on a c-collar. At a baseline patient is nonverbal but is acting appropriately was normal when the EMS arrived. Patient does have a public guardian. Patient's valproic acid level came back at 133. ER physician contacted poison control. Patient developed repeat level done tomorrow morning with telemetry monitoring. 01/21. Patient seen and examined. No acute issues overnight. Valproic acid levels have normalized 01/22. Patient seen and examined. No acute issues overnight. Pending a psychiatric evaluation 01/23. Patient seen and examined .Psych following recommended to continue Risperidone 1 mg PO am and 2 mg at bedtime and Prozac 40 mg daily. As Depakote toxicity could potentially cause impairment of cognitive function, it's currently unclear whether the patient's cognitive impairment is his b aseline or related to Depakote toxicity, psych recommend reducing his Depakote dose to 1000 mg BID Being discharged in stable condition PHYSICAL EXAMINATION: GENERAL: The patient is alert to self, not in any acute distress. Well developed, well nourished. HEENT: Pupils are round and equally reacting to light. EOMI. No scleral icterus. No conjunctival pallor. Normocephalic, atraumatic. No pharyngeal erythema. No thyromegaly. CARDIOVASCULAR: S1 and S2 present. No murmurs, rubs, or gallops. PULMONARY: Chest is clear to auscultation, no wheezing or crackles. ABDOMEN: Soft, nontender, nondistended, normoactive bowel sounds. No palpable organomegaly. MUSCULOSKELETAL: No joint swelling or deformity. EXTREMITIES: No cyanosis, clubbing, or pedal edema. NEUROLOGICAL: History of baseline developmental delay SKIN: No rashes. Dictation was produced using [employer] dictation software. please excuse any grammatical, word or spelling errors. Patient Condition at Discharge: Stable Plan - Discharge Summary Discharge Rx Participant: Yes New Discharge Prescriptions: Continue Levothyroxine Sodium [Synthroid] 25 mcg PO DAILY@0800 FLUoxetine HCL [PROzac] 40 mg PO DAILY@0800 Naltrexone HCl [Revia] 50 mg PO DAILY@0800 Ferrous Sulfate [Iron] 325 mg PO DAILY@1600 Montelukast Sodium [Singulair] 10 mg PO HS@2000 guanFACINE HCL [Intuniv] 3 mg PO DAILY@0800 Apixaban [Eliquis] 5 mg PO BID@0800,1999 Lovastatin [Mevacor] 40 mg PO HS@2000 Famotidine [Pepcid] 20 mg PO HS@2000 Vitamin B Complex 1 cap PO DAILY@0800 Bismuth Subsalicylate [Pepto-Bismol] 262 mg PO DAILY PRN PRN Reason: Indigestion Magnesium Hydroxide [Milk of Magnesia] 2,400 mg PO DAILY PRN PRN Reason: Constipation Ibuprofen [Motrin Ib] 400 mg PO TID PRN PRN Reason: Pain diphenhydrAMINE [Benadryl] 50 mg PO Q4H PRN PRN Reason: Allergy Symptoms Loperamide HCl [Imodium A-D] 2 - 4 mg PO QID PRN PRN Reason: Diarrhea Metoprolol Succinate (ER) [Toprol XL] 25 mg PO HS@2000 metFORMIN HCL [Glucophage] 500 mg PO BID@0800,1999 Tamsulosin [Flomax] 0.4 mg PO HS@2000 Psyllium Husk (with Sugar) [Metamucil Powder] 6 gm PO DAILY PRN PRN Reason: Constipation guaiFENesin-DM 100-10MG/5ML [Robitussin DM] 15 ml PO Q6H PRN PRN Reason: Cough Docusate [Colace] 100 mg PO HS PRN PRN Reason: Constipation Budesonide 0.5 mg INHALATION RT-BID PRN PRN Reason: Shortness Of Breath Acetaminophen Tab [Tylenol] 650 mg PO Q6H PRN PRN Reason: Fever And/ Or Pain Thick-It 1 dose PO TID PRN PRN Reason: all liquids risperiDONE [RisperDAL] 1 mg PO DAILY@0800 #3 tab risperiDONE [RisperDAL] 2 mg PO DAILY@1600 #3 tab Cholecalciferol [Vitamin D3 (25 Mcg = 1000 Iu)] 25 mcg PO DAILY@0800 Pseudoephedrine HCl [Sudafed] 60 mg PO Q4H MDD 240 MG Changed Divalproex [Depakote] 1,000 mg PO BID@799,1999 #0 Discharge Medication List Levothyroxine Sodium [Synthroid] 25 mcg PO DAILY@0807/13/14 [History] FLUoxetine HCL [PROzac] 40 mg PO DAILY@0806/22/16 [History] Naltrexone HCl [Revia] 50 mg PO DAILY@0807/11/18 [History] Ferrous Sulfate [Iron] 325 mg PO DAILY@1600 08/23/18 [History] Montelukast Sodium [Singulair] 10 mg PO HS@199905/25/20 [History] guanFACINE HCL [Intuniv] 3 mg PO DAILY@0805/25/20 [History] Apixaban [Eliquis] 5 mg PO BID@799,199903/18/22 [History] Tamsulosin [Flomax] 0.4 mg PO HS@199903/18/22 [History] Famotidine [Pepcid] 20 mg PO HS@199908/18/22 [History] Lovastatin [Mevacor] 40 mg PO HS@199908/18/22 [History] Vitamin B Complex 1 cap PO DAILY@0808/18/22 [History] Acetaminophen Tab [Tylenol] 650 mg PO Q6H PRN 12/03/22 [History] Bismuth Subsalicylate [Pepto-Bismol] 262 mg PO DAILY PRN 12/03/22 [History] Budesonide 0.5 mg INHALATION RT-BID PRN 12/03/22 [History] Docusate [Colace] 100 mg PO HS PRN 12/03/22 [History] Ibuprofen [Motrin Ib] 400 mg PO TID PRN 12/03/22 [History] Loperamide HCl [Imodium A-D] 2 - 4 mg PO QID PRN 12/03/22 [History] Magnesium Hydroxide [Milk of Magnesia] 2,400 mg PO DAILY PRN 12/03/22 [History] Metoprolol Succinate (ER) [Toprol XL] 25 mg PO HS@199912/03/22 [History] Psyllium Husk (with Sugar) [Metamucil Powder] 6 gm PO DAILY PRN 12/03/22 [History] Thick-It 1 dose PO TID PRN 12/03/22 [History] diphenhydrAMINE [Benadryl] 50 mg PO Q4H PRN 12/03/22 [History] guaiFENesin-DM 100-10MG/5ML [Robitussin DM] 15 ml PO Q6H PRN 12/03/22 [History] metFORMIN HCL [Glucophage] 500 mg PO BID@0800,199912/03/22 [History] risperiDONE [RisperDAL] 1 mg PO DAILY@0800 #3 tab 12/10/22 [Rx] risperiDONE [RisperDAL] 2 mg PO DAILY@1600 #3 tab 12/10/22 [Rx] Cholecalciferol [Vitamin D3 (25 Mcg = 1000 Iu)] 25 mcg PO DAILY@0800 01/20/23 [History] Pseudoephedrine HCl [Sudafed] 60 mg PO Q4H MDD 240 MG 01/20/23 [History] Divalproex [Depakote] 1,000 mg PO BID@799,1999 #0 01/23/23 [Rx] Follow up Appointment(s)/Referral(s): Tom Sarmiento MD [STAFF PHYSICIAN] - 1-2 days [facility], [NON-STAFF] - 1-2 Days ([facility] will call to schedule your in home nursing, physical therapy, and occupational therapy visits. ) Activity/Diet/Wound Care/Special Instructions: Patient requires wheelchair with a seat belt in order to complete his ADLs which cannot be done with a cane or walker. Seat belt is required due to weak upper body muscles. Patient is unable to ambulate due to increased generalized weakn ess from developmental disabilities, osteoarthritis, falls, autism, and chronic debility. Patient resides at a residential with caregivers 11/10 that are able to propel patient. Discharge Disposition: OTHER INSTITUTION NOT DEFINED
[2023-01-23] MEDS: risperiDONE 2 MG TAB PO SCH (15:54)
[2023-01-23] MEDS: FERROUS SULFATE 325 MG TAB PO SCH (15:54)
[2023-01-23 16:16] LABS: Glucose,Whole Blood 148 mg/dL (70-110)
[2023-01-23 20:27] LABS: Glucose,Whole Blood 203 mg/dL (70-110)
[2023-01-23] MEDS: ATORVASTATIN 10 MG TAB PO SCH (20:43)
[2023-01-23] MEDS: MONTELUKAST 10 MG TAB PO SCH (20:44)
[2023-01-23] MEDS: METOPROLOL SUCCINATE (ER) 25 MG TAB.ER.24H PO SCH (20:44)
[2023-01-23] MEDS: FAMOTIDINE 20 MG TAB PO SCH (20:44)
[2023-01-23] MEDS: TAMSULOSIN 0.4 MG CAP.ER.24H PO SCH (20:49)
[2023-01-24 00:55] LABS: Glucose,Whole Blood 212 mg/dL (70-110)
[2023-01-24 02:24] VITALS: PULSE 101
[2023-01-24 05:25] LABS: Glucose,Whole Blood 135 mg/dL (70-110)
[2023-01-24 08:12] VITALS: BP 120/77; RESP 14; TEMP 98.6
[2023-01-24] MEDS: CHOLECALCIFEROL 25 MCG (1000 IU) TABLET PO SCH (08:34)
[2023-01-24] MEDS: DIVALPROEX 500 MG TABLET.DR PO SCH (08:34)
[2023-01-24] MEDS: FLUoxetine HCL 20 MG CAP PO SCH (08:34)
[2023-01-24] MEDS: APIXABAN 5 MG TAB PO SCH (08:34)
[2023-01-24] MEDS: NALTREXONE HCL 50 MG TAB PO SCH (08:34)
[2023-01-24] MEDS: LEVOTHYROXINE 25 MCG TAB PO SCH (08:34)
[2023-01-24] MEDS: metFORMIN 500 MG TAB PO SCH (08:34)
[2023-01-24] MEDS: risperiDONE 1 MG TAB PO SCH (08:34)
[2023-01-24 11:12] LABS: Glucose,Whole Blood 183 mg/dL (70-110)
--- NOTE | 2023-01-24 11:45 | P.PN ---
Subjective Progress Note Date: 01/24/23 57-year-old male with history of developmental delays, hypothyroid, diabetes, GERD, hyperlipidemia, hypertension, PICA. Follows with visiting physicians Dr. Azar. EMS brought the patient to the ER. On EMS arrival at the half-way as per the staff patient normally and bleeding without assistance. We will last couple of days has been increasingly weak and unsteady gait. This morning patient did take a fall striking the back of his head to the floor. No loss of consciousness. Patient was put on a c-collar. At a baseline patient is nonverbal but is acting appropriately was normal when the EMS arrived. Patient does have a public guardian. Patient's valproic acid level came back at 133. ER physician contacted poison control. Patient developed repeat level done tomorrow morning with telemetry monitoring. 01/21. Patient seen and examined. No acute issues overnight. Valproic acid levels have normalized 01/22. Patient seen and examined. No acute issues overnight. Pending a psychiatric evaluation 01/23. Patient seen and examined .Psych following recommended to continue Risperidone 1 mg PO am and 2 mg at bedtime and Prozac 40 mg daily. As Depakote toxicity could potentially cause impairment of cognitive function, it's currently unclear whether the patient's cognitive impairment is his baseline or related to Depakote toxicity, psych recommend reducing his Depakote dose to 1000 mg BID Being discharged in stable condition REVIEW OF SYSTEMS: Unable to obtain a review of systems because of patient refusal to participate PHYSICAL EXAMINATION: GENERAL: The patient is alert to self, not in any acute distress. Well developed, well nourished. HEENT: Pupils are round and equally reacting to light. EOMI. No scleral icterus. No conjunctival pallor. Normocephalic, atraumatic. No pharyngeal erythema. No thyromegaly. CARDIOVASCULAR: S1 and S2 present. No murmurs, rubs, or gallops. PULMONARY: Chest is clear to auscultation, no wheezing or crackles. ABDOMEN: Soft, nontender, nondistended, normoactive bowel sounds. No palpable organomegaly. MUSCULOSKELETAL: No joint swelling or deformity. EXTREMITIES: No cyanosis, clubbing, or pedal edema. NEUROLOGICAL: History of baseline developmental delay SKIN: No rashes. Assessment and plan -Acute metabolic encephalopathy Elevated valproic acid levels -Chronic developmental delay -Diabetes mellitus type 2 -GERD -Hyperlipidemia -Essential hypertension -Hypothyroid -PICA Monitor vital signs In regards to hypertension continue Toprol Regards to hyperlipidemia continue Mevacor In regards to hypothyroid continue Synthyroid Psych following recommended to continue Risperidone 1 mg PO am and 2 mg at bedtime and Prozac 40 mg daily. As Depakote toxicity could potentially cause impairment of cognitive function, it's currently unclear whether the patient's cognitive impairment is his baseline or related to Depakote toxicity, psych recommend reducing his Depakote dose to 1000 mg BID Patient was discharged yesterday, facility was unable to arrange for transportation. Possible discharge today Labs and medication were reviewed.. Continue same treatment. Continue with symptomatic treatment. Resume home medication. Monitor labs and vitals. DVT and GI prophylaxis. Further recommendations as per clinical course of the patient Dictation was produced using [employer] dictation software. please excuse any grammatical, word or spelling errors. Objective - Vital Signs Vital signs: Vital Signs Temp 98.6 F 01/24/23 06:52 Pulse 101 H 01/24/23 06:52 Resp 14 01/24/23 06:52 BP 120/77 01/24/23 06:52 Pulse Ox 94 L 01/24/23 06:52 FiO2 Intake & Output 01/23/23 01/24/23 01/24/23 18:59 06:59 18:59 Intake Total 550 Output Total 2 Balance 548 Intake: Oral 550 Output: Stool 2 Other: Voiding Method Diaper Diaper Diaper # Voids 3 3 1 # Bowel Movements 1 - Labs CBC & Chem 7: 01/20/23 11:45 01/20/23 11:45 Labs: Abnormal Lab Results - Last 24 Hours (Table) 01/23/23 01/23/23 01/23/23 Range/Units 11:26 16:14 20:11 POC Glucose (mg/dL) 116 H 148 H 212 H (70-110) mg/dL 01/23/23 01/24/23 Range/Units 20:26 05:22 POC Glucose (mg/dL) 203 H 135 H (70-110) mg/dL
== END 2023-01-24 14:22 | disposition other institution (70) ==
LOC: EC 11:28 → 4SSUR 16:20
PROVIDERS: ADMIT Hospitalist; ATTEND Hospitalist
DX: G93.41 Metabolic encephalopathy (principal); T42.6X5A Adverse effect of other antiepileptic and sedative-hypnotic drugs, initial encounter; R26.81 Unsteadiness on feet; E11.9 Type 2 diabetes mellitus without complications; I10 Essential (primary) hypertension; E78.5 Hyperlipidemia, unspecified; F84.0 Autistic disorder; R62.50 Unspecified lack of expected normal physiological development in childhood; K21.9 Gastro-esophageal reflux disease without esophagitis; F41.9 Anxiety disorder, unspecified; F90.9 Attention-deficit hyperactivity disorder, unspecified type; E03.9 Hypothyroidism, unspecified; F50.89 Other specified eating disorder; Z68.1 Body mass index [BMI] 19.9 or less, adult; Z20.822 Contact with and (suspected) exposure to COVID-19; Z86.711 Personal history of pulmonary embolism; Z79.890 Hormone replacement therapy; Z79.899 Other long term (current) drug therapy; Z79.01 Long term (current) use of anticoagulants; Z79.84 Long term (current) use of oral hypoglycemic drugs
CPT/HCPCS: 96361 ×3; 96374; 99285; 36415; 93005; 80164 ×3; 80053; 83735; 84484; 85025; 85610; 85730; 81003; 87635; 73030; 71046; 72125; 70450; G0378 ×5; J1885

== ENCOUNTER 2023-02-22 19:42 | Inpatient (IN) | payer MEDICARE, OTHER ==
[2023-02-22] MEDS ORDERED: IPRATROPIUM-ALBUTEROL 3 ML NEB INHALATION STA (19:53)
[2023-02-22] MEDS ORDERED: SODIUM CHLORIDE 0.9% 1,000 ML IV STA ×2 (19:53)
[2023-02-22 20:24] LABS: Appearance,Urine Cloudy (Clear); Color,Urine Light Yellow; PH, Urine 5.5 (5.0-8.0); Protein,Urine Negative (Negative); Specific Gravity,Urine 1.025 (1.001-1.035)
[2023-02-22 20:25] LABS: Bilirubin,Urine Negative (Negative); Blood,Urine Trace (Negative); Glucose,Urine (UA) 4+ (Negative); Ketones,Urine 1+ (Negative)
[2023-02-22 20:26] LABS: Leukocyte Esterase,Urine Moderate (Negative); Nitrite,Urine Negative (Negative); Urobilinogen,Urine <2.0 mg/dL (<2.0)
[2023-02-22 20:28] LABS: Mucus,Urine Rare /hpf; RBC,Urine 1 /hpf (0-5); WBC,Urine 43 /hpf (0-5)
[2023-02-22 20:32] LABS: Basophils % (A) 0 %; Eosinophils % (A) 0 %; HCT 39.9 % (39.0-53.0); HGB 12.8 gm/dL (13.0-17.5); Lymphocytes # (A) 0.7 k/uL (1.0-4.8); Lymphocytes % (A) 5 %; MCH 30.7 pg (25.0-35.0); MCHC 32.1 g/dL (31.0-37.0); MCV 95.6 fL (80.0-100.0); Mean Platelet Volume 7.8; Monocytes # (A) 0.8 k/uL (0-1.0); Monocytes % (A) 6 %; Neutrophils # (A) 11.8 k/uL (1.3-7.7); Neutrophils % (A) 88 %; Platelet Count 273 k/uL (150-450); RBC 4.18 m/uL (4.30-5.90); RDW 14.5 % (11.5-15.5); WBC 13.4 k/uL (3.8-10.6)
[2023-02-22 20:45] LABS: INR 0.9 (<1.2); Prothrombin Time 9.7 sec (10.0-12.5)
[2023-02-22 20:47] LABS: ALT 24 U/L (4-49); AST 35 U/L (17-59); African American GFR (CKD) >90 (>60 ml/min/1.73 sqM); Albumin 3.7 g/dL (3.5-5.0); Alkaline Phosphatase 81 U/L (38-126); Anion Gap 11 mmol/L; Blood Urea Nitrogen 34 mg/dL (9-20); Calcium 9.3 mg/dL (8.4-10.2); Carbon Dioxide 26 mmol/L (22-30); Chloride 98 mmol/L (98-107); Glucose 322 mg/dL (74-99); Non-African American GFR(CKD) >90 (>60 ml/min/1.73 sqM); Sodium 135 mmol/L (137-145); Total Bilirubin 0.5 mg/dL (0.2-1.3); Total Protein 6.4 g/dL (6.3-8.2)
[2023-02-22 20:55] LABS: NT-Pro-B-Type Natriuretic Pept 209 pg/mL
--- NOTE | 2023-02-22 22:02 | XR ---
EXAMINATION TYPE: XR chest 1V portable DATE OF EXAM: 02/22/2023 9:44 PM CLINICAL INDICATION:Male, 58 years old with history of cough; PHH COMPARISON: Chest radiographs from 01/20/2023 TECHNIQUE: XR chest 1V portable Frontal view of the chest. FINDINGS: Lungs/Pleura: Blunting of the costophrenic angles right greater than left. There is no evidence of pl eural effusion, focal consolidation, or pneumothorax. Pulmonary vascularity: Pulmonary vascular congestion. Heart/mediastinum: Cardiac size is normal. Musculoskeletal: No acute osseous pathology. IMPRESSION: Mild Pulmonary vascular congestion and bilateral pleural effusions. Correlate with BNP for congestive heart failure. Correlate for atypical pneumonia.
[2023-02-22] MEDS ORDERED: AZITHROMYCIN 500 MG in SODIUM CHLORIDE 0.9% 250 ML IVPB STA (22:06)
[2023-02-22] MEDS ORDERED: BUDESONIDE 0.5 MG/2 ML NEBU INHALATION PRN (22:19)
[2023-02-22] MEDS ORDERED: diphenhydrAMINE 25 MG CAP PO PRN (22:19)
[2023-02-22] MEDS ORDERED: DOCUSATE 100 MG CAP PO PRN (22:19)
[2023-02-22] MEDS ORDERED: ACETAMINOPHEN TAB 325 MG TAB PO PRN (22:19)
[2023-02-22] MEDS ORDERED: [UNRECOGNIZED DRUG - OTHER] PO PRN (22:19)
--- NOTE | 2023-02-22 22:19 | ED ---
SOB HPI - General Chief Complaint: Shortness of Breath Stated Complaint: SOB Time Seen by Provider: 02/22/23 19:49 Source: EMS Mode of arrival: EMS Limitations: altered mental status - History of Present Illness Initial Comments: This 58-year-old male presents by EMS from [facility] with some fatigue as compared to normal. He also has had increased cough. This was just noted today. He apparently was 88% by EMS upon their arrival. He also had a temperature of 100.0 per EMS. The patient is mentally handicapped and cannot communicate and therefore no history is obtained per patient. All history is obtained per nurse from EMS from [facility] staff. Additional history is otherwise unknown. - Related Data Home Medications Medication Instructions Recorded Confirmed Levothyroxine Sodium [Synthroid] 25 mcg PO DAILY@0800 07/13/14 02/22/23 FLUoxetine HCL [PROzac] 40 mg PO DAILY@0800 06/22/16 02/22/23 Naltrexone HCl [Revia] 50 mg PO DAILY@0800 07/11/18 02/22/23 Ferrous Sulfate [Iron] 325 mg PO DAILY@1600 08/23/18 02/22/23 Montelukast Sodium [Singulair] 10 mg PO HS@199905/25/20 02/22/23 guanFACINE HCL [Intuniv] 3 mg PO DAILY@0800 05/25/20 02/22/23 Apixaban [Eliquis] 5 mg PO BID@08,199903/18/22 02/22/23 Tamsulosin [Flomax] 0.4 mg PO HS@199903/18/22 02/22/23 Famotidine [Pepcid] 20 mg PO HS@199908/18/22 02/22/23 Lovastatin [Mevacor] 40 mg PO HS@199908/18/22 02/22/23 Vitamin B Complex 1 cap PO DAILY@0800 08/18/22 02/22/23 Acetaminophen Tab [Tylenol] 650 mg PO Q6H PRN 12/03/22 02/22/23 Bismuth Subsalicylate 262 mg PO DAILY PRN 12/03/22 02/22/23 [Pepto-Bismol] Budesonide 0.5 mg INHALATION RT-BID PRN 12/03/22 02/22/23 Docusate [Colace] 100 mg PO HS PRN 12/03/22 02/22/23 Ibuprofen [Motrin Ib] 400 mg PO TID PRN 12/03/22 02/22/23 Loperamide HCl [Imodium A-D] 2 - 4 mg PO QID PRN 12/03/22 02/22/23 Magnesium Hydroxide [Milk of 2,400 mg PO DAILY PRN 12/03/22 02/22/23 Magnesia] Metoprolol Succinate (ER) [Toprol 25 mg PO HS@199912/03/22 02/22/23 XL] Psyllium Husk (with Sugar) 6 gm PO DAILY PRN 12/03/22 02/22/23 [Metamucil Powder] Thick-It 1 dose PO TID PRN 12/03/22 02/22/23 diphenhydrAMINE [Benadryl] 50 mg PO Q4H PRN 12/03/22 02/22/23 guaiFENesin-DM 100-10MG/5ML 15 ml PO Q6H PRN 12/03/22 02/22/23 [Robitussin DM] Cholecalciferol [Vitamin D3 (25 25 mcg PO DAILY@0800 01/20/23 02/22/23 Mcg = 1000 Iu)] Pseudoephedrine HCl [Sudafed] 60 mg PO Q4H MDD 240 MG 01/20/23 02/22/23 Cephalexin [Keflex] 1,000 mg PO Q12HR 02/22/23 02/22/23 metFORMIN HCL ER [Glucophage XR] 1,000 mg PO DAILY@0800 02/22/23 02/22/23 Previous Rx's Medication Instructions Recorded risperiDONE [RisperDAL] 1 mg PO DAILY@0800 #3 tab 12/10/22 risperiDONE [RisperDAL] 2 mg PO DAILY@1600 #3 tab 12/10/22 Divalproex [Depakote] 1,000 mg PO BID@0800,1999 #0 01/23/23 Allergies Allergy/AdvReac Type Severity Reaction Status Date / Time No Known Allergies Allergy Verified 02/22/23 20:13 Review of Systems ROS Statement: Those systems with pertinent positive or pertinent negative responses have been documented in the HPI. ROS Other: All systems not noted in ROS Statement are negative. Past Medical History Past Medical History: Diabetes Mellitus, GERD/Reflux, Hyperlipidemia, Hypertens ion, Pneumonia, Pulmonary Embolus (PE), Thyroid Disorder Additional Past Medical History / Comment(s): Developmentally delayed, autism, OCD, pt able to speak and normally oriented to person/place, aspiration pneumonia, aspiration precautions, pt will regurgitate and reswallow, PICA, NIDDM type II, occasional small amount blood in stool-worsening History of Any Multi-Drug Resistant Organisms: None Reported Past Surgical History: No Surgical Hx Reported Additional Past Surgical History / Comment(s): Colonoscopy. 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 VITAL SIGNS: Heart rate, blood pressure, respiratory rate reviewed as recorded in nurse's notes. EYES: Pupils are round and reactive. Extraocular movements are intact. No conjunctival / lid redness or swelling. ENT: No external evidence of injury, swelling, or ecchymosis. Airway is patent. Throat is clear. NECK: Nontender. No swelling or evidence of injury. No subcutaneous emphysema. Trachea is midline. No thyroid mass. HEART: Regular rate and rhythm. Good peripheral pulses. LUNGS/CHEST: Occasional rhonchi noted bilaterally. No ecchymosis, subcutaneous emphysema, or tenderness. No acute respiratory distress noted. ABDOMEN: Abdomen soft without tenderness. No palpable masses or organomegaly. No peritoneal signs. No abdominal wall swelling or ecchymosis. EXTREMITIES: No extremity tenderness. Normal muscle tone and function. No thoracolumbar tenderness. NEUROLOGIC: Sensation is grossly intact. Cranial nerve exam reveals face is symmetrica. PSYCHIATRIC: Patient is chronically mentally handicapped and does not communicate. Limitations: altered mental status Course Vital Signs 02/22/23 02/22/23 02/22/23 19:45 20:12 20:21 Temperature 99.7 F H Pulse Rate 115 H 116 H 111 H Respiratory 20 Rate Blood Pressure 143/83 O2 Sat by Pulse 91 L Oximetry 02/22/23 02/22/23 20:27 21:35 Temperature 100.2 F H Pulse Rate 106 H Respiratory 20 18 Rate Blood Pressure 98/55 O2 Sat by Pulse 98 Oximetry Medical Decision Making - Medical Decision Making The patient was seen and examined. IV fluid is administered. ECG shows a sinus tachycardia with heart rate of 114. There is no ST or T wave changes noted per my interpretation. Intervals are normal. The chest x-ray does show evidence of bilateral pleural effusions with suspected right pulmonary infiltrate per my interpretation. The radiologist does note a possible atypical pneumonia and correct clinical setting versus congestive heart failure. It is felt as though his symptomatology does correlate more with pneumonia especially in light of his fever and leukocytosis, fatigue, and hypoxia. He is started on Rocephin and Zithromax intravenously. Urinalysis does show evidence of likely urinary tract infection. Laboratory shows elevation of the white blood cell count and very slight elevation of the lactic acid. It is felt as though he does need surgical criteria. He does receive ample fluid hydration but additional fluids are withheld due to the possibility of congestive heart failure per radiology. It is felt as though he would require admission to the hospital for further IV antibiotics and hydration and treatment. Viral studies are negative. Case is discussed with internal medicine and they're agreeable with admission. Was pt. sent in by a medical professional or institution (TONI Amador, JUNIOR ASSISTANT MANAGER, urgent care, hospital, or fpc...) When possible be specific @ -Patient was sent in by the fpc. Did you speak to anyone other than the patient for history (EMS, parent, family, police, friend...)? What history was obtained from this source @ -Case is discussed with the nurse who discussed with EMS. Did you review nursing and triage notes (agree or disagree)? Why? @ -[I reviewed and agree with nursing and triage notes] Were old charts reviewed (outside hosp., previous admission, EMS record, old EKG, old radiological studies, urgent care reports/EKG's, fpc records)? Report findings @ -Old records were reviewed in regards to additional patient past medical history. Differential Diagnosis (chest pain, altered mental status, abdominal pain women, abdominal pain men, vaginal bleeding, weakness, fever, dyspnea, syncope, headache, dizziness, GI bleed, back pain, seizure, CVA, palpatations, mental health, musculoskeletal)? @ -Pneumonia, upper respiratory infection, bronchitis, viral infection, urinary tract infection, sepsis. EKG interpreted by me (3pts min.). @ -[As above] X-rays interpreted by me (1pt min.). @ -As above CT interpreted by me (1pt min.). @ -[None done] U/S interpreted by me (1pt. min.). @ -[None done] What testing was considered but not performed or refused? (CT, X-rays, U/S, labs)? Why? @ -[None] What meds were considered but not given or refused? Why? @ -[None] Did you discuss the management of the patient with other professionals (professionals i.e. , PA, JUNIOR ASSISTANT MANAGER, lab, RT, psych nurse, social services, traffic engineering director, teacher, chief strategy officer, supportive employment case manager)? Give summary @ -Case is discussed with internal medicine and they're agreeable with admission. Was smoking cessation discussed for >3mins.? @ -[No] Was critical care preformed (if so, how long)? @ -30 minutes of critical care time was utilized and the treatment of the patient. Were there social determinants of health that impacted care today? How? (Homelessness, low income, unemployed, alcoholism, drug addiction, transportation, low edu. Level, literacy, decrease access to med. care, assisted, rehab)? @ -Social determinants to include that of severe mentally handicapped and inability to communicate. Was there de-escalation of care discussed even if they declined (Discuss DNR or withdrawal of care, Hospice)? DNR status @ -[No] What co-morbidities impacted this encounter? (DM, HTN, Smoking, COPD, CAD, Cancer, CVA, ARF, Chemo, Hep., AIDS, mental health diagnosis, sleep apnea, morbid obesity)? @ -Mentally handicapped. Was patient admitted / discharged? Hospital course, mention meds given and route, prescriptions, significant lab abnormalities, going to OR and other pertinent info. @ -She didn't is admitted to the hospital, please see above. Undiagnosed new problem with uncertain prognosis? @ -[No] Drug Therapy requiring intensive monitoring for toxicity (Heparin, Nitro, Insulin, Cardizem)? @ -[No] Were any procedures done? @ -[No] Diagnosis/symptom? @ -Pneumonia, sepsis, SIRS criteria, hypoxic respiratory failure, leukocytosis. Acute, or Chronic, or Acute on Chronic? @ -Acute Uncomplicated (without systemic symptoms) or Complicated (systemic symptoms)? @ -Uncomplicated Side effects of treatment? @ -[No] Exacerbation, Progression, or Severe Exacerbation? @ -[No] Poses a threat to life or bodily function? How? (Chest pain, USA, NM, pneumonia, PE, COPD, DKA, ARF, appy, cholecystitis, CVA, Diverticulitis, Homicidal, Suicidal, threat to staff... and all critical care pts) @ -DS, patient is significantly hypoxic. - Lab Data Result diagrams: 02/22/23 20:14 02/22/23 20:00 Lab Results 02/22/23 02/22/23 02/22/23 Range/Units 20:00 20:00 20:00 WBC (3.8-10.6) k/uL RBC (4.30-5.90) m/uL Hgb (13.0-17.5) gm/dL Hct (39.0-53.0) % MCV (80.0-100.0) fL MCH (25.0-35.0) pg MCHC (31.0-37.0) g/dL RDW (11.5-15.5) % Plt Count (150-450) k/uL MPV Neutrophils % % Lymphocytes % % Monocytes % % Eosinophils % % Basophils % % Neutrophils # (1.3-7.7) k/uL Lymphocytes # (1.0-4.8) k/uL Monocytes # (0-1.0) k/uL Eosinophils # (0-0.7) k/uL Basophils # (0-0.2) k/uL PT 9.7 L (10.0-12.5) sec INR 0.9 (<1.2) APTT 23.0 (22.0-30.0) sec Sodium 135 L (137-145) mmol/L Potassium 5.0 (3.5-5.1) mmol/L Chloride 98 (98-107) mmol/L Carbon Dioxide 26 (22-30) mmol/L Anion Gap 11 mmol/L BUN 34 H (9-20) mg/dL Creatinine 0.90 (0.66-1.25) mg/dL Est GFR (CKD-EPI)AfAm >90 (>60 ml/min/1.73 sqM) Est GFR (CKD-EPI)NonAf >90 (>60 ml/min/1.73 sqM) Glucose 322 H (74-99) mg/dL Plasma Lactic Acid Daren 2.1 H* (0.7-2.0) mmol/L Calcium 9.3 (8.4-10.2) mg/dL Total Bilirubin 0.5 (0.2-1.3) mg/dL AST 35 (17-59) U/L ALT 24 (4-49) U/L Alkaline Phosphatase 81 (38-126) U/L Troponin I (0.000-0.034) ng/mL NT-Pro-B Natriuret Pep 209 pg/mL Total Protein 6.4 (6.3-8.2) g/dL Albumin 3.7 (3.5-5.0) g/dL Urine Color Urine Appearance (Clear) Urine pH (5.0-8.0) Ur Specific Simpson (1.001-1.035) Urine Protein (Negative) Urine Glucose (UA) (Negative) Urine Ketones (Negative) Urine Blood (Negative) Urine Nitrite (Negative) Urine Bilirubin (Negative) Urine Urobilinogen (<2.0) mg/dL Ur Leukocyte Esterase (Negative) Urine RBC (0-5) /hpf Urine WBC (0-5) /hpf Urine Mucus (None) /hpf Influenza Type A (PCR) (Not Detectd) Influenza Type B (PCR) (Not Detectd) RSV (PCR) (Not Detectd) SARS-CoV-2 (PCR) (Not Detectd) 02/22/23 02/22/23 02/22/23 Range/Units 20:00 20:00 20:00 WBC (3.8-10.6) k/uL RBC (4.30-5.90) m/uL Hgb (13.0-17.5) gm/dL Hct (39.0-53.0) % MCV (80.0-100.0) fL MCH (25.0-35.0) pg MCHC (31.0-37.0) g/dL RDW (11.5-15.5) % Plt Count (150-450) k/uL MPV Neutrophils % % Lymphocytes % % Monocytes % % Eosinophils % % Basophils % % Neutrophils # (1.3-7.7) k/uL Lymphocytes # (1.0-4.8) k/uL Monocytes # (0-1.0) k/uL Eosinophils # (0-0.7) k/uL Basophils # (0-0.2) k/uL PT (10.0-12.5) sec INR (<1.2) APTT (22.0-30.0) sec Sodium (137-145) mmol/L Potassium (3.5-5.1) mmol/L Chloride (98-107) mmol/L Carbon Dioxide (22-30) mmol/L Anion Gap mmol/L BUN (9-20) mg/dL Creatinine (0.66-1.25) mg/dL Est GFR (CKD-EPI)AfAm (>60 ml/min/1.73 sqM) Est GFR (CKD-EPI)NonAf (>60 ml/min/1.73 sqM) Glucose (74-99) mg/dL Plasma Lactic Acid Daren (0.7-2.0) mmol/L Calcium (8.4-10.2) mg/dL Total Bilirubin (0.2-1.3) mg/dL AST (17-59) U/L ALT (4-49) U/L Alkaline Phosphatase (38-126) U/L Troponin I <0.012 (0.000-0.034) ng/mL NT-Pro-B Natriuret Pep pg/mL Total Protein (6.3-8.2) g/dL Albumin (3.5-5.0) g/dL Urine Color Light Yellow Urine Appearance Cloudy (Clear) Urine pH 5.5 (5.0-8.0) Ur Specific Simpson 1.025 (1.001-1.035) Urine Protein Negative (Negative) Urine Glucose (UA) 4+ (Negative) Urine Ketones 1+ H (Negative) Urine Blood Trace (Negative) Urine Nitrite Negative (Negative) Urine Bilirubin Negative (Negative) Urine Urobilinogen <2.0 (<2.0) mg/dL Ur Leukocyte Esterase Moderate (Negative) Urine RBC 1 (0-5) /hpf Urine WBC 43 H (0-5) /hpf Urine Mucus Rare H (None) /hpf Influenza Type A (PCR) Not Detected (Not Detectd) Influenza Type B (PCR) Not Detected (Not Detectd) RSV (PCR) Not Detected (Not Detectd) SARS-CoV-2 (PCR) Not Detected (Not Detectd) 02/22/23 Range/Units 20:14 WBC 13.4 H (3.8-10.6) k/uL RBC 4.18 L (4.30-5.90) m/uL Hgb 12.8 L (13.0-17.5) gm/dL Hct 39.9 (39.0-53.0) % MCV 95.6 (80.0-100.0) fL MCH 30.7 (25.0-35.0) pg MCHC 32.1 (31.0-37.0) g/dL RDW 14.5 (11.5-15.5) % Plt Count 273 (150-450) k/uL MPV 7.8 Neutrophils % 88 % Lymphocytes % 5 % Monocytes % 6 % Eosinophils % 0 % Basophils % 0 % Neutrophils # 11.8 H (1.3-7.7) k/uL Lymphocytes # 0.7 L (1.0-4.8) k/uL Monocytes # 0.8 (0-1.0) k/uL Eosinophils # 0.0 (0-0.7) k/uL Basophils # 0.0 (0-0.2) k/uL PT (10.0-12.5) sec INR (<1.2) APTT (22.0-30.0) sec Sodium (137-145) mmol/L Potassium (3.5-5.1) mmol/L Chloride (98-107) mmol/L Carbon Dioxide (22-30) mmol/L Anion Gap mmol/L BUN (9-20) mg/dL Creatinine (0.66-1.25) mg/dL Est GFR (CKD-EPI)AfAm (>60 ml/min/1.73 sqM) Est GFR (CKD-EPI)NonAf (>60 ml/min/1.73 sqM) Glucose (74-99) mg/dL Plasma Lactic Acid Daren (0.7-2.0) mmol/L Calcium (8.4-10.2) mg/dL Total Bilirubin (0.2-1.3) mg/dL AST (17-59) U/L ALT (4-49) U/L Alkaline Phosphatase (38-126) U/L Troponin I (0.000-0.034) ng/mL NT-Pro-B Natriuret Pep pg/mL Total Protein (6.3-8.2) g/dL Albumin (3.5-5.0) g/dL Urine Color Urine Appearance (Clear) Urine pH (5.0-8.0) Ur Specific Simpson (1.001-1.035) Urine Protein (Negative) Urine Glucose (UA) (Negative) Urine Ketones (Negative) Urine Blood (Negative) Urine Nitrite (Negative) Urine Bilirubin (Negative) Urine Urobilinogen (<2.0) mg/dL Ur Leukocyte Esterase (Negative) Urine RBC (0-5) /hpf Urine WBC (0-5) /hpf Urine Mucus (None) /hpf Influenza Type A (PCR) (Not Detectd) Influenza Type B (PCR) (Not Detectd) RSV (PCR) (Not Detectd) SARS-CoV-2 (PCR) (Not Detectd) Disposition Clinical Impression: Mental retardation, Pneumonia, Lactic acidosis, Borderline developmental delay, Respiratory failure, Hypoxia, Leukocytosis, Hyperglycemia, UTI (urinary tract infection), Sepsis Disposition: ADMITTED IP TO THIS HOSP Condition: Fair Is patient prescribed a controlled substance at d/c from ED?: No Time of Disposition: 22:19 Decision Date: 02/22/23 Decision Time: 22:19
[2023-02-22] MEDS ORDERED: PNEUMONIA PROTOCOL UTILIZED 1 EACH MISC PO PRN (22:24)
[2023-02-22] MEDS ORDERED: IPRATROPIUM-ALBUTEROL 3 ML NEB INHALATION PRN (22:24)
[2023-02-22] MEDS ORDERED: DEXTROSE 50% SYRINGE 50 ML IVP PRN ×2 (22:29)
[2023-02-23] MEDS ORDERED: PSEUDOEPHEDRINE 30 MG TAB PO SCH
[2023-02-23] MEDS ORDERED: guaiFENesin-DM 100-10MG/5ML 10 ML CUP PO PRN
--- NOTE | 2023-02-23 00:58 | P.HPIM ---
History of Present Illness H&P Date: 02/23/23 Patient is a 58-year-old male with developmental delay, type II DM, hypertension, hyperlipidemia, hypothyroidism, and GERD who was brought to the emergency room via EMS from [facility] due to cough and shortness of breath. The patient is minimally verbal at baseline and only follows the most basic of comm ands. History thereby obtained from the chart and from the ED provider. Per EMS, the patient had an SpO2 of 92% on room air upon their arrival at the scene. Upon arrival at the emergency room, the patient's SpO2 was 91% on room air with a T-max of 100.2F. At time of interview, the patient denied any active complaints although was not answering all questions appropriately with simple yes and no. Chest x-ray revealed diffuse opacities concerning for atypical pneumonia versus pulmonary vascular congestion. EKG revealed sinus tachycardia to 114 bpm as reviewed by me. Laboratory evaluation was remarkable for lactic acidosis of 2.1, leukocytosis of 13.4, with UA showing 43 WBCs. ED documentation reviewed and case discussed with ED provider. Review of systems: Unable to obtain due to mental status Physical examination: Vital signs reviewed General: non toxic, no distress, appears at stated age, normal weight Derm: no unusual rashes/lesions, warm Head: atraumatic, normocephalic, symmetric Eyes: EOMI, no lid lag, anicteric sclera, pupils equal round reactive to light ENT: Nose and ears atraumatic Neck: No cervical lymphadenopathy, trachea midline, supple Mouth: no lip lesion, mucus membranes moist Cardiovascular: S1S2 reg, no murmur, positive dorsalis pedis pulse bilateral, no edema Lungs: CTA bilateral, no rhonchi, no rales, no accessory muscle use Abdominal: soft, nontender to palpation, no guarding Ext: no gross muscle atrophy, no contractures, Neuro: no gross focal neuro deficits Psych: Minimally verbal, answering questions with yes or no, not answering orientation questions Assessment: Sepsis secondary to community acquired pneumonia Acute hypoxic respiratory failure, secondary to above Lactic acidosis Chronic conditions: Developmental delay, type II DM, hypertension, hyperlipidemia, hypothyroidism, GERD Imaging: Chest x-ray revealed diffuse opacities concerning for atypical pneumonia versus pulmonary vascular congestion. EKG revealed sinus tachycardia to 114 bpm as reviewed by me. Data Review: Laboratory evaluation was remarkable for lactic acidosis of 2.1, leukocytosis of 13.4, with UA showing 43 WBCs. Plan: Continue with azithromycin and ceftriaxone Follow-up blood cultures Follow-up sputum and Legionella cultures Supplemental oxygen Continue IV fluids with normal saline 130 mL/h Monitor lactic acid levels for resolution Continued home medications DVT prophylaxis: Eliquis The patient is admitted with an anticipated greater than 2 midnight stay for evaluation of CAP CODE STATUS: Full Code Discussed with: Patient Anticipated discharge place: [facility] Past Medical History Past Medical History: Diabetes Mellitus, GERD/Reflux, Hyperlipidemia, Hypertension, Pneumonia, Pulmonary Embolus (PE), Thyroid Disorder Additional Past Medical History / Comment(s): Developmentally delayed, autism, OCD, pt able to speak and normally oriented to person/place, aspiration pneumonia, aspiration precautions, pt will regurgitate and reswallow, PICA, NIDDM type II, occasional small amount blood in stool-worsening History of Any Multi-Drug Resistant Organisms: None Reported Past Surgical History: No Surgical Hx Reported Additional Past Surgical History / Comment(s): Colonoscopy. Past Anesthesia/Blood Transfusion Reactions: No Reported Reaction Additional Past Anesthesia/Blood Transfusion Reaction / Comment(s): [employer] STATES NO KNOWN SURGERY Past Psychological History: ADD/ADHD, Anxiety Additional Psychological History / Comment(s): Pt resides at [facility] [place]. Pt has [employer] public legal guardian. Autism, developmentally delayed, OCD, PICA (pt. caregiver states pt will eat feces , urine, and other things if he is left unattended). Aspiration precautions/mechanical soft/thickit with fluids. Smoking Status: Unknown if ever smoked Past Alcohol Use History: None Reported Past Drug Use History: None Reported - Past Family History Father History Unknown: Yes Mother History Unknown: Yes Family Medical History: Diabetes Mellitus Medications and Allergies Home Medications Medication Instructions Recorded Confirmed Type Levothyroxine Sodium [Synthroid] 25 mcg PO DAILY@79907/13/14 02/22/23 History FLUoxetine HCL [PROzac] 40 mg PO DAILY@79906/22/16 02/22/23 History Naltrexone HCl [Revia] 50 mg PO DAILY@07/11/02/22/23 History Ferrous Sulfate [Iron] 325 mg PO DAILY@1600 08/23/18 02/22/23 History Montelukast Sodium [Singulair] 10 mg PO HS@199905/25/20 02/22/23 History guanFACINE HCL [Intuniv] 3 mg PO DAILY@0800 05/25/20 02/22/23 History Apixaban [Eliquis] 5 mg PO BID@03/18/22 02/22/23 History Tamsulosin [Flomax] 0.4 mg PO HS@199903/18/22 02/22/23 History Famotidine [Pepcid] 20 mg PO HS@199908/18/22 02/22/23 History Lovastatin [Mevacor] 40 mg PO HS@199908/18/22 02/22/23 History Vitamin B Complex 1 cap PO DAILY@79908/18/22 02/22/23 History Acetaminophen Tab [Tylenol] 650 mg PO Q6H PRN 12/03/22 02/22/23 History Bismuth Subsalicylate 262 mg PO DAILY PRN 12/03/22 02/22/23 History [Pepto-Bismol] Budesonide 0.5 mg INHALATION RT-BID PRN 12/03/22 02/22/23 History Docusate [Colace] 100 mg PO HS PRN 12/03/22 02/22/23 History Ibuprofen [Motrin Ib] 400 mg PO TID PRN 12/03/22 02/22/23 History Loperamide HCl [Imodium A-D] 2 - 4 mg PO QID PRN 12/03/22 02/22/23 History Magnesium Hydroxide [Milk of 2,400 mg PO DAILY PRN 12/03/22 02/22/23 History Magnesia] Metoprolol Succinate (ER) [Toprol 25 mg PO HS@199912/03/22 02/22/23 History XL] Psyllium Husk (with Sugar) 6 gm PO DAILY PRN 12/03/22 02/22/23 History [Metamucil Powder] Thick-It 1 dose PO TID PRN 12/03/22 02/22/23 History diphenhydrAMINE [Benadryl] 50 mg PO Q4H PRN 12/03/22 02/22/23 History guaiFENesin-DM 100-10MG/5ML 15 ml PO Q6H PRN 12/03/22 02/22/23 History [Robitussin DM] risperiDONE [RisperDAL] 1 mg PO DAILY@0800 #3 tab 12/10/22 02/22/23 Rx risperiDONE [RisperDAL] 2 mg PO DAILY@1600 #3 tab 12/10/22 02/22/23 Rx Cholecalciferol [Vitamin D3 (25 25 mcg PO DAILY@0800 01/20/23 02/22/23 History Mcg = 1000 Iu)] Pseudoephedrine HCl [Sudafed] 60 mg PO Q4H MDD 240 MG 01/20/23 02/22/23 History Divalproex [Depakote] 1,000 mg PO BID@0800,2000 #0 01/23/23 02/22/23 Rx Cephalexin [Keflex] 1,000 mg PO Q12HR 02/22/23 02/22/23 History metFORMIN HCL ER [Glucophage XR] 1,000 mg PO DAILY@0800 02/22/23 02/22/23 History Allergies Allergy/AdvReac Type Severity Reaction Status Date / Time No Known Allergies Allergy Verified 02/22/23 20:13 Physical Exam Vitals: Vital Signs Temp Pulse Pulse Resp BP BP Pulse Ox 02/23/23 00:24 99.0 F 95 16 119/72 96 02/23/23 00:04 99.4 F 02/22/23 23:00 96 20 101/64 98 02/22/23 22:20 99.8 F H 99 18 99/61 96 02/22/23 21:35 100.2 F H 106 H 18 98/55 98 02/22/23 20:27 20 02/22/23 20:21 111 H 02/22/23 20:12 116 H 02/22/23 19:45 99.7 F H 115 H 20 143/83 91 L Intake and Output 02/22/23 02/22/23 02/23/23 14:59 22:59 06:59 Other: Weight 63.503 kg 63.503 kg Results CBC & Chem 7: 02/22/23 20:14 02/22/23 20:00 Labs: Abnormal Lab Results - Last 24 Hours (Table) 02/22/23 02/22/23 02/22/23 Range/Units 20:00 20:00 20:00 WBC (3.8-10.6) k/uL RBC (4.30-5.90) m/uL Hgb (13.0-17.5) gm/dL Neutrophils # (1.3-7.7) k/uL Lymphocytes # (1.0-4.8) k/uL PT 9.7 L (10.0-12.5) sec Sodium 135 L (137-145) mmol/L BUN 34 H (9-20) mg/dL Glucose 322 H (74-99) mg/dL Plasma Lactic Acid Daren 2.1 H* (0.7-2.0) mmol/L Urine Ketones (Negative) Urine WBC (0-5) /hpf Urine Mucus (None) /hpf 02/22/23 02/22/23 Range/Units 20:00 20:14 WBC 13.4 H (3.8-10.6) k/uL RBC 4.18 L (4.30-5.90) m/uL Hgb 12.8 L (13.0-17.5) gm/dL Neutrophils # 11.8 H (1.3-7.7) k/uL Lymphocytes # 0.7 L (1.0-4.8) k/uL PT (10.0-12.5) sec Sodium (137-145) mmol/L BUN (9-20) mg/dL Glucose (74-99) mg/dL Plasma Lactic Acid Daren (0.7-2.0) mmol/L Urine Ketones 1+ H (Negative) Urine WBC 43 H (0-5) /hpf Urine Mucus Rare H (None) /hpf Thrombosis Risk Factor Assmnt - Choose All That Apply Any of the Below Risk Factors Present?: Yes Each Factor Represents 1 point: Age 41-60 years, Serious lung disease incl. pneumonia (< 1month) Other Risk Factors: Yes Each Risk Factor Represents 2 Points: Patient confined to bed Thrombosis Risk Factor Assessment Total Risk Factor Score: 4 Thrombosis Risk Factor Assessment Level: Moderate Risk
[2023-02-23 06:58] LABS: Glucose,Whole Blood 176 mg/dL (70-110)
[2023-02-23] MEDS ORDERED: metFORMIN 500 MG TAB PO SCH (08:00)
[2023-02-23] MEDS ORDERED: LOPERAMIDE 2 MG CAP PO PRN (09:00)
[2023-02-23] MEDS ORDERED: IBUPROFEN 400 MG TAB PO PRN (09:00)
[2023-02-23] MEDS ORDERED: BISMUTH SUBSALICYLATE 4,192 MG/240 ML BOTTLE PO PRN (09:00)
[2023-02-23] MEDS ORDERED: MAGNESIUM HYDROXIDE 2,400 MG/30 ML CUP PO PRN (09:00)
[2023-02-23] MEDS ORDERED: PSYLLIUM HUSK 100% 6 GM PACKET PO PRN (09:00)
[2023-02-23 09:47] LABS: African American GFR (CKD) >90 (>60 ml/min/1.73 sqM); Anion Gap 8 mmol/L; Blood Urea Nitrogen 26 mg/dL (9-20); Calcium 8.6 mg/dL (8.4-10.2); Carbon Dioxide 28 mmol/L (22-30); Chloride 105 mmol/L (98-107); Glucose 149 mg/dL (74-99); Non-African American GFR(CKD) >90 (>60 ml/min/1.73 sqM); Potassium 4.2 mmol/L (3.5-5.1); Sodium 141 mmol/L (137-145)
[2023-02-23 10:41] VITALS: BMI 22.6
[2023-02-23] MEDS: INSULIN ASPART (NovoLOG) 100 UNIT/ML VIAL SQ SCH ×6 (11:04→20:34)
[2023-02-23] MEDS: FLUoxetine HCL 20 MG CAP PO SCH (11:05)
[2023-02-23] MEDS: NALTREXONE HCL 50 MG TAB PO SCH (11:05)
[2023-02-23] MEDS: CHOLECALCIFEROL 25 MCG (1000 IU) TABLET PO SCH (11:05)
[2023-02-23] MEDS: FOLIC ACID-VIT B COMPLEX-VIT C 1 CAP PO SCH (11:05)
[2023-02-23] MEDS: APIXABAN 5 MG TAB PO SCH ×2 (11:05→20:23)
[2023-02-23] MEDS: guanFACINE 1 MG TAB PO SCH (11:05)
[2023-02-23] MEDS: LEVOTHYROXINE 25 MCG TAB PO SCH (11:05)
[2023-02-23] MEDS: DIVALPROEX 500 MG TABLET.DR PO SCH ×2 (11:05→20:23)
[2023-02-23] MEDS: risperiDONE 1 MG TAB PO SCH (11:06)
[2023-02-23] MEDS: AZITHROMYCIN 500 MG in SODIUM CHLORIDE 0.9% 250 ML IVPB SCH (11:06)
[2023-02-23 11:48] LABS: Glucose,Whole Blood 223 mg/dL (70-110)
[2023-02-23 13:05] LABS: HCT 32.2 % (39.0-53.0); HGB 10.2 gm/dL (13.0-17.5); Hypochromasia Slight; MCH 30.9 pg (25.0-35.0); MCHC 31.8 g/dL (31.0-37.0); MCV 97.1 fL (80.0-100.0); Mean Platelet Volume 7.7; Platelet Count 206 k/uL (150-450); RBC 3.31 m/uL (4.30-5.90); RDW 14.4 % (11.5-15.5); WBC 10.8 k/uL (3.8-10.6)
--- NOTE | 2023-02-23 14:49 | P.PN ---
Progress Note - Text Progress Note Date: 02/23/23 (Delayed charting seen at 0910) Hospitalist Interval Note Patient seen and examined at bedside. He is nonverbal but appears comfortable. Vital signs reviewed General: non toxic, no distress, appears at stated age Derm: warm, dry Head: atraumatic, normocephalic, symmetric Eyes: EOMI, no lid lag, anicteric sclera Mouth: no lip lesion, mucus membranes moist Cardiovascular: S1S2 reg, no murmur, positive posterior tibial pulse bilateral, Lungs: Coarse breath sounds bilateral, no rhonchi, no rales , no accessory muscle use Psych: Nonverbal, does not appear anxious Assessment/Plan: CAP with sepsis,suspect aspiration PNA - speech consult - continue rocephin and zithromax - d/w CM and long term feels that he maybe too complex for their care, CM reaching out to court appointed guardian This is an update note for patient , for full note on 01/24/23 see H & P. There is no charge associated with this note.
[2023-02-23 17:34] LABS: Glucose,Whole Blood 242 mg/dL (70-110)
[2023-02-23] MEDS: FERROUS SULFATE 325 MG TAB PO SCH (18:00)
[2023-02-23] MEDS: risperiDONE 2 MG TAB PO SCH (18:00)
[2023-02-23] MEDS: LACTATED RINGERS 1,000 ML IV SCH (18:01)
[2023-02-23] MEDS: TAMSULOSIN 0.4 MG CAP.ER.24H PO SCH (20:23)
[2023-02-23] MEDS: ATORVASTATIN 10 MG TAB PO SCH (20:23)
[2023-02-23] MEDS: MONTELUKAST 10 MG TAB PO SCH (20:23)
[2023-02-23] MEDS: METOPROLOL SUCCINATE (ER) 25 MG TAB.ER.24H PO SCH (20:23)
[2023-02-23] MEDS: FAMOTIDINE 20 MG TAB PO SCH (20:23)
[2023-02-23 20:27] LABS: Glucose,Whole Blood 193 mg/dL (70-110)
[2023-02-24 07:00] LABS: Glucose,Whole Blood 160 mg/dL (70-110)
[2023-02-24 07:46] LABS: HCT 30.6 % (39.0-53.0); MCH 31.2 pg (25.0-35.0); MCHC 32.6 g/dL (31.0-37.0); MCV 95.7 fL (80.0-100.0); Mean Platelet Volume 8.1; Platelet Count 216 k/uL (150-450); RDW 14.3 % (11.5-15.5); WBC 8.4 k/uL (3.8-10.6)
[2023-02-24 07:55] LABS: African American GFR (CKD) >90 (>60 ml/min/1.73 sqM); Anion Gap 8 mmol/L; Blood Urea Nitrogen 19 mg/dL (9-20); Calcium 8.9 mg/dL (8.4-10.2); Carbon Dioxide 28 mmol/L (22-30); Chloride 101 mmol/L (98-107); Glucose 142 mg/dL (74-99); Non-African American GFR(CKD) >90 (>60 ml/min/1.73 sqM); Potassium 3.8 mmol/L (3.5-5.1); Sodium 137 mmol/L (137-145)
[2023-02-24] MEDS: guanFACINE 1 MG TAB PO SCH (09:02)
[2023-02-24] MEDS: NALTREXONE HCL 50 MG TAB PO SCH (09:02)
[2023-02-24] MEDS: FOLIC ACID-VIT B COMPLEX-VIT C 1 CAP PO SCH (09:03)
[2023-02-24] MEDS: APIXABAN 5 MG TAB PO SCH ×2 (09:03→20:00)
[2023-02-24] MEDS: LEVOTHYROXINE 25 MCG TAB PO SCH (09:03)
[2023-02-24] MEDS: risperiDONE 1 MG TAB PO SCH (09:03)
[2023-02-24] MEDS: FLUoxetine HCL 20 MG CAP PO SCH (09:03)
[2023-02-24] MEDS: DIVALPROEX 500 MG TABLET.DR PO SCH ×2 (09:03→20:01)
[2023-02-24] MEDS: CHOLECALCIFEROL 25 MCG (1000 IU) TABLET PO SCH (09:03)
[2023-02-24] MEDS: INSULIN ASPART (NovoLOG) 100 UNIT/ML VIAL SQ SCH ×4 (09:03→21:04)
[2023-02-24] MEDS: AZITHROMYCIN 500 MG in SODIUM CHLORIDE 0.9% 250 ML IVPB SCH (09:04)
[2023-02-24] MEDS: LACTATED RINGERS 1,000 ML IV SCH ×2 (10:31→18:09)
[2023-02-24 11:55] LABS: Glucose,Whole Blood 250 mg/dL (70-110)
--- NOTE | 2023-02-24 14:12 | P.DS ---
Providers Date of admission: 02/22/23 22:24 Expected date of discharge: 02/24/23 Attending physician: Chu Raphael MD Primary care physician: Esequiel Azar MD Hospital Course: Sepsis secondary to community acquired pneumonia Acute hypoxic respiratory failure, secondary to above Lactic acidosis Chronic conditions: Developmental delay, type II DM, hypertension, hyperlipidemia, hypothyroidism, GERD Hospital Course: Patient is a 58-year-old male with developmental delay, type II DM, hypertension, hyperlipidemia, hypothyroidism, and GERD who was brought to the emergency room via EMS from [facility] due to cough and shortness of breath. Upon arrival at the emergency room, the patient's SpO2 was 91% on room air with a T- max of 100.2F. Chest x-ray revealed diffuse opacities concerning for atypical pneumonia versus pulmonary vascular congestion. EKG revealed sinus tachycardia to 114 bpm as reviewed by me. Laboratory evaluation was remarkable for lactic acidosis of 2.1, leukocytosis of 13.4, with UA showing 43 WBCs. Patient was treated with ceftriaxone and azithromycin. He improved quickly with antibiotics, and appeared to be baseline by following day. He was subsequently discharged back to [facility] home with a total of 5 days of antibiotic therapy by mouth with cefdinir/azithromycin. I spent 32 minutes coordinating this discharge on 02/24 Gen: awake, alert HEENT: normocephalic, atraumatic, good hearing acuity, moist mucous membranes Resp: good air exchange, breathing comfortably with no accessory muscle use CVS: good distal perfusion x 4, GI: soft, NTTP, ND : no SPT, no CVAT, rios catheter not present MSK: no pitting edema, no clubbing Neuro: non-focal, moving all extremities Psych: cooperative, euthymic mood Patient Condition at Discharge: Good Plan - Discharge Summary Discharge Rx Participant: No New Discharge Prescriptions: New Cefdinir 300 mg PO Q12HR 4 Days #8 cap Azithromycin [Zithromax] 500 mg PO DAILY 4 Days #8 tab Continue Levothyroxine Sodium [Synthroid] 25 mcg PO DAILY@0800 FLUoxetine HCL [PROzac] 40 mg PO DAILY@0800 Naltrexone HCl [Revia] 50 mg PO DAILY@0800 Ferrous Sulfate [Iron] 325 mg PO DAILY@1600 Montelukast Sodium [Singulair] 10 mg PO HS@2000 guanFACINE HCL [Intuniv] 3 mg PO DAILY@0800 Apixaban [Eliquis] 5 mg PO BID@0800,1999 Lovastatin [Mevacor] 40 mg PO HS@1999 Famotidine [Pepcid] 20 mg PO HS@1999 Vitamin B Complex 1 cap PO DAILY@0800 Bismuth Subsalicylate [Pepto-Bismol] 262 mg PO DAILY PRN PRN Reason: Indigestion Magnesium Hydroxide [Milk of Magnesia] 2,400 mg PO DAILY PRN PRN Reason: Constipation Ibuprofen [Motrin Ib] 400 mg PO TID PRN PRN Reason: Pain diphenhydrAMINE [Benadryl] 50 mg PO Q4H PRN PRN Reason: Allergy Symptoms Loperamide HCl [Imodium A-D] 2 - 4 mg PO QID PRN PRN Reason: Diarrhea Metoprolol Succinate (ER) [Toprol XL] 25 mg PO HS@1999 Divalproex [Depakote] 1,000 mg PO BID@0800,1999 #0 metFORMIN HCL ER [Glucophage XR] 1,000 mg PO DAILY@0800 Tamsulosin [Flomax] 0.4 mg PO HS@1999 Psyllium Husk (with Sugar) [Metamucil Powder] 6 gm PO DAILY PRN PRN Reason: Constipation guaiFENesin-DM 100-10MG/5ML [Robitussin DM] 15 ml PO Q6H PRN PRN Reason: Cough Docusate [Colace] 100 mg PO HS PRN PRN Reason: Constipation Budesonide 0.5 mg INHALATION RT-BID PRN PRN Reason: Shortness Of Breath Acetaminophen Tab [Tylenol] 650 mg PO Q6H PRN PRN Reason: Fever And/ Or Pain Thick-It 1 dose PO TID PRN PRN Reason: all liquids risperiDONE [RisperDAL] 1 mg PO DAILY@0800 #3 tab risperiDONE [RisperDAL] 2 mg PO DAILY@1600 #3 tab Cholecalciferol [Vitamin D3 (25 Mcg = 1000 Iu)] 25 mcg PO DAILY@0800 Pseudoephedrine HCl [Sudafed] 60 mg PO Q4H MDD 240 MG Discontinued Cephalexin [Keflex] 1,000 mg PO Q12HR Discharge Medication List Levothyroxine Sodium [Synthroid] 25 mcg PO DAILY@0800 07/13/14 [History] FLUoxetine HCL [PROzac] 40 mg PO DAILY@0800 06/22/16 [History] Naltrexone HCl [Revia] 50 mg PO DAILY@0800 07/11/18 [History] Ferrous Sulfate [Iron] 325 mg PO DAILY@1600 08/23/18 [History] Montelukast Sodium [Singulair] 10 mg PO HS@199905/25/20 [History] guanFACINE HCL [Intuniv] 3 mg PO DAILY@0805/25/20 [History] Apixaban [Eliquis] 5 mg PO BID@08,199903/18/22 [History] Tamsulosin [Flomax] 0.4 mg PO HS@199903/18/22 [History] Famotidine [Pepcid] 20 mg PO HS@199908/18/22 [History] Lovastatin [Mevacor] 40 mg PO HS@199908/18/22 [History] Vitamin B Complex 1 cap PO DAILY@79908/18/22 [History] Acetaminophen Tab [Tylenol] 650 mg PO Q6H PRN 12/03/22 [History] Bismuth Subsalicylate [Pepto-Bismol] 262 mg PO DAILY PRN 12/03/22 [History] Budesonide 0.5 mg INHALATION RT-BID PRN 12/03/22 [History] Docusate [Colace] 100 mg PO HS PRN 12/03/22 [History] Ibuprofen [Motrin Ib] 400 mg PO TID PRN 12/03/22 [History] Loperamide HCl [Imodium A-D] 2 - 4 mg PO QID PRN 12/03/22 [History] Magnesium Hydroxide [Milk of Magnesia] 2,400 mg PO DAILY PRN 12/03/22 [History] Metoprolol Succinate (ER) [Toprol XL] 25 mg PO HS@199912/03/22 [History] Psyllium Husk (with Sugar) [Metamucil Powder] 6 gm PO DAILY PRN 12/03/22 [History] Thick-It 1 dose PO TID PRN 12/03/22 [History] diphenhydrAMINE [Benadryl] 50 mg PO Q4H PRN 12/03/22 [History] guaiFENesin-DM 100-10MG/5ML [Robitussin DM] 15 ml PO Q6H PRN 12/03/22 [History] risperiDONE [RisperDAL] 1 mg PO DAILY@0800 #3 tab 12/10/22 [Rx] risperiDONE [RisperDAL] 2 mg PO DAILY@1600 #3 tab 12/10/22 [Rx] Cholecalciferol [Vitamin D3 (25 Mcg = 1000 Iu)] 25 mcg PO DAILY@0800 01/20/23 [History] Pseudoephedrine HCl [Sudafed] 60 mg PO Q4H MDD 240 MG 01/20/23 [History] Divalproex [Depakote] 1,000 mg PO BID@0800,1999 #0 01/23/23 [Rx] metFORMIN HCL ER [Glucophage XR] 1,000 mg PO DAILY@0800 02/22/23 [History] Azithromycin [Zithromax] 500 mg PO DAILY 4 Days #8 tab 02/24/23 [Rx] Cefdinir 300 mg PO Q12HR 4 Days #8 cap 02/24/23 [Rx] Discharge Disposition: OTHER INSTITUTION NOT DEFINED
[2023-02-24 17:01] LABS: Glucose,Whole Blood 204 mg/dL (70-110)
[2023-02-24] MEDS: FERROUS SULFATE 325 MG TAB PO SCH (17:57)
[2023-02-24] MEDS: risperiDONE 2 MG TAB PO SCH (17:57)
[2023-02-24] MEDS: MONTELUKAST 10 MG TAB PO SCH (20:00)
[2023-02-24] MEDS: FAMOTIDINE 20 MG TAB PO SCH (20:00)
[2023-02-24] MEDS: METOPROLOL SUCCINATE (ER) 25 MG TAB.ER.24H PO SCH (20:01)
[2023-02-24] MEDS: TAMSULOSIN 0.4 MG CAP.ER.24H PO SCH (20:03)
[2023-02-24] MEDS: ATORVASTATIN 10 MG TAB PO SCH (20:03)
[2023-02-24 20:43] LABS: Glucose,Whole Blood 218 mg/dL (70-110)
[2023-02-25 07:36] LABS: Glucose,Whole Blood 152 mg/dL (70-110)
[2023-02-25] MEDS: INSULIN ASPART (NovoLOG) 100 UNIT/ML VIAL SQ SCH ×4 (08:22→20:45)
[2023-02-25] MEDS: DIVALPROEX 500 MG TABLET.DR PO SCH ×2 (09:14→19:52)
[2023-02-25] MEDS: risperiDONE 1 MG TAB PO SCH (09:14)
[2023-02-25] MEDS: LEVOTHYROXINE 25 MCG TAB PO SCH (09:15)
[2023-02-25] MEDS: FOLIC ACID-VIT B COMPLEX-VIT C 1 CAP PO SCH (09:15)
[2023-02-25] MEDS: CHOLECALCIFEROL 25 MCG (1000 IU) TABLET PO SCH (09:15)
[2023-02-25] MEDS: NALTREXONE HCL 50 MG TAB PO SCH (09:15)
[2023-02-25] MEDS: FLUoxetine HCL 20 MG CAP PO SCH (09:15)
[2023-02-25] MEDS: guanFACINE 1 MG TAB PO SCH (09:15)
[2023-02-25] MEDS: APIXABAN 5 MG TAB PO SCH ×2 (09:15→19:52)
[2023-02-25] MEDS: AZITHROMYCIN 500 MG in SODIUM CHLORIDE 0.9% 250 ML IVPB SCH (09:16)
[2023-02-25] MEDS: LACTATED RINGERS 1,000 ML IV SCH (09:30)
[2023-02-25 12:36] LABS: Glucose,Whole Blood 218 mg/dL (70-110)
[2023-02-25] MEDS: risperiDONE 2 MG TAB PO SCH (16:35)
[2023-02-25] MEDS: FERROUS SULFATE 325 MG TAB PO SCH (16:35)
--- NOTE | 2023-02-25 16:50 | P.PN ---
Subjective Progress Note Date: 02/25/23 No new complaints. Pt doing well today on room air Gen: awake, alert HEENT: normocephalic, atraumatic, good hearing acuity, moist mucous membranes Resp: good air exchange, breathing comfortably with no accessory muscle use CVS: good distal perfusion x 4, GI: soft, NTTP, ND : no SPT, no CVAT, rios catheter not present MSK: no pitting edema, no clubbing Neuro: non-focal, moving all extremities Psych: cooperative, euthymic mood Hospital Course: Patient is a 58-year-old male with developmental delay, type II DM, hypertension, hyperlipidemia, hypothyroidism, and GERD who was brought to the emergency room via EMS from [facility] due to cough and shortness of breath. Upon a rrival at the emergency room, the patient's SpO2 was 91% on room air with a T- max of 100.2F. Chest x-ray revealed diffuse opacities concerning for atypical pneumonia versus pulmonary vascular congestion. EKG revealed sinus tachycardia to 114 bpm as reviewed by me. Laboratory evaluation was remarkable for lactic acidosis of 2.1, leukocytosis of 13.4, with UA showing 43 WBCs. Patient was treated with ceftriaxone and azithromycin. He improved quickly with antibiotics, and appeared to be baseline by following day. He was subsequently discharged back to [facility] home with a total of 5 days of antibiotic therapy by mouth with cefdinir/azithromycin. Sepsis secondary to community acquired pneumonia Acute hypoxic respiratory failure, secondary to above Lactic acidosis Chronic conditions: Developmental delay, type II DM, hypertension, hyperlipidemia, hypothyroidism, GERD Assessment/plan: Sepsis secondary to community acquired pneumonia Acute hypoxic respiratory failure, secondary to above - ceftriaxone/azithromycin - f/u BCX - NGTD - oxygen PRN - on room air - IVF Chronic conditions: Developmental delay, type II DM, hypertension, hyperlipidemia, hypothyroidism, GERD DVT prophylaxis: Eliquis The patient is admitted with an anticipated greater than 2 midnight stay for evaluation of CAP CODE STATUS: Full Code Discussed with: Patient Anticipated discharge place: [facility] Objective - Vital Signs Vital signs: Vital Signs Temp 98.4 F 02/25/23 12:34 Pulse 77 02/25/23 12:34 Resp 16 02/25/23 12:34 BP 150/91 02/25/23 12:34 Pulse Ox 93 L 02/25/23 12:34 FiO2 Intake & Output 02/24/23 02/25/23 02/25/23 18:59 06:59 18:59 Weight 63.503 kg Other: Voiding Method Diaper Incontinent # Voids 1 2 1 # Bowel Movements 1 - Labs CBC & Chem 7: 02/24/23 06:28 02/24/23 06:28 Labs: Abnormal Lab Results - Last 24 Hours (Table) 02/24/23 02/24/23 02/25/23 Range/Units 17:00 20:34 07:35 POC Glucose (mg/dL) 204 H 218 H 152 H (70-110) mg/dL 02/25/23 Range/Units 12:34 POC Glucose (mg/dL) 218 H (70-110) mg/dL Microbiology - Last 24 Hours (Table) 02/22/23 20:00 Blood Culture - Preliminary Blood 02/22/23 19:45 Blood Culture - Preliminary Blood
[2023-02-25 17:18] LABS: Glucose,Whole Blood 275 mg/dL (70-110)
[2023-02-25] MEDS: TAMSULOSIN 0.4 MG CAP.ER.24H PO SCH (19:51)
[2023-02-25] MEDS: ATORVASTATIN 10 MG TAB PO SCH (19:52)
[2023-02-25] MEDS: METOPROLOL SUCCINATE (ER) 25 MG TAB.ER.24H PO SCH (19:52)
[2023-02-25 20:38] LABS: Glucose,Whole Blood 253 mg/dL (70-110)
[2023-02-25] MEDS: MONTELUKAST 10 MG TAB PO SCH (20:44)
[2023-02-25] MEDS: FAMOTIDINE 20 MG TAB PO SCH (20:44)
[2023-02-26] MEDS: LACTATED RINGERS 1,000 ML IV SCH ×3 (04:19→23:03)
[2023-02-26 08:33] LABS: Glucose,Whole Blood 156 mg/dL (70-110)
[2023-02-26] MEDS: APIXABAN 5 MG TAB PO SCH ×2 (08:36→21:07)
[2023-02-26] MEDS: FLUoxetine HCL 20 MG CAP PO SCH (08:36)
[2023-02-26] MEDS: CHOLECALCIFEROL 25 MCG (1000 IU) TABLET PO SCH (08:36)
[2023-02-26] MEDS: DIVALPROEX 500 MG TABLET.DR PO SCH ×2 (08:36→21:07)
[2023-02-26] MEDS: LEVOTHYROXINE 25 MCG TAB PO SCH (08:36)
[2023-02-26] MEDS: INSULIN ASPART (NovoLOG) 100 UNIT/ML VIAL SQ SCH ×4 (08:36→20:54)
[2023-02-26] MEDS: FOLIC ACID-VIT B COMPLEX-VIT C 1 CAP PO SCH (08:37)
[2023-02-26] MEDS: NALTREXONE HCL 50 MG TAB PO SCH (08:37)
[2023-02-26] MEDS: guanFACINE 1 MG TAB PO SCH (08:37)
[2023-02-26] MEDS: risperiDONE 1 MG TAB PO SCH (08:37)
[2023-02-26 12:18] LABS: Glucose,Whole Blood 209 mg/dL (70-110)
--- NOTE | 2023-02-26 14:48 | P.PN ---
Subjective Progress Note Date: 02/26/23 No new complaints. Pt doing well today on room air. Pending SNF placement Gen: awake, alert HEENT: normocephalic, atraumatic, good hearing acuity, moist mucous membranes Resp: good air exchange, breathing comfortably with no accessory muscle use CVS: good distal perfusion x 4, GI: soft, NTTP, ND : no SPT, no CVAT, rios catheter not present MSK: no pitting edema, no clubbing Neuro: non-focal, moving all extremities Psych: cooperative, euthymic mood Hospital Course: Patient is a 58-year-old male with developmental delay, type II DM, hypertension, hyperlipidemia, hypothyroidism, and GERD who was brought to the emergency room via EMS from [facility] due to cough and shortness of breath. Upon arrival at the emergency room, the patient's SpO2 was 91% on room air with a T- max of 100.2F. Chest x-ray revealed diffuse opacities concerning for atypical pneumonia versus pulmonary vascular congestion. EKG revealed sinus tachycardia to 114 bpm as reviewed by me. Laboratory evaluation was remarkable for lactic acidosis of 2.1, leukocytosis of 13.4, with UA showing 43 WBCs. Patient was treated with ceftriaxone and azithromycin. He improved quickly with antibiotics, and appeared to be baseline by following day. He was subsequently discharged back to [facility] home with a total of 5 days of antibiotic therapy by mouth with cefdinir/azithromycin. Sepsis secondary to community acquired pneumonia Acute hypoxic respiratory failure, secondary to above Lactic acidosis Chronic conditions: Developmental delay, type II DM, hypertension, hyperlipidemia, hypothyroidism, GERD Assessment/plan: Sepsis secondary to community acquired pneumonia Acute hypoxic respiratory failure, secondary to above - ceftriaxone/azithromycin - f/u BCX - NGTD - oxygen PRN - on room air - IVF Chronic conditions: Developmental delay, type II DM, hypertension, hyperlipidemia, hypothyroidism, GERD DVT prophylaxis: Eliquis The patient is admitted with an anticipated greater than 2 midnight stay for evaluation of CAP CODE STATUS: Full Code Discussed with: Patient Anticipated discharge place: [facility] Objective - Vital Signs Vital signs: Vital Signs Temp 98.2 F 02/26/23 12:08 Pulse 63 02/26/23 12:08 Resp 18 02/26/23 12:08 BP 135/78 02/26/23 12:08 Pulse Ox 95 02/26/23 12:08 FiO2 Intake & Output 02/25/23 02/26/23 02/26/23 18:59 06:59 18:59 Intake Total 480 Balance 480 Weight 63.503 kg Intake: Oral 480 Other: Voiding Method Diaper Diaper Incontinent Incontinent # Voids 1 2 1 # Bowel Movements 1 1 - Labs CBC & Chem 7: 02/24/23 06:28 02/24/23 06:28 Labs: Abnormal Lab Results - Last 24 Hours (Table) 02/25/23 02/25/23 02/26/23 Range/Units 17:17 20:36 08:31 POC Glucose (mg/dL) 275 H 253 H 156 H (70-110) mg/dL 02/26/23 Range/Units 12:16 POC Glucose (mg/dL) 209 H (70-110) mg/dL Microbiology - Last 24 Hours (Table) 02/22/23 20:00 Blood Culture - Preliminary Blood 02/22/23 19:45 Blood Culture - Preliminary Blood
[2023-02-26] MEDS: FERROUS SULFATE 325 MG TAB PO SCH (15:31)
[2023-02-26] MEDS: risperiDONE 2 MG TAB PO SCH (15:31)
[2023-02-26 17:43] LABS: Glucose,Whole Blood 205 mg/dL (70-110)
[2023-02-26 20:43] LABS: Glucose,Whole Blood 143 mg/dL (70-110)
[2023-02-26] MEDS: TAMSULOSIN 0.4 MG CAP.ER.24H PO SCH (21:06)
[2023-02-26] MEDS: FAMOTIDINE 20 MG TAB PO SCH (21:06)
[2023-02-26] MEDS: ATORVASTATIN 10 MG TAB PO SCH (21:07)
[2023-02-26] MEDS: METOPROLOL SUCCINATE (ER) 25 MG TAB.ER.24H PO SCH (21:07)
[2023-02-26] MEDS: CEFDINIR 300 MG CAP PO SCH (21:07)
[2023-02-26] MEDS: MONTELUKAST 10 MG TAB PO SCH (21:15)
[2023-02-27 07:40] LABS: Glucose,Whole Blood 136 mg/dL (70-110)
[2023-02-27] MEDS: INSULIN ASPART (NovoLOG) 100 UNIT/ML VIAL SQ SCH ×4 (07:47→20:43)
[2023-02-27] MEDS: APIXABAN 5 MG TAB PO SCH ×2 (10:15→19:55)
[2023-02-27] MEDS: FLUoxetine HCL 20 MG CAP PO SCH (10:16)
[2023-02-27] MEDS: DIVALPROEX 500 MG TABLET.DR PO SCH ×2 (10:16→19:55)
[2023-02-27] MEDS: CHOLECALCIFEROL 25 MCG (1000 IU) TABLET PO SCH (10:16)
[2023-02-27] MEDS: LEVOTHYROXINE 25 MCG TAB PO SCH (10:16)
[2023-02-27] MEDS: FOLIC ACID-VIT B COMPLEX-VIT C 1 CAP PO SCH (10:16)
[2023-02-27] MEDS: CEFDINIR 300 MG CAP PO SCH (10:16)
[2023-02-27] MEDS: risperiDONE 1 MG TAB PO SCH (10:17)
[2023-02-27] MEDS: guanFACINE 1 MG TAB PO SCH (10:17)
[2023-02-27] MEDS: NALTREXONE HCL 50 MG TAB PO SCH (10:17)
--- NOTE | 2023-02-27 10:35 | P.PN ---
Subjective Progress Note Date: 02/27/23 No new complaints. Pt doing well today on room air. Pending SNF placement Gen: awake, alert HEENT: normocephalic, atraumatic, good hearing acuity, moist mucous membranes Resp: good air exchange, breathing comfortably with no accessory muscle use CVS: good distal perfusion x 4, GI: soft, NTTP, ND : no SPT, no CVAT, rios catheter not present MSK: no pitting edema, no clubbing Neuro: non-focal, moving all extremities Psych: cooperative, euthymic mood Hospital Course: Patient is a 58-year-old male with developmental delay, type II DM, hypertension, hyperlipidemia, hypothyroidism, and GERD who was brought to the emergency room via EMS from [facility] due to cough and shortness of breath. Upon arrival at the emergency room, the patient's SpO2 was 91% on room air with a T- max of 100.2F. Chest x-ray revealed diffuse opacities concerning for atypical pneumonia versus pulmonary vascular congestion. EKG revealed sinus tachycardia to 114 bpm as reviewed by me. Laboratory evaluation was remarkable for lactic acidosis of 2.1, leukocytosis of 13.4, with UA showing 43 WBCs. Patient was treated with ceftriaxone and azithromycin. He improved quickly with antibiotics, and appeared to be baseline by following day. He was subsequently discharged back to [facility] home with a total of 5 days of antibiotic therapy by mouth with cefdinir/azithromycin. Sepsis secondary to community acquired pneumonia Acute hypoxic respiratory failure, secondary to above Lactic acidosis Chronic conditions: Developmental delay, type II DM, hypertension, hyperlipidemia, hypothyroidism, GERD Assessment/plan: Sepsis secondary to community acquired pneumonia Acute hypoxic respiratory failure, secondary to above - ceftriaxone/azithromycin - f/u BCX - NGTD - oxygen PRN - on room air - IVF Chronic conditions: Developmental delay, type II DM, hypertension, hyperlipidemia, hypothyroidism, GERD DVT prophylaxis: Eliquis The patient is admitted with an anticipated greater than 2 midnight stay for evaluation of CAP CODE STATUS: Full Code Discussed with: Patient Anticipated discharge place: [facility] Objective - Vital Signs Vital signs: Vital Signs Temp 97.6 F 02/27/23 07:32 Pulse 73 02/27/23 07:32 Resp 17 02/27/23 07:32 BP 125/72 02/27/23 07:32 Pulse Ox 98 02/27/23 08:00 FiO2 Intake & Output 02/26/23 02/27/23 02/27/23 18:59 06:59 18:59 Intake Total 540 Balance 540 Intake: Oral 540 Other: Voiding Method Diaper Diaper Diaper Incontinent Incontinent Incontinent # Voids 2 2 # Bowel Movements 2 1 - Labs CBC & Chem 7: 02/24/23 06:28 02/24/23 06:28 Labs: Abnormal Lab Results - Last 24 Hours (Table) 02/26/23 02/26/23 02/26/23 Range/Units 12:16 17:38 20:32 POC Glucose (mg/dL) 209 H 205 H 143 H (70-110) mg/dL 02/27/23 Range/Units 07:38 POC Glucose (mg/dL) 136 H (70-110) mg/dL
[2023-02-27] MEDS: LACTATED RINGERS 1,000 ML IV SCH ×2 (10:40→20:44)
[2023-02-27 12:09] LABS: Glucose,Whole Blood 313 mg/dL (70-110)
[2023-02-27 12:57] VITALS: RESP 16
[2023-02-27] MEDS: FERROUS SULFATE 325 MG TAB PO SCH (16:10)
[2023-02-27] MEDS: risperiDONE 2 MG TAB PO SCH (16:10)
[2023-02-27 17:15] LABS: Glucose,Whole Blood 143 mg/dL (70-110)
[2023-02-27] MEDS: MONTELUKAST 10 MG TAB PO SCH (19:55)
[2023-02-27] MEDS: TAMSULOSIN 0.4 MG CAP.ER.24H PO SCH (19:55)
[2023-02-27] MEDS: FAMOTIDINE 20 MG TAB PO SCH (19:55)
[2023-02-27] MEDS: METOPROLOL SUCCINATE (ER) 25 MG TAB.ER.24H PO SCH (19:55)
[2023-02-27] MEDS: ATORVASTATIN 10 MG TAB PO SCH (19:55)
[2023-02-27 20:35] LABS: Glucose,Whole Blood 251 mg/dL (70-110)
[2023-02-28 07:49] LABS: Glucose,Whole Blood 126 mg/dL (70-110)
[2023-02-28] MEDS: INSULIN ASPART (NovoLOG) 100 UNIT/ML VIAL SQ SCH ×2 (08:13→12:18)
[2023-02-28] MEDS: DIVALPROEX 500 MG TABLET.DR PO SCH (08:13)
[2023-02-28] MEDS: FOLIC ACID-VIT B COMPLEX-VIT C 1 CAP PO SCH (08:14)
[2023-02-28] MEDS: APIXABAN 5 MG TAB PO SCH (08:14)
[2023-02-28] MEDS: FLUoxetine HCL 20 MG CAP PO SCH (08:20)
[2023-02-28] MEDS: LEVOTHYROXINE 25 MCG TAB PO SCH (08:22)
[2023-02-28] MEDS: NALTREXONE HCL 50 MG TAB PO SCH (08:23)
[2023-02-28] MEDS: risperiDONE 1 MG TAB PO SCH (08:23)
[2023-02-28] MEDS: guanFACINE 1 MG TAB PO SCH (08:23)
[2023-02-28] MEDS: CHOLECALCIFEROL 25 MCG (1000 IU) TABLET PO SCH (08:23)
[2023-02-28 12:13] LABS: Glucose,Whole Blood 199 mg/dL (70-110)
[2023-02-28 13:34] VITALS: BP 110/71; PULSE 81; TEMP 97.2
--- NOTE | 2023-02-28 14:05 | P.DS ---
Providers Date of admission: 02/22/23 22:24 Expected date of discharge: 02/28/23 Attending physician: Chu Raphael MD Primary care physician: Esequiel Azar MD Hospital Course: Patient is a 58-year-old male with developmental delay, type II DM, hypertension, hyperlipidemia, hypothyroidism, and GERD who was brought to the emergency room via EMS from [facility] due to cough and shortness of breath. Upon arrival at the emergency room, the patient's SpO2 was 91% on room air with a T- max of 100.2F. Chest x-ray revealed diffuse opacities concerning for atypical pneumonia versus pulmonary vascular congestion. EKG revealed sinus tachycardia to 114 bpm as reviewed by me. Laboratory evaluation was remarkable for lactic acidosis of 2.1, leukocytosis of 13.4, with UA showing 43 WBCs. Patient was treated with ceftriaxone and azithromycin. He improved quickly with antibiotics, and appeared to be baseline by following day. He was subsequently discharged back to [facility] home with a total of 5 days of antibiotic therapy by mouth with cefdinir/azithromycin. Initially discharge held due to bed availability at [facility]. 02/28 Patient was seen and examined. Nursing reports no complaints. Farideh Gill accepted the patient. Pertient studies include CXR. General: non toxic, no distress, appears at stated age Derm: warm, dry Head: atraumatic, normocephalic, symmetric Eyes: EOMI, no lid lag, anicteric sclera Cardiovascular: Good distal perfusion in all 4 extremities. Lungs: Breathing comfortably, no accessory muscle use Ext: no gross muscle atrophy, no edema, no contractures Neuro: no focal neuro deficits Psych: Alert, oriented, appropriate affect Discharge Diagnosis: Sepsis secondary to community acquired pneumonia Acute hypoxic respiratory failure, secondary to above Lactic acidosis Chronic conditions: Developmental delay, type II DM, hypertension, hyperlipidemia, hypothyroidism, GERD This complex discharge took 35 minutes to complete. Patient Condition at Discharge: Stable Plan - Discharge Summary Discharge Rx Participant: No New Discharge Prescriptions: New Cefdinir 300 mg PO Q12HR 4 Days #8 cap Azithromycin [Zithromax] 500 mg PO DAILY 4 Days #8 tab Continue Levothyroxine Sodium [Synthroid] 25 mcg PO DAILY@0800 FLUoxetine HCL [PROzac] 40 mg PO DAILY@0800 Naltrexone HCl [Revia] 50 mg PO DAILY@0800 Ferrous Sulfate [Iron] 325 mg PO DAILY@1600 Montelukast Sodium [Singulair] 10 mg PO HS@1999 guanFACINE HCL [Intuniv] 3 mg PO DAILY@0800 Apixaban [Eliquis] 5 mg PO BID@0800,1999 Lovastatin [Mevacor] 40 mg PO HS@1999 Famotidine [Pepcid] 20 mg PO HS@1999 Vitamin B Complex 1 cap PO DAILY@0800 Bismuth Subsalicylate [Pepto-Bismol] 262 mg PO DAILY PRN PRN Reason: Indigestion Magnesium Hydroxide [Milk of Magnesia] 2,400 mg PO DAILY PRN PRN Reason: Constipation Ibuprofen [Motrin Ib] 400 mg PO TID PRN PRN Reason: Pain diphenhydrAMINE [Benadryl] 50 mg PO Q4H PRN PRN Reason: Allergy Symptoms Loperamide HCl [Imodium A-D] 2 - 4 mg PO QID PRN PRN Reason: Diarrhea Metoprolol Succinate (ER) [Toprol XL] 25 mg PO HS@1999 Divalproex [Depakote] 1,000 mg PO BID@0800,1999 #0 metFORMIN HCL ER [Glucophage XR] 1,000 mg PO DAILY@0800 Tamsulosin [Flomax] 0.4 mg PO HS@1999 Psyllium Husk (with Sugar) [Metamucil Powder] 6 gm PO DAILY PRN PRN Reason: Constipation guaiFENesin-DM 100-10MG/5ML [Robitussin DM] 15 ml PO Q6H PRN PRN Reason: Cough Docusate [Colace] 100 mg PO HS PRN PRN Reason: Constipation Budesonide 0.5 mg INHALATION RT-BID PRN PRN Reason: Shortness Of Breath Acetaminophen Tab [Tylenol] 650 mg PO Q6H PRN PRN Reason: Fever And/ Or Pain Thick-It 1 dose PO TID PRN PRN Reason: all liquids risperiDONE [RisperDAL] 1 mg PO DAILY@0800 #3 tab risperiDONE [RisperDAL] 2 mg PO DAILY@1600 #3 tab Cholecalciferol [Vitamin D3 (25 Mcg = 1000 Iu)] 25 mcg PO DAILY@0800 Pseudoephedrine HCl [Sudafed] 60 mg PO Q4H MDD 240 MG Discontinued Cephalexin [Keflex] 1,000 mg PO Q12HR Discharge Medication List Levothyroxine Sodium [Synthroid] 25 mcg PO DAILY@79907/13/14 [History] FLUoxetine HCL [PROzac] 40 mg PO DAILY@79906/22/16 [History] Naltrexone HCl [Revia] 50 mg PO DAILY@0807/11/18 [History] Ferrous Sulfate [Iron] 325 mg PO DAILY@1600 08/23/18 [History] Montelukast Sodium [Singulair] 10 mg PO HS@199905/25/20 [History] guanFACINE HCL [Intuniv] 3 mg PO DAILY@79905/25/20 [History] Apixaban [Eliquis] 5 mg PO BID@03/18/22 [History] Tamsulosin [Flomax] 0.4 mg PO HS@199903/18/22 [History] Famotidine [Pepcid] 20 mg PO HS@199908/18/22 [History] Lovastatin [Mevacor] 40 mg PO HS@199908/18/22 [History] Vitamin B Complex 1 cap PO DAILY@79908/18/22 [History] Acetaminophen Tab [Tylenol] 650 mg PO Q6H PRN 12/03/22 [History] Bismuth Subsalicylate [Pepto-Bismol] 262 mg PO DAILY PRN 12/03/22 [History] Budesonide 0.5 mg INHALATION RT-BID PRN 12/03/22 [History] Docusate [Colace] 100 mg PO HS PRN 12/03/22 [History] Ibuprofen [Motrin Ib] 400 mg PO TID PRN 12/03/22 [History] Loperamide HCl [Imodium A-D] 2 - 4 mg PO QID PRN 12/03/22 [History] Magnesium Hydroxide [Milk of Magnesia] 2,400 mg PO DAILY PRN 12/03/22 [History] Metoprolol Succinate (ER) [Toprol XL] 25 mg PO HS@199912/03/22 [History] Psyllium Husk (with Sugar) [Metamucil Powder] 6 gm PO DAILY PRN 12/03/22 [History] Thick-It 1 dose PO TID PRN 12/03/22 [History] diphenhydrAMINE [Benadryl] 50 mg PO Q4H PRN 12/03/22 [History] guaiFENesin-DM 100-10MG/5ML [Robitussin DM] 15 ml PO Q6H PRN 12/03/22 [History] risperiDONE [RisperDAL] 1 mg PO DAILY@0800 #3 tab 12/10/22 [Rx] risperiDONE [RisperDAL] 2 mg PO DAILY@1600 #3 tab 12/10/22 [Rx] Cholecalciferol [Vitamin D3 (25 Mcg = 1000 Iu)] 25 mcg PO DAILY@0800 01/20/23 [History] Pseudoephedrine HCl [Sudafed] 60 mg PO Q4H MDD 240 MG 01/20/23 [History] Divalproex [Depakote] 1,000 mg PO BID@0800,1999 #0 01/23/23 [Rx] metFORMIN HCL ER [Glucophage XR] 1,000 mg PO DAILY@0800 02/22/23 [History] Azithromycin [Zithromax] 500 mg PO DAILY 4 Days #8 tab 02/24/23 [Rx] Cefdinir 300 mg PO Q12HR 4 Days #8 cap 02/24/23 [Rx] Follow up Appointment(s)/Referral(s): Nonstaff,Physician [REFERRING] - 1-2 Days Discharge Disposition: OTHER INSTITUTION NOT DEFINED
== END 2023-02-28 15:12 | DRG 871 ==
LOC: EC 19:42 → 5NMEDONC 22:24
PROVIDERS: ADMIT Internal Medicine; ATTEND Internal Medicine
DX: A41.9 Sepsis, unspecified organism (principal); J18.9 Pneumonia, unspecified organism; J96.01 Acute respiratory failure with hypoxia; F84.0 Autistic disorder; N39.0 Urinary tract infection, site not specified; E87.20 Acidosis, unspecified; E11.9 Type 2 diabetes mellitus without complications; E03.9 Hypothyroidism, unspecified; E78.5 Hyperlipidemia, unspecified; F41.9 Anxiety disorder, unspecified; F42.9 Obsessive-compulsive disorder, unspecified; F79 Unspecified intellectual disabilities; F90.9 Attention-deficit hyperactivity disorder, unspecified type; I10 Essential (primary) hypertension; K21.9 Gastro-esophageal reflux disease without esophagitis; Z79.01 Long term (current) use of anticoagulants; Z79.84 Long term (current) use of oral hypoglycemic drugs; Z79.890 Hormone replacement therapy; Z79.899 Other long term (current) drug therapy; Z83.3 Family history of diabetes mellitus; Z86.711 Personal history of pulmonary embolism; Z11.52 Encounter for screening for COVID-19; Z71.3 Dietary counseling and surveillance; Z87.01 Personal history of pneumonia (recurrent)
CPT/HCPCS: 36415; 71045; 80048; 80053; 81001; 83036; 83605; 83880; 84484; 85025; 85027; 85610; 85730; 87040; 87086; 87449; 87636; 93005; 94640; 94760; 96361; 96365; 96367; 99285